=== PATIENT | male | born 1965 | race Caucasian/White ===

== ENCOUNTER 2022-12-16 09:25 | Emergency (ER) | payer OTHER ==
--- OUTSIDE RECORDS SUMMARY | 2022-12-16 09:43 | XMS REPORT | Continuity of Care Document ---
:1965 Author Organization [facility] t Address [address] [place] [address] Care Team Providers Name Role Phone Leonid Pineda Primary Care Physician KANG MCGILL Attending Clinician Unavailable GELACIO MAYERS Attending Clinician Unavailable DARRION SHEEHAN Attending Clinician Unavailable DARRION SHEEHAN Attending Clinician Unavailable Jose Medeiros Attending Clinician Unavailable Gelacio Mayers MD Attending Clinician Kang Mcgill MD Attending Clinician Miguel Dill Attending Clinician Doctor Unassigned, [place] Attending Clinician Unavailable Renae Villarreal DO Attending Clinician RENAE VILLARREAL Attending Clinician Unavailable RENAE VILLARREAL Attending Clinician Unavailable Vtc-Lab Attending Clinician Unavailable Dex Merino [facility] Attending Clinician Unavailable JACQUES SOSA Attending Clinician Unavailable Pob, Adc Lab Main Attending Clinician Unavailable Claudy Jung MD Attending Clinician 2, [facility] Lab Attending Clinician Unavailable Therapist, Adc Respiratory Attending Clinician Unavailable Only, Adc Test Attending Clinician Unavailable Frank Chaney Attending Clinician Jose Medeiros Admitting Clinician Unavailable [facility] Admitting Clinician Unavailable Frank Chaney Admitting Clinician Payers Payer Name Policy Type Policy Number Effective Date Expiration Date S rocio [facility] [id number] 2020 PPO 00:00:00 Problems Condition Condition Condition Status Onset Resolution Last Treating Co mments Source Name Details Category Date Date Treatment Clinician Date Closed Closed Disease Active Univers fracture fracture -26 [place]y of of [place] 00 Medical left left Branch radius and radius and ulna with ulna with routine routine healing healing ISCHEMIC ISCHEMIC Diagnosis Active 2016-07-06 Memoria STROKE STROKE 1-12 16:59:00 l Active 00:00: [place] 07/05/2016 00 [facility] [place] Right Right Disease Active 2014-06 Univers wrist wrist 2-15 ity of injury injury 00:00: [address] Allergies, Adverse Reactions, Alerts Allergy Allergy Status Severity Reaction(s) Onset Inactive Treating Comm ents Source Name Type Date Date Clinician No Known DA Active [facility] Allergie 2-10 [place] 00:[place]: [address] NO KNOWN Drug Active Univers ALLERGIE Class ity of S [facility] Social History Social Habit Start Date Stop Date Quantity Comments Source Cigarettes smoked 2022-11-14 2022-11-14 Univers ity of current (pack per 00:00:00 00:00:00 ) - Reported Branch Tobacco use and 2022-11-14 2022-11-14 Smokeless Universit y of exposure 00:00:00 00:00:00 tobacco non-user [facility] intake 2022-11-14 2022-11-14 4 /d University of 00:00:00 00:00:00 [facility] Exposure to 2022-10-29 2022-11-08 Not sure University of SARS-CoV-2 (event) 00:00:00 08:07:00 [facility] History of tobacco 2021-07-21 Cigarette Smoker University of use 00:00:00 [facility] Social History 2016-07-05 2016-07-05 [facility] Aysha sanchez 19:41:19 19:41:19 Sex [birth year] Universit y of 00:00:00 00:00:00 [facility] Smoking Status Start Date Stop Date Source Ex-smoker 2022-11-14 00:00:00 2022-11-14 00:00:00 [facility] Smokes tobacco daily 2015-06-07 00:00:00 [facility] Medications Ordered Filled Start Stop Current Ordering Indication Dosage Frequency Signature Comments Components Source Medication Medication Date Date Medication? Clinician (SIG) Name Name losartan 50 2022-0 Yes 50mg Take 1 Univ ers mg tablet 5-18 tablet by ity o f 08:33: mouth in [place] [address] the Medical morning. Branch losartan 50 3-0 Yes 50mg Take 1 Univ ers mg tablet 5-18 tablet by ity o f 08:33: mouth in [place] [address] the Medical morning. Branch losartan 50 3-0 Yes 50mg Take 1 Univ ers mg tablet 5-18 tablet by ity o f 08:33: mouth in [place] [address] the Medical morning. Branch losartan 50 3-0 Yes 50mg Take 1 Univ ers mg tablet 5-18 tablet by ity o f 08:33: mouth in [place] [address] the Medical morning. Branch losartan 50 3-0 Yes 50mg Take 1 Univ ers mg tablet 5-18 tablet by ity o f 08:33: mouth in [place] [address] the Medical morning. Branch losartan 50 2023-0 Yes 50mg Take 1 Univ ers mg tablet 5-18 tablet by ity o f 08:33: mouth in [place] [address] the Medical morning. Branch losartan 50 2023-0 Yes 50mg Take 1 Univ ers mg tablet 5-18 tablet by ity o f 08:33: mouth in [place] [address] the Medical morning. Branch losartan 50 2023-0 Yes 50mg Take 1 Univ ers mg tablet 5-18 tablet by ity o f 08:33: mouth in [place] [address] the Medical morning. Branch losartan 50 2023-0 Yes 50mg Take 1 Univ ers mg tablet 5-18 tablet by ity o f 08:33: mouth in [place] [address] the Medical morning. Branch losartan 50 2023-0 Yes 50mg Take 1 Univ ers mg tablet 5-18 tablet by ity o f 08:33: mouth in [place] 55 the Medical morning. Branch losartan 50 3-0 Yes 50mg Take 1 Univ ers mg tablet 5-18 tablet by ity o f 08:33: mouth in [place] 55 the Medical morning. Branch pantoprazol 3-0 Yes [id number] 40mg Take 1 Univers e 5-18 tablet by ity of (PROTONIX) 00:00: mouth in [place] as 40 mg EC 00 the Medical tablet morning. Branch pantoprazol 2023-0 Yes [id number] 40mg Take 1 Univers e 5-18 tablet by ity of (PROTONIX) 00:00: mouth in [place] as 40 mg EC 00 the Medical tablet morning. Branch pantoprazol 2023-0 Yes [id number] 40mg Take 1 Univers e 5-18 tablet by ity of (PROTONIX) 00:00: mouth in [place] 40 mg EC 00 the Medical tablet morning. Branch pantoprazol 3-0 Yes [id number] 40mg Take 1 Univers e 5-18 tablet by ity of (PROTONIX) 00:00: mouth in [place] 40 mg EC 00 the Medical tablet morning. Branch pantoprazol 3-0 Yes [id number] 40mg Take 1 Univers e 5-18 tablet by ity of (PROTONIX) 00:00: mouth in [place] 40 mg [place] 00 the Medical tablet morning. Branch pantoprazol 3-0 Yes [id number] 40mg Take 1 Univers e 5-18 tablet by ity of (PROTONIX) 00:00: mouth in [place] as 40 mg EC 00 the Medical tablet morning. Branch pantoprazol 2023-0 Yes [id number] 40mg Take 1 Univers e 5-18 tablet by ity of (PROTONIX) 00:00: mouth in [place] 40 mg EC 00 the Medical tablet morning. Branch pantoprazol 3-0 Yes [id number] 40mg Take 1 Univers e 5-18 tablet by ity of (PROTONIX) 00:00: mouth in [place] 40 mg EC 00 the Medical tablet morning. Branch pantoprazol 2023-0 Yes [id number] 40mg Take 1 Univers e 5-18 tablet by ity of (PROTONIX) 00:00: mouth in [place] as 40 mg EC 00 the Medical tablet morning. Branch pantoprazol 2023-0 Yes [id number] 40mg Take 1 Univers e 5-18 tablet by ity of (PROTONIX) 00:00: mouth in [facility] as 40 mg EC 00 the Medical tablet morning. Branch pantoprazol 2022-0 Yes [id number] 40mg Take 1 Univers e 5-18 tablet by ity of (PROTONIX) 00:00: mouth in [facility] as 40 mg EC 00 the Medical tablet morning. Branch ambrisentan 2022-0 Yes [id number] 10mg Take 1 Univers 10 mg 4-17 tablet by ity of tablet 00:00: mouth in [place] the Medical morning. Branch ambrisentan 2022-0 Yes [id number] 10mg Take 1 Univers 10 mg 4-17 tablet by ity of tablet 00:00: mouth in [place] the Medical morning. Branch ambrisentan 2022-0 Yes [id number] 10mg Take 1 Univers 10 mg 4-17 tablet by ity of tablet 00:00: mouth in [place] the Medical morning. Branch ambrisentan 2022-0 Yes [id number] 10mg Take 1 Univers 10 mg 4-17 tablet by ity of tablet 00:00: mouth in [place] the Medical morning. Branch ambrisentan 2022-0 Yes [id number] 10mg Take 1 Univers 10 mg 4-17 tablet by ity of tablet 00:00: mouth in [place] the Medical morning. Branch ambrisentan 2022-0 Yes [id number] 10mg Take 1 Univers 10 mg 4-17 tablet by ity of tablet 00:00: mouth in [place] the Medical morning. Branch ambrisentan 2022-0 Yes [id number] 10mg Take 1 Univers 10 mg 4-17 tablet by ity of tablet 00:00: mouth in [place] the Medical morning. Branch ambrisentan 2022-0 Yes [id number] 10mg Take 1 Univers 10 mg 4-17 tablet by ity of tablet 00:00: mouth in [place] the Medical morning. Branch ambrisentan 2022-0 Yes [id number] 10mg Take 1 Univers 10 mg 4-17 tablet by ity of tablet 00:00: mouth in [place] the Medical morning. Branch ambrisentan 2022-0 Yes [id number] 10mg Take 1 Univers 10 mg 4-17 tablet by ity of tablet 00:00: mouth in [place] the Medical morning. Branch ambrisentan 2022-0 Yes [id number] 10mg Take 1 Univers 10 mg 4-17 tablet by ity of tablet 00:00: mouth in [place] the Medical morning. Branch ambrisentan 3-0 Yes [id number] 10mg Take 1 Univers 10 mg 4-17 tablet by ity of tablet 00:00: mouth in [place] the Medical morning. Branch ambrisentan 3-0 Yes [id number] 10mg Take 1 Univers 10 mg 4-17 tablet by ity of tablet 00:00: mouth in [place] the Medical morning. Branch ambrisentan 3-0 Yes [id number] 10mg Take 1 Univers 10 mg 4-17 tablet by ity of tablet 00:00: mouth in [place] the Medical morning. Branch ambrisentan 3-0 Yes [id number] 10mg Take 1 Univers 10 mg 4-17 tablet by ity of tablet 00:00: mouth in [place] the Medical morning. Branch ambrisentan 2022-0 Yes [id number] 10mg Take 1 Univers 10 mg 4-17 tablet by ity of tablet 00:00: mouth in [place] the Medical morning. Branch ambrisentan 2022-0 Yes [id number] 10mg Take 1 Univers 10 mg 4-17 tablet by ity of tablet 00:00: mouth in [place] the Medical morning. Branch ambrisentan 2022-0 Yes [id number] 10mg Take 1 Univers 10 mg 4-17 tablet by ity of tablet 00:00: mouth in [place] the Medical morning. Branch ambrisentan 3-0 Yes [id number] 10mg Take 1 Univers 10 mg 4-17 tablet by ity of tablet 00:00: mouth in [place] the Medical morning. Branch ambrisentan 3-0 Yes [id number] 10mg Take 1 Univers 10 mg 4-17 tablet by ity of tablet 00:00: mouth in [place] the Medical morning. Branch ambrisentan 3-0 Yes [id number] 10mg Take 1 Univers 10 mg 4-17 tablet by ity of tablet 00:00: mouth in [place] the Medical morning. Branch ambrisentan 3-0 Yes [id number] 10mg Take 1 Univers 10 mg 4-17 tablet by ity of tablet 00:00: mouth in [place] the Medical morning. Branch ambrisentan 3-0 Yes [id number] 10mg Take 1 Univers 10 mg 4-17 tablet by ity of tablet 00:00: mouth in [place] the Medical morning. Branch ambrisentan 3-0 Yes [id number] 10mg Take 1 Univers 10 mg 4-17 tablet by ity of tablet 00:00: mouth in [place] the Medical morning. Branch ambrisentan 3-0 Yes [id number] 10mg Take 1 Univers 10 mg 4-17 tablet by ity of tablet 00:00: mouth in [place] the Medical morning. Branch ambrisentan 3-0 Yes [id number] 10mg Take 1 Univers 10 mg 4-17 tablet by ity of tablet 00:00: mouth in [place] the Medical morning. Branch ambrisentan 3-0 Yes [id number] 10mg Take 1 Univers 10 mg 4-17 tablet by ity of tablet 00:00: mouth in [place] the Medical morning. Branch ambrisentan 3-0 Yes [id number] 10mg Take 1 Univers 10 mg 4-17 tablet by ity of tablet 00:00: mouth in [place] the Medical morning. Branch ambrisentan 3-0 Yes [id number] 10mg Take 1 Univers 10 mg 4-17 tablet by ity of tablet 00:00: mouth in [place] the Medical morning. Branch ambrisentan 3-0 Yes [id number] 10mg Take 1 Univers 10 mg 4-17 tablet by ity of tablet 00:00: mouth in [place] the Medical morning. Branch ambrisentan 3-0 Yes [id number] 10mg Take 1 Univers 10 mg 4-17 tablet by ity of tablet 00:00: mouth in [place] the Medical morning. Branch ambrisentan 3-0 Yes [id number] 5mg Take 1 Univers 5 mg tablet 3-13 tablet by ity of 00:00: mouth in [place] the Medical morning. Branch ambrisentan 2023-0 Yes [id number] 5mg Take 1 Univers 5 mg tablet 3-13 tablet by ity of 00:00: mouth in [place] 00 the Medical morning. Branch ambrisentan 2023-0 Yes [id number] 5mg Take 1 Univers 5 mg tablet 3-13 tablet by ity of 00:00: mouth in [place] 00 the Medical morning. Branch ambrisentan 2023-0 Yes [id number] 5mg Take 1 Univers 5 mg tablet 3-13 tablet by ity of 00:00: mouth in [place] the Medical morning. Branch ambrisentan 2023-0 Yes [id number] 5mg Take 1 Univers 5 mg tablet 3-13 tablet by ity of 00:00: mouth in [place] the Medical morning. Branch ambrisentan 2023-0 Yes [id number] 5mg Take 1 Univers 5 mg tablet 3-13 tablet by ity of 00:00: mouth in [place] the Medical morning. Branch ambrisentan 2023-0 Yes [id number] 5mg Take 1 Univers 5 mg tablet 3-13 tablet by ity of 00:00: mouth in [place] the Medical morning. Branch ambrisentan 2023-0 Yes [id number] 5mg Take 1 Univers 5 mg tablet 3-13 tablet by ity of 00:00: mouth in [place] the Medical morning. Branch ambrisentan 2023-0 Yes [id number] 5mg Take 1 Univers 5 mg tablet 3-13 tablet by ity of 00:00: mouth in [place] the Medical morning. Branch ambrisentan 2023-0 Yes [id number] 5mg Take 1 Univers 5 mg tablet 3-13 tablet by ity of 00:00: mouth in [place] the Medical morning. Branch ambrisentan 2023-0 Yes [id number] 5mg Take 1 Univers 5 mg tablet 3-13 tablet by ity of 00:00: mouth in [place] the Medical morning. Branch ambrisentan 2023-0 Yes [id number] 5mg Take 1 Univers 5 mg tablet 3-13 tablet by ity of 00:00: mouth in [place] the Medical morning. Branch ambrisentan 2023-0 Yes [id number] 5mg Take 1 Univers 5 mg tablet 3-13 tablet by ity of 00:00: mouth in [place] the Medical morning. Branch ambrisentan 2023-0 Yes [id number] 5mg Take 1 Univers 5 mg tablet 3-13 tablet by ity of 00:00: mouth in [place] the Medical morning. Branch ambrisentan 2023-0 Yes [id number] 5mg Take 1 Univers 5 mg tablet 3-13 tablet by ity of 00:00: mouth in [place] the Medical morning. Branch ambrisentan 2023-0 Yes [id number] 5mg Take 1 Univers 5 mg tablet 3-13 tablet by ity of 00:00: mouth in [place] the Medical morning. Branch ambrisentan 2023-0 Yes [id number] 5mg Take 1 Univers 5 mg tablet 3-13 tablet by ity of 00:00: mouth in [place] the Medical morning. Branch ambrisentan 2023-0 Yes [id number] 5mg Take 1 Univers 5 mg tablet 3-13 tablet by ity of 00:00: mouth in [place] the Medical morning. Branch ambrisentan 2023-0 Yes [id number] 5mg Take 1 Univers 5 mg tablet 3-13 tablet by ity of 00:00: mouth in [place] the Medical morning. Branch ambrisentan 2023-0 Yes [id number] 5mg Take 1 Univers 5 mg tablet 3-13 tablet by ity of 00:00: mouth in [place] the Medical morning. Branch ambrisentan 2023-0 Yes [id number] 5mg Take 1 Univers 5 mg tablet 3-13 tablet by ity of 00:00: mouth in [place] the Medical morning. Branch ambrisentan 2023-0 Yes [id number] 5mg Take 1 Univers 5 mg tablet 3-13 tablet by ity of 00:00: mouth in [place] the Medical morning. Branch ambrisentan 2023-0 Yes [id number] 5mg Take 1 Univers 5 mg tablet 3-13 tablet by ity of 00:00: mouth in [place] the Medical morning. Branch ambrisentan 2023-0 Yes [id number] 5mg Take 1 Univers 5 mg tablet 3-13 tablet by ity of 00:00: mouth in [place] the Medical morning. Branch ambrisentan 2023-0 Yes [id number] 5mg Take 1 Univers 5 mg tablet 3-13 tablet by ity of 00:00: mouth in [place] the Medical morning. Branch ambrisentan 2023-0 Yes [id number] 5mg Take 1 Univers 5 mg tablet 3-13 tablet by ity of 00:00: mouth in [place] the Medical morning. Branch ambrisentan 2023-0 Yes [id number] 5mg Take 1 Univers 5 mg tablet 3-13 tablet by ity of 00:00: mouth in [place] the Medical morning. Branch ambrisentan 2023-0 Yes [id number] 5mg Take 1 Univers 5 mg tablet 3-13 tablet by ity of 00:00: mouth in [place] 00 the Medical morning. Branch ambrisentan 2023-0 Yes [id number] 5mg Take 1 Univers 5 mg tablet 3-13 tablet by ity of 00:00: mouth in [place] the Medical morning. Branch ambrisentan 2023-0 Yes [id number] 5mg Take 1 Univers 5 mg tablet 3-13 tablet by ity of 00:00: mouth in [place] the Medical morning. Branch ambrisentan 2023-0 Yes [id number] 5mg Take 1 Univers 5 mg tablet 3-13 tablet by ity of 00:00: mouth in [place] the Medical morning. Branch ambrisentan 2023-0 Yes [id number] 5mg Take 1 Univers 5 mg tablet 3-13 tablet by ity of 00:00: mouth in [place] the Medical morning. Branch ambrisentan 2023-0 Yes [id number] 5mg Take 1 Univers 5 mg tablet 3-13 tablet by ity of 00:00: mouth in [place] the Medical morning. Branch ambrisentan 2023-0 Yes [id number] 5mg Take 1 Univers 5 mg tablet 3-13 tablet by ity of 00:00: mouth in [place] the Medical morning. Branch ambrisentan 2023-0 Yes [id number] 5mg Take 1 Univers 5 mg tablet 3-13 tablet by ity of 00:00: mouth in [place] the Medical morning. Branch ambrisentan 2023-0 Yes [id number] 5mg Take 1 Univers 5 mg tablet 3-13 tablet by ity of 00:00: mouth in [place] the Medical morning. Branch ambrisentan 2023-0 Yes [id number] 5mg Take 1 Univers 5 mg tablet 3-13 tablet by ity of 00:00: mouth in [place] the Medical morning. Branch ambrisentan 2023-0 Yes [id number] 5mg Take 1 Univers 5 mg tablet 3-13 tablet by ity of 00:00: mouth in [place] the Medical morning. Branch ambrisentan 2023-0 Yes [id number] 5mg Take 1 Univers 5 mg tablet 3-13 tablet by ity of 00:00: mouth in [place] the Medical morning. Branch ambrisentan 2023-0 Yes [id number] 5mg Take 1 Univers 5 mg tablet 3-13 tablet by ity of 00:00: mouth in [place] 00 the Medical morning. Branch ambrisentan 3-0 Yes [id number] 5mg Take 1 Univers 5 mg tablet 3-13 tablet by ity of 00:00: mouth in [place] 00 the Medical morning. Branch ambrisentan 3-0 Yes [id number] 5mg Take 1 Univers 5 mg tablet 3-13 tablet by ity of 00:00: mouth in [place] 00 the Medical morning. Branch ambrisentan 3-0 Yes [id number] 5mg Take 1 Univers 5 mg tablet 3-13 tablet by ity of 00:00: mouth in [place] 00 the Medical morning. Branch aspirin 325 2022-0 Yes 325mg Take 325 U nivers mg tablet 3-02 mg by ity of 09:45: mouth [place] 57 daily. Medical Branch aspirin 325 2022-0 Yes 325mg Take 325 U nivers mg tablet 3-02 mg by ity of 09:45: mouth [place] 57 daily. Medical Branch aspirin 325 2022-0 Yes 325mg Take 325 U nivers mg tablet 3-02 mg by ity of 09:45: mouth [place] 57 daily. Medical Branch aspirin 325 2022-0 Yes 325mg Take 325 U nivers mg tablet 3-02 mg by ity of 09:45: mouth [place] 57 daily. Medical Branch aspirin 325 2022-0 Yes 325mg Take 325 U nivers mg tablet 3-02 mg by ity of 09:45: mouth [place] 57 daily. Medical Branch aspirin 325 2022-0 Yes 325mg Take 325 U nivers mg tablet 3-02 mg by ity of 09:45: mouth [place] 57 daily. Medical Branch aspirin 325 3-0 Yes 325mg Take 325 U nivers mg tablet 3-02 mg by ity of 09:45: mouth [place] 57 daily. Medical Branch aspirin 325 2022-0 Yes 325mg Take 325 U nivers mg tablet 3-02 mg by ity of 09:45: mouth [place] 57 daily. Medical Branch aspirin 325 3-0 Yes 325mg Take 325 U nivers mg tablet 3-02 mg by ity of 09:45: mouth [place] 57 daily. Medical Branch aspirin 325 3-0 Yes 325mg Take 325 U nivers mg tablet 3-02 mg by ity of 09:45: mouth [place] 57 daily. Medical Branch aspirin 325 3-0 Yes 325mg Take 325 U nivers mg tablet 3-02 mg by ity of 09:45: mouth [place] 57 daily. Medical Branch aspirin 325 2022-0 Yes 325mg Take 325 U nivers mg tablet 3-02 mg by ity of 09:45: mouth [place] 57 daily. Medical Branch aspirin 325 2022-0 Yes 325mg Take 325 U nivers mg tablet 3-02 mg by ity of 09:45: mouth [place] 57 daily. Medical Branch aspirin 325 2022-0 Yes 325mg Take 325 U nivers mg tablet 3-02 mg by ity of 09:45: mouth [place] 57 daily. Medical Branch aspirin 325 2022-0 Yes 325mg Take 325 U nivers mg tablet 3-02 mg by ity of 09:45: mouth [place] 57 daily. Medical Branch aspirin 325 2022-0 Yes 325mg Take 325 U nivers mg tablet 3-02 mg by ity of 09:45: mouth [place] 57 daily. Medical Branch aspirin 325 2022-0 Yes 325mg Take 325 U nivers mg tablet 3-02 mg by ity of 09:45: mouth [place] 57 daily. Medical Branch aspirin 325 2022-0 Yes 325mg Take 325 U nivers mg tablet 3-02 mg by ity of 09:45: mouth [place] 57 daily. Medical Branch aspirin 325 2022-0 Yes 325mg Take 325 U nivers mg tablet 3-02 mg by ity of 09:45: mouth [place] 57 daily. Medical Branch aspirin 325 2022-0 Yes 325mg Take 325 U nivers mg tablet 3-02 mg by ity of 09:45: mouth [place] 57 daily. Medical Branch aspirin 325 2022-0 Yes 325mg Take 325 U nivers mg tablet 3-02 mg by ity of 09:45: mouth [place] 57 daily. Medical Branch aspirin 325 2022-0 Yes 325mg Take 325 U nivers mg tablet 3-02 mg by ity of 09:45: mouth [place] 57 daily. Medical Branch aspirin 325 2022-0 Yes 325mg Take 325 U nivers mg tablet 3-02 mg by ity of 09:45: mouth [place] 57 daily. Medical Branch aspirin 325 3-0 Yes 325mg Take 325 U nivers mg tablet 3-02 mg by ity of 09:45: mouth [place] 57 daily. Medical Branch aspirin 325 3-0 Yes 325mg Take 325 U nivers mg tablet 3-02 mg by ity of 09:45: mouth [place] 57 daily. Medical Branch aspirin 325 2022-0 Yes 325mg Take 325 U nivers mg tablet 3-02 mg by ity of 09:45: mouth [place] 57 daily. Medical Branch aspirin 325 2022-0 Yes 325mg Take 325 U nivers mg tablet 3-02 mg by ity of 09:45: mouth [place] 57 daily. Medical Branch aspirin 325 2022-0 Yes 325mg Take 325 U nivers mg tablet 3-02 mg by ity of 09:45: mouth [place] 57 daily. Medical Branch aspirin 325 2022-0 Yes 325mg Take 325 U nivers mg tablet 3-02 mg by ity of 09:45: mouth [place] 57 daily. Medical Branch aspirin 325 2022-0 Yes 325mg Take 325 U nivers mg tablet 3-02 mg by ity of 09:45: mouth [place] 57 daily. Medical Branch aspirin 325 2022-0 Yes 325mg Take 325 U nivers mg tablet 3-02 mg by ity of 09:45: mouth [place] 57 daily. Medical Branch aspirin 325 2022-0 Yes 325mg Take 325 U nivers mg tablet 3-02 mg by ity of 09:45: mouth [place] 57 daily. Medical Branch aspirin 325 2022-0 Yes 325mg Take 325 U nivers mg tablet 3-02 mg by ity of 09:45: mouth [place] 57 daily. Medical Branch aspirin 325 2022-0 Yes 325mg Take 325 U nivers mg tablet 3-02 mg by ity of 09:45: mouth [place] 57 daily. Medical Branch aspirin 325 2022-0 Yes 325mg Take 325 U nivers mg tablet 3-02 mg by ity of 09:45: mouth [place] 57 daily. Medical Branch aspirin 325 2022-0 Yes 325mg Take 325 U nivers mg tablet 3-02 mg by ity of 09:45: mouth [place] 57 daily. Medical Branch aspirin 325 2022-0 Yes 325mg Take 325 U nivers mg tablet 3-02 mg by ity of 09:45: mouth [place] 57 daily. Medical Branch aspirin 325 2022-0 Yes 325mg Take 325 U nivers mg tablet 3-02 mg by ity of 09:45: mouth [place] 57 daily. Medical Branch aspirin 325 2022-0 Yes 325mg Take 325 U nivers mg tablet 3-02 mg by ity of 09:45: mouth [place] 57 daily. Medical Branch aspirin 325 2022-0 Yes 325mg Take 325 U nivers mg tablet 3-02 mg by ity of 09:45: mouth [place] 57 daily. Medical Branch aspirin 325 2022-0 Yes 325mg Take 325 U nivers mg tablet 3-02 mg by ity of 09:45: mouth [place] 57 daily. Medical Branch aspirin 325 2022-0 Yes 325mg Take 325 U nivers mg tablet 3-02 mg by ity of 09:45: mouth [place] 57 daily. Medical Branch aspirin 325 2022-0 Yes 325mg Take 325 U nivers mg tablet 3-02 mg by ity of 09:45: mouth [place] 57 daily. Medical Branch aspirin 325 2022-0 Yes 325mg Take 325 U nivers mg tablet 3-02 mg by ity of 09:45: mouth [place] 57 daily. Medical Branch aspirin 325 2022-0 Yes 325mg Take 325 U nivers mg tablet 3-02 mg by ity of 09:45: mouth [place] 57 daily. Medical Branch aspirin 325 2022-0 Yes 325mg Take 325 U nivers mg tablet 3-02 mg by ity of 09:45: mouth [place] 57 daily. Medical Branch aspirin 325 2022-0 Yes 325mg Take 325 U nivers mg tablet 3-02 mg by ity of 09:45: mouth [place] 57 daily. Medical Branch aspirin 325 2022-0 Yes 325mg Take 325 U nivers mg tablet 3-02 mg by ity of 09:45: mouth [place] 57 daily. Medical Branch aspirin 325 2022-0 Yes 325mg Take 325 U nivers mg tablet 3-02 mg by ity of 09:45: mouth [place] 57 daily. Medical Branch aspirin 325 2022-0 Yes 325mg Take 325 U nivers mg tablet 3-02 mg by ity of 09:45: mouth [place] 57 daily. Medical Branch aspirin 325 2022-0 Yes 325mg Take 325 U nivers mg tablet 3-02 mg by ity of 09:45: mouth [place] 57 daily. Medical Branch aspirin 325 2022-0 Yes 325mg Take 325 U nivers mg tablet 3-02 mg by ity of 09:45: mouth [place] 57 daily. Medical Branch aspirin 325 2022-0 Yes 325mg Take 325 U nivers mg tablet 3-02 mg by ity of 09:45: mouth [place] 57 daily. Medical Branch aspirin 325 2022-0 Yes 325mg Take 325 U nivers mg tablet 3-02 mg by ity of 09:45: mouth [place] 57 daily. Medical Branch aspirin 325 2022-0 Yes 325mg Take 325 U nivers mg tablet 3-02 mg by ity of 09:45: mouth [place] 57 daily. [facility] aspirin 325 2022-0 Yes 325mg Take 325 [facility] mg tablet 3-02 mg by it[facility] of 09:45: mouth [place] 57 daily. [facility] clopidogreL 3-0 Yes 75mg Take 1 [facility] 75 mg 3-02 tablet by [facility] of tablet 09:45: mouth in [place] 46 the Medical morning. Branch atorvastati 2022-0 Yes Take by [facility] vers n calcium 3-02 mouth at [facility] of (ATORVASTAT 09:45: bedtime. [place] IN ORAL) 46 [facility] clopidogreL 3-0 Yes 75mg Take 1 [facility] 75 mg 3-02 tablet by it[facility] of tablet 09:45: mouth in [place] 46 the Medical morning. Branch atorvastati 2022-0 Yes Take by [facility] vers [facility] calcium 3-02 mouth at [facility] of (ATORVASTAT 09:45: bedtime. [place] IN [place]AL[place] 46 [facility] clopidogreL 3-0 Yes 75mg Take 1 [facility] 75 mg 3-02 tablet by [facility] of tablet 09:45: mouth in [place] 46 the Medical morning. Branch atorvastati 2022-0 Yes Take by [facility] vers [facility] calcium 3-02 mouth at [facility] of (ATORVASTAT 09:45: bedtime. [place] IN [place]AL[place] 46 [facility] clopidogreL 3-0 Yes 75mg Take 1 [facility] 75 mg 3-02 tablet by [facility] of tablet 09:45: mouth in [place] 46 the Medical morning. Branch atorvastati 2022-0 Yes Take by [facility] vers [facility] calcium 3-02 mouth at [facility] of (ATORVASTAT 09:45: bedtime. [place] IN [place]AL) 46 [facility] clopidogreL 3-0 Yes 75mg Take 1 [facility] 75 mg 3-02 tablet by [facility] of tablet 09:45: mouth in [place] 46 the Medical morning. Branch atorvastati 3-0 Yes Take by [facility] vers [facility] calcium 3-02 mouth at [facility] of (ATORVASTAT 09:45: bedtime. [place] IN [place]AL) 46 [facility] clopidogreL 2023-0 Yes 75mg Take 1 [facility] 75 mg 3-02 tablet by it[facility] of tablet 09:45: mouth in [place] [address] the Medical morning. Branch atorvastati 3-0 Yes Take by [facility] vers [facility] calcium 3-02 mouth at [facility] of (ATORVASTAT 09:45: bedtime. [place] IN ORAL) 46 [facility] clopidogreL 3-0 Yes 75mg Take 1 [facility] 75 mg 3-02 tablet by it[facility] of tablet 09:45: mouth in [place] 46 the Medical morning. Branch atorvastati 2022-0 Yes Take by [facility] tal[facility] n calcium 3-02 mouth at [facility] of (ATORVASTAT 09:45: bedtime. [place] IN ORAL) 46 [facility] clopidogreL 3-0 Yes 75mg Take 1 [facility] 75 mg 3-02 tablet by it[facility] of tablet 09:45: mouth in [place] [address] the Medical morning. Branch atorvastati 3-0 Yes Take by [facility] vers [facility] calcium 3-02 mouth at [facility] of (ATORVASTAT 09:45: bedtime. [place] IN [place]AL) 46 [facility] clopidogreL 3-0 Yes 75mg Take 1 [facility] 75 mg 3-02 tablet by [facility] of tablet 09:45: mouth in [place] [address] the Medical morning. Branch atorvastati 3-0 Yes Take by [facility] vers [facility] calcium 3-02 mouth at [facility] of (ATORVASTAT 09:45: bedtime. [place] IN [place]AL) 46 [facility] clopidogreL 3-0 Yes 75mg Take 1 [facility] 75 mg 3-02 tablet by [facility] of tablet 09:45: mouth in [place] [address] the Medical morning. Branch atorvastati 3-0 Yes Take by [facility] vers [facility] calcium 3-02 mouth at [facility] of (ATORVASTAT 09:45: bedtime. [place] IN [place]AL) 46 [facility] clopidogreL 2023-0 Yes 75mg Take 1 [facility] 75 mg 3-02 tablet by [facility] of tablet 09:45: mouth in [place] [address] the Medical morning. Branch atorvastati 3-0 Yes Take by [facility] vers [facility] calcium 3-02 mouth at [facility] of (ATORVASTAT 09:45: bedtime. [place] IN [place]AL) 46 [facility] atorvastati 3-0 Yes Take by [facility] calcium 3-02 mouth at [facility] of (ATORVASTAT 09:45: bedtime. [place] IN [place]AL) 46 [facility] clopidogreL 2022-0 Yes 75mg Take 1 [facility] 75 mg 3-02 tablet by it[facility] of tablet 09:45: mouth in [place] 46 the Medical morning. Branch atorvastati 2022-0 Yes Take by [facility] vers [facility] calcium 3-02 mouth at [facility] of (ATORVASTAT 09:45: bedtime. [place] IN [place]AL) 46 [facility] clopidogreL 2022-0 Yes 75mg Take 1 [facility] 75 mg 3-02 tablet by [facility] of tablet 09:45: mouth in [place] 46 the Medical morning. Branch atorvastati 0 Yes Take by [facility] calcium 3-02 mouth at [facility] of (ATORVASTAT 09:45: bedtime. [place] IN [place]AL) 46 [facility] clopidogreL 2022-0 Yes 75mg Take 1 [facility] 75 mg 3-02 tablet by it[facility] of tablet 09:45: mouth in [place] 46 the Medical morning. Branch atorvastati 0 Yes Take by [facility] vers [facility] calcium 3-02 mouth at [facility] of (ATORVASTAT 09:45: bedtime. [place] IN [place]AL) 46 [facility] clopidogreL 2022-0 Yes 75mg Take 1 [facility] 75 mg 3-02 tablet by it[facility] of tablet 09:45: mouth in [place] 46 the Medical morning. Branch atorvastati 2022-0 Yes Take by [facility] vers [facility] calcium 3-02 mouth at [facility] of (ATORVASTAT 09:45: bedtime. [place] IN [place]AL) 46 [facility] atorvastati 2022-0 Yes Take by [facility] vers [facility] calcium 3-02 mouth at [facility] of (ATORVASTAT 09:45: bedtime. [place]) 46 [facility] atorvastati 0 Yes Take by [facility] vers [facility] calcium 3-02 mouth at [facility] of (ATORVASTAT 09:45: bedtime. [place] IN [place]AL) 46 [facility] clopidogreL 2022-0 Yes 75mg Take 1 [facility] 75 mg 3-02 tablet by it[facility] of tablet 09:45: mouth in [place] 46 the Medical morning. Branch atorvastati 2022-0 Yes Take by [facility] vers [facility] calcium 3-02 mouth at [facility] of (ATORVASTAT 09:45: bedtime. [place] IN [place]AL) 46 [facility] clopidogreL 2022-0 Yes 75mg Take 1 [facility] 75 mg 3-02 tablet by [facility] of tablet 09:45: mouth in [place] [address] the Medical morning. Branch atorvastati 2023-0 Yes Take by [facility] vers [facility] calcium 3-02 mouth at [facility] of (ATORVASTAT 09:45: bedtime. [place] IN [place]AL) 46 [facility] clopidogreL 2023-0 Yes 75mg Take 1 [facility] 75 mg 3-02 tablet by it[facility] of tablet 09:45: mouth in [place] 46 the Medical morning. Branch atorvastati 2023-0 Yes Take by [facility] vers [facility] calcium 3-02 mouth at [facility] of (ATORVASTAT 09:45: bedtime. [place] IN [place]AL) 46 [facility] clopidogreL 2023-0 Yes 75mg Take 1 [facility] 75 mg 3-02 tablet by ity of tablet 09:45: mouth in [place] [address] the Medical morning. Branch atorvastati 2023-0 Yes Take by [facility] vers [facility] calcium 3-02 mouth at [facility] of (ATORVASTAT 09:45: bedtime. [place] IN [place]AL) 46 [facility] clopidogreL 2023-0 Yes 75mg Take 1 [facility] 75 mg 3-02 tablet by it[facility] of tablet 09:45: mouth in [place] [address] the Medical morning. Branch atorvastati 3-0 Yes Take by [facility] vers [facility] calcium 3-02 mouth at [facility] of (ATORVASTAT 09:45: bedtime. [place] IN [place]AL) 46 [facility] clopidogreL 2023-0 Yes 75mg Take 1 [facility] 75 mg 3-02 tablet by it[facility] of tablet 09:45: mouth in [place] 46 the Medical morning. Branch atorvastati 2023-0 Yes Take by [facility] vers [facility] calcium 3-02 mouth at [facility] of (ATORVASTAT 09:45: bedtime. [place] IN [place]AL) 46 [facility] clopidogreL 2023-0 Yes 75mg Take 1 [facility] 75 mg 3-02 tablet by it[facility] of tablet 09:45: mouth in [place] 46 the Medical morning. Branch atorvastati 2023-0 Yes Take by [facility] vers [facility] calcium 3-02 mouth at [facility] of (ATORVASTAT 09:45: bedtime. [place] IN [place]AL) 46 [facility] clopidogreL 2023-0 Yes 75mg Take 1 [facility] 75 mg 3-02 tablet by it[facility] of tablet 09:45: mouth in [place] [address] the Medical morning. Branch atorvastati 2023-0 Yes Take by [facility] vers [facility] calcium 3-02 mouth at [facility] of (ATORVASTAT 09:45: bedtime. [place] IN [place]AL) 46 [facility] clopidogreL 2023-0 Yes 75mg Take 1 [facility] 75 mg 3-02 tablet by it[facility] of tablet 09:45: mouth in [place] 46 the Medical morning. Branch atorvastati 2023-0 Yes Take by [facility] vers [facility] calcium 3-02 mouth at [facility] of (ATORVASTAT 09:45: bedtime. [place] IN [place]AL) 46 [facility] clopidogreL 2023-0 Yes 75mg Take 1 [facility] 75 mg 3-02 tablet by [facility] of tablet 09:45: mouth in [place] [address] the Medical morning. Branch atorvastati 3-0 Yes Take by [facility] vers [facility] calcium 3-02 mouth at [facility] of (ATORVASTAT 09:45: bedtime. [place] IN [place]AL) 46 [facility] clopidogreL 2023-0 Yes 75mg Take 1 [facility] 75 mg 3-02 tablet by it[facility] of tablet 09:45: mouth in [place] [address] the Medical morning. Branch atorvastati 3-0 Yes Take by [facility] vers [facility] calcium 3-02 mouth at [facility] of (ATORVASTAT 09:45: bedtime. [place] IN [place]AL) 46 [facility] clopidogreL 2023-0 Yes 75mg Take 1 [facility] 75 mg 3-02 tablet by [facility] of tablet 09:45: mouth in [place] 46 the Medical morning. Branch atorvastati 3-0 Yes Take by [facility] vers [facility] calcium 3-02 mouth at [facility] of (ATORVASTAT 09:45: bedtime. [place] IN [place]AL) 46 [facility] clopidogreL 2023-0 Yes 75mg Take 1 [facility] 75 mg 3-02 tablet by it[facility] of tablet 09:45: mouth in [place] 46 the Medical morning. Branch atorvastati 2023-0 Yes Take by [facility] vers [facility] calcium 3-02 mouth at [facility] of (ATORVASTAT 09:45: bedtime. [place] IN [place]AL) 46 [facility] clopidogreL 2023-0 Yes 75mg Take 1 [facility] 75 mg 3-02 tablet by it[facility] of tablet 09:45: mouth in [place] 46 the Medical morning. Branch atorvastati 2023-0 Yes Take by [facility] vers [facility] calcium 3-02 mouth at [facility] of (ATORVASTAT 09:45: bedtime. [place] IN ORAL) 46 [facility] clopidogreL 2023-0 Yes 75mg Take 1 [facility] 75 mg 3-02 tablet by it[facility] of tablet 09:45: mouth in [place] 46 the Medical morning. Branch atorvastati 3-0 Yes Take by [facility] vers [facility] calcium 3-02 mouth at [facility] of (ATORVASTAT 09:45: bedtime. [place] IN [place]AL) 46 [facility] clopidogreL 2023-0 Yes 75mg Take 1 [facility] 75 mg 3-02 tablet by [facility] of tablet 09:45: mouth in [place] 46 the Medical morning. Branch atorvastati 3-0 Yes Take by [facility] vers [facility] calcium 3-02 mouth at [facility] of (ATORVASTAT 09:45: bedtime. [place] IN [place]AL) 46 [facility] clopidogreL 2023-0 Yes 75mg Take 1 [facility] 75 mg 3-02 tablet by it[facility] of tablet 09:45: mouth in [place] 46 the Medical morning. Branch atorvastati 3-0 Yes Take by [facility] vers n calcium 3-02 mouth at [facility] of (ATORVASTAT 09:45: bedtime. [place] IN [place]AL) 46 [facility] clopidogreL 2023-0 Yes 75mg Take 1 [facility] 75 mg 3-02 tablet by it[facility] of tablet 09:45: mouth in [place] 46 the Medical morning. Branch atorvastati 2023-0 Yes Take by [facility] vers [facility] calcium 3-02 mouth at [facility] of (ATORVASTAT 09:45: bedtime. [place] IN [place]AL) 46 [facility] clopidogreL 2023-0 Yes 75mg Take 1 [facility] 75 mg 3-02 tablet by it[facility] of tablet 09:45: mouth in [place] 46 the Medical morning. Branch atorvastati 2023-0 Yes Take by [facility] vers [facility] calcium 3-02 mouth at [facility] of (ATORVASTAT 09:45: bedtime. [place] IN [place]AL) 46 [facility] clopidogreL 2023-0 Yes 75mg Take 1 [facility] 75 mg 3-02 tablet by ity of tablet 09:45: mouth in [place] 46 the Medical morning. Branch atorvastati 2023-0 Yes Take by [facility] vers [facility] calcium 3-02 mouth at [facility] of (ATORVASTAT 09:45: bedtime. [place] IN [place]AL) 46 [facility] clopidogreL 2023-0 Yes 75mg Take 1 [facility] 75 mg 3-02 tablet by ity of tablet 09:45: mouth in [place] 46 the Medical morning. Branch atorvastati 3-0 Yes Take by [facility] vers n calcium 3-02 mouth at [facility] of (ATORVASTAT 09:45: bedtime. [place] IN [place]AL) 46 [facility] clopidogreL 3-0 Yes 75mg Take 1 [facility] 75 mg 3-02 tablet by it[facility] of tablet 09:45: mouth in [place] 46 the Medical morning. Branch atorvastati 3-0 Yes Take by [facility] vers n calcium 3-02 mouth at [facility] of (ATORVASTAT 09:45: bedtime. [place] IN [place]AL) 46 [facility] clopidogreL 3-0 Yes 75mg Take 1 [facility] 75 mg 3-02 tablet by it[facility] of tablet 09:45: mouth in [place] [address] the Medical morning. Branch atorvastati 3-0 Yes Take by [facility] vers n calcium 3-02 mouth at [facility] of (ATORVASTAT 09:45: bedtime. [place] IN ORAL) 46 [facility] clopidogreL 3-0 Yes 75mg Take 1 [facility] 75 mg 3-02 tablet by ity of tablet 09:45: mouth in [place] 46 the Medical morning. Branch atorvastati 3-0 Yes Take by [facility] vers [facility] calcium 3-02 mouth at [facility] of (ATORVASTAT 09:45: bedtime. [place] IN [place]AL) 46 [facility] clopidogreL 3-0 Yes 75mg Take 1 [facility] 75 mg 3-02 tablet by it[facility] of tablet 09:45: mouth in [place] 46 the Medical morning. Branch atorvastati 3-0 Yes Take by [facility] vers [facility] calcium 3-02 mouth at [facility] of (ATORVASTAT 09:45: bedtime. [place] IN [place]AL) 46 [facility] clopidogreL 2023-0 Yes 75mg Take 1 [facility] 75 mg 3-02 tablet by ity of tablet 09:45: mouth in [place] [address] the Medical morning. Branch atorvastati 2023-0 Yes Take by [facility] vers n calcium 3-02 mouth at [facility] of (ATORVASTAT 09:45: bedtime. [place] IN [place]AL) 46 [facility] clopidogreL 2023-0 Yes 75mg Take 1 [facility] 75 mg 3-02 tablet by ity of tablet 09:45: mouth in [place] [address] the Medical morning. Branch atorvastati 2023-0 Yes Take by [facility] vers [facility] calcium 3-02 mouth at [facility] of (ATORVASTAT 09:45: bedtime. [place] IN [place]AL) 46 [facility] clopidogreL 2023-0 Yes 75mg Take 1 [facility] 75 mg 3-02 tablet by ity of tablet 09:45: mouth in [place] 46 the Medical morning. Branch atorvastati 2023-0 Yes Take by [facility] vers [facility] calcium 3-02 mouth at [facility] of (ATORVASTAT 09:45: bedtime. [place] IN [place]AL) 46 [facility] clopidogreL 2023-0 Yes 75mg Take 1 [facility] 75 mg 3-02 tablet by ity of tablet 09:45: mouth in [place] [address] the Medical morning. Branch atorvastati 2023-0 Yes Take by [facility] calcium 3-02 mouth at [facility] of (ATORVASTAT 09:45: bedtime. [place] IN [place]AL) 46 [facility] clopidogreL 2023-0 Yes 75mg Take 1 [facility] 75 mg 3-02 tablet by ity of tablet 09:45: mouth in [place] [address] the Medical morning. Branch atorvastati 3-0 Yes Take by [facility] calcium 3-02 mouth at [facility] of (ATORVASTAT 09:45: bedtime. [place] IN ORAL) 46 [facility] clopidogreL 2023-0 Yes 75mg Take 1 [facility] 75 mg 3-02 tablet by ity of tablet 09:45: mouth in [place] 46 the Medical morning. Branch atorvastati 2023-0 Yes Take by [facility] calcium 3-02 mouth at [facility] of (ATORVASTAT 09:45: bedtime. [place] IN ORAL) 46 [facility] clopidogreL 2023-0 Yes 75mg Take 1 [facility] 75 mg 3-02 tablet by ity of tablet 09:45: mouth in [place] 46 the Medical morning. Branch atorvastati 2023-0 Yes Take by [facility] calcium 3-02 mouth at [facility] of (ATORVASTAT 09:45: bedtime. [place] IN ORAL) 46 [facility] clopidogreL 2023-0 Yes 75mg Take 1 [facility] 75 mg 3-02 tablet by ity of tablet 09:45: mouth in [place] 46 the Medical morning. Branch atorvastati 2022-0 Yes Take by [facility] calcium 3-02 mouth at [facility] of (ATORVASTAT 09:45: bedtime. [place] IN [place]AL) 46 [facility] clopidogreL 2022-0 Yes 75mg Take 1 [facility] 75 mg 3-02 tablet by ity of tablet 09:45: mouth in [place] 46 the Medical morning. Branch atorvastati 2022-0 Yes Take by [facility] vers [facility] calcium 3-02 mouth at [facility] of (ATORVASTAT 09:45: bedtime. [place] IN [place]AL) 46 [facility] clopidogreL 2022-0 Yes 75mg Take 1 [facility] 75 mg 3-02 tablet by ity of tablet 09:45: mouth in [place] 46 the Medical morning. Branch atorvastati 2022-0 Yes Take by [facility] calcium 3-02 mouth at [facility] of (ATORVASTAT 09:45: bedtime. [place] IN [place]AL) 46 [facility] clopidogreL 3-0 Yes 75mg Take 1 [facility] 75 mg 3-02 tablet by ity of tablet 09:45: mouth in [place] 46 the Medical morning. Branch atorvastati 2022-0 Yes Take by [facility] calcium 3-02 mouth at [facility] of (ATORVASTAT 09:45: bedtime. [place] IN [place]AL) 46 [facility] clopidogreL 3-0 Yes 75mg Take 1 [facility] 75 mg 3-02 tablet by it[facility] of tablet 09:45: mouth in [place] 46 the Medical morning. Branch atorvastati 2022-0 Yes Take by [facility] calcium 3-02 mouth at [facility] of (ATORVASTAT 09:45: bedtime. [place] IN [place]AL) 46 [facility] clopidogreL 3-0 Yes 75mg Take 1 [facility] 75 mg 3-02 tablet by it[facility] of tablet 09:45: mouth in [place] 46 the Medical morning. Branch atorvastati 2022-0 Yes Take by [facility] calcium 3-02 mouth at ity of (ATORVASTAT 09:45: bedtime. [place] IN [place]AL) 46 [facility] mycophenola 2022-0 Yes Un[facility] s te mofetil 3-01 ity of 500 mg 00:00: [place] tablet 00 [facility] mycophenola 2022-0 Yes Un[facility] s te mofetil 3-01 ity of 500 mg 00:00: [place] tablet 00 [facility] mycophenola 2022-0 Yes Un[facility] s te mofetil 3-01 ity of 500 mg 00:00: [place] tablet 00 [facility] mycophenola 2022-0 Yes Un[facility] s te mofetil 3-01 ity of 500 mg 00:00: [place] tablet 00 [facility] mycophenola 2022-0 Yes Un[facility] s te mofetil 3-01 ity of 500 mg 00:00: [place] tablet 00 [facility] mycophenola 2022-0 Yes Un[facility] s te mofetil 3-01 ity of 500 mg 00:00: [place] tablet 00 [facility] mycophenola 2022-0 Yes Univer s te mofetil 3-01 ity of 500 mg 00:00: [place] tablet 00 [facility] mycophenola 2022-0 Yes Univer s te mofetil 3-01 ity of 500 mg 00:00: [place] tablet 00 [facility] mycophenola 2022-0 Yes Univer s te mofetil 3-01 ity of 500 mg 00:00: [place] tablet 00 [facility] mycophenola 2022-0 Yes Univer s te mofetil 3-01 ity of 500 mg 00:00: [place] tablet 00 [facility] mycophenola 2022-0 Yes Univer s te mofetil 3-01 ity of 500 mg 00:00: [place] tablet 00 [facility] mycophenola 2022-0 Yes Univer s te mofetil 3-01 ity of 500 mg 00:00: [place] tablet 00 [facility] mycophenola 3-0 Yes Univer s te mofetil 3-01 ity of 500 mg 00:00: [place] tablet 00 [facility] mycophenola 2022-0 Yes Univer s te mofetil 3-01 ity of 500 mg 00:00: [place] tablet 00 [facility] mycophenola 3-0 Yes Univer s te mofetil 3-01 ity of 500 mg 00:00: [place] tablet 00 [facility] mycophenola 2022-0 Yes Univer s te mofetil 3-01 ity of 500 mg 00:00: [place] tablet 00 [facility] mycophenola 2022-0 Yes Univer s te mofetil 3-01 ity of 500 mg 00:00: [place] tablet 00 [facility] mycophenola 3-0 Yes Univer s te mofetil 3-01 ity of 500 mg 00:00: [place] tablet 00 [facility] mycophenola 2022-0 Yes Univer s te mofetil 3-01 ity of 500 mg 00:00: [place] tablet 00 [facility] mycophenola 2022-0 Yes Univer s te mofetil 3-01 ity of 500 mg 00:00: [place] tablet 00 [facility] mycophenola 2022-0 Yes Univer s te mofetil 3-01 ity of 500 mg 00:00: [place] tablet 00 [facility] mycophenola 2022-0 Yes Univer s te mofetil 3-01 ity of 500 mg 00:00: [place] tablet 00 [facility] mycophenola 2022-0 Yes Univer s te mofetil 3-01 ity of 500 mg 00:00: [place] tablet 00 [facility] mycophenola 2022-0 Yes Un[facility] s te mofetil 3-01 ity of 500 mg 00:00: [place] tablet 00 [facility] mycophenola 2022-0 Yes Un[facility] s te mofetil 3-01 ity of 500 mg 00:00: [place] tablet 00 [facility] mycophenola 2022-0 Yes Un[facility] s te mofetil 3-01 ity of 500 mg 00:00: [place] tablet 00 [facility] mycophenola 2022-0 Yes Un[facility] s te mofetil 3-01 ity of 500 mg 00:00: [place] tablet 00 [facility] mycophenola 3-0 Yes Un[facility] s te mofetil 3-01 ity of 500 mg 00:00: [place] tablet 00 [facility] mycophenola 3-0 Yes Un[facility] s te mofetil 3-01 ity of 500 mg 00:00: [place] tablet 00 [facility] mycophenola 3-0 Yes Un[facility] s te mofetil 3-01 ity of 500 mg 00:00: [place] tablet 00 [facility] mycophenola 3-0 Yes Un[facility] s te mofetil 3-01 ity of 500 mg 00:00: [place] tablet 00 [facility] mycophenola 3-0 Yes Univer s te mofetil 3-01 ity of 500 mg 00:00: [place] tablet 00 [facility] mycophenola 2022-0 Yes Un[facility] s te mofetil 3-01 ity of 500 mg 00:00: [place] tablet 00 [facility] mycophenola 2022-0 Yes Univer s te mofetil 3-01 ity of 500 mg 00:00: [place] tablet 00 [facility] mycophenola 2022-0 Yes Univer s te mofetil 3-01 ity of 500 mg 00:00: [place] tablet 00 [facility] mycophenola 2022-0 Yes Univer s te mofetil 3-01 ity of 500 mg 00:00: [place] tablet 00 [facility] mycophenola 2022-0 Yes Un[facility] s te mofetil 3-01 ity of 500 mg 00:00: [place] tablet 00 [facility] mycophenola 2022-0 Yes Un[facility] s te mofetil 3-01 ity of 500 mg 00:00: [place] tablet 00 [facility] mycophenola 2022-0 Yes Univer s te mofetil 3-01 ity of 500 mg 00:00: [place] tablet 00 [facility] mycophenola 2022-0 Yes Univer s te mofetil 3-01 ity of 500 mg 00:00: [place] tablet 00 [facility] mycophenola 2022-0 Yes Univer s te mofetil 3-01 ity of 500 mg 00:00: [place] tablet 00 [facility] mycophenola 2022-0 Yes Un[facility] s te mofetil 3-01 ity of 500 mg 00:00: [place] tablet 00 [facility] mycophenola 2022-0 Yes Un[facility] s te mofetil 3-01 ity of 500 mg 00:00: [place] tablet 00 [facility] mycophenola 2022-0 Yes Un[facility] s te mofetil 3-01 ity of 500 mg 00:00: [place] tablet 00 [facility] mycophenola 3-0 Yes Un[facility] s te mofetil 3-01 ity of 500 mg 00:00: [place] tablet 00 [facility] mycophenola 3-0 Yes Univer s te mofetil 3-01 ity of 500 mg 00:00: [place] tablet 00 [facility] mycophenola 3-0 Yes Un[facility] s te mofetil 3-01 ity of 500 mg 00:00: [place] tablet 00 [facility] mycophenola 3-0 Yes Un[facility] s te mofetil 3-01 ity of 500 mg 00:00: [place] tablet 00 [facility] mycophenola 2023-0 Yes Un[facility] s te mofetil 3-01 ity of 500 mg 00:00: [place] tablet 00 [facility] mycophenola 2023-0 Yes Un[facility] s te mofetil 3-01 ity of 500 mg 00:00: [place] tablet 00 [facility] mycophenola 2023-0 Yes Univer s te mofetil 3-01 ity of 500 mg 00:00: [place] tablet 00 [facility] mycophenola 2023-0 Yes Un[facility] s te mofetil 3-01 ity of 500 mg 00:00: [place] tablet 00 [facility] mycophenola 2023-0 Yes Un[facility] s te mofetil 3-01 ity of 500 mg 00:00: [place] tablet 00 [facility] ambrisentan 2023-0 Yes 5mg Take 1 [facility] 5 mg tablet 2-13 tablet by ity of 00:00: mouth in [place] the Medical morning. Branch ambrisentan 2023-0 Yes 5mg Take 1 [facility] 5 mg tablet 2-13 tablet by ity of 00:00: mouth in [place] the Medical morning. Branch ambrisentan 2023-0 Yes 5mg Take 1 [facility] 5 mg tablet 2-13 tablet by ity of 00:00: mouth in [place] the Medical morning. Branch ambrisentan 2023-0 Yes 5mg Take 1 [facility] 5 mg tablet 2-13 tablet by ity of 00:00: mouth in [place] the Medical morning. Branch ambrisentan 2023-0 Yes 5mg Take 1 [facility] 5 mg tablet 2-13 tablet by ity of 00:00: mouth in [place] the Medical morning. Branch ambrisentan 2023-0 Yes 5mg Take 1 [facility] 5 mg tablet 2-13 tablet by ity of 00:00: mouth in [place] the Medical morning. Branch ambrisentan 2023-0 Yes 5mg Take 1 [facility] 5 mg tablet 2-13 tablet by ity of 00:00: mouth in [place] the Medical morning. Branch ambrisentan 2023-0 Yes 5mg Take 1 [facility] 5 mg tablet 2-13 tablet by ity of 00:00: mouth in [place] the Medical morning. Branch ambrisentan 2023-0 Yes 5mg Take 1 [facility] 5 mg tablet 2-13 tablet by ity of 00:00: mouth in [place] 00 the Medical morning. Branch ambrisentan 2023-0 Yes 5mg Take 1 [facility] 5 mg tablet 2-13 tablet by ity of 00:00: mouth in [place] the Medical morning. Branch ambrisentan 2023-0 Yes 5mg Take 1 [facility] 5 mg tablet 2-13 tablet by ity of 00:00: mouth in [place] the Medical morning. Branch ambrisentan 2023-0 Yes 5mg Take 1 [facility] 5 mg tablet 2-13 tablet by ity of 00:00: mouth in [place] the Medical morning. Branch ambrisentan 2023-0 Yes 5mg Take 1 [facility] 5 mg tablet 2-13 tablet by ity of 00:00: mouth in [place] the Medical morning. Branch ambrisentan 2023-0 Yes 5mg Take 1 [facility] 5 mg tablet 2-13 tablet by ity of 00:00: mouth in [place] the Medical morning. Branch ambrisentan 2023-0 Yes 5mg Take 1 [facility] 5 mg tablet 2-13 tablet by ity of 00:00: mouth in [place] the Medical morning. Branch ambrisentan 2023-0 Yes 5mg Take 1 [facility] 5 mg tablet 2-13 tablet by ity of 00:00: mouth in [place] the Medical morning. Branch ambrisentan 2023-0 Yes 5mg Take 1 [facility] 5 mg tablet 2-13 tablet by ity of 00:00: mouth in [place] the Medical morning. Branch ambrisentan 2023-0 Yes 5mg Take 1 [facility] 5 mg tablet 2-13 tablet by ity of 00:00: mouth in [place] the Medical morning. Branch ambrisentan 2023-0 Yes 5mg Take 1 [facility] 5 mg tablet 2-13 tablet by ity of 00:00: mouth in [place] the Medical morning. Branch ambrisentan 2023-0 Yes 5mg Take 1 [facility] 5 mg tablet 2-13 tablet by ity of 00:00: mouth in [place] 00 the Medical morning. Branch ambrisentan 2023-0 Yes 5mg Take 1 [facility] 5 mg tablet 2-13 tablet by ity of 00:00: mouth in [place] 00 the Medical morning. Branch ambrisentan 2023-0 Yes 5mg Take 1 [facility] 5 mg tablet 2-13 tablet by ity of 00:00: mouth in [place] 00 the Medical morning. Branch ambrisentan 2023-0 Yes 5mg Take 1 [facility] 5 mg tablet 2-13 tablet by ity of 00:00: mouth in [place] the Medical morning. Branch ambrisentan 2023-0 Yes 5mg Take 1 [facility] 5 mg tablet 2-13 tablet by ity of 00:00: mouth in [place] the Medical morning. Branch ambrisentan 2023-0 Yes 5mg Take 1 [facility] 5 mg tablet 2-13 tablet by ity of 00:00: mouth in [place] the Medical morning. Branch ambrisentan 2023-0 Yes 5mg Take 1 [facility] 5 mg tablet 2-13 tablet by ity of 00:00: mouth in [place] the Medical morning. Branch ambrisentan 2023-0 Yes 5mg Take 1 [facility] 5 mg tablet 2-13 tablet by ity of 00:00: mouth in [place] the Medical morning. Branch ambrisentan 2023-0 Yes 5mg Take 1 [facility] 5 mg tablet 2-13 tablet by ity of 00:00: mouth in [place] the Medical morning. Branch ambrisentan 2023-0 Yes 5mg Take 1 [facility] 5 mg tablet 2-13 tablet by ity of 00:00: mouth in [place] the Medical morning. Branch ambrisentan 2023-0 Yes 5mg Take 1 [facility] 5 mg tablet 2-13 tablet by ity of 00:00: mouth in [place] the Medical morning. Branch ambrisentan 2023-0 Yes 5mg Take 1 [facility] 5 mg tablet 2-13 tablet by [facility] of 00:00: mouth in [place] the Medical morning. Branch ambrisentan 2023-0 Yes 5mg Take 1 [facility] 5 mg tablet 2-13 tablet by [facility] of 00:00: mouth in [place] the Medical morning. Branch ambrisentan 2023-0 Yes 5mg Take 1 [facility] 5 mg tablet 2-13 tablet by [facility] of 00:00: mouth in [place] the Medical morning. Branch ambrisentan 2023-0 Yes 5mg Take 1 [facility] 5 mg tablet 2-13 tablet by [facility] of 00:00: mouth in [place] 00 the Medical morning. Branch ambrisentan 2023-0 Yes 5mg Take 1 [facility] 5 mg tablet 2-13 tablet by [facility] of 00:00: mouth in [place] 00 the Medical morning. Branch ambrisentan 2023-0 Yes 5mg Take 1 [facility] 5 mg tablet 2-13 tablet by [facility] of 00:00: mouth in [place] 00 the Medical morning. Branch ambrisentan 2023-0 Yes 5mg Take 1 [facility] 5 mg tablet 2-13 tablet by [facility] of 00:00: mouth in [place] the Medical morning. Branch ambrisentan 2023-0 Yes 5mg Take 1 [facility] 5 mg tablet 2-13 tablet by [facility] of 00:00: mouth in [place] the Medical morning. Branch ambrisentan 2023-0 Yes 5mg Take 1 [facility] 5 mg tablet 2-13 tablet by [facility] of 00:00: mouth in [place] the Medical morning. Branch ambrisentan 2023-0 Yes 5mg Take 1 [facility] 5 mg tablet 2-13 tablet by [facility] of 00:00: mouth in [place] the Medical morning. Branch ambrisentan 2023-0 Yes 5mg Take 1 [facility] 5 mg tablet 2-13 tablet by [facility] of 00:00: mouth in [place] the Medical morning. Branch ambrisentan 2023-0 Yes 5mg Take 1 [facility] 5 mg tablet 2-13 tablet by [facility] of 00:00: mouth in [place] the Medical morning. Branch ambrisentan 2023-0 Yes 5mg Take 1 [facility] 5 mg tablet 2-13 tablet by [facility] of 00:00: mouth in [place] the Medical morning. Branch ambrisentan 2023-0 Yes 5mg Take 1 [facility] 5 mg tablet 2-13 tablet by [facility] of 00:00: mouth in [place] the Medical morning. Branch ambrisentan 2023-0 Yes 5mg Take 1 [facility] 5 mg tablet 2-13 tablet by [facility] of 00:00: mouth in [place] 00 the Medical morning. Branch ambrisentan 2023-0 Yes 5mg Take 1 [facility] 5 mg tablet 2-13 tablet by [facility] of 00:00: mouth in [place] 00 the Medical morning. Branch ambrisentan 2023-0 Yes 5mg Take 1 [facility] 5 mg tablet 2-13 tablet by [facility] of 00:00: mouth in [place] 00 the Medical morning. Branch ambrisentan 2023-0 Yes 5mg Take 1 [facility] 5 mg tablet 2-13 tablet by [facility] of 00:00: mouth in [place] 00 the Medical morning. Branch ambrisentan 2023-0 Yes 5mg Take 1 [facility] 5 mg tablet 2-13 tablet by [facility] of 00:00: mouth in [place] the Medical morning. Branch ambrisentan 2023-0 Yes 5mg Take 1 [facility] 5 mg tablet 2-13 tablet by [facility] of 00:00: mouth in [place] the Medical morning. Branch ambrisentan 2023-0 Yes 5mg Take 1 [facility] 5 mg tablet 2-13 tablet by [facility] of 00:00: mouth in [place] the Medical morning. Branch ambrisentan 2023-0 Yes 5mg Take 1 [facility] 5 mg tablet 2-13 tablet by [facility] of 00:00: mouth in [place] the Medical morning. Branch ambrisentan 2023-0 Yes 5mg Take 1 [facility] 5 mg tablet 2-13 tablet by [facility] of 00:00: mouth in [place] the Medical morning. Branch ambrisentan 2023-0 Yes 5mg Take 1 [facility] 5 mg tablet 2-13 tablet by [facility] of 00:00: mouth in [place] the Medical morning. Branch ambrisentan 2023-0 Yes 5mg Take 1 [facility] 5 mg tablet 2-13 tablet by [facility] of 00:00: mouth in [place] the Medical morning. Branch ambrisentan 2023-0 Yes 5mg Take 1 [facility] 5 mg tablet 2-13 tablet by [facility] of 00:00: mouth in [place] the Medical morning. Branch ambrisentan 2023-0 Yes 5mg Take 1 [facility] 5 mg tablet 2-13 tablet by [facility] of 00:00: mouth in [place] the Medical morning. Branch ambrisentan 2023-0 Yes 5mg Take 1 [facility] 5 mg tablet 2-13 tablet by [facility] of 00:00: mouth in [place] the Medical morning. Branch ambrisentan 2023-0 Yes 5mg Take 1 [facility] 5 mg tablet 2-13 tablet by [facility] of 00:00: mouth in [place] 00 the Medical morning. Branch ambrisentan 2023-0 Yes 5mg Take 1 [facility] 5 mg tablet 2-13 tablet by [facility] of 00:00: mouth in [place] the Medical morning. Branch ambrisentan 2023-0 Yes 5mg Take 1 [facility] 5 mg tablet 2-13 tablet by [facility] of 00:00: mouth in [place] 00 the Medical morning. Branch ambrisentan 2023-0 Yes 5mg Take 1 [facility] 5 mg tablet 2-13 tablet by [facility] of 00:00: mouth in [place] 00 the Medical morning. Branch hydroCHLORO 2023-0 Yes TAKE ONE [facility] thiazide 2-07 (1) ity of 12.5 mg 00:00: TABLET(S) [place] tablet 00 BY MOUTH Medical ONCE A DAY Branch IN THE MORNING. hydroCHLORO 2023-0 Yes TAKE ONE [facility] thiazide 2-07 (1) ity of 12.5 mg 00:00: TABLET(S) [place] tablet 00 BY MOUTH Medical ONCE A DAY Branch IN THE MORNING. hydroCHLORO 2023-0 Yes TAKE ONE [facility] thiazide 2-07 (1) ity of 12.5 mg 00:00: TABLET(S) [place] tablet 00 BY MOUTH Medical ONCE A DAY Branch IN THE MORNING. hydroCHLORO 2023-0 Yes TAKE ONE [facility] thiazide 2-07 (1) ity of 12.5 mg 00:00: TABLET(S) [place] tablet 00 BY MOUTH Medical ONCE A DAY Branch IN THE MORNING. hydroCHLORO 2023-0 Yes TAKE ONE [facility] thiazide 2-07 (1) ity of 12.5 mg 00:00: TABLET(S) [place] tablet 00 BY MOUTH Medical ONCE A DAY Branch IN THE MORNING. hydroCHLORO 2023-0 Yes TAKE ONE [facility] thiazide 2-07 (1) ity of 12.5 mg 00:00: TABLET(S) [place] tablet 00 BY MOUTH Medical ONCE A DAY Branch IN THE MORNING. hydroCHLORO 2023-0 Yes TAKE ONE [facility] thiazide 2-07 (1) ity of 12.5 mg 00:00: TABLET(S) [place] tablet 00 BY MOUTH Medical ONCE A DAY Branch IN THE MORNING. hydroCHLORO 2023-0 Yes TAKE ONE [facility] thiazide 2-07 (1) ity of 12.5 mg 00:00: TABLET(S) [place] tablet 00 BY MOUTH Medical ONCE A DAY Branch IN THE MORNING. hydroCHLORO 2023-0 Yes TAKE ONE [facility] thiazide 2-07 (1) ity of 12.5 mg 00:00: TABLET(S) [place] tablet 00 BY MOUTH Medical ONCE A DAY Branch IN THE MORNING. hydroCHLORO 2023-0 Yes TAKE ONE [facility] thiazide 2-07 (1) ity of 12.5 mg 00:00: TABLET(S) [place] tablet 00 BY MOUTH Medical ONCE A DAY Branch IN THE MORNING. hydroCHLORO 2023-0 Yes TAKE ONE [facility] thiazide 2-07 (1) ity of 12.5 mg 00:00: TABLET(S) [place] tablet 00 BY MOUTH Medical ONCE A DAY Branch IN THE MORNING. hydroCHLORO 2023-0 Yes TAKE ONE [facility] thiazide 2-07 (1) ity of 12.5 mg 00:00: TABLET(S) [place] tablet 00 BY MOUTH Medical ONCE A DAY Branch IN THE MORNING. hydroCHLORO 2023-0 Yes TAKE ONE [facility] [place] thiazide 2-07 (1) [facility] of 12.5 mg 00:00: TABLET(S) [place] tablet 00 BY MOUTH Medical ONCE A DAY Branch IN THE MORNING. hydroCHLORO 2023-0 Yes TAKE ONE [facility] thiazide 2-07 (1) ity of 12.5 mg 00:00: TABLET(S) [place] tablet 00 BY MOUTH Medical ONCE A DAY Branch IN THE MORNING. hydroCHLORO 2023-0 Yes TAKE ONE [facility] thiazide 2-07 (1) ity of 12.5 mg 00:00: TABLET(S) [place] tablet 00 BY MOUTH Medical ONCE A DAY Branch IN THE MORNING. hydroCHLORO 2023-0 Yes TAKE ONE [facility] thiazide 2-07 (1) ity of 12.5 mg 00:00: TABLET(S) [place] tablet 00 BY MOUTH Medical ONCE A DAY Branch IN THE MORNING. hydroCHLORO 2023-0 Yes TAKE ONE [facility] thiazide 2-07 (1) ity of 12.5 mg 00:00: TABLET(S) [place] tablet 00 BY MOUTH Medical ONCE A DAY Branch IN THE MORNING. hydroCHLORO 2023-0 Yes TAKE ONE [facility] thiazide 2-07 (1) ity of 12.5 mg 00:00: TABLET(S) [place] tablet 00 BY MOUTH Medical ONCE A DAY Branch IN THE MORNING. hydroCHLORO 2023-0 Yes TAKE ONE [facility] thiazide 2-07 (1) ity of 12.5 mg 00:00: TABLET(S) [place] tablet 00 BY MOUTH Medical ONCE A DAY Branch IN THE MORNING. hydroCHLORO 2023-0 Yes TAKE ONE [facility] thiazide 2-07 (1) ity of 12.5 mg 00:00: TABLET(S) [place] tablet 00 BY MOUTH Medical ONCE A DAY Branch IN THE MORNING. hydroCHLORO 2023-0 Yes TAKE ONE [facility] thiazide 2-07 (1) ity of 12.5 mg 00:00: TABLET(S) [place] tablet 00 BY MOUTH Medical ONCE A DAY Branch IN THE MORNING. hydroCHLORO 2023-0 Yes TAKE ONE [facility] thiazide 2-07 (1) ity of 12.5 mg 00:00: TABLET(S) [place] tablet 00 BY MOUTH Medical ONCE A DAY Branch IN THE MORNING. hydroCHLORO 2023-0 Yes TAKE ONE [facility] thiazide 2-07 (1) ity of 12.5 mg 00:00: TABLET(S) [place] tablet 00 BY MOUTH Medical ONCE A DAY Branch IN THE MORNING. hydroCHLORO 2023-0 Yes TAKE ONE [facility] thiazide 2-07 (1) ity of 12.5 mg 00:00: TABLET(S) [place] tablet 00 BY MOUTH Medical ONCE A DAY Branch IN THE MORNING. hydroCHLORO 2023-0 Yes TAKE ONE [facility] thiazide 2-07 (1) ity of 12.5 mg 00:00: TABLET(S) [place] tablet 00 BY MOUTH Medical ONCE A DAY Branch IN THE MORNING. hydroCHLORO 2023-0 Yes TAKE ONE [facility] thiazide 2-07 (1) ity of 12.5 mg 00:00: TABLET(S) [place] tablet 00 BY MOUTH Medical ONCE A DAY Branch IN THE MORNING. hydroCHLORO 2023-0 Yes TAKE ONE [facility] thiazide 2-07 (1) ity of 12.5 mg 00:00: TABLET(S) [place] tablet 00 BY MOUTH Medical ONCE A DAY Branch IN THE MORNING. hydroCHLORO 2023-0 Yes TAKE ONE [facility] thiazide 2-07 (1) ity of 12.5 mg 00:00: TABLET(S) [place] tablet 00 BY MOUTH Medical ONCE A DAY Branch IN THE MORNING. hydroCHLORO 2023-0 Yes TAKE ONE [facility] thiazide 2-07 (1) ity of 12.5 mg 00:00: TABLET(S) [place] tablet 00 BY MOUTH Medical ONCE A DAY Branch IN THE MORNING. hydroCHLORO 2023-0 Yes TAKE ONE [facility] thiazide 2-07 (1) ity of 12.5 mg 00:00: TABLET(S) [place] tablet 00 BY MOUTH Medical ONCE A DAY Branch IN THE MORNING. hydroCHLORO 2023-0 Yes TAKE ONE [facility] thiazide 2-07 (1) ity of 12.5 mg 00:00: TABLET(S) [place] tablet 00 BY MOUTH Medical ONCE A DAY Branch IN THE MORNING. hydroCHLORO 2023-0 Yes TAKE ONE [facility] thiazide 2-07 (1) ity of 12.5 mg 00:00: TABLET(S) [place] tablet 00 BY MOUTH Medical ONCE A DAY Branch IN THE MORNING. hydroCHLORO 2023-0 Yes TAKE ONE [facility] thiazide 2-07 (1) ity of 12.5 mg 00:00: TABLET(S) [place] tablet 00 BY MOUTH Medical ONCE A DAY Branch IN THE MORNING. hydroCHLORO 2023-0 Yes TAKE ONE [facility] thiazide 2-07 (1) ity of 12.5 mg 00:00: TABLET(S) [place] tablet 00 BY MOUTH Medical ONCE A DAY Branch IN THE MORNING. hydroCHLORO 2023-0 Yes TAKE ONE [facility] thiazide 2-07 (1) ity of 12.5 mg 00:00: TABLET(S) [place] tablet 00 BY MOUTH Medical ONCE A DAY Branch IN THE MORNING. hydroCHLORO 2023-0 Yes TAKE ONE [facility] thiazide 2-07 (1) ity of 12.5 mg 00:00: TABLET(S) [place] tablet 00 BY MOUTH Medical ONCE A DAY Branch IN THE MORNING. hydroCHLORO 2023-0 Yes TAKE ONE [facility] thiazide 2-07 (1) ity of 12.5 mg 00:00: TABLET(S) [place] tablet 00 BY MOUTH Medical ONCE A DAY Branch IN THE MORNING. hydroCHLORO 2023-0 Yes TAKE ONE [facility] thiazide 2-07 (1) ity of 12.5 mg 00:00: TABLET(S) [place] tablet 00 BY MOUTH Medical ONCE A DAY Branch IN THE MORNING. hydroCHLORO 2023-0 Yes TAKE ONE [facility] thiazide 2-07 (1) ity of 12.5 mg 00:00: TABLET(S) [place] tablet 00 BY MOUTH Medical ONCE A DAY Branch IN THE MORNING. hydroCHLORO 2023-0 Yes TAKE ONE [facility] thiazide 2-07 (1) ity of 12.5 mg 00:00: TABLET(S) [place] tablet 00 BY MOUTH Medical ONCE A DAY Branch IN THE MORNING. hydroCHLORO 2023-0 Yes TAKE ONE Un [facility] thiazide 2-07 (1) ity of 12.5 mg 00:00: TABLET(S) [place] tablet 00 BY MOUTH Medical ONCE A DAY Branch IN THE MORNING. hydroCHLORO 2023-0 Yes TAKE ONE [facility] thiazide 2-07 (1) ity of 12.5 mg 00:00: TABLET(S) [place] tablet 00 BY MOUTH Medical ONCE A DAY Branch IN THE MORNING. hydroCHLORO 2023-0 Yes TAKE ONE [facility] thiazide 2-07 (1) ity of 12.5 mg 00:00: TABLET(S) [place] tablet 00 BY MOUTH Medical ONCE A DAY Branch IN THE MORNING. hydroCHLORO 2023-0 Yes TAKE ONE [facility] thiazide 2-07 (1) ity of 12.5 mg 00:00: TABLET(S) [place] tablet 00 BY MOUTH Medical ONCE A DAY Branch IN THE MORNING. hydroCHLORO 2023-0 Yes TAKE ONE [facility] thiazide 2-07 (1) ity of 12.5 mg 00:00: TABLET(S) [place] tablet 00 BY MOUTH Medical ONCE A DAY Branch IN THE MORNING. hydroCHLORO 2023-0 Yes TAKE ONE [facility] thiazide 2-07 (1) ity of 12.5 mg 00:00: TABLET(S) [place] tablet 00 BY MOUTH Medical ONCE A DAY Branch IN THE MORNING. hydroCHLORO 2023-0 Yes TAKE ONE [facility] thiazide 2-07 (1) ity of 12.5 mg 00:00: TABLET(S) [place] tablet 00 BY MOUTH Medical ONCE A DAY Branch IN THE MORNING. hydroCHLORO 2023-0 Yes TAKE ONE [facility] thiazide 2-07 (1) ity of 12.5 mg 00:00: TABLET(S) [place] tablet 00 BY MOUTH Medical ONCE A DAY Branch IN THE MORNING. hydroCHLORO 2023-0 Yes TAKE ONE [facility] thiazide 2-07 (1) ity of 12.5 mg 00:00: TABLET(S) [place] tablet 00 BY MOUTH Medical ONCE A DAY Branch IN THE MORNING. hydroCHLORO 2023-0 Yes TAKE ONE [facility] thiazide 2-07 (1) ity of 12.5 mg 00:00: TABLET(S) [place] tablet 00 BY MOUTH Medical ONCE A DAY Branch IN THE MORNING. hydroCHLORO 2023-0 Yes TAKE ONE [facility] thiazide 2-07 (1) ity of 12.5 mg 00:00: TABLET(S) [place] tablet 00 BY MOUTH Medical ONCE A DAY Branch IN THE MORNING. hydroCHLORO 2023-0 Yes TAKE ONE [facility] thiazide 2-07 (1) ity of 12.5 mg 00:00: TABLET(S) [place] tablet 00 BY MOUTH Medical ONCE A DAY Branch IN THE MORNING. hydroCHLORO 2023-0 Yes TAKE ONE [facility] thiazide 2-07 (1) ity of 12.5 mg 00:00: TABLET(S) [place] tablet 00 BY MOUTH Medical ONCE A DAY Branch IN THE MORNING. tadalafiL 2023-0 Yes [id number] 40mg Take 2 [facility] 20 mg 2-03 tablets by ity of tablet 00:00: mouth in [place] the Medical morning. Branch tadalafiL 2023-0 Yes [id number] 40mg Take 2 [facility] 20 mg 2-03 tablets by ity of tablet 00:00: mouth in [place] the Medical morning. Branch tadalafiL 2023-0 Yes [id number] 40mg Take 2 [facility] 20 mg 2-03 tablets by ity of tablet 00:00: mouth in [place] the Medical morning. Branch tadalafiL 2023-0 Yes [id number] 40mg Take 2 [facility] 20 mg 2-03 tablets by ity of tablet 00:00: mouth in [place] the Medical morning. Branch tadalafiL 2023-0 Yes [id number] 40mg Take 2 [facility] 20 mg 2-03 tablets by ity of tablet 00:00: mouth in [place] the Medical morning. Branch tadalafiL 2023-0 Yes [id number] 40mg Take 2 [facility] 20 mg 2-03 tablets by ity of tablet 00:00: mouth in [place] the Medical morning. Branch tadalafiL 2023-0 Yes [id number] 40mg Take 2 [facility] 20 mg 2-03 tablets by ity of tablet 00:00: mouth in [place] the Medical morning. Branch tadalafiL 2023-0 Yes [id number] 40mg Take 2 [facility] 20 mg 2-03 tablets by ity of tablet 00:00: mouth in [place] the Medical morning. Branch ambrisentan 2023-0 Yes 5mg Take 1 [facility] 5 mg tablet 2-03 tablet by ity of 00:00: mouth in [place] the Medical morning. Branch tadalafiL 2023-0 Yes [id number] 40mg Take 2 [facility] 20 mg 2-03 tablets by ity of tablet 00:00: mouth in [place] the Medical morning. Branch ambrisentan 2023-0 Yes 5mg Take 1 [facility] 5 mg tablet 2-03 tablet by ity of 00:00: mouth in [place] the Medical morning. Branch tadalafiL 2023-0 Yes [id number] 40mg Take 2 [facility] 20 mg 2-03 tablets by ity of tablet 00:00: mouth in [place] the Medical morning. Branch ambrisentan 2023-0 Yes 5mg Take 1 [facility] 5 mg tablet 2-03 tablet by ity of 00:00: mouth in [place] the Medical morning. Branch tadalafiL 2023-0 Yes [id number] 40mg Take 2 [facility] 20 mg 2-03 tablets by ity of tablet 00:00: mouth in [place] the Medical morning. Branch ambrisentan 2023-0 Yes 5mg Take 1 [facility] 5 mg tablet 2-03 tablet by ity of 00:00: mouth in [place] the Medical morning. Branch tadalafiL 2023-0 Yes [id number] 40mg Take 2 [facility] 20 mg 2-03 tablets by ity of tablet 00:00: mouth in [place] the Medical morning. Branch ambrisentan 2023-0 Yes 5mg Take 1 [facility] 5 mg tablet 2-03 tablet by ity of 00:00: mouth in [place] the Medical morning. Branch tadalafiL 2023-0 Yes [id number] 40mg Take 2 [facility] 20 mg 2-03 tablets by ity of tablet 00:00: mouth in [place] the Medical morning. Branch tadalafiL 2023-0 Yes [id number] 40mg Take 2 [facility] 20 mg 2-03 tablets by [facility]y of tablet 00:00: mouth in [place] the Medical morning. Branch tadalafiL 2023-0 Yes [id number] 40mg Take 2 [facility] 20 mg 2-03 tablets by [facility]y of tablet 00:00: mouth in [place] the Medical morning. Branch tadalafiL 2023-0 Yes [id number] 40mg Take 2 [facility] 20 mg 2-03 tablets by [facility]y of tablet 00:00: mouth in [place] the Medical morning. Branch tadalafiL 2023-0 Yes [id number] 40mg Take 2 [facility] 20 mg 2-03 tablets by ity of tablet 00:00: mouth in [place] the Medical morning. Branch tadalafiL 2023-0 Yes [id number] 40mg Take 2 [facility] 20 mg 2-03 tablets by [facility] of tablet 00:00: mouth in [place] the Medical morning. Branch tadalafiL 2023-0 Yes [id number] 40mg Take 2 [facility] 20 mg 2-03 tablets by it[facility] of tablet 00:00: mouth in [place] the Medical morning. Branch tadalafiL 2023-0 Yes [id number] 40mg Take 2 [facility] 20 mg 2-03 tablets by ity of tablet 00:00: mouth in [place] the Medical morning. Branch tadalafiL 2023-0 Yes [id number] 40mg Take 2 [facility] 20 mg 2-03 tablets by [facility]y of tablet 00:00: mouth in [place] the Medical morning. Branch tadalafiL 2023-0 Yes [id number] 40mg Take 2 [facility] 20 mg 2-03 tablets by [facility] of tablet 00:00: mouth in [place] the Medical morning. Branch tadalafiL 2023-0 Yes [id number] 40mg Take 2 [facility] 20 mg 2-03 tablets by [facility] of tablet 00:00: mouth in [place] the Medical morning. Branch tadalafiL 2023-0 Yes [id number] 40mg Take 2 [facility] 20 mg 2-03 tablets by [facility] of tablet 00:00: mouth in [place] the Medical morning. Branch tadalafiL 2023-0 Yes [id number] 40mg Take 2 [facility] 20 mg 2-03 tablets by [facility] of tablet 00:00: mouth in [place] the Medical morning. Branch tadalafiL 2023-0 Yes [id number] 40mg Take 2 [facility] 20 mg 2-03 tablets by [facility] of tablet 00:00: mouth in [place] the Medical morning. Branch tadalafiL 2023-0 Yes [id number] 40mg Take 2 [facility] 20 mg 2-03 tablets by [facility] of tablet 00:00: mouth in [place] 00 the Medical morning. Branch tadalafiL 2023-0 Yes [id number] 40mg Take 2 [facility] 20 mg 2-03 tablets by [facility]y of tablet 00:00: mouth in [place] the Medical morning. Branch tadalafiL 2023-0 Yes [id number] 40mg Take 2 [facility] 20 mg 2-03 tablets by [facility] of tablet 00:00: mouth in [place] the Medical morning. Branch tadalafiL 2023-0 Yes [id number] 40mg Take 2 [facility] 20 mg 2-03 tablets by [facility] of tablet 00:00: mouth in [place] the Medical morning. Branch tadalafiL 2023-0 Yes [id number] 40mg Take 2 [facility] 20 mg 2-03 tablets by [facility] of tablet 00:00: mouth in [place] the Medical morning. Branch tadalafiL 2023-0 Yes [id number] 40mg Take 2 [facility] 20 mg 2-03 tablets by [facility] of tablet 00:00: mouth in [place] the Medical morning. Branch tadalafiL 2023-0 Yes [id number] 40mg Take 2 [facility] 20 mg 2-03 tablets by [facility] of tablet 00:00: mouth in [place] the Medical morning. Branch tadalafiL 2023-0 Yes [id number] 40mg Take 2 [facility] 20 mg 2-03 tablets by [facility] of tablet 00:00: mouth in [place] the Medical morning. Branch tadalafiL 2023-0 Yes [id number] 40mg Take 2 [facility] 20 mg 2-03 tablets by [facility] of tablet 00:00: mouth in [place] the Medical morning. Branch tadalafiL 2023-0 Yes [id number] 40mg Take 2 [facility] 20 mg 2-03 tablets by ity of tablet 00:00: mouth in [place] the Medical morning. Branch tadalafiL 2023-0 Yes [id number] 40mg Take 2 [facility] 20 mg 2-03 tablets by ity of tablet 00:00: mouth in [place] the Medical morning. Branch tadalafiL 2023-0 Yes [id number] 40mg Take 2 [facility] 20 mg 2-03 tablets by [facility]y of tablet 00:00: mouth in [place] the Medical morning. Branch tadalafiL 2023-0 Yes [id number] 40mg Take 2 [facility] 20 mg 2-03 tablets by ity of tablet 00:00: mouth in [place] the Medical morning. Branch tadalafiL 2023-0 Yes [id number] 40mg Take 2 [facility] 20 mg 2-03 tablets by ity of tablet 00:00: mouth in [place] the Medical morning. Branch tadalafiL 2023-0 Yes [id number] 40mg Take 2 [facility] 20 mg 2-03 tablets by ity of tablet 00:00: mouth in [place] the Medical morning. Branch tadalafiL 2023-0 Yes [id number] 40mg Take 2 [facility] 20 mg 2-03 tablets by ity of tablet 00:00: mouth in [place] the Medical morning. Branch tadalafiL 2023-0 Yes [id number] 40mg Take 2 [facility] 20 mg 2-03 tablets by [facility] of tablet 00:00: mouth in [place] the Medical morning. Branch tadalafiL 2023-0 Yes [id number] 40mg Take 2 [facility] 20 mg 2-03 tablets by ity of tablet 00:00: mouth in [place] the Medical morning. Branch tadalafiL 2023-0 Yes [id number] 40mg Take 2 [facility] 20 mg 2-03 tablets by ity of tablet 00:00: mouth in [place] the Medical morning. Branch tadalafiL 2023-0 Yes [id number] 40mg Take 2 [facility] 20 mg 2-03 tablets by it[facility] of tablet 00:00: mouth in [place] the Medical morning. Branch tadalafiL 2023-0 Yes [id number] 40mg Take 2 [facility] 20 mg 2-03 tablets by ity of tablet 00:00: mouth in [place] the Medical morning. Branch tadalafiL 2023-0 Yes [id number] 40mg Take 2 [facility] 20 mg 2-03 tablets by ity of tablet 00:00: mouth in [place] the Medical morning. Branch tadalafiL 2023-0 Yes [id number] 40mg Take 2 [facility] 20 mg 2-03 tablets by ity of tablet 00:00: mouth in [place] the Medical morning. Branch tadalafiL 2023-0 Yes [id number] 40mg Take 2 [facility] 20 mg 2-03 tablets by ity of tablet 00:00: mouth in [place] the Medical morning. Branch tadalafiL 2023-0 Yes [id number] 40mg Take 2 [facility] 20 mg 2-03 tablets by ity of tablet 00:00: mouth in [place] 00 the Medical morning. Branch tadalafiL 2023-0 Yes [id number] 40mg Take 2 [facility] 20 mg 2-03 tablets by ity of tablet 00:00: mouth in [place] the Medical morning. Branch tadalafiL 2023-0 Yes [id number] 40mg Take 2 [facility] 20 mg 2-03 tablets by ity of tablet 00:00: mouth in [place] the Medical morning. Branch tadalafiL 2023-0 Yes [id number] 40mg Take 2 [facility] 20 mg 2-03 tablets by ity of tablet 00:00: mouth in [place] the Medical morning. Branch tadalafiL 2023-0 Yes [id number] 40mg Take 2 [facility] 20 mg 2-03 tablets by ity of tablet 00:00: mouth in [place] the Medical morning. Branch tadalafiL 2023-0 Yes [id number] 40mg Take 2 [facility] 20 mg 2-03 tablets by ity of tablet 00:00: mouth in [place] the Medical morning. Branch tadalafiL 2023-0 Yes [id number] 40mg Take 2 [facility] 20 mg 2-03 tablets by ity of tablet 00:00: mouth in [place] the Medical morning. Branch tadalafiL 2023-0 Yes [id number] 40mg Take 2 [facility] 20 mg 2-03 tablets by ity of tablet 00:00: mouth in [place] the Medical morning. Branch tadalafiL 2023-0 Yes [id number] 40mg Take 2 [facility] 20 mg 2-03 tablets by ity of tablet 00:00: mouth in [place] the Medical morning. Branch tadalafiL 2023-0 Yes [id number] 40mg Take 2 [facility] 20 mg 2-03 tablets by [facility]y of tablet 00:00: mouth in [place] the Medical morning. Branch tadalafiL 2023-0 Yes [id number] 40mg Take 2 [facility] 20 mg 2-03 tablets by ity of tablet 00:00: mouth in [place] the Medical morning. Branch tadalafiL 2023-0 Yes [id number] 40mg Take 2 [facility] 20 mg 2-03 tablets by [facility] of tablet 00:00: mouth in [place] the Medical morning. Branch tadalafiL 2023-0 Yes [id number] 40mg Take 2 [facility] 20 mg 2-03 tablets by ity of tablet 00:00: mouth in [place] 00 the Medical morning. Branch tadalafiL 2022-0 Yes [id number] 40mg Take 2 [facility] 20 mg 2-03 tablets by ity of tablet 00:00: mouth in [place] 00 the Medical morning. Branch tadalafiL 2022-0 Yes [id number] 40mg Take 2 [facility] 20 mg 2-03 tablets by ity of tablet 00:00: mouth in [place] 00 the Medical morning. Branch tadalafiL 2022-0 Yes [id number] 40mg Take 2 [facility] 20 mg 2-03 tablets by ity of tablet 00:00: mouth in [place] 00 the Medical morning. Branch tadalafiL 2022-0 Yes [id number] 40mg Take 2 [facility] 20 mg 2-03 tablets by ity of tablet 00:00: mouth in [place] 00 the Medical morning. Branch ambrisentan 0 3- No 5mg Take 1 [facility] 5 mg tablet 2-03 -13 tablet by it y of 00:00: 00:00 mouth in [place] 00 :00 the Medical morning. Branch losartan 50 0 Yes 50mg Take 50 mg [facility] mg tablet 5-12 by mouth ity of 14:46: daily. [place] [address] Medical Branch atorvastati Yes Take by [facility] vers n calcium 5-12 mouth at ity of (ATORVASTAT 14:46: bedtime. [place] IN ORAL) Medical Branch aspirin 325 Yes 325mg Take 325 [facility] mg tablet 5-12 mg by ity of 14:46: mouth [place] [address] daily. Medical Branch losartan 50 0 Yes 50mg Take 50 mg [facility] mg tablet 5-12 by mouth ity of 14:46: daily. [address] Branch atorvastati Yes Take by [facility] vers n calcium 5-12 mouth at ity of (ATORVASTAT 14:46: bedtime. [place] IN ORAL) Medical Branch aspirin 325 0 Yes 325mg Take 325 [facility] mg tablet 5-12 mg by ity of 14:46: mouth [place] [address] daily. Medical Branch losartan 50 0 Yes 50mg Take 50 mg [facility] mg tablet 5-12 by mouth ity of 14:46: daily. [address] Branch atorvastati 2022-0 Yes Take by [facility] vers n calcium 5-12 mouth at ity of (ATORVASTAT 14:46: bedtime. [place] IN ORAL) 26 Medical Branch aspirin 325 0 Yes 325mg Take 325 U n[facility] mg tablet 5-12 mg by ity of 14:46: mouth [place] 26 daily. [facility] losartan 50 0 Yes 50mg Take 50 mg [facility] mg tablet 5-12 by mouth ity of 14:46: daily. [place] [address] [facility] atorvastati Yes Take by [facility] vers n calcium 5-12 mouth at ity of (ATORVASTAT 14:46: bedtime. [place] IN ORAL) [facility] aspirin 325 0 Yes 325mg Take 325 U nivers mg tablet 5-12 mg by ity of 14:46: mouth [place] 26 daily. [facility] losartan 50 Yes 50mg Take 50 mg [facility] mg tablet 5-12 by mouth ity of 14:46: daily. [place] [address] [facility] atorvastati Yes Take by [facility] vers n calcium 5-12 mouth at ity of (ATORVASTAT 14:46: bedtime. [place] IN ORAL) [facility] aspirin 325 0 Yes 325mg Take 325 U nivers mg tablet 5-12 mg by ity of 14:46: mouth [place] 26 daily. [facility] losartan 50 Yes 50mg Take 50 mg [facility] mg tablet 5-12 by mouth ity of 14:46: daily. [place] [address] [facility] atorvastati Yes Take by [facility] vers n calcium 5-12 mouth at ity of (ATORVASTAT 14:46: bedtime. [place] IN ORAL) [facility] aspirin 325 0 Yes 325mg Take 325 U nivers mg tablet 5-12 mg by ity of 14:46: mouth [place] 26 daily. [facility] losartan 50 0 Yes 50mg Take 50 mg [facility] mg tablet 5-12 by mouth ity of 14:46: daily. [place] [address] [facility] atorvastati Yes Take by [facility] vers n calcium 5-12 mouth at ity of (ATORVASTAT 14:46: bedtime. [place] IN ORAL) [facility] aspirin 325 0 Yes 325mg Take 325 U nivers mg tablet 5-12 mg by ity of 14:46: mouth [place] 26 daily. [facility] losartan 50 0 Yes 50mg Take 50 mg [facility] mg tablet 5-12 by mouth ity of 14:46: daily. [place] [address] [facility] atorvastati Yes Take by [facility] vers n calcium 5-12 mouth at ity of (ATORVASTAT 14:46: bedtime. [place] IN ORAL) [facility] aspirin 325 0 Yes 325mg Take 325 U nivers mg tablet 5-12 mg by ity of 14:46: mouth [place] 26 daily. [facility] losartan 50 Yes 50mg Take 50 mg [facility] mg tablet 5-12 by mouth ity of 14:46: daily. [place] [address] [facility] atorvastati Yes Take by [facility] vers n calcium 5-12 mouth at ity of (ATORVASTAT 14:46: bedtime. [place] IN ORAL) [facility] aspirin 325 Yes 325mg Take 325 U nivers mg tablet 5-12 mg by ity of 14:46: mouth [place] 26 daily. [facility] losartan 50 Yes 50mg Take 50 mg [facility] mg tablet 5-12 by mouth ity of 14:46: daily. [place] [address] [facility] atorvastati Yes Take by [facility] vers n calcium 5-12 mouth at ity of (ATORVASTAT 14:46: bedtime. [place] IN ORAL) [facility] aspirin 325 0 Yes 325mg Take 325 U nivers mg tablet 5-12 mg by ity of 14:46: mouth [place] 26 daily. [facility] losartan 50 0 Yes 50mg Take 50 mg [facility] mg tablet 5-12 by mouth ity of 14:46: daily. [place] [address] [facility] atorvastati Yes Take by [facility] vers n calcium 5-12 mouth at ity of (ATORVASTAT 14:46: bedtime. [place] IN ORAL) [facility] aspirin 325 0 Yes 325mg Take 325 U nivers mg tablet 5-12 mg by ity of 14:46: mouth [place] 26 daily. [facility] losartan 50 0 Yes 50mg Take 50 mg [facility] mg tablet 5-12 by mouth ity of 14:46: daily. [place] [address] [facility] atorvastati Yes Take by [facility] vers n calcium 5-12 mouth at ity of (ATORVASTAT 14:46: bedtime. [place] IN ORAL) [facility] aspirin 325 0 Yes 325mg Take 325 U nivers mg tablet 5-12 mg by ity of 14:46: mouth [place] 26 daily. [facility] losartan 50 0 Yes 50mg Take 50 mg [facility] mg tablet 5-12 by mouth ity of 14:46: daily. [place] [address] [facility] atorvastati Yes Take by [facility] vers n calcium 5-12 mouth at ity of (ATORVASTAT 14:46: bedtime. [place] IN ORAL) [facility] aspirin 325 Yes 325mg Take 325 [facility] nivers mg tablet 5-12 mg by ity of 14:46: mouth [place] 26 daily. [facility] losartan 50 Yes 50mg Take 50 mg [facility] mg tablet 5-12 by mouth ity of 14:46: daily. [place] [address] [facility] atorvastati Yes Take by [facility] vers n calcium 5-12 mouth at ity of (ATORVASTAT 14:46: bedtime. [place] IN ORAL) [facility] aspirin 325 Yes 325mg Take 325 [facility] n[facility] mg tablet 5-12 mg by ity of 14:46: mouth [place] 26 daily. [facility] losartan 50 0 Yes 50mg Take 50 mg [facility] mg tablet 5-12 by mouth ity of 14:46: daily. [place] [address] [facility] atorvastati Yes Take by [facility] vers n calcium 5-12 mouth at ity of (ATORVASTAT 14:46: bedtime. [place] IN ORAL) [facility] aspirin 325 0 Yes 325mg Take 325 U nivers mg tablet 5-12 mg by ity of 14:46: mouth [place] 26 daily. [facility] losartan 50 0 Yes 50mg Take 50 mg [facility] mg tablet 5-12 by mouth ity of 14:46: daily. [place] [address] [facility] atorvastati Yes Take by [facility] vers n calcium 5-12 mouth at ity of (ATORVASTAT 14:46: bedtime. [place] IN ORAL) [facility] aspirin 325 0 Yes 325mg Take 325 [facility] nivers mg tablet 5-12 mg by ity of 14:46: mouth [place] 26 daily. [facility] losartan 50 0 Yes 50mg Take 50 mg [facility] mg tablet 5-12 by mouth ity of 14:46: daily. [place] [address] [facility] atorvastati Yes Take by [facility] vers n calcium 5-12 mouth at ity of (ATORVASTAT 14:46: bedtime. [place] IN ORAL) [facility] aspirin 325 0 Yes 325mg Take 325 U nivers mg tablet 5-12 mg by ity of 14:46: mouth [place] 26 daily. [facility] losartan 50 0 Yes 50mg Take 50 mg [facility] mg tablet 5-12 by mouth ity of 14:46: daily. [place] [address] [facility] atorvastati Yes Take by [facility] vers n calcium 5-12 mouth at ity of (ATORVASTAT 14:46: bedtime. [place] IN ORAL) [facility] aspirin 325 Yes 325mg Take 325 [facility] nivers mg tablet 5-12 mg by ity of 14:46: mouth [place] 26 daily. [facility] losartan 50 0 Yes 50mg Take 50 mg [facility] mg tablet 5-12 by mouth ity of 14:46: daily. [address] Branch atorvastati Yes Take by [facility] vers n calcium 5-12 mouth at ity of (ATORVASTAT 14:46: bedtime. [place] IN ORAL) [facility] aspirin 325 0 Yes 325mg Take 325 [facility] nivers mg tablet 5-12 mg by ity of 14:46: mouth [place] 26 daily. [facility] losartan 50 0 Yes 50mg Take 50 mg [facility] mg tablet 5-12 by mouth ity of 14:46: daily. [place] [address] [facility] atorvastati Yes Take by [facility] vers n calcium 5-12 mouth at ity of (ATORVASTAT 14:46: bedtime. [place] IN ORAL) [facility] aspirin 325 0 Yes 325mg Take 325 [facility] nivers mg tablet 5-12 mg by ity of 14:46: mouth [place] 26 daily. [facility] losartan 50 0 Yes 50mg Take 50 mg [facility] mg tablet 5-12 by mouth ity of 14:46: daily. [place] [address] [facility] atorvastati Yes Take by [facility] vers n calcium 5-12 mouth at ity of (ATORVASTAT 14:46: bedtime. [place] IN ORAL) [facility] aspirin 325 0 Yes 325mg Take 325 [facility] nivers mg tablet 5-12 mg by ity of 14:46: mouth [place] 26 daily. [facility] losartan 50 Yes 50mg Take 50 mg [facility] mg tablet 5-12 by mouth ity of 14:46: daily. [place] [address] [facility] atorvastati Yes Take by [facility] vers n calcium 5-12 mouth at ity of (ATORVASTAT 14:46: bedtime. [place] IN ORAL) [facility] aspirin 325 Yes 325mg Take 325 U nivers mg tablet 5-12 mg by ity of 14:46: mouth [place] 26 daily. [facility] losartan 50 Yes 50mg Take 50 mg [facility] mg tablet 5-12 by mouth ity of 14:46: daily. [place] [address] [facility] atorvastati Yes Take by [facility] vers n calcium 5-12 mouth at ity of (ATORVASTAT 14:46: bedtime. [place] IN ORAL) [facility] aspirin 325 Yes 325mg Take 325 U nivers mg tablet 5-12 mg by ity of 14:46: mouth [place] 26 daily. [facility] losartan 50 Yes 50mg Take 50 mg [facility] mg tablet 5-12 by mouth ity of 14:46: daily. [place] [address] [facility] atorvastati Yes Take by [facility] vers n calcium 5-12 mouth at ity of (ATORVASTAT 14:46: bedtime. [place] IN ORAL) [facility] aspirin 325 Yes 325mg Take 325 [facility] nivers mg tablet 5-12 mg by ity of 14:46: mouth [place] 26 daily. [facility] losartan 50 0 Yes 50mg Take 50 mg [facility] mg tablet 5-12 by mouth ity of 14:46: daily. [place] [address] [facility] losartan 50 Yes 50mg Take 50 mg [facility] mg tablet 5-12 by mouth ity of 14:46: daily. [place] [address] [facility] losartan 50 0 Yes 50mg Take 50 mg [facility] mg tablet 5-12 by mouth ity of 14:46: daily. [address] losartan 50 Yes 50mg Take 50 mg [facility] mg tablet 5-12 by mouth ity of 14:46: daily. [address] losartan 50 0 Yes 50mg Take 50 mg [facility] mg tablet 5-12 by mouth ity of 14:46: daily. [address] losartan 50 0 Yes 50mg Take 50 mg [facility] mg tablet 5-12 by mouth ity of 14:46: daily. [address] losartan 50 0 Yes 50mg Take 50 mg [facility] mg tablet 5-12 by mouth ity of 14:46: daily. [address] losartan 50 0 Yes 50mg Take 50 mg [facility] mg tablet 5-12 by mouth ity of 14:46: daily. [address] losartan 50 Yes 50mg Take 50 mg [facility] mg tablet 5-12 by mouth ity of 14:46: daily. [address] losartan 50 Yes 50mg Take 50 mg [facility] mg tablet 5-12 by mouth ity of 14:46: daily. [address] losartan 50 0 Yes 50mg Take 50 mg [facility] mg tablet 5-12 by mouth ity of 14:46: daily. [address] losartan 50 0 Yes 50mg Take 50 mg [facility] mg tablet 5-12 by mouth ity of 14:46: daily. [address] losartan 50 0 Yes 50mg Take 50 mg [facility] mg tablet 5-12 by mouth ity of 14:46: daily. [address] losartan 50 0 Yes 50mg Take 50 mg [facility] mg tablet 5-12 by mouth ity of 14:46: daily. [address] losartan 50 0 Yes 50mg Take 50 mg [facility] mg tablet 5-12 by mouth ity of 14:46: daily. [address] losartan 50 0 Yes 50mg Take 50 mg [facility] mg tablet 5-12 by mouth ity of 14:46: daily. [address] losartan 50 0 Yes 50mg Take 50 mg [facility] mg tablet 5-12 by mouth ity of 14:46: daily. [address] losartan 50 0 Yes 50mg Take 50 mg [facility] mg tablet 5-12 by mouth ity of 14:46: daily. [address] losartan 50 0 Yes 50mg Take 50 mg [facility] mg tablet 5-12 by mouth ity of 14:46: daily. [address] losartan 50 0 Yes 50mg Take 50 mg [facility] mg tablet 5-12 by mouth ity of 14:46: daily. [address] losartan 50 0 Yes 50mg Take 50 mg [facility] mg tablet 5-12 by mouth ity of 14:46: daily. [address] losartan 50 0 Yes 50mg Take 50 mg [facility] mg tablet 5-12 by mouth ity of 14:46: daily. [address] losartan 50 0 Yes 50mg Take 50 mg [facility] mg tablet 5-12 by mouth ity of 14:46: daily. [address] losartan 50 0 Yes 50mg Take 50 mg [facility] mg tablet 5-12 by mouth ity of 14:46: daily. [address] losartan 50 0 Yes 50mg Take 50 mg [facility] mg tablet 5-12 by mouth ity of 14:46: daily. [address] losartan 50 0 Yes 50mg Take 50 mg [facility] mg tablet 5-12 by mouth ity of 14:46: daily. [address] losartan 50 0 Yes 50mg Take 50 mg [facility] mg tablet 5-12 by mouth ity of 14:46: daily. [address] losartan 50 0 Yes 50mg Take 50 mg [facility] mg tablet 5-12 by mouth ity of 14:46: daily. [address] losartan 50 0 Yes 50mg Take 50 mg [facility] mg tablet 5-12 by mouth ity of 14:46: daily. [address] losartan 50 0 Yes 50mg Take 50 mg [facility] mg tablet 5-12 by mouth ity of 14:46: daily. [address] losartan 50 0 Yes 50mg Take 50 mg [facility] mg tablet 5-12 by mouth ity of 14:46: daily. [address] losartan 50 0 Yes 50mg Take 50 mg [facility] mg tablet 5-12 by mouth ity of 14:46: daily. [address] losartan 50 0 Yes 50mg Take 50 mg [facility] mg tablet 5-12 by mouth ity of 14:46: daily. [address] losartan 50 Yes 50mg Take 50 mg [facility] mg tablet 5-12 by mouth ity of 14:46: daily. [address] losartan 50 Yes 50mg Take 50 mg [facility] mg tablet 5-12 by mouth ity of 14:46: daily. [address] losartan 50 Yes 50mg Take 50 mg [facility] mg tablet 5-12 by mouth ity of 14:46: daily. [address] losartan 50 Yes 50mg Take 50 mg [facility] mg tablet 5-12 by mouth ity of 14:46: daily. [address] losartan 50 Yes 50mg Take 50 mg [facility] mg tablet 5-12 by mouth ity of 14:46: daily. [address] losartan 50 Yes 50mg Take 50 mg [facility] mg tablet 5-12 by mouth ity of 14:46: daily. [address] losartan 50 Yes 50mg Take 50 mg [facility] mg tablet 5-12 by mouth ity of 14:46: daily. [address] losartan 50 Yes 50mg Take 50 mg [facility] mg tablet 5-12 by mouth ity of 14:46: daily. [address] losartan 50 Yes 50mg Take 50 mg [facility] mg tablet 5-12 by mouth ity of 14:46: daily. [address] losartan 50 Yes 50mg Take 50 mg [facility] mg tablet 5-12 by mouth ity of 14:46: daily. [address] losartan 50 Yes 50mg Take 50 mg [facility] mg tablet 5-12 by mouth ity of 14:46: daily. [address] losartan 50 Yes 50mg Take 50 mg [facility] mg tablet 5-12 by mouth ity of 14:46: daily. [address] tiotropium Yes [id number] 18ug Inhale 1 [facility] 18 mcg 2-23 capsule ity of inhalation 00:00: daily. [address] tiotropium Yes [id number] 18ug Inhale 1 [facility] 18 mcg 2-23 capsule ity of inhalation 00:00: daily. [address] tiotropium Yes [id number] 18ug Inhale 1 [facility] 18 mcg 2-23 capsule ity of inhalation 00:00: daily. [facility] tiotropium 0 Yes [id number] 18ug Inhale 1 [facility] 18 mcg 2-23 capsule ity of inhalation 00:00: daily. [facility] tiotropium 2021-0 Yes [id number] 18ug Inhale 1 [facility] 18 mcg 2-23 capsule ity of inhalation 00:00: daily. [facility] tiotropium 2021-0 Yes [id number] 18ug Inhale 1 [facility] 18 mcg 2-23 capsule ity of inhalation 00:00: daily. [facility] tiotropium 2021-0 Yes [id number] 18ug Inhale 1 [facility] 18 mcg 2-23 capsule ity of inhalation 00:00: daily. [facility] tiotropium 0 Yes [id number] 18ug Inhale 1 [facility] 18 mcg 2-23 capsule ity of inhalation 00:00: daily. [facility] tiotropium 0 Yes [id number] 18ug Inhale 1 [facility] 18 mcg 2-23 capsule ity of inhalation 00:00: daily. [facility] tiotropium 0 Yes [id number] 18ug Inhale 1 [facility] 18 mcg 2-23 capsule ity of inhalation 00:00: daily. [facility] tiotropium 2021-0 Yes [id number] 18ug Inhale 1 [facility] 18 mcg 2-23 capsule ity of inhalation 00:00: daily. [facility] tiotropium 2021-0 Yes [id number] 18ug Inhale 1 [facility] 18 mcg 2-23 capsule ity of inhalation 00:00: daily. [facility] tiotropium 2021-0 Yes [id number] 18ug Inhale 1 [facility] 18 mcg 2-23 capsule ity of inhalation 00:00: daily. [facility] tiotropium 2021-0 Yes [id number] 18ug Inhale 1 [facility] 18 mcg 2-23 capsule ity of inhalation 00:00: daily. [facility] tiotropium 2021-0 Yes [id number] 18ug Inhale 1 [facility] 18 mcg 2-23 capsule ity of inhalation 00:00: daily. [facility] tiotropium 2021-0 Yes [id number] 18ug Inhale 1 [facility] 18 mcg 2-23 capsule ity of inhalation 00:00: daily. [facility] tiotropium 2022-0 Yes [id number] 18ug Inhale 1 [facility] 18 mcg 2-23 capsule ity of inhalation 00:00: daily. [facility] tiotropium 0 Yes [id number] 18ug Inhale 1 [facility] 18 mcg 2-23 capsule ity of inhalation 00:00: daily. [facility] tiotropium 0 Yes [id number] 18ug Inhale 1 [facility] 18 mcg 2-23 capsule ity of inhalation 00:00: daily. [facility] tiotropium 0 Yes [id number] 18ug Inhale 1 [facility] 18 mcg 2-23 capsule ity of inhalation 00:00: daily. [facility] tiotropium 0 Yes [id number] 18ug Inhale 1 [facility] 18 mcg 2-23 capsule ity of inhalation 00:00: daily. [facility] tiotropium 0 Yes [id number] 18ug Inhale 1 [facility] 18 mcg 2-23 capsule ity of inhalation 00:00: daily. [facility] tiotropium 0 Yes [id number] 18ug Inhale 1 [facility] 18 mcg 2-23 capsule ity of inhalation 00:00: daily. [facility] tiotropium 0 Yes [id number] 18ug Inhale 1 [facility] 18 mcg 2-23 capsule ity of inhalation 00:00: daily. [facility] tiotropium 0 Yes [id number] 18ug Inhale 1 [facility] 18 mcg 2-23 capsule ity of inhalation 00:00: daily. [facility] tiotropium 0 Yes [id number] 18ug Inhale 1 [facility] 18 mcg 2-23 capsule ity of inhalation 00:00: daily. [facility] tiotropium 0 Yes [id number] 18ug Inhale 1 [facility] 18 mcg 2-23 capsule ity of inhalation 00:00: daily. [facility] tiotropium 0 Yes [id number] 18ug Inhale 1 [facility] 18 mcg 2-23 capsule ity of inhalation 00:00: daily. [facility] tiotropium 0 Yes [id number] 18ug Inhale 1 [facility] 18 mcg 2-23 capsule ity of inhalation 00:00: daily. [facility] tiotropium 2021-0 Yes [id number] 18ug Inhale 1 [facility] 18 mcg 2-23 capsule ity of inhalation 00:00: daily. [facility] tiotropium 2021-0 Yes [id number] 18ug Inhale 1 [facility] 18 mcg 2-23 capsule ity of inhalation 00:00: daily. [facility] tiotropium 2021-0 Yes [id number] 18ug Inhale 1 [facility] 18 mcg 2-23 capsule ity of inhalation 00:00: daily. [facility] tiotropium 2021-0 Yes [id number] 18ug Inhale 1 [facility] 18 mcg 2-23 capsule ity of inhalation 00:00: daily. [facility] tiotropium 2021-0 Yes [id number] 18ug Inhale 1 [facility] 18 mcg 2-23 capsule ity of inhalation 00:00: daily. [facility] tiotropium 0 Yes [id number] 18ug Inhale 1 [facility] 18 mcg 2-23 capsule ity of inhalation 00:00: daily. [facility] tiotropium 0 Yes [id number] 18ug Inhale 1 [facility] 18 mcg 2-23 capsule ity of inhalation 00:00: daily. [facility] tiotropium 0 Yes [id number] 18ug Inhale 1 [facility] 18 mcg 2-23 capsule ity of inhalation 00:00: daily. [facility] tiotropium 0 Yes [id number] 18ug Inhale 1 [facility] 18 mcg 2-23 capsule ity of inhalation 00:00: daily. [facility] tiotropium 0 Yes [id number] 18ug Inhale 1 [facility] 18 mcg 2-23 capsule ity of inhalation 00:00: daily. [facility] tiotropium 2021-0 Yes [id number] 18ug Inhale 1 [facility] 18 mcg 2-23 capsule ity of inhalation 00:00: daily. [facility] tiotropium 2021-0 Yes [id number] 18ug Inhale 1 [facility] 18 mcg 2-23 capsule ity of inhalation 00:00: daily. [facility] tiotropium 2021-0 Yes [id number] 18ug Inhale 1 [facility] 18 mcg 2-23 capsule ity of inhalation 00:00: daily. [facility] tiotropium 2021-0 Yes [id number] 18ug Inhale 1 [facility] 18 mcg 2-23 capsule ity of inhalation 00:00: daily. [place] [facility] tiotropium 2022-0 Yes [id number] 18ug Inhale 1 [facility] 18 mcg 2-23 capsule ity of inhalation 00:00: daily. [facility] tiotropium 2021-0 Yes [id number] 18ug Inhale 1 [facility] 18 mcg 2-23 capsule ity of inhalation 00:00: daily. [facility] tiotropium 0 Yes [id number] 18ug Inhale 1 [facility] 18 mcg 2-23 capsule ity of inhalation 00:00: daily. [facility] tiotropium 0 Yes [id number] 18ug Inhale 1 [facility] 18 mcg 2-23 capsule ity of inhalation 00:00: daily. [facility] tiotropium 0 Yes [id number] 18ug Inhale 1 [facility] 18 mcg 2-23 capsule ity of inhalation 00:00: daily. [facility] tiotropium 0 Yes [id number] 18ug Inhale 1 [facility] 18 mcg 2-23 capsule ity of inhalation 00:00: daily. [facility] tiotropium 0 Yes [id number] 18ug Inhale 1 [facility] 18 mcg 2-23 capsule ity of inhalation 00:00: daily. [facility] tiotropium 0 Yes [id number] 18ug Inhale 1 [facility] 18 mcg 2-23 capsule ity of inhalation 00:00: daily. [facility] tiotropium 0 Yes [id number] 18ug Inhale 1 [facility] 18 mcg 2-23 capsule ity of inhalation 00:00: daily. [facility] tiotropium 0 Yes [id number] 18ug Inhale 1 [facility] 18 mcg 2-23 capsule ity of inhalation 00:00: daily. [facility] tiotropium 0 Yes [id number] 18ug Inhale 1 [facility] 18 mcg 2-23 capsule ity of inhalation 00:00: daily. [facility] tiotropium 2021-0 Yes [id number] 18ug Inhale 1 [facility] 18 mcg 2-23 capsule ity of inhalation 00:00: daily. [facility] tiotropium 0 Yes [id number] 18ug Inhale 1 [facility] 18 mcg 2-23 capsule ity of inhalation 00:00: daily. [facility] tiotropium 2021-0 Yes [id number] 18ug Inhale 1 [facility] 18 mcg 2-23 capsule ity of inhalation 00:00: daily. [facility] tiotropium 0 Yes [id number] 18ug Inhale 1 [facility] 18 mcg 2-23 capsule ity of inhalation 00:00: daily. [facility] tiotropium 2021-0 Yes [id number] 18ug Inhale 1 [facility] 18 mcg 2-23 capsule ity of inhalation 00:00: daily. [facility] tiotropium 2021-0 Yes [id number] 18ug Inhale 1 [facility] 18 mcg 2-23 capsule ity of inhalation 00:00: daily. [facility] tiotropium 0 Yes [id number] 18ug Inhale 1 [facility] 18 mcg 2-23 capsule ity of inhalation 00:00: daily. [facility] tiotropium 0 Yes [id number] 18ug Inhale 1 [facility] 18 mcg 2-23 capsule ity of inhalation 00:00: daily. [facility] tiotropium 0 Yes [id number] 18ug Inhale 1 [facility] 18 mcg 2-23 capsule ity of inhalation 00:00: daily. [facility] tiotropium 0 Yes [id number] 18ug Inhale 1 [facility] 18 mcg 2-23 capsule ity of inhalation 00:00: daily. [facility] tiotropium 0 Yes [id number] 18ug Inhale 1 [facility] 18 mcg 2-23 capsule ity of inhalation 00:00: daily. [facility] tiotropium 0 Yes [id number] 18ug Inhale 1 [facility] 18 mcg 2-23 capsule ity of inhalation 00:00: daily. [facility] tiotropium 0 Yes [id number] 18ug Inhale 1 [facility] 18 mcg 2-23 capsule ity of inhalation 00:00: daily. [facility] tiotropium 2021-0 Yes [id number] 18ug Inhale 1 [facility] 18 mcg 2-23 capsule ity of inhalation 00:00: daily. [facility] tiotropium 2021-0 Yes [id number] 18ug Inhale 1 [facility] 18 mcg 2-23 capsule ity of inhalation 00:00: daily. [facility] tiotropium 2021-0 Yes [id number] 18ug Inhale 1 [facility] 18 mcg 2-23 capsule ity of inhalation 00:00: daily. [facility] tiotropium Yes [id number] 18ug Inhale 1 [facility] 18 mcg 2-23 capsule ity of inhalation 00:00: daily. [facility] tiotropium 0 Yes [id number] 18ug Inhale 1 [facility] 18 mcg 2-23 capsule ity of inhalation 00:00: daily. [facility] tiotropium 0 Yes [id number] 18ug Inhale 1 [facility] 18 mcg 2-23 capsule ity of inhalation 00:00: daily. [facility] tiotropium 0 Yes [id number] 18ug Inhale 1 [facility] 18 mcg 2-23 capsule ity of inhalation 00:00: daily. [facility] tiotropium Yes [id number] 18ug Inhale 1 [facility] 18 mcg 2-23 capsule ity of inhalation 00:00: daily. [address] tiotropium Yes [id number] 18ug Inhale 1 [facility] 18 mcg 2-23 capsule ity of inhalation 00:00: daily. [address] tiotropium Yes [id number] 18ug Inhale 1 [facility] 18 mcg 2-23 capsule ity of inhalation 00:00: daily. [facility] tiotropium Yes [id number] 18ug Inhale 1 [facility] 18 mcg 2-23 capsule ity of inhalation 00:00: daily. [address] tiotropium Yes [id number] 18ug Inhale 1 [facility] 18 mcg 2-23 capsule ity of inhalation 00:00: daily. [address] tiotropium Yes [id number] 18ug Inhale 1 [facility] 18 mcg 2-23 capsule ity of inhalation 00:00: daily. [address] 24 HR Yes = 1 patch, Memori a Nicotine 1-13 TOP, l 0.583 MG/HR 18:09: Daily, X 7 [place] Transdermal 00 day, # 7 Patch patch, 0 Refill(s) Aspirin 325 Yes 325 mg = 1 Memoria MG Oral 1-13 tab, PO, l Tablet 18:09: Daily, X [place] 00 30 day, # 30 tab, 0 Refill(s) atorvastati Yes 10 mg = 1 M emoria n 10 mg 1-13 tab, PO, l oral tablet 18:09: Bedtime, # [place] 00 30 tab, 0 Refill(s) 24 HR Yes = 1 patch, Memori a Nicotine 1-13 TOP, l 0.583 MG/HR 18:09: Daily, X 7 [place] Transdermal day, # 7 Patch patch, 0 Refill(s) Aspirin 325 Yes 325 mg = 1 [facility] MG Oral 1-13 tab, PO, l Tablet 18:09: Daily, X [place] day, # 30 tab, 0 Refill(s) atorvastati Yes 10 mg = 1 M emoria n 10 mg 1-13 tab, PO, l oral tablet 18:09: Bedtime, # Adiel 00 30 tab, 0 Refill(s) 24 HR Yes = 1 patch, Memori a Nicotine 1-13 TOP, l 0.583 MG/HR 18:09: Daily, X 7 [place] Transdermal day, # 7 Patch patch, 0 Refill(s) 24 HR Yes = 1 patch, Memori a Nicotine 1-13 TOP, l 0.583 MG/HR 18:09: Daily, X 7 [place] Transdermal day, # 7 Patch patch, 0 Refill(s) Aspirin 325 Yes 325 mg = 1 Memoria MG Oral 1-13 tab, PO, l Tablet 18:09: Daily, X [place] day, # 30 tab, 0 Refill(s) atorvastati Yes 10 mg = 1 M emoria n 10 mg 1-13 tab, PO, l oral tablet 18:09: Bedtime, # Adiel 00 30 tab, 0 Refill(s) Aspirin 325 Yes 325 mg = 1 Memoria MG Oral 1-13 tab, PO, l Tablet 18:09: Daily, X [place] day, # 30 tab, 0 Refill(s) 24 HR Yes = 1 patch, Memori a Nicotine 1-13 TOP, l 0.583 MG/HR 18:09: Daily, X 7 [place] Transdermal day, # 7 Patch patch, 0 Refill(s) Aspirin 325 Yes 325 mg = 1 Memoria MG Oral 1-13 tab, PO, l Tablet 18:09: Daily, X [place] day, # 30 tab, 0 Refill(s) atorvastati Yes 10 mg = 1 M emoria n 10 mg 1-13 tab, PO, l oral tablet 18:09: Bedtime, # [place] 00 30 tab, 0 Refill(s) atorvastati Yes 10 mg = 1 M emoria n 10 mg 1-13 tab, PO, l oral tablet 18:09: Bedtime, # Adiel 00 30 tab, 0 Refill(s) 24 HR Yes = 1 patch, Memori a Nicotine 1-13 TOP, l 0.583 MG/HR 18:09: Daily, X 7 [place] Transdermal 00 day, # 7 Patch patch, 0 Refill(s) Aspirin 325 Yes 325 mg = 1 Memoria MG Oral 1-13 tab, PO, l Tablet 18:09: Daily, X [place] 00 30 day, # 30 tab, 0 Refill(s) atorvastati Yes 10 mg = 1 M emoria n 10 mg 1-13 tab, PO, l oral tablet 18:09: Bedtime, # [place] 00 30 tab, 0 Refill(s) 24 HR Yes = 1 patch, Memori a Nicotine 1-13 TOP, l 0.583 MG/HR 18:09: Daily, X 7 [place] Transdermal day, # 7 Patch patch, 0 Refill(s) Aspirin 325 Yes 325 mg = 1 Memoria MG Oral 1-13 tab, PO, l Tablet 18:09: Daily, X [place] 30 day, # 30 tab, 0 Refill(s) atorvastati Yes 10 mg = 1 M emoria n 10 mg 1-13 tab, PO, l oral tablet 18:09: Bedtime, # [place] 00 30 tab, 0 Refill(s) 24 HR Yes = 1 patch, Memori a Nicotine 1-13 TOP, l 0.583 MG/HR 18:09: Daily, X 7 [place] Transdermal day, # 7 Patch patch, 0 Refill(s) Aspirin 325 Yes 325 mg = 1 Memoria MG Oral 1-13 tab, PO, l Tablet 18:09: Daily, X Ad[place] 30 day, # 30 tab, 0 Refill(s) atorvastati Yes 10 mg = 1 M emoria n 10 mg 1-13 tab, PO, l oral tablet 18:09: Bedtime, # Adiel 00 30 tab, 0 Refill(s) 24 HR Yes = 1 patch, Memori a Nicotine 1-13 TOP, l 0.583 MG/HR 18:09: Daily, X 7 [place] Transdermal 00 day, # 7 Patch patch, 0 Refill(s) Aspirin 325 Yes 325 mg = 1 Memoria MG Oral 1-13 tab, PO, l Tablet 18:09: Daily, X [place] 00 30 day, # 30 tab, 0 Refill(s) atorvastati Yes 10 mg = 1 M emoria n 10 mg 1-13 tab, PO, l oral tablet 18:09: Bedtime, # [place] 00 30 tab, 0 Refill(s) remove No 1 patch, Memoria patch -13 Route: l 15:00: TOP, Drug form: ERFILM, Daily, Start date: 07/06/16 9:00:00 BRIM POUNCER, Duration: 30 day, Stop date: 08/04/16 9:00:00 BRIM POUNCER Nicotine No Notes: Memoria 1-13 (Same as: l 15:00: Habitrol) " aspirin 81 No Notes: Memor ia mg tablet, 1-13 (Same As: l enteric 15:00: Ecotrin) Fady n coated Aspirin 325 No Notes: Joss marvin MG Oral 1-13 Take with l Tablet 15:00: food. [place] 00 remove No 1 patch, Memoria patch -13 Route: l 15:00: TOP, Drug form: ERFILM, Daily, Start date: 07/06/16 9:00:00 BRIM POUNCER, Duration: 30 day, Stop date: 08/04/16 9:00:00 BRIM POUNCER Nicotine 2017 No Notes: Memoria 1-13 (Same as: l 15:00: Habitrol) Adiel " aspirin 81 No Notes: Memor ia mg tablet, 1-13 (Same As: l enteric 15:00: Ecotrin) Fady n coated Aspirin 325 No Notes: Joss marvin MG Oral 1-13 Take with l Tablet 15:00: food. No 1 patch, Memoria patch 1-13 Route: l 15:00: TOP, Drug [place] 00 form: ERFILM, Daily, Start date: 07/06/16 9:00:00 BRIM POUNCER, Duration: 30 day, Stop date: 08/04/16 9:00:00 BRIM POUNCER Nicotine 2017 No Notes: Memoria 1-13 (Same as: l 15:00: Habitrol) " aspirin 81 No Notes: Memor ia mg tablet, 1-13 (Same As: l enteric 15:00: Ecotrin) Fady n coated Aspirin 325 No Notes: Joss marvin MG Oral 1-13 Take with l Tablet 15:00: food. No 1 patch, Memoria patch 1-13 Route: l 15:00: TOP, Drug form: ERFILM, Daily, Start date: 07/06/16 9:00:00 BRIM POUNCER, Duration: 30 day, Stop date: 08/04/16 9:00:00 BRIM POUNCER Nicotine No Notes: Memoria 1-13 (Same as: l 15:00: Habitrol) " aspirin 81 No Notes: Memor ia mg tablet, 1-13 (Same As: l enteric 15:00: Ecotrin) Fady n coated Aspirin 325 No Notes: Joss marvin MG Oral 1-13 Take with l Tablet 15:00: food. No 1 patch, Memoria patch 1-13 Route: l 15:00: TOP, Drug form: ERFILM, Daily, Start date: 07/06/16 9:00:00 BRIM POUNCER, Duration: 30 day, Stop date: 08/04/16 9:00:00 BRIM POUNCER Nicotine 2017 No Notes: Memoria 1-13 (Same as: l 15:00: Habitrol) " aspirin 81 No Notes: Memor ia mg tablet, 1-13 (Same As: l enteric 15:00: Ecotrin) Fady n coated Aspirin 325 No Notes: Joss marvin MG Oral 1-13 Take with l Tablet 15:00: food. [place] 00 remove 2017-0 No 1 patch, Memoria patch 1-13 Route: l 15:00: TOP, Drug form: ERFILM, Daily, Start date: 07/06/16 9:00:00 BRIM POUNCER, Duration: 30 day, Stop date: 08/04/16 9:00:00 BRIM POUNCER Nicotine 20170 No Notes: Memoria 1-13 (Same as: l 15:00: Habitrol) " aspirin 81 No Notes: Memor ia mg tablet, 1-13 (Same As: l enteric 15:00: Ecotrin) Fady n coated Nicotine No Notes: Memoria 1-13 (Same as: l 15:00: Habitrol) " aspirin 81 No Notes: Memor ia mg tablet, 1-13 (Same As: l enteric 15:00: Ecotrin) Fady n coated Aspirin 325 No Notes: Joss marvin MG Oral 1-13 Take with l Tablet 15:00: food. remove No 1 patch, Memoria patch 1-13 Route: l 15:00: TOP, Drug form: ERFILM, Daily, Start date: 07/06/16 9:00:00 BRIM POUNCER, Duration: 30 day, Stop date: 08/04/16 9:00:00 BRIM POUNCER Aspirin 325 2017-0 No Notes: Joss marvin MG Oral 1-13 Take with l Tablet 15:00: food. Nicotine No Notes: Memoria 1-13 (Same as: l 15:00: Habitrol) " aspirin 81 No Notes: Memor ia mg tablet, 1-13 (Same As: l enteric 15:00: Ecotrin) Fady n coated Aspirin 325 0 No Notes: Joss marvin MG Oral 1-13 Take with l Tablet 15:00: food. remove No 1 patch, Memoria patch 1-13 Route: l 15:00: TOP, Drug form: ERFILM, Daily, Start date: 07/06/16 9:00:00 BRIM POUNCER, Duration: 30 day, Stop date: 08/04/16 9:00:00 BRIM POUNCER Aspirin 325 2017-0 No Notes: Joss marvin MG Oral 1-13 Take with l Tablet 15:00: food. remove No 1 patch, Memoria patch 1-13 Route: l 15:00: TOP, Drug form: ERFILM, Daily, Start date: 07/06/16 9:00:00 BRIM POUNCER, Duration: 30 day, Stop date: 08/04/16 9:00:00 BRIM POUNCER Nicotine No Notes: Memoria 1-13 (Same as: l 15:00: Habitrol) Adiel 00 " aspirin 81 No Notes: Memor ia mg tablet, 1-13 (Same As: l enteric 15:00: Ecotrin) Fady n coated 00 Sodium 2016-0 No 1,000 mL, Memori a Chloride 1-13 Rate: 75 l 0.154 00:00: ml/hr, Adiel MEQ/ML 00 Infuse Injectable over: 13.3 Solution hr, Route: IV, Dosing Weight 65.909 kg, Total Volume: 1,000, do for 1 liter only, Start date: 07/05/16 18:00:00 BRIM POUNCER, Duration: 30 day, Stop date: 08/04/16 17:59:00 BRIM POUNCER Sodium 2016-0 No 1,000 mL, Memori a Chloride 1-13 Rate: 75 l 0.154 00:00: ml/hr, Adiel MEQ/ML 00 Infuse Injectable over: 13.3 Solution hr, Route: IV, Dosing Weight 65.909 kg, Total Volume: 1,000, do for 1 liter only, Start date: 07/05/16 18:00:00 BRIM POUNCER, Duration: 30 day, Stop date: 08/04/16 17:59:00 BRIM POUNCER Sodium 2016-0 No 1,000 mL, Memori a Chloride 1-13 Rate: 75 l 0.154 00:00: ml/hr, [place] MEQ/ML 00 Infuse Injectable over: 13.3 Solution hr, Route: IV, Dosing Weight 65.909 kg, Total Volume: 1,000, do for 1 liter only, Start date: 07/05/16 18:00:00 BRIM POUNCER, Duration: 30 day, Stop date: 08/04/16 17:59:00 BRIM POUNCER Sodium 2016-0 No 1,000 mL, Memori a Chloride 1-13 Rate: 75 l 0.154 00:00: ml/hr, Adiel MEQ/ML 00 Infuse Injectable over: 13.3 Solution hr, Route: IV, Dosing Weight 65.909 kg, Total Volume: 1,000, do for 1 liter only, Start date: 07/05/16 18:00:00 BRIM POUNCER, Duration: 30 day, Stop date: 08/04/16 17:59:00 BRIM POUNCER Sodium 2017-0 No 1,000 mL, Memori a Chloride 1-13 Rate: 75 l 0.154 00:00: ml/hr, Adiel MEQ/ML 00 Infuse Injectable over: 13.3 Solution hr, Route: IV, Dosing Weight 65.909 kg, Total Volume: 1,000, do for 1 liter only, Start date: 07/05/16 18:00:00 BRIM POUNCER, Duration: 30 day, Stop date: 08/04/16 17:59:00 BRIM POUNCER Sodium 2017-0 No 1,000 mL, Memori a Chloride 1-13 Rate: 75 l 0.154 00:00: ml/hr, Adiel MEQ/ML 00 Infuse Injectable over: 13.3 Solution hr, Route: IV, Dosing Weight 65.909 kg, Total Volume: 1,000, do for 1 liter only, Start date: 07/05/16 18:00:00 BRIM POUNCER, Duration: 30 day, Stop date: 08/04/16 17:59:00 BRIM POUNCER Sodium 2017-0 No 1,000 mL, Memori a Chloride 1-13 Rate: 75 l 0.154 00:00: ml/hr, Adiel MEQ/ML 00 Infuse Injectable over: 13.3 Solution hr, Route: IV, Dosing Weight 65.909 kg, Total Volume: 1,000, do for 1 liter only, Start date: 07/05/16 18:00:00 BRIM POUNCER, Duration: 30 day, Stop date: 08/04/16 17:59:00 BRIM POUNCER Sodium 2017-0 No 1,000 mL, Memori a Chloride 1-13 Rate: 75 l 0.154 00:00: ml/hr, Adiel MEQ/ML 00 Infuse Injectable over: 13.3 Solution hr, Route: IV, Dosing Weight 65.909 kg, Total Volume: 1,000, do for 1 liter only, Start date: 07/05/16 18:00:00 BRIM POUNCER, Duration: 30 day, Stop date: 08/04/16 17:59:00 BRIM POUNCER Sodium 2017-0 No 1,000 mL, Memori a Chloride 1-13 Rate: 75 l 0.154 00:00: ml/hr, [place] MEQ/ML 00 Infuse Injectable over: 13.3 Solution hr, Route: IV, Dosing Weight 65.909 kg, Total Volume: 1,000, do for 1 liter only, Start date: 07/05/16 18:00:00 BRIM POUNCER, Duration: 30 day, Stop date: 08/04/16 17:59:00 BRIM POUNCER Labetalol No 100 Memoria 1-12 l 23:53: Adiel Labetalol No 100 Memoria 1-12 l 23:53: [place] Labetalol No 100 Memoria 1-12 l 23:53: [place] Labetalol No 100 Memoria 1-12 l 23:53: [place] Labetalol No 100 Memoria 1-12 l 23:53: Adiel Labetalol No 100 Memoria 1-12 l 23:53: [place] Labetalol No 100 Memoria 1-12 l 23:53: Adiel 00 Labetalol No 100 Memoria 1-12 l 23:53: [place] 00 Labetalol No 100 Memoria 1-12 l 23:53: Adiel Acetaminoph No Notes: Do M emoria en 12 not exceed l 22:17: 4 gm/day. [place] 00 (Same as: Tylenol) Ondansetron No Notes: Joss marvin -12 (Same as: l 22:17: Zofran) Adiel 00 MEDICATION WASTE Product Size: 4 mg Product Wasted: ___ mg Docusate No Notes: Memoria 1-12 (Same as: l 22:17: Colace [place] Acetaminoph No Notes: Do M emoria en 12 not exceed l 22:17: 4 gm/day. [place] 00 (Same as: Tylenol) Ondansetron No Notes: Joss marvin -12 (Same as: l 22:17: Zofran) [place] 00 MEDICATION WASTE Product Size: 4 mg Product Wasted: ___ mg Docusate No Notes: Memoria - (Same as: l 22:17: Colace Adiel Acetaminoph No Notes: Do M emoria en 07-05 not exceed l 22:17: 4 gm/day. Adiel 00 (Same as: Tylenol) Ondansetron No Notes: Joss marvin 07-05 (Same as: l 22:17: Zofran) Adiel 00 MEDICATION WASTE Product Size: 4 mg Product Wasted: ___ mg Docusate No Notes: Memoria 07-05 (Same as: l 22:17: Colace Adiel Acetaminoph No Notes: Do M emoria en 07-05 not exceed l 22:17: 4 gm/day. [place] 00 (Same as: Tylenol) Ondansetron No Notes: Joss marvin 07-05 (Same as: l 22:17: Zofran) Adiel 00 MEDICATION WASTE Product Size: 4 mg Product Wasted: ___ mg Docusate No Notes: Memoria 07-05 (Same as: l 22:17: Colace [place] Acetaminoph No Notes: Do M emoria en 07-05 not exceed l 22:17: 4 gm/day. Adiel 00 (Same as: Tylenol) Ondansetron No Notes: Joss marvin 07-05 (Same as: l 22:17: Zofran) Adiel 00 MEDICATION WASTE Product Size: 4 mg Product Wasted: ___ mg Docusate No Notes: Memoria 07-05 (Same as: l 22:17: Colace Adiel Acetaminoph No Notes: Do M emoria en - not exceed l 22:17: 4 gm/day. [place] 00 (Same as: Tylenol) Ondansetron 0 No Notes: Joss marvin -12 (Same as: l 22:17: Zofran) Adiel 00 MEDICATION WASTE Product Size: 4 mg Product Wasted: ___ mg Docusate No Notes: Memoria 07-05 (Same as: l 22:17: Colace Adiel 00 Acetaminoph No Notes: Do M emoria en 07-05 not exceed l 22:17: 4 gm/day. [place] 00 (Same as: Tylenol) Ondansetron No Notes: Joss marvin 07-05 (Same as: l 22:17: Zofran) Adiel 00 MEDICATION WASTE Product Size: 4 mg Product Wasted: ___ mg Docusate No Notes: Memoria 07-05 (Same as: l 22:17: Colace [place] 00 Acetaminoph No Notes: Do M emoria en 07-05 not exceed l 22:17: 4 gm/day. Adiel 00 (Same as: Tylenol) Ondansetron No Notes: Joss marvin 07-05 (Same as: l 22:17: Zofran) [place] 00 MEDICATION WASTE Product Size: 4 mg Product Wasted: ___ mg Docusate No Notes: Memoria 07-05 (Same as: l 22:17: Colace Adiel 00 Acetaminoph No Notes: Do M emoria en 07-05 not exceed l 22:17: 4 gm/day. Adiel 00 (Same as: Tylenol) Ondansetron No Notes: Joss marvin 07-05 (Same as: l 22:17: Zofran) [place] 00 MEDICATION WASTE Product Size: 4 mg Product Wasted: ___ mg Docusate No Notes: Memoria 07-05 (Same as: l 22:17: Colace Iohexol 0 No 100 mL, Memoria 07-05 Route: l 20:19: IVP, Drug Form: SOLN, Dosing Weight 65.909, kg, ONCALL, STAT, Start date: 07/05/16 14:19:00 BRIM POUNCER, Duration: 1 doses or times, Dose = 2.2ml/kg, Max dose = 100ml -- "To be infused by Radiology Staff ONLY" Iohexol 0 No 100 mL, Memoria 07-05 Route: l 20:19: IVP, Drug Adiel 00 Form: SOLN, Dosing Weight 65.909, kg, ONCALL, STAT, Start date: 07/05/16 14:19:00 BRIM POUNCER, Duration: 1 doses or times, Dose = 2.2ml/kg, Max dose = 100ml -- "To be infused by Radiology Staff ONLY" Iohexol 2017-0 No 100 mL, Memoria 07-05 Route: l 20:19: IVP, Drug [place] 00 Form: SOLN, Dosing Weight 65.909, kg, ONCALL, STAT, Start date: 07/05/16 14:19:00 BRIM POUNCER, Duration: 1 doses or times, Dose = 2.2ml/kg, Max dose = 100ml -- "To be infused by Radiology Staff ONLY" Iohexol 2017-0 No 100 mL, Memoria 07-05 Route: l 20:19: IVP, Drug [place] 00 Form: SOLN, Dosing Weight 65.909, kg, ONCALL, STAT, Start date: 07/05/16 14:19:00 BRIM POUNCER, Duration: 1 doses or times, Dose = 2.2ml/kg, Max dose = 100ml -- "To be infused by Radiology Staff ONLY" Iohexol 2017-0 No 100 mL, Memoria 07-05 Route: l 20:19: IVP, Drug [place] 00 Form: SOLN, Dosing Weight 65.909, kg, ONCALL, STAT, Start date: 07/05/16 14:19:00 BRIM POUNCER, Duration: 1 doses or times, Dose = 2.2ml/kg, Max dose = 100ml -- "To be infused by Radiology Staff ONLY" Iohexol 2017-0 No 100 mL, Memoria 07-05 Route: l 20:19: IVP, Drug Ad[place] 00 Form: SOLN, Dosing Weight 65.909, kg, ONCALL, STAT, Start date: 07/05/16 14:19:00 BRIM POUNCER, Duration: 1 doses or times, Dose = 2.2ml/kg, Max dose = 100ml -- "To be infused by Radiology Staff ONLY" Iohexol 2017-0 No 100 mL, Memoria 07-05 Route: l 20:19: IVP, Drug [place] 00 Form: SOLN, Dosing Weight 65.909, kg, ONCALL, STAT, Start date: 07/05/16 14:19:00 BRIM POUNCER, Duration: 1 doses or times, Dose = 2.2ml/kg, Max dose = 100ml -- "To be infused by Radiology Staff ONLY" Iohexol No 100 mL, Memoria 1-12 Route: l 20:19: IVP, Drug [place] 00 Form: SOLN, Dosing Weight 65.909, kg, ONCALL, STAT, Start date: 07/05/16 14:19:00 BRIM POUNCER, Duration: 1 doses or times, Dose = 2.2ml/kg, Max dose = 100ml -- "To be infused by Radiology Staff ONLY" Iohexol No 100 mL, Memoria 112 Route: l 20:19: IVP, Drug [place] 00 Form: SOLN, Dosing Weight 65.909, kg, ONCALL, STAT, Start date: 07/05/16 14:19:00 BRIM POUNCER, Duration: 1 doses or times, Dose = 2.2ml/kg, Max dose = 100ml -- "To be infused by Radiology Staff ONLY" Saline No Notes: Memoria Flush 0.9% 1-12 (Same as: l 18:45: BD [place] 00 Posiflush) Saline No Notes: Memoria Flush 0.9% 1-12 (Same as: l 18:45: BD [place] 00 Posiflush) Saline No Notes: Memoria Flush 0.9% 1-12 (Same as: l 18:45: BD [place] 00 Posiflush) Saline No Notes: Memoria Flush 0.9% 1-12 (Same as: l 18:45: BD [place] 00 Posiflush) Saline No Notes: Memoria Flush 0.9% 1-12 (Same as: l 18:45: BD Adiel 00 Posiflush) Saline No Notes: Memoria Flush 0.9% 1-12 (Same as: l 18:45: BD [place] 00 Posiflush) Saline No Notes: Memoria Flush 0.9% 1-12 (Same as: l 18:45: BD [place] 00 Posiflush) Saline No Notes: Memoria Flush 0.9% 1-12 (Same as: l 18:45: BD [place] 00 Posiflush) Saline 2017-0 No Notes: Memoria Flush 0.9% 1-12 (Same as: l 18:45: BD [place] 00 Posiflush) Vital Signs Vital Name Observation Time Observation Value Comments Source Systolic blood 2022-11-14 20:18:00 105 mm[Hg] [facility] Diastolic blood 2022-11-14 20:18:00 61 mm[Hg] [facility] Heart rate 2022-11-14 20:18:00 83 /min [facility] Respiratory rate 2022-11-14 20:18:00 18 /min [facility] Body height 2022-11-14 20:18:00 182.9 cm [facility] Body weight 2022-11-14 20:18:00 77.792 kg [facility] BMI 2022-11-14 20:18:00 23.26 kg/m2 [facility] Oxygen saturation in 2022-11-14 20:18:00 98 /min [facility] Arterial blood by [employer] [facility] Systolic blood 2022-11-08 13:35:00 112 mm[Hg] [facility] Diastolic blood 2022-11-08 13:35:00 65 mm[Hg] [facility] Heart rate 2022-11-08 13:35:00 68 /min [facility] Body temperature 2022-11-08 13:29:00 36.89 Sandie [facility] Respiratory rate 2022-11-08 13:29:00 17 /min [facility] Body height 2022-11-08 13:29:00 182.9 cm [facility] Body weight 2022-11-08 13:29:00 75.252 kg [facility] BMI 2022-11-08 13:29:00 22.50 kg/m2 [facility] Oxygen saturation in 2022-11-08 13:29:00 98 /min [facility] Arterial blood by [employer] Body height 2022-09-17 20:06:00 182.9 cm [facility] [place] Body weight 2022-09-17 20:06:00 77.565 kg [facility] BMI 2022-09-17 20:06:00 23.19 kg/m2 [facility] Systolic blood 2022-08-23 15:47:00 119 mm[Hg] [facility] Diastolic blood 2022-08-23 15:47:00 75 mm[Hg] [facility] Heart rate 2022-08-23 15:47:00 79 /min [facility] Body temperature 2022-08-23 15:42:00 36.83 Sandie [facility] Respiratory rate 2022-08-23 15:42:00 16 /min [facility] Body height 2022-08-23 15:42:00 182.9 cm [facility] Body weight 2022-08-23 15:42:00 73.301 kg [facility] BMI 2022-08-23 15:42:00 21.92 kg/m2 [facility] Oxygen saturation in 2022-08-23 15:42:00 99 /min [facility] Arterial blood by [facility] Pulse [facility] Branch Body weight 2022-08-22 19:09:00 79.833 kg [facility] BMI 2022-08-22 19:09:00 23.87 kg/m2 [facility] Systolic blood 2022-07-27 16:00:00 172 mm[Hg] [facility] Diastolic blood 2022-07-27 16:00:00 104 mm[Hg] [facility] Heart rate 2022-07-27 16:00:00 82 /min [facility] Respiratory rate 2022-07-27 15:57:00 19 /min [facility] Body height 2022-07-27 15:57:00 182.9 cm [facility] Body weight 2022-07-27 15:57:00 79.833 kg [facility] BMI 2022-07-27 15:57:00 23.87 kg/m2 [facility] Body height 2022-07-25 20:38:00 182.9 cm [facility] Body weight 2022-07-25 20:38:00 79.379 kg [facility] BMI 2022-07-25 20:38:00 23.73 kg/m2 [facility] Body height 2022-07-19 15:56:00 182.9 cm [facility] Body weight 2022-07-19 15:56:00 79.516 kg [facility] BMI 2022-07-19 15:56:00 23.77 kg/m2 [facility] Systolic blood 2021-11-02 19:49:00 144 mm[Hg] [facility] Diastolic blood 2021-11-02 19:49:00 88 mm[Hg] [facility] Heart rate 2021-11-02 19:45:00 76 /min [facility] Respiratory rate 2021-11-02 19:45:00 16 /min [facility] Body height 2021-11-02 19:45:00 182.9 cm [facility] Body weight 2021-11-02 19:45:00 73.568 kg [facility] BMI 2021-11-02 19:45:00 22.00 kg/m2 [facility] Oxygen saturation in 2021-11-02 19:45:00 99 /min [facility] Arterial blood by [facility] Pulse oximetry Branch Heart Rate 2016-07-06 17:43:00 Constantin Chun Systolic (mm Hg) 2016-07-06 17:43:00 Joss Chun Diastolic (mm Hg) 2016-07-06 17:43:00 Mem orial [place] Temperature Oral (F) 2016-07-06 17:43:00 97.6 F [facility] Respitory Rate 2016-07-06 17:43:00 Suni gilliland Adiel Height 2016-07-06 14:23:00 182.88 cm [facility] BMI Calculated 2016-07-06 14:23:00 Memori al [place] Weight 2016-07-06 14:23:00 [facility] [place] Systolic (mm Hg) 2016-07-06 13:53:00 Joss rial Adiel Diastolic (mm Hg) 2016-07-06 13:53:00 Mem orial [place] Respitory Rate 2016-07-06 13:53:00 Memori al Adiel Heart Rate 2016-07-06 13:53:00 [facility] Temperature Oral (F) 2016-07-06 13:53:00 96.5 F [facility] [place] Systolic (mm Hg) 2016-07-06 10:00:00 Joss rial [place] Diastolic (mm Hg) 2016-07-06 10:00:00 Mem orial [place] Respitory Rate 2016-07-06 10:00:00 Sheritor al [place] Temperature Oral (F) 2016-07-06 10:00:00 98.1 F [facility] Heart Rate 2016-07-06 10:00:00 [facility] [place] Height 2016-07-06 01:49:00 182.88 cm [facility] BMI Calculated 2016-07-06 01:49:00 Suni al Ad[place] Weight 2016-07-06 01:49:00 [facility] [place] Weight 2016-07-05 19:08:00 [facility] Adiel Procedures Procedure Date / Time Performing Clinician Source Performed EXTERNAL PROVIDER RECORDS 2022-10-18 05:01:00 Doctor Thorpe [facility] PATIENT FINANCIAL 2022-09-17 19:51:55 Doctor Thorpe [facility] POLICY [facility] MEDICATION CORRESPONDENCE 2022-09-11 05:01:00 Doctor Thorpe [facility] MEDICATION CORRESPONDENCE 2022-09-03 05:01:00 Doctor Thorpe [facility] EXTERNAL PROVIDER RECORDS 2022-08-09 06:01:00 Doctor Thorpe [facility] AUTHORIZATION FOR RELEASE 2022-08-06 06:01:00 Doctor Thorpe [facility] CONSENT/REFUSAL FOR 2022-07-31 15:34:40 Doctor Thorpe [facility] DIAGNOSIS AND TREATMENT [facility] AUTHORIZATION FOR RELEASE 2022-07-03 06:01:00 Doctor Thorpe [facility] Encounters Start End Encounter Admission Attending Care Care Encounter Source Date/Time Date/Time Type Type Clinicians Facility Department ID 2023-01-17 2023-01-17 Outpatient R DARRIUSJORGE DARR[facility] [id number] Univers 20:00:00 20:00:[address] [facility] 2023-01-10 2023-01-[address] [facility] [id number] [facility] 09:30:00 09:30:[address] [facility] 2022-12-13 2022-12-15 Inpatient MARIPOSA Medeiros, KARLOWU DAYS [id number] [facility] 15:32:00 11:30:[address] 2022-12-03 2022-12-03 [facility]phone [facility] [id number] [facility] 00:00:00 00:00:00 [facility] [id number] it y [facility] [id number] Anuel as TRISTON?BLEA [id number] [address] MEDICAL OFFICE BUILDING 2022-11-14 2022-11-14 Office [facility] [place] 1.2.337.473 [id number] Univers 15:15:00 15:46:43 Visit Gelacio [facility] 350.1.13.10 it y of [place] 4.2.7.2.686 Anuel as TRISTON?BLEA [phone] [address] MEDICAL OFFICE BUILDING 2022-11-14 2022-11-14 [facility] [id number] Univers 15:15:00 15:46:[address] [facility] 2022-11-12 2022-11-12 Telephone [facility] 1.2.034.373 [id number] Univers 00:00:00 00:00:00 Kang Han MULTISPEC 350.1.13.10 [place] [id number] Reyes desai AND RISHI [address] [place] [facility] 2022-11-08 2022-11-[address] [facility] [id number] Univers 08:30:00 09:46:44 KANG ity of [facility] 2022-11-08 2022-11-08 Office [facility] 1.2.840.114 [id number] Univers 08:30:00 09:46:44 Visit Kang Han MULTISPEC 350.1.13.10 [place] [id number] [address] [facility] 2022-11-08 2022-11-08 Telephone [facility] 1.2.624.722 [id number] Univers 00:00:00 00:00:00 Kang Han MULTISPEC 350.1.13.10 [place] [id number] [address] [facility] 2022-11-05 2022-11-05 Telephone [facility] 1.2.100.295 [id number] Univers 00:00:00 00:00:00 Kang Han MULTISPEC 350.1.13.10 [place] [id number] [address] [facility] 2022-11-01 2022-11-01 Telephone [facility] 1.2.247.682 [id number] [id number] Univers 00:00:00 00:00:00 Miguel S HEALTH 350.1.13.10 it y of [place] 4.2.7.2.686 Anuel as TRISTON?BLEA [phone] Nc haridarshana AMANDA[address] OFFICE [facility] 2022-10-30 2022-10-30 Letter [facility] [place] 1.2.840.114 [id number] Univers 00:00:00 00:00:00 (Out) Miguel S HEALTH 350.1.13.10 it y of [place] 4.2.7.2.686 Anuel as TRISTON?BLEA [phone] Nc haridarshana [address] OFFICE [facility] 2022-10-30 2022-10-30 Telephone [facility] 1.2.944.709 [id number] Univers 00:00:00 00:00:00 Kang Han MULTISPEC 350.1.13.10 [place] [id number] [address] DIABETES [facility] 2022-10-29 2022-10-29 Telephone [facility] 1.2.630.716 [id number] Univers 00:00:00 00:00:00 Kang Han MULTISPEC 350.1.13.10 [place] [id number] [address] [facility] 2022-10-29 2022-10-29 Telephone [facility] 1.2.840.114 [id number] Univers 00:00:00 00:00:00 Gelacio [facility] 350.1.13.10 it y of [place] 4.2.7.2.686 Anuel as TRISTON?BLEA [phone] [address] MEDICAL OFFICE BUILDING 2022-10-26 2022-10-26 Telephone [facility] 1.2.122.510 [id number] Univers 00:00:00 00:00:00 Kang Han MULTISPEC 350.1.13.10 [place] [id number] [address] DIABETES [facility] 2022-10-23 2022-10-23 Telephone [facility] 1.2.736.739 [id number] Univers 00:00:00 00:00:00 Kang Han MULTISPEC 350.1.13.10 [place] [id number] [address] [facility] 2022-10-19 2022-10-19 [facility]patient [facility] [id number] Univers 09:45:00 09:45:00 GELACIO ity of [facility] 2022-10-18 2022-10-18 Orders Doctor [place] 1.2.840.114 [id number] Univers 00:00:00 00:00:00 Only Unassigned, DONNY 350.1.13.10 ity of [place] [facility] 4.2.7.2.686 Anuel as [phone] [address] 2022-10-18 2022-10-18 Telephone [facility] 1.2.394.744 [id number] Univers 00:00:00 00:00:00 Kang Han MULTISPEC 350.1.13.10 [place] [id number] [address] [facility] 2022-10-16 2022-10-16 Telephone [facility] 1.2.693.872 [id number] [id number] Univers 00:00:00 00:00:00 Kang Han MULTISPEC 350.1.13.10 [place] [id number] [address] [facility] 2022-09-27 2022-09-27 Telephone [facility] 1.2.840.114 10 [id number] Univers 00:00:00 00:00:00 Gelacio Loved.la 350.1.13.10 it [facility] 4.2.7.2.686 Anuel as TRISTON?BLEA [phone] Nc haridarshana MITESH [address] [place] [address] MEDICAL OFFICE BUILDING 2022-09-20 2022-09-20 Telephone [facility] 1.2.840.114 10 [id number] Univers 00:00:00 00:00:00 Gelacio Porter HEALTH 350.1.13.10 it y of [place] 4.2.7.2.686 Anuel as TRISTON?BLEA [phone] Nc steve PATEL[address] MEDICAL OFFICE [facility] 2022-09-17 2022-09-17 Outpatient [facility] [id number] Univers 15:00:00 15:32:51 GELACIO itlizzie of [facility] 2022-09-17 2022-09-17 Office [facility] [place] [facility] 1.2.468.292 [id number] Univers 15:00:00 15:32:51 Visit Gelacio Loved.la 350.1.13.10 it y of [place] 4.2.7.2.686 Anuel as TRISTON?BLEA [phone] Nc steve SAGASTUME [address] [place] [address] MEDICAL OFFICE BUILDING 2022-09-17 2022-09-17 Orders Doctor SHA 1.2.840.114 [id number] Univers 00:00:00 00:00:00 Only Unassigned, DONNY 350.1.13.10 ity of [place] [facility] 4.2.7.2.686 Anuel as [id number] [address] 2022-09-14 2022-09-14 Telephone Jl WYLSOAN 1.2.061.528 [id number] Univers 00:00:00 00:00:00 Kang Han MULTISPEC 350.1.13.10 [place] [id number] [facility] [place] [address] [place] [address] DIABETES CLINIC 2022-09-11 2022-09-11 Orders Doctor SHA 1.2.840.114 [id number] Univers 00:00:00 00:00:00 Only Unassigned, DONNY 350.1.13.10 ity of [place] [facility] 4.2.7.2.686 Anuel as [phone] [address] 2022-09-03 2022-09-03 Telephone Akbar [facility] 1.2.083.296 [id number] Univers 00:00:00 00:00:00 Shiwan [place] 350.1.13.10 i ty of [facility] 4.2.7.2.[place] [id number] [facility] ELODIA [address] [place] [address] 2022-09-03 2022-09-03 Orders Doctor SHA 1.2.840.114 [id number] Univers 00:00:00 00:00:00 Only Unassigned, DONNY 350.1.13.10 ity of [place] [facility] 4.2.7.2.686 Anuel as [phone] [address] 2022-08-28 2022-08-28 Telephone Akbar [facility] 1.2.475.745 [id number] Univers 00:00:00 00:00:00 Shiwan [place] 350.1.13.10 i ty of [facility] [place] 4.2.7.2.[place] [id number] [address] 2022-08-23 2022-08-23 Exhibits Curator Vtc-Lab [facility] 1.2.840.114 [id number] Univers 11:30:00 11:45:00 Visit Kang Mcgill MULTISPEC 350.1.13 .10 ity of [place]2.[place].2.686 [place] [id number] [facility] AND [place] [address] [place] [facility] 2022-08-23 2022-08-[address] [facility] [id number] Univers 10:00:00 11:08:06 KANG hilliardlizzie [facility] 2022-08-23 2022-08-23 Office [facility] 1.2.840.114 [id number] Univers 10:00:00 11:08:06 Visit Kang Emely MULTISPEC 350.1.13.10 ity [place] 4[place].2.686 [place] [id number] [address] DIABETES [facility] 2022-08-22 2022-08-[address] [facility] [id number] Univers 13:00:00 14:19:43 GELACIO arminday [facility] 2022-08-22 2022-08-22 Office [facility] 1.2.720.666 [id number] [id number] Univers 13:00:00 14:19:43 Visit [facility] 350.1.13.10 it y of [place] 4.2.7.2.686 Anuel as TRISTON?BLEA [phone] Nc dical AMANDAEY 198 [facility] OFFICE [facility] 2022-08-14 2022-08-14 Telephone [facility] 1.2.154.651 [id number] [id number] Univers 00:00:00 00:00:00 Shiwan [place] 350.1.13.10 i ty of [facility] 4.2.7.2.686 [place] [phone] Nc dical NAL [address] [place] [address] 2022-08-09 2022-08-09 Telephone [facility] 1.2.387.374 [id number] Univers 00:00:00 00:00:00 Shiwan [place] 350.1.13.10 i ty of [place] 4.2.7.2.686 [place] [phone] Nc dicmn NAL [address] [place] [address] 2022-08-09 2022-08-09 Orders Doctor SHA 1.2.840.114 [id number] Univers 00:00:00 00:00:00 Only Unassigned, DONNY 350.1.13.10 ity of [place] [facility] 4.2.7.2.686 Anuel as [phone] [address] 2022-08-08 2022-08-[address] [facility] [id number] Univers 13:30:00 13:30:00 GELACIO ity of [facility] 2022-08-07 2022-08-07 Telephone [facility] [place] 1.2.601.614 [id number] Univers 00:00:00 00:00:00 Shiwan [place] 350.1.13.10 i ty of [place] 4.2.7.2.[place] [id number] [address] 2022-08-06 2022-08-06 Telephone [facility] 1.2.710.277 [id number] Univers 00:00:00 00:00:00 Shiwan [place] 350.1.13.10 i ty of [place] 4.2.7.2.[place] [id number] [address] 2022-08-06 2022-08-06 Orders Doctor SHA 1.2.840.114 [id number] Univers 00:00:00 00:00:00 Only Unassigned, DONNY 350.1.13.10 ity of [place] [facility] 4.2.7.2.686 Anuel as [id number] [address] 2022-08-02 2022-08-02 Telephone [facility] 1.2.087.809 [id number] Univers 00:00:00 00:00:00 Shiwan [place] 350.1.13.10 i ty of [place] 4.2.7.2.[place] [id number] [address] 2022-07-31 2022-07-[address] [facility] [id number] Univers 09:54:35 23:59:00 SENDIL ity of [facility] 2022-07-31 2022-07-31 Exhibits Curator Jaswinder, Adc Lab Main [facility] 1.2.8 40.114 [id number] Univers 10:00:00 10:15:00 Visit Claudy Jung 350.1.13.10 ity of [place] 4.2.7.2.[place] [id number] Nc dical NAL 353 [facility] 2022-07-31 2022-07-31 Orders Doctor SHA 1.2.840.114 [id number] Univers 00:00:00 00:00:00 Only Unassigned, DONNY 350.1.13.10 ity of [place] [facility] 4.2.7.2.686 Anuel as [id number] [address] 2022-07-27 2022-07-27 Exhibits Curator 2, Adc Lab [facility] 1.2.840.114 [id number] Univers 10:30:00 10:40:40 Visit Renae Villarreal 350.1.13.10 ity of [facility] [place] 4.2.7.2.[place] [phone] Nc dical NAL 353 [facility] 2022-07-27 2022-07-27 Outpatient R RENAE [facility]RE[facility] 10 [id number] Univers 09:00:00 10:32:07 RENAE VILLARREAL i ty of [facility] 2022-07-27 2022-07-27 Office Akbar [facility] 1.2.840.114 [id number] Univers 09:00:00 10:32:07 Visit Renae MEDINA 350.1.13.10 i ty of [place]2.7.2.[place] [phone] Nc dical NAL 085 [facility] 2022-07-25 2022-07-[address] [facility] [id number] Univers 13:15:00 15:22:[address] [facility] 2022-07-25 2022-07-25 Office Talib [facility] 1.2.580.310 [id number] Univers 13:15:00 15:22:14 Visit Gelacio TERRELL 350.1.13.10 it y of [place] 4.2.7.2.686 Anuel as TRISTON?BLEA [phone] Nc steve SAGASTUME 198 [facility] OFFICE [facility] 2022-07-25 2022-07-25 Telephone [facility] 1.2.840.114 10 [id number] Univers 00:00:00 00:00:00 Gelacio TERRELL 350.1.13.10 it y of [place] 4.2.7.2.686 Anuel as TRISTON?BLEA [phone] Nc steve SAGASTUME 198 [facility] OFFICE [facility] 2022-07-23 2022-07-23 Telephone Vill[facility] [place] 1.2.049.707 [id number] Univers 00:00:00 00:00:00 Shiwan MICHAELATON 350.1.13.10 i ty of [facility] [place] 4.2.7.2.[place] [id number] Me dical NAL 059 [facility] 2022-07-23 2022-07-23 Telephone [facility] 1.2.840.114 10 [id number] Univers 00:00:00 00:00:00 Gelacio TERRELL 350.1.13.10 it y of [place] 4.2.7.2.686 Anuel as TRISTON?BLEA [phone] Nc steve SAGASTUME 198 [facility] 2022-07-19 2022-07-19 Outpatient [facility] [id number] Univers 10:05:00 23:59:00 GELACIO ity of [facility] 2022-07-19 2022-07-19 Office [facility] 1.2.561.446 [id number] Univers 10:00:00 10:34:44 Visit Gelacio TERRELL 350.1.13.10 it y of [place] 4.2.7.2.686 Anuel as TRISTON?BLEA [phone] Nc steve SAGASTUME 198 [facility] OFFICE [facility] 2022-07-19 2022-07-19 Telephone [facility]AD[facility] [place] 1.2.840.114 10 [id number] Univers 00:00:00 00:00:00 [facility] 350.1.13.10 it y of [place] 4.2.7.2.686 Anuel as TRISTON?BLEA [phone] [facility] 198 [facility] OFFICE [facility] 2022-07-03 2022-07-03 Telephone VISH Villarreal 1.2.465.110 [id number] Univers 00:00:00 00:00:00 Renae MEDINA 350.1.13.10 i ty [place] 4[place]2.7.2.[place] [id number] Nc dicdarshana NAL 085 [facility] 2022-07-03 2022-07-03 Orders Doctor SHA 1.2.840.114 [id number] Univers 00:00:00 00:00:00 Only Unassigned, DONNY 350.1.13.10 ity of [place] [facility] 4.2.7.2.686 Anuel as [id number] [address] 2021-11-02 2021-11-02 Office Akbar [facility] 1.2.840.114 [id number] Univers 14:30:00 15:14:26 [facility] 350.1.13.10 i ty [place] 4.2.7.2.[place] [phone] Nc dicmn NAL [address] [place] [address] 2021-11-02 2021-11-02 Outpatient R RENAE [facility] [facility] 10 [id number] Univers 14:30:00 15:14:26 RENAE VILLARREAL i ty of [facility] 2021-11-02 2021-11-02 Outpatient R RENAE [facility] 10 [id number] Univers 14:30:00 14:30:00 RENAE VILLARREAL i ty of [facility] 2021-09-08 2021-09-08 Outpatient R RENAE [facility] 10 [id number] Univers 10:30:00 10:30:00 RENAE VILLARREAL i ty of [facility] 2021-09-08 2021-09-08 Outpatient R RENAE [facility] 10 [id number] Univers 10:30:00 10:30:00 RENAE VILLARREAL i ty of [facility] 2021-08-15 2021-08-15 Telephone [facility] [place] 1.2.618.883 [id number] Univers 00:00:00 00:00:00 Renae MEDINA 350.1.13.10 i ty of [place] 4.2.7.2.[place] [id number] [facility] 085 [facility] 2021-08-03 2021-08-03 Exhibits Curator Therapist, Liliya Respiratory [facility] 1.2.840.114 [id number] Univers 15:30:00 17:00:00 Visit McgillKang ramos ADAM 350.1.13. 10 ity of [place] 4.2.7.2.686 [place] [id number] [facility] [address] [place] 2021-08-03 2021-08-[address] [facility] [id number] Univers 15:30:00 15:30:00 KANG ity of [facility] 2021-07-31 2021-07-31 Laboratory Only, Adc Test [facility] 1.2.840. 114 [id number] Univers 16:00:00 16:15:00 Only Renae Villarreal 350.1.13.10 ity of [place] 4.2.7.2.686 [facility] [id number] [facility] [address] 2021-07-31 2021-07-31 Outpatient R RENAE VILL[facility] 10 [id number] Univers 16:00:00 16:00:00 RENAE VILLARREAL i ty of [facility] 2021-07-31 2021-07-31 Orders Doctor [place] 1..840.114 [id number] Univers 00:00:00 00:00:00 Only Unassigned, DONNY 350.1.13.10 ity of [place] [facility] 4.2.7.2.686 Anuel as [phone] [facility] [address] 2021-07-20 2021-07-20 Outpatient R RENAE VILLARRE[address] [facility] 10 [id number] Univers 15:30:00 16:11:37 RENAE VILLARREAL i ty of [facility] 2021-07-20 2021-07-20 Office Akbar [facility] 1.2.840.114 [id number] Univers 15:30:00 16:11:37 Visit Renae ADAM 350.1.13.10 i ty of [place] 4.2.7.2.686 [place] [facility] [phone] [place] 947605 [facility] 2021-07-20 2021-07-20 Orders Doctor SHA 1.2.840.114 [id number] Univers 00:00:00 00:00:00 Only Unassigned, DONNY 350.1.13.10 ity of [place] [facility] 4.2.7.2.686 Anuel as [phone] [address] 2021-03-10 2021-03-10 Orders Doctor SHA 1.2.840.114 [id number] Univers 00:00:00 00:00:00 Only Unassigned, DONNY 350.1.13.10 ity of [place] [facility] 4.2.7.2.686 Anuel as [phone] [address] 2020-12-07 2020-12-07 Emergency [facility] 1.2.025.742 [id number] Univers 14:56:00 15:34:00 [place] 350.1.13.10 i ty of [place] 4.2.7.2.686 [place] [phone] [facility] [address] [place] 2020-12-07 2020-12-07 Emergency X [facility] ERT [id number] Univers 14:12:00 14:12:00 ity of [facility] 2016-07-05 2016-07-06 [facility] 4061 [id number] Memoria 19:08:00 19:03:00 shira Chun [address] [place] [address] 2016-07-05 2016-07-06 Observatio [facility] 4061 [id number] Memoria 19:08:00 19:03:00 shira Chun [address] [place] [address] 2016-07-05 2016-07-06 Outpatient Ritu [facility] [id number] 13:08:00 13:03:00 Frank Mayorga 12 Results Test Description Test Time Test Comments Results Result Comments Source BASIC METABOLIC PANEL 2022-12-15 04:49:00 Test Item Value Reference Range Interpretation Comme nts SODIUM (test code = NA) 133 MMOL/L 137-145 L POTASSIUM (test code = K) 4.2 MMOL/L 3.5-5.1 N CHLORIDE (test code = CL) 103 MMOL/L 98-107 N CARBON DIOXIDE (test code = 22 MMOL/L 22-30 N CO2) ANION GAP (test code = GAP) 12 MMOL/L 14-24 L GLUCOSE (test code = GLU) 102 MG/DL 74-106 BLOOD UREA NITROGEN (test 21 MG/DL 9-20 H code = BUN) GLOMERULAR FILTRATION RATE > 60 T he Glomerular Filtration Rate is (test code = GFR) a calculat ed parameterbased on serum Creatinin e, patient age and sex. GFR values less than 60 mL/min/1.73 squ are meters are indicative ofCh ronic Kidney Disease. Values less than 15 mL/min/1.73squa re meters indicate Kidney failure. The calculation forGFR is based on the CKD-EPI (2020) calculat ion. This formulais race indifferent and is the recommended formula for GFRby the National [facility] Foundation for Adults.The GFR will not calculate if th e sex is unknown or if thepatien t's age is <18 years. CREATININE (test code = 1.00 MG/DL 0.66-1.25 N CREAT) CALCIUM (test code = CA) 8.8 MG/DL 8.4-10.2 N [id number] 04:49:00 Test Item Value Reference Range Interpretation Comments MAGNESIUM (test code = MAG) 2.3 MG/DL 1.6-2.3 N CBC W/AUTO [id number] 04:35:00 Test Item Value Reference Range Interpretation Comments WHITE BLOOD CELL (test code = 8.0 K/MM3 3.8-9.8 N WBC) RED BLOOD CELL (test code = 3.04 M/MM3 3.95-5.67 L RBC) HEMOGLOBIN (test code = HGB) 9.6 G/DL 12.4-16.7 L HEMATOCRIT (test code = HCT) 29.3 % 35.9-49.5 L MEAN CELL VOLUME (test code = 96 fL 81.7-96.1 N MCV) MEAN CELL HGB (test code = MCH) 31.6 pg 27.6-33.2 N MEAN CELL HGB CONCETRATION 32.8 % 32.9-35.5 L (test code = MCHC) RED CELL DISTRIBUTION WIDTH 14.6 % 12.1-15.2 N (test code = RDW) PLATELET COUNT (test code = 132 K/MM3 129-368 N PLT) MEAN PLATELET VOLUME (test code 10.6 fl 7.4-10.4 H = MPV) NEUTROPHIL % (test code = NT%) 77.9 % 43-75 H IMMATURE GRANULOCYTE % (test 0.3 % 0.0-2.0 N code = IG%) LYMPHOCYTE % (test code = LY%) 10.1 % 14-44 L MONOCYTE % (test code = MO%) 9.6 % 4-13 N EOSINOPHIL % (test code = EO%) 1.8 % 0-6 N BASOPHIL % (test code = BA%) 0.3 % 0-2 N NUCLEATED RBC % (test code = 0.0 % 0-1.0 N NRBC%) NEUTROPHIL # (test code = NT#) 6.24 K/mm3 2.0-7.6 N IMMATURE GRANULOCYTE # (test 0.02 x10 3/uL 0-0.03 N code = IG#) LYMPHOCYTE # (test code = LY#) 0.81 K/mm3 1.0-3.8 L MONOCYTE # (test code = MO#) 0.77 K/mm3 0.1-0.8 N EOSINOPHIL # (test code = EO#) 0.14 K/mm3 0.0-0.2 N BASOPHIL # (test code = BA#) 0.02 K/mm3 0.0-0.2 N NUCLEATED RBC # (test code = 0.00 K/mm3 0.0-0.1 N NRBC#) BASIC METABOLIC [id number] 06:50:00 Test Item Value Reference Range Interpretation Comments SODIUM (test code = 130 MMOL/L 137-145 L NA) POTASSIUM (test code 4.7 MMOL/L 3.5-5.1 N = K) CHLORIDE (test code 102 MMOL/L 98-107 N = CL) CARBON DIOXIDE (test 22 MMOL/L 22-30 code = CO2) ANION GAP (test code 11 MMOL/L 14-24 L = GAP) GLUCOSE (test code = 131 MG/DL 74-106 H GLU) BLOOD UREA NITROGEN 14 MG/DL 9-20 N (test code = BUN) GLOMERULAR > 60 The Glomerular FILTRATION RATE Filtration R ate is a (test code = GFR) calculated parameterbased on serum Creatinine, pat ient age and sex. GFR va luesless than 60 mL/min/ 1.73 square meters a re indicative ofCh ronic Kidney Disease. Values less than 15 mL/min/1.73squa re meters indicate Kidney failure. The calculation for GFR is based on the CK D-EPI (2020) calculat ion. This formulais race indifferent and is the recommended for radha for GFRby the Natio n[facility] Kidney Foundati on for Adults.The GFR will not calculate if th e sex is unknown or if thepatient's ag e is <18 years. CREATININE (test 0.90 MG/DL 0.66-1.25 N code = CREAT) CALCIUM (test code = 8.2 MG/DL 8.4-10.2 L CA) [id number] 06:50:00 Test Item Value Reference Range Interpretation Comments MAGNESIUM (test code = MAG) 2.1 MG/DL 1.6-2.3 N - XR CHEST [id number] 06:44:00 [facility] 1965 Sex: M Patient Name: ISAURA YOUNGER Unit No: [id number] EXAMS: CPT CODE: [id number] XR CHEST 1V [id number] EXAM: - XRCHEST 1V Location code:C3 HISTORY: post op surgery COMPARISON: 12/13/2022 IMPRESSION: Single AP viewof the chest is provided. Support lines and tubes and surgical drain about the left neck are unchanged. Interstitial opacities favoring edema have slightly diminished. Trace left effusion has developed. There is no pneumothorax. No additional interval change. at 0644 Reported and signed by: Adrien Ulloa MD CC: Dex CAZARESardiology Angelique MIRANDA Technologist: Sonia Workman RT(R) Transcrpt Date/Tm/Trnsp: 12/14/2022 (0644) [id number] Orig Print D/T: S: 12/14/2022 (0672) [facility] NAME: ISAURA YOUNGER [address] PHYS: [place] [address] : 1965 AGE: 57 SEX: M : [id number] PHONE #: [phone] EXAM DATE: 12/14/2022 STATUS: ADM IN FAX #: [phone] RADIOLOGY NO: PAGE 1 Signed ReportCBC W/AUTO [id number] 06:36:00 Test Item Value Reference Range Interpretation Comments WHITE BLOOD CELL (test code = 10.0 K/MM3 3.8-9.8 H WBC) RED BLOOD CELL (test code = 3.30 M/MM3 3.95-5.67 L RBC) HEMOGLOBIN (test code = HGB) 10.4 G/DL 12.4-16.7 L HEMATOCRIT (test code = HCT) 31.5 % 35.9-49.5 L MEAN CELL VOLUME (test code = 96 fL 81.7-96.1 N MCV) MEAN CELL HGB (test code = MCH) 31.5 pg 27.6-33.2 N MEAN CELL HGB CONCETRATION 33.0 % 32.9-35.5 N (test code = MCHC) RED CELL DISTRIBUTION WIDTH 14.5 % 12.1-15.2 N (test code = RDW) PLATELET COUNT (test code = 152 K/MM3 129-368 N PLT) MEAN PLATELET VOLUME (test code 10.7 fl 7.4-10.4 H = MPV) NEUTROPHIL % (test code = NT%) 88.4 % 43-75 H IMMATURE GRANULOCYTE % (test 0.4 % 0.0-2.0 N code = IG%) LYMPHOCYTE % (test code = LY%) 5.1 % 14-44 L MONOCYTE % (test code = MO%) 5.9 % 4-13 N EOSINOPHIL % (test code = EO%) 0.1 % 0-6 N BASOPHIL % (test code = BA%) 0.1 % 0-2 N NUCLEATED RBC % (test code = 0.0 % 0-1.0 N NRBC%) NEUTROPHIL # (test code = NT#) 8.81 K/mm3 2.0-7.6 H IMMATURE GRANULOCYTE # (test 0.04 x10 3/uL 0-0.03 H code = IG#) LYMPHOCYTE # (test code = LY#) 0.51 K/mm3 1.0-3.8 L MONOCYTE # (test code = MO#) 0.59 K/mm3 0.1-0.8 N EOSINOPHIL # (test code = EO#) 0.01 K/mm3 0.0-0.2 N BASOPHIL # (test code = BA#) 0.01 K/mm3 0.0-0.2 N NUCLEATED RBC # (test code = 0.00 K/mm3 0.0-0.1 N NRBC#) ARTERIAL BLOOD [id number] 18:05:00 Test Item Value Reference Range Interpretation Comments ARTERIAL BLOOD GAS PH 7.36 mmHg 7.35-7.45 N (test code = PHA) ARTERIAL BLOOD GAS 35.8 mmHg 35.0-45.0 N PCO2 (test code = PCO2A) ARTERIAL BLOOD GAS 119.5 mmol/L 80.0-100.0 H PO2 (test code = PO2A) BICARBONATE TOTAL 20.0 mmol/L 20.0-26.0 N HCO3 (test code = HCO3) BASE EXCESS (test -4.7 mmol/L -3.0-3.0 L code = DALLIN) ABG O2 SATURATION 98.2 % 95.0-100.0 N (test code = SATA) ABG DELIVERY (test FACETENT code = PILAR) ABG TEMPERATURE (test 37.0 C See_Comment [Auto mated message] code = TEMPA) The system Sagoon generated this result transmit joseline reference range : 37. The reference r ana luisa was not used to interpret this result as normal/abnormal . ABG SITE (test code = AL SITEA) ALLENS TEST (test NA CHECK code = ALLENS) FIO2 (test code = 60 % [id number]) BASIC METABOLIC [id number] 16:10:00 Test Item Value Reference Range Interpretation Comments SODIUM (test code = 132 MMOL/L 137-145 L NA) POTASSIUM (test code 4.2 MMOL/L 3.5-5.1 N = K) CHLORIDE (test code 102 MMOL/L 98-107 N = CL) CARBON DIOXIDE (test 25 MMOL/L 22-30 N code = CO2) ANION GAP (test code 9 MMOL/L 14-24 L = GAP) GLUCOSE (test code = 110 MG/DL 74-106 H GLU) BLOOD UREA NITROGEN 14 MG/DL 9-20 N (test code = BUN) GLOMERULAR > 60 The Glomerular FILTRATION RATE Filtration R ate is a (test code = GFR) calculated parameterbased on serum Creatinine, pat ient age and sex. GFR va luesless than 60 mL/min/ 1.73 square meters a re indicative ofCh ronic Kidney Disease. Values less than 15 mL/min/1.73squa re meters indicate Kidney failure. The calculation for GFR is based on the CK D-EPI (2020) calculat ion. This formulais race indifferent and is the recommended for radha for GFRby the Natio nal Kidney Foundati on for Adults.The GFR will not calculate if th e sex is unknown or if thepatient's ag e is <18 years. CREATININE (test 1.00 MG/DL 0.66-1.25 N code = CREAT) CALCIUM (test code = 9.6 MG/DL 8.4-10.2 N CA) [id number] 16:10:00 Test Item Value Reference Range Interpretation Comments MAGNESIUM (test code = MAG) 2.4 MG/DL 1.6-2.3 H CBC W/AUTO [id number] 15:51:00 Test Item Value Reference Range Interpretation Comments WHITE BLOOD CELL (test code = 8.0 K/MM3 3.8-9.8 N WBC) RED BLOOD CELL (test code = 3.40 M/MM3 3.95-5.67 L RBC) HEMOGLOBIN (test code = HGB) 10.7 G/DL 12.4-16.7 L HEMATOCRIT (test code = HCT) 32.8 % 35.9-49.5 L MEAN CELL VOLUME (test code = 97 fL 81.7-96.1 H MCV) MEAN CELL HGB (test code = MCH) 31.5 pg 27.6-33.2 N MEAN CELL HGB CONCETRATION 32.6 % 32.9-35.5 L (test code = MCHC) RED CELL DISTRIBUTION WIDTH 14.9 % 12.1-15.2 N (test code = RDW) PLATELET COUNT (test code = 162 K/MM3 129-368 N PLT) MEAN PLATELET VOLUME (test code 10.4 fl 7.4-10.4 N = MPV) NEUTROPHIL % (test code = NT%) 66.5 % 43-75 N IMMATURE GRANULOCYTE % (test 0.6 % 0.0-2.0 N code = IG%) LYMPHOCYTE % (test code = LY%) 17.1 % 14-44 N MONOCYTE % (test code = MO%) 8.4 % 4-13 N EOSINOPHIL % (test code = EO%) 7.0 % 0-6 H BASOPHIL % (test code = BA%) 0.4 % 0-2 N NUCLEATED RBC % (test code = 0.0 % 0-1.0 N NRBC%) NEUTROPHIL # (test code = NT#) 5.28 K/mm3 2.0-7.6 N IMMATURE GRANULOCYTE # (test 0.05 x10 3/uL 0-0.03 H code = IG#) LYMPHOCYTE # (test code = LY#) 1.36 K/mm3 1.0-3.8 N MONOCYTE # (test code = MO#) 0.67 K/mm3 0.1-0.8 N EOSINOPHIL # (test code = EO#) 0.56 K/mm3 0.0-0.2 H BASOPHIL # (test code = BA#) 0.03 K/mm3 0.0-0.2 N NUCLEATED RBC # (test code = 0.00 K/mm3 0.0-0.1 N NRBC#) - XR CHEST [id number] 15:40:00 [facility] 1965 Sex: M Patient Name: ISAURA YOUNGER Unit No: [id number] EXAMS: CPT CODE: [id number] XR CHEST 1V [id number] EXAMINATION: - XR CHEST 1V. LOCATION: B2. HISTORY: post op surgery. COMPARISON: Radiograph of same day at 0833 hours. TECHNIQUE: Single AP view of the chest was obtained. FINDINGS: Right PICC line tip overlies the distal SVC. Right IJ Ackworth-Christine catheter tip overlies the right pulmonary artery. Surgical drain overlies the left neck. The heart is mildly enlarged in size. Mild coarsening of bilateral interstitial markings. No acute osseous abnormality is identified. IMPRESSION: Mild cardiomegaly with mild coarsening of interstitial markings, similar to prior exam. at 1540 Reported and signed by: Amita Alvarenga MD CC: Dex Merino MD Technologist: Natalie Mahmood RT ARRT Transcrpt Date/Tm/Trnsp: 12/13/2022 (1540) t.[id number].PR7 Orig Print D/T: S:12/13/2022 (2953) [facility] NAME: ISAURA YOUNGER [address] [address] PHYS: [place] [address] : 1965 AGE: 57 SEX: M LOC: [id number].SI07 A PHONE #: [phone] EXAM DATE: 12/13/2022 STATUS: ADM IN FAX #: [phone] RADIOLOGY NO: PAGE 1 Signed ReportPROTHROMBIN [id number] 09:36:00 Test Item Value Reference Range Interpretation Comments PROTHROMBIN TIME 12.2 SECONDS 10.1-12.6 N PATIENT (test code = PTP) INTERNATIONAL NORMAL 1.1 0.86-1.14 N The INR is to be RATIO (test code = used only for INR) monitoring oral anticoagulantth erap y. INDICATION I NR VALUE ---- ---- ---- -------1. Prophylaxis, de ep venous thrombos is, including high risk surgery. 2.0 - 3.0 2. Prophylaxis, deep venous thrombosis, hip surgery, treatm ent for deep venous thrombosis or pulmonary prevention of systemic emboli sm in patients wit h valvular heart disease, atrial fibrillation, tissue heart va lve, or acute myocar dial infarction. 2.0 - 3.0 3. Pulp Beater al prosthesis hear t valves, recurre nt systemic emboli sm. 3.0 - 4.5 Comments to Property Officer: PREOPPTT [id number] 09:36:00 Test Item Value Reference Range Interpretation Comments PTT ACTIVATED (test code = APTT) 30.9 SECONDS 27.2-37.9 N Comments to Property Officer: PREOPBASIC METABOLIC [id number] 09:28:00 Test Item Value Reference Range Interpretation Comments SODIUM (test code = 133 MMOL/L 137-145 L NA) POTASSIUM (test code 4.6 MMOL/L 3.5-5.1 N = K) CHLORIDE (test code 102 MMOL/L 98-107 N = CL) CARBON DIOXIDE (test 24 MMOL/L 22-30 N code = CO2) GLUCOSE (test code = 83 MG/DL 74-106 N GLU) BLOOD UREA NITROGEN 16 MG/DL 9-20 N (test code = BUN) GLOMERULAR > 60 The Glomerular FILTRATION RATE Filtration R ate is a (test code = GFR) calculated parameterbased on serum Creatinine, pat ient age and sex. GFR va luesless than 60 mL/min/ 1.73 square meters a re indicative ofCh ronic Kidney Disease. Values less than 15 mL/min/1.73squa re meters indicate Kidney failure. The calculation for GFR is based on the CK D-EPI (2020) calculat ion. This formulais race indifferent and is the recommended for radha for GFRby the Natio nal Kidney Foundati on for Adults.The GFR will not calculate if th e sex is unknown or if thepatient's ag e is <18 years. CREATININE (test 1.00 MG/DL 0.66-1.25 N code = CREAT) CALCIUM (test code = 8.7 MG/DL 8.4-10.2 N CA) CBC W/AUTO [id number] 09:25:00 Test Item Value Reference Range Interpretation Comments WHITE BLOOD CELL (test code = 5.1 K/MM3 3.8-9.8 N WBC) RED BLOOD CELL (test code = 3.77 M/MM3 3.95-5.67 L RBC) HEMOGLOBIN (test code = HGB) 11.8 G/DL 12.4-16.7 L HEMATOCRIT (test code = HCT) 36.4 % 35.9-49.5 N MEAN CELL VOLUME (test code = 97 fL 81.7-96.1 H MCV) MEAN CELL HGB (test code = MCH) 31.3 pg 27.6-33.2 N MEAN CELL HGB CONCETRATION 32.4 % 32.9-35.5 L (test code = MCHC) RED CELL DISTRIBUTION WIDTH 14.8 % 12.1-15.2 N (test code = RDW) PLATELET COUNT (test code = 156 K/MM3 129-368 N PLT) MEAN PLATELET VOLUME (test code 10.9 fl 7.4-10.4 H = MPV) NEUTROPHIL % (test code = NT%) 68.5 % 43-75 N IMMATURE GRANULOCYTE % (test 0.4 % 0.0-2.0 N code = IG%) LYMPHOCYTE % (test code = LY%) 14.9 % 14-44 N MONOCYTE % (test code = MO%) 8.7 % 4-13 N EOSINOPHIL % (test code = EO%) 6.9 % 0-6 H BASOPHIL % (test code = BA%) 0.6 % 0-2 N NUCLEATED RBC % (test code = 0.0 % 0-1.0 N NRBC%) NEUTROPHIL # (test code = NT#) 3.46 K/mm3 2.0-7.6 N IMMATURE GRANULOCYTE # (test 0.02 x10 3/uL 0-0.03 N code = IG#) LYMPHOCYTE # (test code = LY#) 0.75 K/mm3 1.0-3.8 L MONOCYTE # (test code = MO#) 0.44 K/mm3 0.1-0.8 N EOSINOPHIL # (test code = EO#) 0.35 K/mm3 0.0-0.2 H BASOPHIL # (test code = BA#) 0.03 K/mm3 0.0-0.2 N NUCLEATED RBC # (test code = 0.00 K/mm3 0.0-0.1 N NRBC#) - XR CHEST [id number] 08:47:00 [facility] 1965 Sex: M Patient Name: ISAURA YOUNGER Unit No: [id number] EXAMS: CPT CODE: [id number] XR CHEST 1V [id number] Dictation location: U19. CHEST, FRONTAL VIEW HISTORY: PREOP COMPARISON: None FINDINGS: Cardiomegaly with mild interstitial prominence in Bony B line suggestive of pulmonary edema. Aorta is partially calcified.Bones are unremarkable. IMPRESSION: Cardiomegaly with mild pulmonary edema. Electronically Signedby Cole Reeves MD on 12/13/2022 at 0847 Reported and signed by: Cole Reeves MD CC: Dex [facility] Angelique MIRANDA Technologist: Mary Jones, RT (R) Transcrpt Date/Tm/Trnsp: 12/13/2022 (0847) Bird.SP17 Orig Print D/T: S: 12/13/2022 (0851) [facility] NAME: ISAURA YOUNGER [address] [address] PHYS: [place] [address] : 1965 AGE: 57 SEX: M LOC: VICKI PHONE #: [phone] EXAM DATE: 12/13/2022 STATUS: PRE IN FAX #: [phone] RADIOLOGY NO: PAGE 1 Signed ReportPOC VENOUS BLOOD [id number] 14:24:00 Test Item Value Reference Range Interpretation Comments POC VENOUS BLOOD 7.369 pH units 7.26-7.43 N GAS PH (test code = POCPHV) POC VENOUS BLOOD 42.7 mmHg e 35.0-45.0 N GAS PCO2 (test code = DHRBRR4S) POC VENOUS BLOOD 34.0 mmHg e 80.0-100.0 LL GAS PO2 (test code = [id number]) POC TCO2 VENOUS 26.0 MMOL/L e 24.0-30.0 N (test code = IUYHDC3C) POC HCO3 VENOUS 24.7 MMOL/L e 22.0-26.0 N (test code = CWQBXY6R) POC BASE EXCESS -0.7 MMOL/L e See_Comment N [Automated VENOUS (test code = message] The system POCBEV) which generated this result transmitted reference range : -3.0 to 3.0. Th e reference range was not used to interpret this result as normal/abnormal . POC O2 SATURATION 63 % e 95-100 L VENOUS (test code = WFNF9SD) POC SAMPLE SOURCE Venous Descript Specimen (test code = POCSAMPLE) POC ARTERIAL BLOOD [id number] 14:24:00 Test Item Value Reference Range Interpretation Comments POC ARTERIAL BLOOD GAS PH 7.406 pH units 7.35-7.45 N (test code = POCPHA) POC ARTERIAL BLOOD GAS PCO2 41.5 mmHg e 35.0-45.0 N (test code = SSVTYS4Z) POC TCO2 ARTERIAL (test 27.4 MMOL/L e 24.0-30.0 N code = POCTCO2) ARTERIAL BLOOD GAS PO2 62.6 mmHg e 80.0-105.0 L (test code = PSZMG0J) POC HCO3 ARTERIAL (test 26.1 MMOL/L e 22.0-26.0 H code = MDSCAK1J) POC BASE EXCESS (test code 1.2 MMOL/L e = POCBEA) POC O2 SATURATION (test 92 % e 95-100 L code = POCO2S) POC SAMPLE SOURCE (test Arterial Descript Specimen code = POCSAMPLE) COAGULATION TIME [id number] 10:53:00 Test Item Value Reference Range Interpretation Comments COAGULATION TIME ACTIVATED (test 164 SECistat 74-125 H code = ACT) COAGULATION TIME [id number] 10:19:00 Test Item Value Reference Range Interpretation Comments COAGULATION TIME ACTIVATED (test 177 SECistat 74-125 H code = ACT) COAGULATION TIME [id number] 07:23:00 Test Item Value Reference Range Interpretation Comments COAGULATION TIME ACTIVATED (test 335 SECistat 74-125 H code = ACT) COVID 19 INHOUSE [id number] 07:14:00 Test Item Value Reference Range Interpretation Comments COVID 19 INHOUSE AG NEGATIVE Negative Per manu facturer, (test code = negative result s should [id number]) be treated aspr esumptive and, if inconsi stent with clinical signs andsymptoms or necessary for patient man agement, should betested with an alternative mol ecular assay. Negative resultsdo not preclude SA RS-CoV-2 infection and s hould not be usedas the s ole basis for patient man agement decisions. Nega tive results should be considered in t he context of apatient's r ecent exposures, hist ory, presence of cli nicalsigns and symptoms co nsistent with COVID-19. THROMBOPLASTIN TIME [id number] 06:28:00 Test Item Value Reference Range Interpretation Comments THROMBOPLASTIN TIME PARTIAL 35.0 SECONDS 26-35 N (test code = PTT) PROTHROMBIN [id number] 06:28:00 Test Item Value Reference Range Interpretation Comments PT PATIENT (test 15.7 SECONDS 9.3-12.9 H code = PTP) INTERNATIONAL NORMAL 1.40 INR Unit 0.8-1.2 H TARGE T INR BY RATIO (test code = INDICATIO N Indication INR) INR1. Prophylax is of venous thrombos is 2.0 - 3.0 (orthoped ic surgery), Proph ylaxis of venous throm bosis (other than hig h-risk surgery), Treat ment of Deep Vein Thrombosis/Pulm onary Embolism, Preve ntion of systemic emb olism - Tissue heart va lves, Acute Myocardia l Infarction (to prevent systemic emboli sm), Valvular heart disease, Acute Myocardial Infa rction (to prevent sys temic embolism), Valv ular heart disease, Atrial Fibrillation, Bileaflet mecha nical valve in aortic position.2. Mec hanical prosthetic valv es (high risk), 2. 5 - 3.5 Presence of Lup us Anticoagulant o r Antiphospholipi d Antibodies, Pre vention of systemic emb olism - Acute Myocardia l Infarction (to prevent recurrent infar ct). COMPREHENSIVE METABOLIC [id number] 06:16:00 Test Item Value Reference Range Interpretation Comments SODIUM (test code 136 mmol/L 134-147 N = NA) POTASSIUM (test 3.6 mmol/L 3.4-5.0 N code = K) CHLORIDE (test 101 mmol/L 100-108 N code = CL) CARBON DIOXIDE 29 mmol/L 21-32 N (test code = CO2) ANION GAP (test 6.0 GAP calc 4.0-15.0 N code = GAP) GLUCOSE (test code 86 MG/DL 70-110 N = GLU) BLOOD UREA 12 MG/DL 7-18 N NITROGEN (test code = BUN) GLOMERULAR >=60 max >60 The Glomerular FILTRATION RATE estimate estGFR Filtratio n Rate is a (test code = GFR) calculated parameterbased on serum Creatinin e, patient age and sex. GFR valuesless than 60 mL/min/1.73 square meters are servando cative ofChronic Kidne y Disease. Values less than 15 mL/min/1.73squa re meters indicate Kidney failure. The calculation for GFR is based on the CK D-EPI (2020) calculat ion. This formulais race indifferent and is the recommended formula for GFR by the National Kidney Foundation for Adults.The GFR will not calculate i f the sex is unknown or if thepatient's ag e is <18 years. CREATININE (test 1.2 MG/DL 0.8-1.3 N code = CREAT) TOTAL PROTEIN 7.0 G/DL 6.4-8.2 N (test code = PROT) ALBUMIN (test code 3.0 G/DL 3.4-5.0 L = ALB) GLOBULIN (test 4.0 GM/dL code = GLOB) ALBUMIN/GLOBULIN 0.8 RATIO 1.2-2.2 L RATIO (test code = A/G) CALCIUM (test code 9.2 MG/DL 8.5-10.1 N = CA) BILIRUBIN TOTAL 1.60 MG/DL 0.2-1.2 H (test code = BILT) SGOT/AST (test 27 Unit/L 15-37 N code = AST) SGPT/ALT (test 33 Unit/L 12-78 N code = ALT) ALKALINE 95 Unit/L 50-136 N PHOSPHATASE TOTAL (test code = ALKP) LIPID PROFILE (CORONARY RISK)[id number] 06:16:00 Test Item Value Reference Range Interpretation Comments TRIGLYCERIDES (test 38 MG/DL 0-150 N code = TRIG) CHOLESTEROL (test 81 MG/DL 133-200 L code = CHOL) CHOLESTEROL/HDL 2.45 RATIO See_Comment RISK ASSOCIA JOSELINE WITH RATIO (test code = CHOL/HDL RATIOS: RISK CHOLHDL) MALE FEMALE1/2 AVERAGE 3.43 3.27AVERAG E 4.97 4.442X AVERAGE 9.55 7.053X AVERAGE 23.39 11.04 NOTE THAT THE REFERENCE VALUE IS RELATED TO RISK LEVELS ASRECOMMENDED B Y THE [facility] . [Automated mess age] The system which Kodkod nerated this result tra nsmitted reference range : 0-. The reference range was not used to interpr et this result as normal/abnormal . HDL CHOLESTEROL 33 MG/DL 40-59 L (test code = HDL) NON-HDL CHOLESTEROL 48 mg/dL <130 (test code = NHDL) LIPOPROTEIN LDL 45 MG/DL 0-129 N <100 OPTIMAL 100 - 129 (test code = LDL) NEAR OPTIM AL/ABOVE [id number] - 15 9 [id number] - 189 HIGH>OR= 190 VE RY HIGHNOTE THAT G UIDELINES ARE PROVIDED BY NATIONAL CHOLESTEROLEDUC ATION PROGRAM ADULT T REATMENT PANEL III LDL/HDL (test code 1.36 Ratio See_Comment L [Automat ed message] The = LDL/HDL) system which Kodkod nerated this result tra nsmitted reference range : 1.48-3.22 Avg. The reference range was not used to interpr et this result as normal/abnormal . [id number] 06:16:00 Test Item Value Reference Range Interpretation Comments MAGNESIUM (test code = MAG) 1.9 MG/DL 1.8-2.4 N CBC W/AUTO [id number] 05:50:00 Test Item Value Reference Range Interpretation Comments WHITE BLOOD CELL (test code = 7.4 K/mm3 3.5-11.0 N WBC) RED BLOOD CELL (test code = 4.30 M/mm3 4.70-6.10 L RBC) HEMOGLOBIN (test code = HGB) 13.3 G/DL 12.3-15.9 N HEMATOCRIT (test code = HCT) 41.2 % 35.8-46.7 N MEAN CELL VOLUME (test code = 95.8 Fl 86.3-98.9 N MCV) MEAN CELL HGB (test code = MCH) 30.9 pg 28.9-34.4 N MEAN CELL HGB CONCETRATION 32.3 G/DL 32.1-34.5 N (test code = MCHC) RED CELL DISTRIBUTION WIDTH 13.8 SD 11.5-14.5 N (test code = RDW) PLATELET COUNT (test code = 266 K/mm3 150-450 N PLT) MEAN PLATELET VOLUME (test code 12.90 fL 7.0-9.6 H = MPV) NEUTROPHIL % (test code = NT%) 60.6 % 40-76 N IMMATURE GRANULOCYTE % (test 0.3 % 0.0-5.0 N code = IG%) LYMPHOCYTE % (test code = LY%) 22.8 % 20.5-51.1 N MONOCYTE % (test code = MO%) 11.3 % 1.7-9.3 H EOSINOPHIL % (test code = EO%) 3.8 % 0.0-6.0 N BASOPHIL % (test code = BA%) 1.2 % 0.0-2.0 N NUCLEATED RBC % (test code = 0.0 /100WBC% 0.0-1.0 N NRBC%) NEUTROPHIL # (test code = NT#) 4.5 K/mm3 1.8-7.6 N IMMATURE GRANULOCYTE # (test 0.02 x10 3/uL 0.00-0.03 N code = IG#) LYMPHOCYTE # (test code = LY#) 1.7 K/mm3 0.6-3.0 N MONOCYTE # (test code = MO#) 0.8 K/mm3 0.2-1.5 N EOSINOPHIL # (test code = EO#) 0.3 K/mm3 0.0-0.4 N BASOPHIL # (test code = BA#) 0.1 K/mm3 0.0-0.2 N NUCLEATED RBC # (test code = 0.0 K/mm3 0.00-0.01 N NRBC#) MANUAL DIFF REQUIRED (test code NO DIFF/SCN CRITERIA = MDIFF) DRUG [id number] 13:05:00 Test Item Value Reference Range Interpretation Comments UDS Note (test code = See Note *NA*(07/06/16 UDS Note) 7:05 AM) [facility] [id number] 13:05:00 Test Item Value Reference Range Interpretation Comments U Phencyc Scr (test Negative *NA*(07/06/16 code = U Phencyc Scr) 7:05 AM) [facility] [id number] 13:05:00 Test Item Value Reference Range Interpretation Comments U Roxi Scr (test code Negative *NA*(07/06/16 = U Roxi Scr) 7:05 AM) [facility] [id number] 13:05:00 Test Item Value Reference Range Interpretation Comments U Benzodia Scr (test Negative *NA*(07/06/16 code = U Benzodia Scr) 7:05 AM) [facility] [id number] 13:05:00 Test Item Value Reference Range Interpretation Comments U Amph Scr (test code Negative *NA*(07/06/16 = U Amph Scr) 7:05 AM) [facility] [id number] 13:05:00 Test Item Value Reference Range Interpretation Comments U Opiate Scr (test Negative *NA*(07/06/16 code = U Opiate Scr) 7:05 AM) [facility] [id number] 13:05:00 Test Item Value Reference Range Interpretation Comments U Cannab Scr (test Negative *NA*(07/06/16 code = U Cannab Scr) 7:05 AM) [facility] [id number] 13:05:00 Test Item Value Reference Range Interpretation Comments UDS Note (test code = See Note *NA*(07/06/16 UDS Note) 7:05 AM) [facility] [id number] 13:05:00 Test Item Value Reference Range Interpretation Comments U Cocaine Scr (test Negative *NA*(07/06/16 code = U Cocaine Scr) 7:05 AM) [facility] [id number] 13:05:00 Test Item Value Reference Range Interpretation Comments UA Sq Epi (test code = UA Sq Epi) None Seen [facility] [id number] 13:05:00 Test Item Value Reference Range Interpretation Comments UA RBC (test code = 1 See_Comment [Automa joseline message] The UA RBC) system which ge nerated this result transmit joseline reference range : <=2. The reference range was not used to interpr et this result as tamera l/abnormal. [facility] [id number] 13:05:00 Test Item Value Reference Range Interpretation Comments UA Bacteria (test code = UA Occasional /HPF Bacteria) [facility] [id number] 13:05:00 Test Item Value Reference Range Interpretation Comments UA Mucus (test code = UA Mucus) Few /LPF [facility] [id number] 13:05:00 Test Item Value Reference Range Interpretation Comments UA Amorph Josefa (test code = Occasional /HPF UA Amorph Josefa) [facility] [id number] 13:05:00 Test Item Value Reference Range Interpretation Comments UA Nitrite (test code Negative (07/06/16 7:05 = UA Nitrite) AM) [facility] [id number] 13:05:00 Test Item Value Reference Range Interpretation Comments UA Urobilinogen (test code = UA 2.0 0.1-1.0 Urobilinogen) [facility] [id number] 13:05:00 Test Item Value Reference Range Interpretation Comments UA WBC (test code = 1 See_Comment [Automa joseline message] The UA WBC) system which ge nerated this result transmit joseline reference range : <=5. The reference range was not used to interpr et this result as tamera l/abnormal. [facility] [id number] 13:05:00 Test Item Value Reference Range Interpretation Comments UA Leuk Est (test Negative (07/06/16 7:05 code = UA Leuk Est) AM) [facility] [id number] 13:05:00 Test Item Value Reference Range Interpretation Comments U Phencyc Scr (test Negative *NA*(07/06/16 code = U Phencyc Scr) 7:05 AM) [facility] [id number] 13:05:00 Test Item Value Reference Range Interpretation Comments UA Turbidity (test code = Clear (07/06/16 7:05 UA Turbidity) AM) [facility] [id number] 13:05:00 Test Item Value Reference Range Interpretation Comments UA pH (test code = UA pH) 6.5 5.0-8.0 [facility] [id number] 13:05:00 Test Item Value Reference Range Interpretation Comments UA Spec Grav (test code = UA Spec Grav) 1.032 [facility] [id number] 13:05:00 Test Item Value Reference Range Interpretation Comments UA Protein (test code = UA Protein) 50 mg/dL [facility] [id number] 13:05:00 Test Item Value Reference Range Interpretation Comments UA Glucose (test code = UA Negative mg/dL Glucose) [facility] [id number] 13:05:00 Test Item Value Reference Range Interpretation Comments UA Ketones (test code = UA Negative mg/dL Ketones) [facility] [id number] 13:05:00 Test Item Value Reference Range Interpretation Comments UA Bili (test code = Negative *NA*(07/06/16 UA Bili) 7:05 AM) [facility] [id number] 13:05:00 Test Item Value Reference Range Interpretation Comments UA Blood (test code = Negative (07/06/16 7:05 UA Blood) AM) [facility] [id number] 13:05:00 Test Item Value Reference Range Interpretation Comments UA Color (test code = Yellow *NA*(07/06/16 UA Color) 7:05 AM) [facility] [id number] 13:05:00 Test Item Value Reference Range Interpretation Comments U Roxi Scr (test code Negative *NA*(07/06/16 = U Roxi Scr) 7:05 AM) [facility] [id number] 13:05:00 Test Item Value Reference Range Interpretation Comments U Benzodia Scr (test Negative *NA*(07/06/16 code = U Benzodia Scr) 7:05 AM) [facility] [id number] 13:05:00 Test Item Value Reference Range Interpretation Comments U Amph Scr (test code Negative *NA*(07/06/16 = U Amph Scr) 7:05 AM) [facility] [id number] 13:05:00 Test Item Value Reference Range Interpretation Comments U Opiate Scr (test Negative *NA*(07/06/16 code = U Opiate Scr) 7:05 AM) [facility] [id number] 13:05:00 Test Item Value Reference Range Interpretation Comments U Cannab Scr (test Negative *NA*(07/06/16 code = U Cannab Scr) 7:05 AM) [facility] [id number] 13:05:00 Test Item Value Reference Range Interpretation Comments U Cocaine Scr (test Negative *NA*(07/06/16 code = U Cocaine Scr) 7:05 AM) [facility] [id number] 13:05:00 Test Item Value Reference Range Interpretation Comments UA Sq Epi (test code = UA Sq Epi) None Seen [facility] [id number] 13:05:00 Test Item Value Reference Range Interpretation Comments UA RBC (test code = 1 See_Comment [Automa joseline message] The UA RBC) system which ge nerated this result transmit joseline reference range : <=2. The reference range was not used to interpr et this result as tamera l/abnormal. [facility] [id number] 13:05:00 Test Item Value Reference Range Interpretation Comments UA Bacteria (test code = UA Occasional /HPF Bacteria) [facility] [id number] 13:05:00 Test Item Value Reference Range Interpretation Comments UA Mucus (test code = UA Mucus) Few /LPF [facility] [id number] 13:05:00 Test Item Value Reference Range Interpretation Comments UA Amorph Josefa (test code = Occasional /HPF UA Amorph Josefa) [facility] [id number] 13:05:00 Test Item Value Reference Range Interpretation Comments UDS Note (test code = See Note *NA*(07/06/16 UDS Note) 7:05 AM) [facility] [id number] 13:05:00 Test Item Value Reference Range Interpretation Comments U Phencyc Scr (test Negative *NA*(07/06/16 code = U Phencyc Scr) 7:05 AM) [facility] [id number] 13:05:00 Test Item Value Reference Range Interpretation Comments U Roxi Scr (test code Negative *NA*(07/06/16 = U Roxi Scr) 7:05 AM) [facility] [id number] 13:05:00 Test Item Value Reference Range Interpretation Comments U Benzodia Scr (test Negative *NA*(07/06/16 code = U Benzodia Scr) 7:05 AM) [facility] [id number] 13:05:00 Test Item Value Reference Range Interpretation Comments UA Nitrite (test code Negative (07/06/16 7:05 = UA Nitrite) AM) [facility] [id number] 13:05:00 Test Item Value Reference Range Interpretation Comments U Amph Scr (test code Negative *NA*(07/06/16 = U Amph Scr) 7:05 AM) [facility] [id number] 13:05:00 Test Item Value Reference Range Interpretation Comments U Opiate Scr (test Negative *NA*(07/06/16 code = U Opiate Scr) 7:05 AM) [facility] [id number] 13:05:00 Test Item Value Reference Range Interpretation Comments U Cannab Scr (test Negative *NA*(07/06/16 code = U Cannab Scr) 7:05 AM) [facility] [id number] 13:05:00 Test Item Value Reference Range Interpretation Comments U Cocaine Scr (test Negative *NA*(07/06/16 code = U Cocaine Scr) 7:05 AM) [facility] [id number] 13:05:00 Test Item Value Reference Range Interpretation Comments UA Sq Epi (test code = UA Sq Epi) None Seen [facility] [id number] 13:05:00 Test Item Value Reference Range Interpretation Comments UDS Note (test code = See Note *NA*(07/06/16 UDS Note) 7:05 AM) [facility] [id number] 13:05:00 Test Item Value Reference Range Interpretation Comments U Phencyc Scr (test Negative *NA*(07/06/16 code = U Phencyc Scr) 7:05 AM) [facility] [id number] 13:05:00 Test Item Value Reference Range Interpretation Comments U Roix Scr (test code Negative *NA*(07/06/16 = U Roxi Scr) 7:05 AM) [facility] [id number] 13:05:00 Test Item Value Reference Range Interpretation Comments U Benzodia Scr (test Negative *NA*(07/06/16 code = U Benzodia Scr) 7:05 AM) [facility] [id number] 13:05:00 Test Item Value Reference Range Interpretation Comments U Amph Scr (test code Negative *NA*(07/06/16 = U Amph Scr) 7:05 AM) [facility] [id number] 13:05:00 Test Item Value Reference Range Interpretation Comments U Opiate Scr (test Negative *NA*(07/06/16 code = U Opiate Scr) 7:05 AM) [facility] [id number] 13:05:00 Test Item Value Reference Range Interpretation Comments U Cannab Scr (test Negative *NA*(07/06/16 code = U Cannab Scr) 7:05 AM) [facility] [id number] 13:05:00 Test Item Value Reference Range Interpretation Comments U Cocaine Scr (test Negative *NA*(07/06/16 code = U Cocaine Scr) 7:05 AM) [facility] [id number] 13:05:00 Test Item Value Reference Range Interpretation Comments UA Sq Epi (test code = UA Sq Epi) None [facility]en [facility] [id number] 13:05:00 Test Item Value Reference Range Interpretation Comments UA RBC (test code = 1 See_Comment [Automa joseline message] The UA RBC) system which ge nerated this result transmit joseline reference range : <=2. The reference range was not used to interpr et this result as tamera l/abnormal. [facility] [id number] 13:05:00 Test Item Value Reference Range Interpretation Comments UA RBC (test code = 1 See_Comment [Automa joseline message] The UA RBC) system which ge nerated this result transmit joseline reference range : <=2. The reference range was not used to interpr et this result as tamera l/abnormal. [facility] AND [id number] 13:05:00 Test Item Value Reference Range Interpretation Comments UA Bacteria (test code = UA Occasional /HPF Bacteria) [facility] AND [id number] 13:05:00 Test Item Value Reference Range Interpretation Comments UA Mucus (test code = UA Mucus) Few /LPF [facility] AND [id number] 13:05:00 Test Item Value Reference Range Interpretation Comments UA Amorph Josefa (test code = Occasional /HPF UA Amorph Josefa) [facility] AND [id number] 13:05:00 Test Item Value Reference Range Interpretation Comments UA Nitrite (test code Negative (07/06/16 7:05 = UA Nitrite) AM) [facility] AND [id number] 13:05:00 Test Item Value Reference Range Interpretation Comments UA Urobilinogen (test code = UA 2.0 0.1-1.0 Urobilinogen) [facility] AND [id number] 13:05:00 Test Item Value Reference Range Interpretation Comments UA WBC (test code = 1 See_Comment [Automa joseline message] The UA WBC) system which ge nerated this result transmit joseline reference range : <=5. The reference range was not used to interpr et this result as tamera l/abnormal. [facility] AND [id number] 13:05:00 Test Item Value Reference Range Interpretation Comments UA Leuk Est (test Negative (07/06/16 7:05 code = UA Leuk Est) AM) [facility] AND [id number] 13:05:00 Test Item Value Reference Range Interpretation Comments UA Turbidity (test code = Clear (07/06/16 7:05 UA Turbidity) AM) [facility] AND [id number] 13:05:00 Test Item Value Reference Range Interpretation Comments UA pH (test code = UA pH) 6.5 5.0-8.0 [facility] AND [id number] 13:05:00 Test Item Value Reference Range Interpretation Comments UA Bacteria (test code = UA Occasional /HPF Bacteria) [facility] AND [id number] 13:05:00 Test Item Value Reference Range Interpretation Comments UA Spec Grav (test code = UA Spec Grav) 1.032 [facility] AND [id number] 13:05:00 Test Item Value Reference Range Interpretation Comments UA Protein (test code = UA Protein) 50 mg/dL [facility] AND [id number] 13:05:00 Test Item Value Reference Range Interpretation Comments UA Glucose (test code = UA Negative mg/dL Glucose) [facility] AND [id number] 13:05:00 Test Item Value Reference Range Interpretation Comments UA Ketones (test code = UA Negative mg/dL Ketones) [facility] AND [id number] 13:05:00 Test Item Value Reference Range Interpretation Comments UA Bili (test code = Negative *NA*(07/06/16 UA Bili) 7:05 AM) [facility] AND [id number] 13:05:00 Test Item Value Reference Range Interpretation Comments UA Blood (test code = Negative (07/06/16 7:05 UA Blood) AM) [facility] AND [id number] 13:05:00 Test Item Value Reference Range Interpretation Comments UA Color (test code = Yellow *NA*(07/06/16 UA Color) 7:05 AM) [facility] AND [id number] 13:05:00 Test Item Value Reference Range Interpretation Comments UA Mucus (test code = UA Mucus) Few /LPF [facility] AND [id number] 13:05:00 Test Item Value Reference Range Interpretation Comments UA Amorph Josefa (test code = Occasional /HPF UA Amorph Josefa) [facility] AND [id number] 13:05:00 Test Item Value Reference Range Interpretation Comments UA Nitrite (test code Negative (07/06/16 7:05 = UA Nitrite) AM) [facility] AND [id number] 13:05:00 Test Item Value Reference Range Interpretation Comments UA Urobilinogen (test code = UA 2.0 0.1-1.0 Urobilinogen) [facility] AND [id number] 13:05:00 Test Item Value Reference Range Interpretation Comments UA Urobilinogen (test code = UA 2.0 0.1-1.0 Urobilinogen) [facility] AND [id number] 13:05:00 Test Item Value Reference Range Interpretation Comments UA WBC (test code = 1 See_Comment [Automa joseline message] The UA WBC) system which ge nerated this result transmit joseline reference range : <=5. The reference range was not used to interpr et this result as tamera l/abnormal. [facility] AND [id number] 13:05:00 Test Item Value Reference Range Interpretation Comments UA Leuk Est (test Negative (07/06/16 7:05 code = UA Leuk Est) AM) [facility] AND [id number] 13:05:00 Test Item Value Reference Range Interpretation Comments UA Turbidity (test code = Clear (07/06/16 7:05 UA Turbidity) AM) [facility] AND [id number] 13:05:00 Test Item Value Reference Range Interpretation Comments UA pH (test code = UA pH) 6.5 5.0-8.0 [facility] AND [id number] 13:05:00 Test Item Value Reference Range Interpretation Comments UA Spec Grav (test code = UA Spec Grav) 1.032 [facility] AND [id number] 13:05:00 Test Item Value Reference Range Interpretation Comments UA Protein (test code = UA Protein) 50 mg/dL [facility] AND [id number] 13:05:00 Test Item Value Reference Range Interpretation Comments UA Glucose (test code = UA Negative mg/dL Glucose) [facility] AND [id number] 13:05:00 Test Item Value Reference Range Interpretation Comments UA Ketones (test code = UA Negative mg/dL Ketones) [facility] AND [id number] 13:05:00 Test Item Value Reference Range Interpretation Comments UA Bili (test code = Negative *NA*(07/06/16 UA Bili) 7:05 AM) [facility] AND [id number] 13:05:00 Test Item Value Reference Range Interpretation Comments UA WBC (test code = 1 See_Comment [Automa joseline message] The UA WBC) system which ge nerated this result transmit joseline reference range : <=5. The reference range was not used to interpr et this result as tamera l/abnormal. [facility] AND [id number] 13:05:00 Test Item Value Reference Range Interpretation Comments UA Blood (test code = Negative (07/06/16 7:05 UA Blood) AM) [facility] [id number] 13:05:00 Test Item Value Reference Range Interpretation Comments UA Color (test code = Yellow *NA*(07/06/16 UA Color) 7:05 AM) [facility] [id number] 13:05:00 Test Item Value Reference Range Interpretation Comments UA Leuk Est (test Negative (07/06/16 7:05 code = UA Leuk Est) AM) [facility] [id number] 13:05:00 Test Item Value Reference Range Interpretation Comments UA Turbidity (test code = Clear (07/06/16 7:05 UA Turbidity) AM) [facility] [id number] 13:05:00 Test Item Value Reference Range Interpretation Comments UA pH (test code = UA pH) 6.5 5.0-8.0 [facility] [id number] 13:05:00 Test Item Value Reference Range Interpretation Comments UA Spec Grav (test code = UA Spec Grav) 1.032 [facility] [id number] 13:05:00 Test Item Value Reference Range Interpretation Comments UA Protein (test code = UA Protein) 50 mg/dL [facility] [id number] 13:05:00 Test Item Value Reference Range Interpretation Comments UA Glucose (test code = UA Negative mg/dL Glucose) [facility] [id number] 13:05:00 Test Item Value Reference Range Interpretation Comments UA Ketones (test code = UA Negative mg/dL Ketones) [facility] [id number] 13:05:00 Test Item Value Reference Range Interpretation Comments UA Bili (test code = Negative *NA*(07/06/16 UA Bili) 7:05 AM) [facility] [id number] 13:05:00 Test Item Value Reference Range Interpretation Comments UA Blood (test code = Negative (07/06/16 7:05 UA Blood) AM) [facility] [id number] 13:05:00 Test Item Value Reference Range Interpretation Comments UA Color (test code = Yellow *NA*(07/06/16 UA Color) 7:05 AM) [facility] [id number] 13:05:00 Test Item Value Reference Range Interpretation Comments UDS Note (test code = See Note *NA*(07/06/16 UDS Note) 7:05 AM) [facility] [id number] 13:05:00 Test Item Value Reference Range Interpretation Comments U Phencyc Scr (test Negative *NA*(07/06/16 code = U Phencyc Scr) 7:05 AM) [facility] [id number] 13:05:00 Test Item Value Reference Range Interpretation Comments U Roxi Scr (test code Negative *NA*(07/06/16 = U Roxi Scr) 7:05 AM) [facility] [id number] 13:05:00 Test Item Value Reference Range Interpretation Comments U Benzodia Scr (test Negative *NA*(07/06/16 code = U Benzodia Scr) 7:05 AM) [facility] [id number] 13:05:00 Test Item Value Reference Range Interpretation Comments U Amph Scr (test code Negative *NA*(07/06/16 = U Amph Scr) 7:05 AM) [facility] [id number] 13:05:00 Test Item Value Reference Range Interpretation Comments U Opiate Scr (test Negative *NA*(07/06/16 code = U Opiate Scr) 7:05 AM) [facility] [id number] 13:05:00 Test Item Value Reference Range Interpretation Comments U Cannab Scr (test Negative *NA*(07/06/16 code = U Cannab Scr) 7:05 AM) [facility] [id number] 13:05:00 Test Item Value Reference Range Interpretation Comments U Cocaine Scr (test Negative *NA*(07/06/16 code = U Cocaine Scr) 7:05 AM) [facility] [id number] 13:05:00 Test Item Value Reference Range Interpretation Comments UA Sq Epi (test code = UA Sq Epi) None [facility]en [facility] [id number] 13:05:00 Test Item Value Reference Range Interpretation Comments UA RBC (test code = 1 See_Comment [Automa joseline message] The UA RBC) system which ge nerated this result transmit joseline reference range : <=2. The reference range was not used to interpr et this result as tamera l/abnormal. [facility] AND [id number] 13:05:00 Test Item Value Reference Range Interpretation Comments UA Bacteria (test code = UA Occasional /HPF Bacteria) [facility] AND [id number] 13:05:00 Test Item Value Reference Range Interpretation Comments UA Mucus (test code = UA Mucus) Few /LPF [facility] AND [id number] 13:05:00 Test Item Value Reference Range Interpretation Comments UA Amorph Josefa (test code = Occasional /HPF UA Amorph Josefa) [facility] AND [id number] 13:05:00 Test Item Value Reference Range Interpretation Comments UA Nitrite (test code Negative (07/06/16 7:05 = UA Nitrite) AM) [facility] AND [id number] 13:05:00 Test Item Value Reference Range Interpretation Comments UA Urobilinogen (test code = UA 2.0 0.1-1.0 Urobilinogen) [facility] AND [id number] 13:05:00 Test Item Value Reference Range Interpretation Comments UA WBC (test code = 1 See_Comment [Automa joseline message] The UA WBC) system which ge nerated this result transmit joseline reference range : <=5. The reference range was not used to interpr et this result as tamera l/abnormal. [facility] AND [id number] 13:05:00 Test Item Value Reference Range Interpretation Comments UA Leuk Est (test Negative (07/06/16 7:05 code = UA Leuk Est) AM) [facility] AND [id number] 13:05:00 Test Item Value Reference Range Interpretation Comments UA Turbidity (test code = Clear (07/06/16 7:05 UA Turbidity) AM) [facility] AND [id number] 13:05:00 Test Item Value Reference Range Interpretation Comments UA pH (test code = UA pH) 6.5 5.0-8.0 [facility] AND [id number] 13:05:00 Test Item Value Reference Range Interpretation Comments UA Spec Grav (test code = UA Spec Grav) 1.032 [facility] AND [id number] 13:05:00 Test Item Value Reference Range Interpretation Comments UA Protein (test code = UA Protein) 50 mg/dL [facility] [id number] 13:05:00 Test Item Value Reference Range Interpretation Comments UA Glucose (test code = UA Negative mg/dL Glucose) [facility] [id number] 13:05:00 Test Item Value Reference Range Interpretation Comments UA Ketones (test code = UA Negative mg/dL Ketones) [facility] [id number] 13:05:00 Test Item Value Reference Range Interpretation Comments UA Bili (test code = Negative *NA*(07/06/16 UA Bili) 7:05 AM) [facility] [id number] 13:05:00 Test Item Value Reference Range Interpretation Comments UA Blood (test code = Negative (07/06/16 7:05 UA Blood) AM) [facility] AND [id number] 13:05:00 Test Item Value Reference Range Interpretation Comments UA Color (test code = Yellow *NA*(07/06/16 UA Color) 7:05 AM) [facility] [id number] 13:05:00 Test Item Value Reference Range Interpretation Comments UDS Note (test code = See Note *NA*(07/06/16 UDS Note) 7:05 AM) [facility] [id number] 13:05:00 Test Item Value Reference Range Interpretation Comments U Phencyc Scr (test Negative *NA*(07/06/16 code = U Phencyc Scr) 7:05 AM) [facility] [id number] 13:05:00 Test Item Value Reference Range Interpretation Comments U Roxi Scr (test code Negative *NA*(07/06/16 = U Roxi Scr) 7:05 AM) [facility] [id number] 13:05:00 Test Item Value Reference Range Interpretation Comments U Benzodia Scr (test Negative *NA*(07/06/16 code = U Benzodia Scr) 7:05 AM) [facility] [id number] 13:05:00 Test Item Value Reference Range Interpretation Comments U Amph Scr (test code Negative *NA*(07/06/16 = U Amph Scr) 7:05 AM) [facility] [id number] 13:05:00 Test Item Value Reference Range Interpretation Comments U Opiate Scr (test Negative *NA*(07/06/16 code = U Opiate Scr) 7:05 AM) [facility] [id number] 13:05:00 Test Item Value Reference Range Interpretation Comments U Cannab Scr (test Negative *NA*(07/06/16 code = U Cannab Scr) 7:05 AM) [facility] [id number] 13:05:00 Test Item Value Reference Range Interpretation Comments U Cocaine Scr (test Negative *NA*(07/06/16 code = U Cocaine Scr) 7:05 AM) [facility] [id number] 13:05:00 Test Item Value Reference Range Interpretation Comments UA Sq Epi (test code = UA Sq Epi) None [facility]en [facility] [id number] 13:05:00 Test Item Value Reference Range Interpretation Comments UA RBC (test code = 1 See_Comment [Automa joseline message] The UA RBC) system which ge nerated this result transmit joseline reference range : <=2. The reference range was not used to interpr et this result as tamera l/abnormal. [facility] [id number] 13:05:00 Test Item Value Reference Range Interpretation Comments UA Bacteria (test code = UA Occasional /HPF Bacteria) [facility] [id number] 13:05:00 Test Item Value Reference Range Interpretation Comments UA Mucus (test code = UA Mucus) Few /LPF [facility] [id number] 13:05:00 Test Item Value Reference Range Interpretation Comments UA Amorph Josefa (test code = Occasional /HPF UA Amorph Josefa) [facility] [id number] 13:05:00 Test Item Value Reference Range Interpretation Comments UA Nitrite (test code Negative (07/06/16 7:05 = UA Nitrite) AM) [facility] [id number] 13:05:00 Test Item Value Reference Range Interpretation Comments UA Urobilinogen (test code = UA 2.0 0.1-1.0 Urobilinogen) [facility] [id number] 13:05:00 Test Item Value Reference Range Interpretation Comments UA WBC (test code = 1 See_Comment [Automa joseline message] The UA WBC) system which ge nerated this result transmit joseline reference range : <=5. The reference range was not used to interpr et this result as tamera l/abnormal. [facility] AND [id number] 13:05:00 Test Item Value Reference Range Interpretation Comments UA Leuk Est (test Negative (07/06/16 7:05 code = UA Leuk Est) AM) [facility] AND [id number] 13:05:00 Test Item Value Reference Range Interpretation Comments UA Turbidity (test code = Clear (07/06/16 7:05 UA Turbidity) AM) [facility] AND [id number] 13:05:00 Test Item Value Reference Range Interpretation Comments UA pH (test code = UA pH) 6.5 5.0-8.0 [facility] AND [id number] 13:05:00 Test Item Value Reference Range Interpretation Comments UA Spec Grav (test code = UA Spec Grav) 1.032 [facility] AND [id number] 13:05:00 Test Item Value Reference Range Interpretation Comments UA Protein (test code = UA Protein) 50 mg/dL [facility] AND [id number] 13:05:00 Test Item Value Reference Range Interpretation Comments UA Glucose (test code = UA Negative mg/dL Glucose) [facility] AND [id number] 13:05:00 Test Item Value Reference Range Interpretation Comments UA Ketones (test code = UA Negative mg/dL Ketones) [facility] AND [id number] 13:05:00 Test Item Value Reference Range Interpretation Comments UA Bili (test code = Negative *NA*(07/06/16 UA Bili) 7:05 AM) [facility] AND [id number] 13:05:00 Test Item Value Reference Range Interpretation Comments UA Blood (test code = Negative (07/06/16 7:05 UA Blood) AM) [facility] AND [id number] 13:05:00 Test Item Value Reference Range Interpretation Comments UA Color (test code = Yellow *NA*(07/06/16 UA Color) 7:05 AM) [facility] [id number] 13:05:00 Test Item Value Reference Range Interpretation Comments UDS Note (test code = See Note *NA*(07/06/16 UDS Note) 7:05 AM) [facility] [id number] 13:05:00 Test Item Value Reference Range Interpretation Comments U Phencyc Scr (test Negative *NA*(07/06/16 code = U Phencyc Scr) 7:05 AM) [facility] [id number] 13:05:00 Test Item Value Reference Range Interpretation Comments U Roxi Scr (test code Negative *NA*(07/06/16 = U Roxi Scr) 7:05 AM) [facility] [id number] 13:05:00 Test Item Value Reference Range Interpretation Comments U Benzodia Scr (test Negative *NA*(07/06/16 code = U Benzodia Scr) 7:05 AM) [facility] [id number] 13:05:00 Test Item Value Reference Range Interpretation Comments U Amph Scr (test code Negative *NA*(07/06/16 = U Amph Scr) 7:05 AM) [facility] [id number] 13:05:00 Test Item Value Reference Range Interpretation Comments U Opiate Scr (test Negative *NA*(07/06/16 code = U Opiate Scr) 7:05 AM) [facility] [id number] 13:05:00 Test Item Value Reference Range Interpretation Comments U Cannab Scr (test Negative *NA*(07/06/16 code = U Cannab Scr) 7:05 AM) [facility] [id number] 13:05:00 Test Item Value Reference Range Interpretation Comments U Cocaine Scr (test Negative *NA*(07/06/16 code = U Cocaine Scr) 7:05 AM) [facility] [id number] 13:05:00 Test Item Value Reference Range Interpretation Comments UA Sq Epi (test code = UA Sq Epi) None [facility]en [facility] [id number] 13:05:00 Test Item Value Reference Range Interpretation Comments UA RBC (test code = 1 See_Comment [Automa joseline message] The UA RBC) system which ge nerated this result transmit joseline reference range : <=2. The reference range was not used to interpr et this result as tamera l/abnormal. [facility] [id number] 13:05:00 Test Item Value Reference Range Interpretation Comments UA Bacteria (test code = UA Occasional /HPF Bacteria) [facility] AND [id number] 13:05:00 Test Item Value Reference Range Interpretation Comments UA Mucus (test code = UA Mucus) Few /LPF [facility] AND [id number] 13:05:00 Test Item Value Reference Range Interpretation Comments UA Amorph Josefa (test code = Occasional /HPF UA Amorph Josefa) [facility] AND [id number] 13:05:00 Test Item Value Reference Range Interpretation Comments UA Nitrite (test code Negative (07/06/16 7:05 = UA Nitrite) AM) [facility] AND [id number] 13:05:00 Test Item Value Reference Range Interpretation Comments UA Urobilinogen (test code = UA 2.0 0.1-1.0 Urobilinogen) [facility] AND [id number] 13:05:00 Test Item Value Reference Range Interpretation Comments UA WBC (test code = 1 See_Comment [Automa joseline message] The UA WBC) system which ge nerated this result transmit joseline reference range : <=5. The reference range was not used to interpr et this result as tamera l/abnormal. [facility] AND [id number] 13:05:00 Test Item Value Reference Range Interpretation Comments UA Leuk Est (test Negative (07/06/16 7:05 code = UA Leuk Est) AM) [facility] AND [id number] 13:05:00 Test Item Value Reference Range Interpretation Comments UA Turbidity (test code = Clear (07/06/16 7:05 UA Turbidity) AM) [facility] AND [id number] 13:05:00 Test Item Value Reference Range Interpretation Comments UA pH (test code = UA pH) 6.5 5.0-8.0 [facility] AND [id number] 13:05:00 Test Item Value Reference Range Interpretation Comments UA Spec Grav (test code = UA Spec Grav) 1.032 [facility] AND [id number] 13:05:00 Test Item Value Reference Range Interpretation Comments UA Protein (test code = UA Protein) 50 mg/dL [facility] AND [id number] 13:05:00 Test Item Value Reference Range Interpretation Comments UA Glucose (test code = UA Negative mg/dL Glucose) [facility] [id number] 13:05:00 Test Item Value Reference Range Interpretation Comments UA Ketones (test code = UA Negative mg/dL Ketones) [facility] [id number] 13:05:00 Test Item Value Reference Range Interpretation Comments UA Bili (test code = Negative *NA*(07/06/16 UA Bili) 7:05 AM) [facility] [id number] 13:05:00 Test Item Value Reference Range Interpretation Comments UA Blood (test code = Negative (07/06/16 7:05 UA Blood) AM) [facility] [id number] 13:05:00 Test Item Value Reference Range Interpretation Comments UA Color (test code = Yellow *NA*(07/06/16 UA Color) 7:05 AM) [facility] [id number] 13:05:00 Test Item Value Reference Range Interpretation Comments UDS Note (test code = See Note *NA*(07/06/16 UDS Note) 7:05 AM) [facility] [id number] 13:05:00 Test Item Value Reference Range Interpretation Comments U Phencyc Scr (test Negative *NA*(07/06/16 code = U Phencyc Scr) 7:05 AM) [facility] [id number] 13:05:00 Test Item Value Reference Range Interpretation Comments U Roxi Scr (test code Negative *NA*(07/06/16 = U Roxi Scr) 7:05 AM) [facility] [id number] 13:05:00 Test Item Value Reference Range Interpretation Comments U Benzodia Scr (test Negative *NA*(07/06/16 code = U Benzodia Scr) 7:05 AM) [facility] [id number] 13:05:00 Test Item Value Reference Range Interpretation Comments U Amph Scr (test code Negative *NA*(07/06/16 = U Amph Scr) 7:05 AM) [facility] [id number] 13:05:00 Test Item Value Reference Range Interpretation Comments U Opiate Scr (test Negative *NA*(07/06/16 code = U Opiate Scr) 7:05 AM) [facility] [id number] 13:05:00 Test Item Value Reference Range Interpretation Comments U Cannab Scr (test Negative *NA*(07/06/16 code = U Cannab Scr) 7:05 AM) [facility] [id number] 13:05:00 Test Item Value Reference Range Interpretation Comments U Cocaine Scr (test Negative *NA*(07/06/16 code = U Cocaine Scr) 7:05 AM) [facility] [id number] 13:05:00 Test Item Value Reference Range Interpretation Comments UA Sq Epi (test code = UA Sq Epi) None [facility]en [facility] [id number] 13:05:00 Test Item Value Reference Range Interpretation Comments UA RBC (test code = 1 See_Comment [Automa joseline message] The UA RBC) system which ge nerated this result transmit joseline reference range : <=2. The reference range was not used to interpr et this result as tamera l/abnormal. [facility] [id number] 13:05:00 Test Item Value Reference Range Interpretation Comments UA Bacteria (test code = UA Occasional /HPF Bacteria) [facility] [id number] 13:05:00 Test Item Value Reference Range Interpretation Comments UA Mucus (test code = UA Mucus) Few /LPF [facility] [id number] 13:05:00 Test Item Value Reference Range Interpretation Comments UA Amorph Josefa (test code = Occasional /HPF UA Amorph Josefa) [facility] [id number] 13:05:00 Test Item Value Reference Range Interpretation Comments UA Nitrite (test code Negative (07/06/16 7:05 = UA Nitrite) AM) [facility] [id number] 13:05:00 Test Item Value Reference Range Interpretation Comments UA Urobilinogen (test code = UA 2.0 0.1-1.0 Urobilinogen) [facility] [id number] 13:05:00 Test Item Value Reference Range Interpretation Comments UA WBC (test code = 1 See_Comment [Automa joseline message] The UA WBC) system which ge nerated this result transmit joseline reference range : <=5. The reference range was not used to interpr et this result as tamera l/abnormal. [facility] [id number] 13:05:00 Test Item Value Reference Range Interpretation Comments UA Leuk Est (test Negative (07/06/16 7:05 code = UA Leuk Est) AM) [facility] [id number] 13:05:00 Test Item Value Reference Range Interpretation Comments UA Turbidity (test code = Clear (07/06/16 7:05 UA Turbidity) AM) [facility] [id number] 13:05:00 Test Item Value Reference Range Interpretation Comments UA pH (test code = UA pH) 6.5 5.0-8.0 [facility] [id number] 13:05:00 Test Item Value Reference Range Interpretation Comments UA Spec Grav (test code = UA Spec Grav) 1.032 [facility] [id number] 13:05:00 Test Item Value Reference Range Interpretation Comments UA Protein (test code = UA Protein) 50 mg/dL [facility] [id number] 13:05:00 Test Item Value Reference Range Interpretation Comments UA Glucose (test code = UA Negative mg/dL Glucose) [facility] [id number] 13:05:00 Test Item Value Reference Range Interpretation Comments UA Ketones (test code = UA Negative mg/dL Ketones) [facility] [id number] 13:05:00 Test Item Value Reference Range Interpretation Comments UA Bili (test code = Negative *NA*(07/06/16 UA Bili) 7:05 AM) [facility] [id number] 13:05:00 Test Item Value Reference Range Interpretation Comments UA Blood (test code = Negative (07/06/16 7:05 UA Blood) AM) [facility] [id number] 13:05:00 Test Item Value Reference Range Interpretation Comments UA Color (test code = Yellow *NA*(07/06/16 UA Color) 7:05 AM) [facility] [id number] 13:05:00 Test Item Value Reference Range Interpretation Comments UDS Note (test code = See Note *NA*(07/06/16 UDS Note) 7:05 AM) [facility] [id number] 13:05:00 Test Item Value Reference Range Interpretation Comments U Phencyc Scr (test Negative *NA*(07/06/16 code = U Phencyc Scr) 7:05 AM) [facility] [id number] 13:05:00 Test Item Value Reference Range Interpretation Comments U Roxi Scr (test code Negative *NA*(07/06/16 = U Roxi Scr) 7:05 AM) [facility] [id number] 13:05:00 Test Item Value Reference Range Interpretation Comments U Benzodia Scr (test Negative *NA*(07/06/16 code = U Benzodia Scr) 7:05 AM) [facility] [id number] 13:05:00 Test Item Value Reference Range Interpretation Comments U Amph Scr (test code Negative *NA*(07/06/16 = U Amph Scr) 7:05 AM) [facility] [id number] 13:05:00 Test Item Value Reference Range Interpretation Comments U Opiate Scr (test Negative *NA*(07/06/16 code = U Opiate Scr) 7:05 AM) [facility] [id number] 13:05:00 Test Item Value Reference Range Interpretation Comments U Cannab Scr (test Negative *NA*(07/06/16 code = U Cannab Scr) 7:05 AM) [facility] [id number] 13:05:00 Test Item Value Reference Range Interpretation Comments U Cocaine Scr (test Negative *NA*(07/06/16 code = U Cocaine Scr) 7:05 AM) [facility] [id number] 13:05:00 Test Item Value Reference Range Interpretation Comments UA Sq Epi (test code = UA Sq Epi) None [facility]en [facility] [id number] 13:05:00 Test Item Value Reference Range Interpretation Comments UA RBC (test code = 1 See_Comment [Automa joseline message] The UA RBC) system which ge nerated this result transmit joseline reference range : <=2. The reference range was not used to interpr et this result as tamera l/abnormal. [facility] [id number] 13:05:00 Test Item Value Reference Range Interpretation Comments UA Bacteria (test code = UA Occasional /HPF Bacteria) [facility] [id number] 13:05:00 Test Item Value Reference Range Interpretation Comments UA Mucus (test code = UA Mucus) Few /LPF [facility] AND [id number] 13:05:00 Test Item Value Reference Range Interpretation Comments UA Amorph Josefa (test code = Occasional /HPF UA Amorph Josefa) [facility] AND [id number] 13:05:00 Test Item Value Reference Range Interpretation Comments UA Nitrite (test code Negative (07/06/16 7:05 = UA Nitrite) AM) [facility] AND [id number] 13:05:00 Test Item Value Reference Range Interpretation Comments UA Urobilinogen (test code = UA 2.0 0.1-1.0 Urobilinogen) [facility] AND [id number] 13:05:00 Test Item Value Reference Range Interpretation Comments UA WBC (test code = 1 See_Comment [Automa joseline message] The UA WBC) system which ge nerated this result transmit joseline reference range : <=5. The reference range was not used to interpr et this result as tamera l/abnormal. [facility] AND [id number] 13:05:00 Test Item Value Reference Range Interpretation Comments UA Leuk Est (test Negative (07/06/16 7:05 code = UA Leuk Est) AM) [facility] AND [id number] 13:05:00 Test Item Value Reference Range Interpretation Comments UA Turbidity (test code = Clear (07/06/16 7:05 UA Turbidity) AM) [facility] AND [id number] 13:05:00 Test Item Value Reference Range Interpretation Comments UA pH (test code = UA pH) 6.5 5.0-8.0 [facility] AND [id number] 13:05:00 Test Item Value Reference Range Interpretation Comments UA Spec Grav (test code = UA Spec Grav) 1.032 [facility] AND [id number] 13:05:00 Test Item Value Reference Range Interpretation Comments UA Protein (test code = UA Protein) 50 mg/dL [facility] AND [id number] 13:05:00 Test Item Value Reference Range Interpretation Comments UA Glucose (test code = UA Negative mg/dL Glucose) [facility] AND [id number] 13:05:00 Test Item Value Reference Range Interpretation Comments UA Ketones (test code = UA Negative mg/dL Ketones) [facility] AND [id number] 13:05:00 Test Item Value Reference Range Interpretation Comments UA Bili (test code = Negative *NA*(07/06/16 UA Bili) 7:05 AM) [facility] AND [id number] 13:05:00 Test Item Value Reference Range Interpretation Comments UA Blood (test code = Negative (07/06/16 7:05 UA Blood) AM) [facility] AND [id number] 13:05:00 Test Item Value Reference Range Interpretation Comments UA Color (test code = Yellow *NA*(07/06/16 UA Color) 7:05 AM) [facility]2017-01-13 12:57:00 Test Item Value Reference Range Interpretation Comments Vitamin B12 Lvl (test code = Vitamin 688 956-9185 B12 Lvl) [facility]2017-01-13 12:57:00 Test Item Value Reference Range Interpretation Comments Folate Lvl (test code = Folate Lvl) 8.4 [facility] [id number] 12:57:00 Test Item Value Reference Range Interpretation Comments Vitamin B12 Lvl (test code = Vitamin 228 566-9036 B12 Lvl) [facility] [id number] 12:57:00 Test Item Value Reference Range Interpretation Comments Folate Lvl (test code = Folate Lvl) 8.4 [facility]2017-01-13 12:57:00 Test Item Value Reference Range Interpretation Comments Vitamin B12 Lvl (test code = Vitamin 928 956-5783 B12 Lvl) [facility] [id number] 12:57:00 Test Item Value Reference Range Interpretation Comments Folate Lvl (test code = Folate Lvl) 8.4 [facility] [id number] 12:57:00 Test Item Value Reference Range Interpretation Comments Vitamin B12 Lvl (test code = Vitamin 915 141-2752 B12 Lvl) [facility] [id number] 12:57:00 Test Item Value Reference Range Interpretation Comments Folate Lvl (test code = Folate Lvl) 8.4 [facility] [id number] 12:57:00 Test Item Value Reference Range Interpretation Comments Vitamin B12 Lvl (test code = Vitamin 169 222-8563 B12 Lvl) [facility]2017-01-13 12:57:00 Test Item Value Reference Range Interpretation Comments Folate Lvl (test code = Folate Lvl) 8.4 [facility]2017-01-13 12:57:00 Test Item Value Reference Range Interpretation Comments Vitamin B12 Lvl (test code = Vitamin [phone] B12 Lvl) [facility]2017-01-13 12:57:00 Test Item Value Reference Range Interpretation Comments Folate Lvl (test code = Folate Lvl) 8.4 [facility]2017-01-13 12:57:00 Test Item Value Reference Range Interpretation Comments Vitamin B12 Lvl (test code = Vitamin 673 109-9836 B12 Lvl) [facility]2017-01-13 12:57:00 Test Item Value Reference Range Interpretation Comments Folate Lvl (test code = Folate Lvl) 8.4 [facility]2017-01-13 12:57:00 Test Item Value Reference Range Interpretation Comments Vitamin B12 Lvl (test code = Vitamin 055 294-6296 B12 Lvl) [facility]2017-01-13 12:57:00 Test Item Value Reference Range Interpretation Comments Folate Lvl (test code = Folate Lvl) 8.4 [facility]2017-01-13 12:57:00 Test Item Value Reference Range Interpretation Comments Vitamin B12 Lvl (test code = Vitamin [phone] B12 Lvl) [facility]2017-01-13 12:57:00 Test Item Value Reference Range Interpretation Comments Folate Lvl (test code = Folate Lvl) 8.4 [id number] 07:58:00 Test Item Value Reference Range Interpretation Comments Eosinophils # (test code 0.2 See_Comment [A utomated message] The = Eosinophils #) system ic h generated this result tra nsmitted reference range : <=0.5. The reference r ana luisa was not used to int erpret this result as normal/abnormal . [facility] [id number] 07:58:00 Test Item Value Reference Range Interpretation Comments Monocytes (test code = Monocytes) 9.2 2.0-12.0 [facility] [id number] 07:58:00 Test Item Value Reference Range Interpretation Comments Eosinophils (test code = 3.5 See_Comment [A utomated message] The Eosinophils) system which ge nerated this result tra nsmitted reference range : <=4.0. The reference r ana luisa was not used to int erpret this result as normal/abnormal . [facility] [id number] 07:58:00 Test Item Value Reference Range Interpretation Comments Lymphocytes # (test code = Lymphocytes 1.2 1.0-5.5 #) [facility] [id number] 07:58:00 Test Item Value Reference Range Interpretation Comments Platelet (test code = Platelet) 134 133-450 [facility] CypressIvmavasBVCJFVKYBC5717-30-12 07:58:00 Test Item Value Reference Range Interpretation Comments MCV (test code = MCV) 93.1 80.0-94.0 [facility] CypressVdngtcmUFHZSJYJAR4872-74-66 07:58:00 Test Item Value Reference Range Interpretation Comments Hct (test code = Hct) 45.9 42.0-54.0 [facility] CypressAzwfhmvKQWQEQGRAT0603-76-22 07:58:00 Test Item Value Reference Range Interpretation Comments MCH (test code = MCH) 32.8 pg 27.0-31.0 [facility] CypressDywpdabUFEWHNPIKM9050-16-96 07:58:00 Test Item Value Reference Range Interpretation Comments Hgb (test code = Hgb) 16.2 14.0-18.0 [facility] [id number] 07:58:00 Test Item Value Reference Range Interpretation Comments MCHC (test code = MCHC) 35.2 32.0-36.0 [facility] CypressRabqojrHXZXCJFDDI0673-72-49 07:58:00 Test Item Value Reference Range Interpretation Comments MPV (test code = MPV) 10.3 7.4-10.4 [facility] [id number] 07:58:00 Test Item Value Reference Range Interpretation Comments RDW (test code = RDW) 12.4 11.5-14.5 [facility] CypressOpcboatVLAJIXQIXK3476-15-63 07:58:00 Test Item Value Reference Range Interpretation Comments RBC (test code = RBC) 4.93 4.70-6.10 [facility] CypressSjkzfnkSJXQOPLKIA0429-11-25 07:58:00 Test Item Value Reference Range Interpretation Comments WBC (test code = WBC) 7.0 3.7-10.4 [id number] 07:58:00 Test Item Value Reference Range Interpretation Comments VLDL (test code = VLDL) 20 [facility] DallasJsookuvDHJMGF5747-11-66 07:58:00 Test Item Value Reference Range Interpretation Comments HDL (test code = HDL) 33 [facility] DallasUupytvbBARMTC8807-78-80 07:58:00 Test Item Value Reference Range Interpretation Comments Trig (test code = Trig) 101 [facility] DallasKwnabxgGTMWBT2694-89-42 07:58:00 Test Item Value Reference Range Interpretation Comments Chol (test code = Chol) 84 [facility] DallasObozpmpJBHJEZ5140-89-39 07:58:00 Test Item Value Reference Range Interpretation Comments CHD Risk (test code = CHD Risk) 2.55 4.00-7.30 [facility] 07:58:00 Test Item Value Reference Range Interpretation Comments LDL (Calculated) (test code = LDL 31 (Calculated)) [facility] [id number] 07:58:00 Test Item Value Reference Range Interpretation Comments Hgb A1C (test code = Hgb A1C) 5.1 [facility] DallasSpecifiedBy [id number] 07:58:00 Test Item Value Reference Range Interpretation Comments eGFR (test code = eGFR) 102 [facility]2017-01-13 07:58:00 Test Item Value Reference Range Interpretation Comments Glucose Lvl (test code = Glucose Lvl) 92 70-99 [facility] [id number] 07:58:00 Test Item Value Reference Range Interpretation Comments Creatinine Lvl (test code = Creatinine 0.86 0.50-1.40 Lvl) [facility] [id number] 07:58:00 Test Item Value Reference Range Interpretation Comments Potassium Lvl (test code = Potassium 4.0 3.5-5.1 Lvl) [facility]2017-01-13 07:58:00 Test Item Value Reference Range Interpretation Comments Chloride Lvl (test code = Chloride Lvl) 104 95-109 [facility] [id number] 07:58:00 Test Item Value Reference Range Interpretation Comments Sodium Lvl (test code = Sodium Lvl) 137 135-145 [facility]2017-01-13 07:58:00 Test Item Value Reference Range Interpretation Comments CO2 (test code = CO2) 21 24-32 [facility]2017-01-13 07:58:00 Test Item Value Reference Range Interpretation Comments Calcium Lvl (test code = Calcium Lvl) 8.3 8.5-10.5 [facility]2017-01-13 07:58:00 Test Item Value Reference Range Interpretation Comments BUN (test code = BUN) 16 7-22 [facility]2017-01-13 07:58:00 Test Item Value Reference Range Interpretation Comments AGAP (test code = AGAP) 16.0 10.0-20.0 [facility]2017-01-13 07:58:00 Test Item Value Reference Range Interpretation Comments Magnesium Lvl (test code = Magnesium 2.4 1.8-2.4 Lvl) [facility]2017-01-13 07:58:00 Test Item Value Reference Range Interpretation Comments AST (test code = AST) 14 See_Comment [Auto mated message] The system which ge nerated this result transmit joseline reference range : <=37. The reference range was not used to interpr et this result as tamera l/abnormal. [facility]2017-01-13 07:58:00 Test Item Value Reference Range Interpretation Comments Alk Phos (test code = Alk Phos) 60 39-136 [facility]2017-01-13 07:58:00 Test Item Value Reference Range Interpretation Comments Total Protein (test code = Total 6.5 6.4-8.4 Protein) [facility]2017-01-13 07:58:00 Test Item Value Reference Range Interpretation Comments Albumin Lvl (test code = Albumin Lvl) 3.2 3.5-5.0 [facility]2017-01-13 07:58:00 Test Item Value Reference Range Interpretation Comments ALT (test code = ALT) 16 See_Comment [Auto mated message] The system which ge nerated this result transmit joseline reference range : <=65. The reference range was not used to interpr et this result as tamera l/abnormal. [facility]2017-01-13 07:58:00 Test Item Value Reference Range Interpretation Comments Bili Total (test code = Bili Total) 1.0 0.2-1.3 [facility]2017-01-13 07:58:00 Test Item Value Reference Range Interpretation Comments Bili Direct (test code 0.2 See_Comment [Aut omated message] The = Bili Direct) system which generated this result tra nsmitted reference range : <=0.3. The reference r ana luisa was not used to int erpret this result as tamera l/abnormal. [facility]2017-01-13 07:58:00 Test Item Value Reference Range Interpretation Comments Bili Indirect (test 0.8 See_Comment [Automa joseline message] The code = Bili Indirect) system which generated this result tra nsmitted reference range : <=1.0. The reference r ana luisa was not used to int erpret this result as normal/abnormal . [place] [id number] 07:58:00 Test Item Value Reference Range Interpretation Comments Globulin (test code = Globulin) 3.3 2.7-4.2 [facility]2017-01-13 07:58:00 Test Item Value Reference Range Interpretation Comments A/G Ratio (test code = A/G Ratio) 1.0 0.7-1.6 [facility] CypressKasevhyGSJTNFHPPL1605-73-41 07:58:00 Test Item Value Reference Range Interpretation Comments PT (test code = PT) 14.5 s 12.0-14.7 [place] [id number] 07:58:00 Test Item Value Reference Range Interpretation Comments INR (test code = INR) 1.11 0.85-1.17 [facility] CypressGvmxqzmJALXFUAXDP0266-84-92 07:58:00 Test Item Value Reference Range Interpretation Comments PTT (test code = PTT) 33.6 s 22.9-35.8 [place] [id number] 07:58:00 Test Item Value Reference Range Interpretation Comments Segs-Bands # (test code = Segs-Bands #) 4.9 1.5-8.1 [place] [id number] 07:58:00 Test Item Value Reference Range Interpretation Comments Monocytes # (test code 0.6 See_Comment [Aut omated message] The = Monocytes #) system which generated this result tra nsmitted reference range : <=0.8. The reference r ana luisa was not used to int erpret this result as normal/abnormal . [facility] CypressWbamirvPRWCNXHUSX0852-03-31 07:58:00 Test Item Value Reference Range Interpretation Comments Basophils (test code = 0.2 See_Comment [Aut omated message] The Basophils) system which ge nerated this result tra nsmitted reference range : <=1.0. The reference r ana luisa was not used to int erpret this result as normal/abnormal . [facility]ressRhihpjpMXGSXKBAPH3223-62-51 07:58:00 Test Item Value Reference Range Interpretation Comments Segs (test code = Segs) 69.8 45.0-75.0 [facility] CypressHsjkxkjKBWSIZALUK7171-18-23 07:58:00 Test Item Value Reference Range Interpretation Comments Lymphocytes (test code = Lymphocytes) 17.3 20.0-40.0 [facility] CypressPgswkbaPKGZCQGHVN4786-02-32 07:58:00 Test Item Value Reference Range Interpretation Comments Eosinophils # (test code 0.2 See_Comment [A utomated message] The = Eosinophils #) system whic h generated this result tra nsmitted reference range : <=0.5. The reference r ana luisa was not used to int erpret this result as normal/abnormal . [facility] CypressEsnqblwAXTGYZHFXK2425-09-69 07:58:00 Test Item Value Reference Range Interpretation Comments Monocytes (test code = Monocytes) 9.2 2.0-12.0 [facility] CypressJkjumhrERVKWENDBG3560-31-40 07:58:00 Test Item Value Reference Range Interpretation Comments Eosinophils (test code = 3.5 See_Comment [A utomated message] The Eosinophils) system which ge nerated this result tra nsmitted reference range : <=4.0. The reference r ana luisa was not used to int erpret this result as normal/abnormal . [facility] CypressTmviycjOJDHAXEHOF0807-24-56 07:58:00 Test Item Value Reference Range Interpretation Comments Lymphocytes # (test code = Lymphocytes 1.2 1.0-5.5 #) [facility] CypressIdfdkioXUMDEMBPAS2421-97-68 07:58:00 Test Item Value Reference Range Interpretation Comments Platelet (test code = Platelet) 134 133-450 [facility] CypressCwfhhucDGXRCJDZCM2581-95-26 07:58:00 Test Item Value Reference Range Interpretation Comments MCV (test code = MCV) 93.1 80.0-94.0 [facility] CypressLymuhjhXNPOICCTPY5800-61-37 07:58:00 Test Item Value Reference Range Interpretation Comments Hct (test code = Hct) 45.9 42.0-54.0 [facility] CypressYvxhgjdEEEVAEJXTD7172-47-09 07:58:00 Test Item Value Reference Range Interpretation Comments MCH (test code = MCH) 32.8 pg 27.0-31.0 [facility] CypressFzwhjaeQMUVAFJMOA1992-23-41 07:58:00 Test Item Value Reference Range Interpretation Comments Hgb (test code = Hgb) 16.2 14.0-18.0 [facility] CypressFrpvgelSIXXLNJYZM5815-09-81 07:58:00 Test Item Value Reference Range Interpretation Comments MCHC (test code = MCHC) 35.2 32.0-36.0 [facility] CypressVehbgddYQDXJKJNBH3249-65-28 07:58:00 Test Item Value Reference Range Interpretation Comments MPV (test code = MPV) 10.3 7.4-10.4 [facility] CypressXgmbtsmPJPYGGBNDA5294-98-02 07:58:00 Test Item Value Reference Range Interpretation Comments RDW (test code = RDW) 12.4 11.5-14.5 [facility] CypressGpmwzcaNRYLXWHFUF1085-14-09 07:58:00 Test Item Value Reference Range Interpretation Comments RBC (test code = RBC) 4.93 4.70-6.10 [facility] CypressHiiyhgpUKORURAVVL7417-90-24 07:58:00 Test Item Value Reference Range Interpretation Comments WBC (test code = WBC) 7.0 3.7-10.4 [facility]nzcztjPGNVZV8709-18-61 07:58:00 Test Item Value Reference Range Interpretation Comments VLDL (test code = VLDL) 20 [facility] HospitalCfemdmoWTWZMR9176-37-24 07:58:00 Test Item Value Reference Range Interpretation Comments HDL (test code = HDL) 33 [facility] HospitalMzdlffzVSKEKJ3783-63-06 07:58:00 Test Item Value Reference Range Interpretation Comments Trig (test code = Trig) 101 [facility] HospitalOjppxnrZHQRHP6344-09-93 07:58:00 Test Item Value Reference Range Interpretation Comments Chol (test code = Chol) 84 [facility] HospitalGcwcvtbJXOCNP7201-73-87 07:58:00 Test Item Value Reference Range Interpretation Comments CHD Risk (test code = CHD Risk) 2.55 4.00-7.30 [facility]AmwmhioDMYYJQ3209-13-95 07:58:00 Test Item Value Reference Range Interpretation Comments LDL (Calculated) (test code = LDL 31 (Calculated)) [facility] RLDASEWXT6100-97-91 07:58:00 Test Item Value Reference Range Interpretation Comments Hgb A1C (test code = Hgb A1C) 5.1 [facility]2017-01-13 07:58:00 Test Item Value Reference Range Interpretation Comments eGFR (test code = eGFR) 102 [facility]2017-01-13 07:58:00 Test Item Value Reference Range Interpretation Comments Glucose Lvl (test code = Glucose Lvl) 92 70-99 [facility]2017-01-13 07:58:00 Test Item Value Reference Range Interpretation Comments Creatinine Lvl (test code = Creatinine 0.86 0.50-1.40 Lvl) [facility]2017-01-13 07:58:00 Test Item Value Reference Range Interpretation Comments Potassium Lvl (test code = Potassium 4.0 3.5-5.1 Lvl) [facility]2017-01-13 07:58:00 Test Item Value Reference Range Interpretation Comments Chloride Lvl (test code = Chloride Lvl) 104 95-109 [facility]2017-01-13 07:58:00 Test Item Value Reference Range Interpretation Comments Sodium Lvl (test code = Sodium Lvl) 137 135-145 [facility]2017-01-13 07:58:00 Test Item Value Reference Range Interpretation Comments CO2 (test code = CO2) 21 24-32 [facility]2017-01-13 07:58:00 Test Item Value Reference Range Interpretation Comments Calcium Lvl (test code = Calcium Lvl) 8.3 8.5-10.5 [facility]2017-01-13 07:58:00 Test Item Value Reference Range Interpretation Comments BUN (test code = BUN) 16 7-22 [facility]2017-01-13 07:58:00 Test Item Value Reference Range Interpretation Comments AGAP (test code = AGAP) 16.0 10.0-20.0 [facility]2017-01-13 07:58:00 Test Item Value Reference Range Interpretation Comments Magnesium Lvl (test code = Magnesium 2.4 1.8-2.4 Lvl) [facility]2017-01-13 07:58:00 Test Item Value Reference Range Interpretation Comments AST (test code = AST) 14 See_Comment [Auto mated message] The system which ge nerated this result transmit joseline reference range : <=37. The reference range was not used to interpr et this result as tamera l/abnormal. [facility]2017-01-13 07:58:00 Test Item Value Reference Range Interpretation Comments Alk Phos (test code = Alk Phos) 60 39-136 [facility]2017-01-13 07:58:00 Test Item Value Reference Range Interpretation Comments Total Protein (test code = Total 6.5 6.4-8.4 Protein) [facility]2017-01-13 07:58:00 Test Item Value Reference Range Interpretation Comments Albumin Lvl (test code = Albumin Lvl) 3.2 3.5-5.0 [place] 051087-01-13 07:58:00 Test Item Value Reference Range Interpretation Comments ALT (test code = ALT) 16 See_Comment [Auto mated message] The system which ge nerated this result transmit joseline reference range : <=65. The reference range was not used to interpr et this result as tmaera l/abnormal. [facility]2017-01-13 07:58:00 Test Item Value Reference Range Interpretation Comments Bili Total (test code = Bili Total) 1.0 0.2-1.3 [facility]2017-01-13 07:58:00 Test Item Value Reference Range Interpretation Comments Bili Direct (test code 0.2 See_Comment [Aut omated message] The = Bili Direct) system which generated this result tra nsmitted reference range : <=0.3. The reference r ana luisa was not used to int erpret this result as tamera l/abnormal. [facility]2017-01-13 07:58:00 Test Item Value Reference Range Interpretation Comments Bili Indirect (test 0.8 See_Comment [Automa joseline message] The code = Bili Indirect) system which generated this result tra nsmitted reference range : <=1.0. The reference r ana luisa was not used to int erpret this result as normal/abnormal . [place] 051087-01-13 07:58:00 Test Item Value Reference Range Interpretation Comments Globulin (test code = Globulin) 3.3 2.7-4.2 [facility]2017-01-13 07:58:00 Test Item Value Reference Range Interpretation Comments A/G Ratio (test code = A/G Ratio) 1.0 0.7-1.6 [facility] CypressDhpxeeqDGOOJEYPNF9196-38-96 07:58:00 Test Item Value Reference Range Interpretation Comments PT (test code = PT) 14.5 s 12.0-14.7 [facility] CypressYyevctrSOXGYWXGLO3639-04-01 07:58:00 Test Item Value Reference Range Interpretation Comments INR (test code = INR) 1.11 0.85-1.17 [facility] CypressTarrrmjDCHSTDDINO9216-39-48 07:58:00 Test Item Value Reference Range Interpretation Comments PTT (test code = PTT) 33.6 s 22.9-35.8 [facility] CypressQddtdwsGFFIHEGCAV9461-00-04 07:58:00 Test Item Value Reference Range Interpretation Comments Segs-Bands # (test code = Segs-Bands #) 4.9 1.5-8.1 [facility] CypressDvgpamaYACKEJUMDH7757-39-74 07:58:00 Test Item Value Reference Range Interpretation Comments Monocytes # (test code 0.6 See_Comment [Aut omated message] The = Monocytes #) system which generated this result tra nsmitted reference range : <=0.8. The reference r ana luisa was not used to int erpret this result as normal/abnormal . [facility] CypressXltkpwhISMUNSXCOZ7610-24-20 07:58:00 Test Item Value Reference Range Interpretation Comments Basophils (test code = 0.2 See_Comment [Aut omated message] The Basophils) system which ge nerated this result tra nsmitted reference range : <=1.0. The reference r ana luisa was not used to int erpret this result as normal/abnormal . [facility] CypressLuzjlkwNTGRLXSCYA4878-51-05 07:58:00 Test Item Value Reference Range Interpretation Comments Segs (test code = Segs) 69.8 45.0-75.0 [facility] CypressTybmdirKHJCBWJYRG0985-13-45 07:58:00 Test Item Value Reference Range Interpretation Comments Lymphocytes (test code = Lymphocytes) 17.3 20.0-40.0 [place] 763717-01-13 07:58:00 Test Item Value Reference Range Interpretation Comments Eosinophils # (test code 0.2 See_Comment [A utomated message] The = Eosinophils #) system whic h generated this result tra nsmitted reference range : <=0.5. The reference r ana luisa was not used to int erpret this result as normal/abnormal . [facility] CypressOohrtdcQAKUDADCPW2553-57-14 07:58:00 Test Item Value Reference Range Interpretation Comments Monocytes (test code = Monocytes) 9.2 2.0-12.0 [facility] CypressCbjspciPEGUKMQWMR3463-77-44 07:58:00 Test Item Value Reference Range Interpretation Comments Eosinophils (test code = 3.5 See_Comment [A utomated message] The Eosinophils) system which ge nerated this result tra nsmitted reference range : <=4.0. The reference r ana luisa was not used to int erpret this result as normal/abnormal . [facility] CypressXzuzkehDRKPXNLYEV6598-58-71 07:58:00 Test Item Value Reference Range Interpretation Comments Lymphocytes # (test code = Lymphocytes 1.2 1.0-5.5 #) [facility]ressCwbtnmpYJNSCFLTAT5973-93-06 07:58:00 Test Item Value Reference Range Interpretation Comments Platelet (test code = Platelet) 134 133-450 [facility] CypressEqrkufwVCKPVEEETI5726-49-99 07:58:00 Test Item Value Reference Range Interpretation Comments MCV (test code = MCV) 93.1 80.0-94.0 [facility] CypressYdtwjlrHUFNTYVITY1002-02-57 07:58:00 Test Item Value Reference Range Interpretation Comments Hct (test code = Hct) 45.9 42.0-54.0 [facility] CypressVlqasonFORSPGELNP1605-90-75 07:58:00 Test Item Value Reference Range Interpretation Comments MCH (test code = MCH) 32.8 pg 27.0-31.0 [facility] CypressIqerstnACSNZQNKET0428-22-18 07:58:00 Test Item Value Reference Range Interpretation Comments Hgb (test code = Hgb) 16.2 14.0-18.0 [facility] CypressJixfqdcLKPANZYXCY0695-53-79 07:58:00 Test Item Value Reference Range Interpretation Comments MCHC (test code = MCHC) 35.2 32.0-36.0 [facility] CypressMrodvkbUKAKFREMDJ2033-62-07 07:58:00 Test Item Value Reference Range Interpretation Comments MPV (test code = MPV) 10.3 7.4-10.4 [facility]GzyqcfdZPLDFHFRWF3969-30-54 07:58:00 Test Item Value Reference Range Interpretation Comments RDW (test code = RDW) 12.4 11.5-14.5 [facility] HospitalZfqdhhvQYJWIOMAIM8109-71-23 07:58:00 Test Item Value Reference Range Interpretation Comments RBC (test code = RBC) 4.93 4.70-6.10 [facility] HospitalUrahjpmANQKMCRYGY6164-07-12 07:58:00 Test Item Value Reference Range Interpretation Comments WBC (test code = WBC) 7.0 3.7-10.4 [facility] DallasDyspbdwUFNXGQ4085-48-89 07:58:00 Test Item Value Reference Range Interpretation Comments VLDL (test code = VLDL) 20 [facility] DallasPmoowesUFWWAH2537-01-17 07:58:00 Test Item Value Reference Range Interpretation Comments HDL (test code = HDL) 33 [facility] DallasYwfufllGPLAWZ4701-81-61 07:58:00 Test Item Value Reference Range Interpretation Comments Trig (test code = Trig) 101 [facility] DallasSzdpfktKSCURK7774-73-96 07:58:00 Test Item Value Reference Range Interpretation Comments Chol (test code = Chol) 84 [facility] DallasXxzhdatENAQNH0242-11-77 07:58:00 Test Item Value Reference Range Interpretation Comments CHD Risk (test code = CHD Risk) 2.55 4.00-7.30 [facility] DallasSejgmsvKAPYTT0530-50-87 07:58:00 Test Item Value Reference Range Interpretation Comments LDL (Calculated) (test code = LDL 31 (Calculated)) [facility] OSXGULSBP4933-00-79 07:58:00 Test Item Value Reference Range Interpretation Comments Hgb A1C (test code = Hgb A1C) 5.1 [facility] DallasSpecifiedBy YXAYJ2297-37-38 07:58:00 Test Item Value Reference Range Interpretation Comments eGFR (test code = eGFR) 102 [facility] DANUZ2669-81-05 07:58:00 Test Item Value Reference Range Interpretation Comments Glucose Lvl (test code = Glucose Lvl) 92 70-99 [facility] AMVHA7311-74-89 07:58:00 Test Item Value Reference Range Interpretation Comments Creatinine Lvl (test code = Creatinine 0.86 0.50-1.40 Lvl) [facility]2017-01-13 07:58:00 Test Item Value Reference Range Interpretation Comments Potassium Lvl (test code = Potassium 4.0 3.5-5.1 Lvl) [facility]2017-01-13 07:58:00 Test Item Value Reference Range Interpretation Comments Chloride Lvl (test code = Chloride Lvl) 104 95-109 [facility]2017-01-13 07:58:00 Test Item Value Reference Range Interpretation Comments Sodium Lvl (test code = Sodium Lvl) 137 135-145 [facility]2017-01-13 07:58:00 Test Item Value Reference Range Interpretation Comments CO2 (test code = CO2) 21 24-32 [facility]2017-01-13 07:58:00 Test Item Value Reference Range Interpretation Comments Calcium Lvl (test code = Calcium Lvl) 8.3 8.5-10.5 [facility]2017-01-13 07:58:00 Test Item Value Reference Range Interpretation Comments BUN (test code = BUN) 16 7-22 [facility]2017-01-13 07:58:00 Test Item Value Reference Range Interpretation Comments AGAP (test code = AGAP) 16.0 10.0-20.0 [facility]2017-01-13 07:58:00 Test Item Value Reference Range Interpretation Comments Magnesium Lvl (test code = Magnesium 2.4 1.8-2.4 Lvl) [facility]2017-01-13 07:58:00 Test Item Value Reference Range Interpretation Comments AST (test code = AST) 14 See_Comment [Auto mated message] The system which ge nerated this result transmit joseline reference range : <=37. The reference range was not used to interpr et this result as tamera l/abnormal. [facility]2017-01-13 07:58:00 Test Item Value Reference Range Interpretation Comments Alk Phos (test code = Alk Phos) 60 39-136 [facility]2017-01-13 07:58:00 Test Item Value Reference Range Interpretation Comments Total Protein (test code = Total 6.5 6.4-8.4 Protein) [facility]2017-01-13 07:58:00 Test Item Value Reference Range Interpretation Comments Albumin Lvl (test code = Albumin Lvl) 3.2 3.5-5.0 [facility]2017-01-13 07:58:00 Test Item Value Reference Range Interpretation Comments ALT (test code = ALT) 16 See_Comment [Auto mated message] The system which ge nerated this result transmit joseline reference range : <=65. The reference range was not used to interpr et this result as tamera l/abnormal. [facility]2017-01-13 07:58:00 Test Item Value Reference Range Interpretation Comments Bili Total (test code = Bili Total) 1.0 0.2-1.3 [facility]2017-01-13 07:58:00 Test Item Value Reference Range Interpretation Comments Bili Direct (test code 0.2 See_Comment [Aut omated message] The = Bili Direct) system which generated this result tra nsmitted reference range : <=0.3. The reference r ana luisa was not used to int erpret this result as tamera l/abnormal. [facility]2017-01-13 07:58:00 Test Item Value Reference Range Interpretation Comments Bili Indirect (test 0.8 See_Comment [Automa joseline message] The code = Bili Indirect) system which generated this result tra nsmitted reference range : <=1.0. The reference r ana luisa was not used to int erpret this result as normal/abnormal . [facility]2017-01-13 07:58:00 Test Item Value Reference Range Interpretation Comments Globulin (test code = Globulin) 3.3 2.7-4.2 [facility]2017-01-13 07:58:00 Test Item Value Reference Range Interpretation Comments A/G Ratio (test code = A/G Ratio) 1.0 0.7-1.6 [facility] CypressMwnnrsfCYPGTBPFLC8537-06-95 07:58:00 Test Item Value Reference Range Interpretation Comments PT (test code = PT) 14.5 s 12.0-14.7 [facility] CypressKeoqcpkIUNYVRHLUK4886-76-50 07:58:00 Test Item Value Reference Range Interpretation Comments INR (test code = INR) 1.11 0.85-1.17 [place] 763717-01-13 07:58:00 Test Item Value Reference Range Interpretation Comments PTT (test code = PTT) 33.6 s 22.9-35.8 [facility] CypressLzrgwsoOLFVLMCDFB5147-22-72 07:58:00 Test Item Value Reference Range Interpretation Comments Segs-Bands # (test code = Segs-Bands #) 4.9 1.5-8.1 [facility] CypressRcuixauYHLHNZGNBO6431-37-02 07:58:00 Test Item Value Reference Range Interpretation Comments Monocytes # (test code 0.6 See_Comment [Aut omated message] The = Monocytes #) system which generated this result tra nsmitted reference range : <=0.8. The reference r ana luisa was not used to int erpret this result as normal/abnormal . [facility] CypressGhemfgiFQZUFFKCEI3214-28-14 07:58:00 Test Item Value Reference Range Interpretation Comments Basophils (test code = 0.2 See_Comment [Aut omated message] The Basophils) system which ge nerated this result tra nsmitted reference range : <=1.0. The reference r ana luisa was not used to int erpret this result as normal/abnormal . [facility] CypressAsagwbtVEQSQHKJQD6115-87-21 07:58:00 Test Item Value Reference Range Interpretation Comments Segs (test code = Segs) 69.8 45.0-75.0 [facility] CypressLbvsrmiSZIIIWYFXB1935-41-89 07:58:00 Test Item Value Reference Range Interpretation Comments Lymphocytes (test code = Lymphocytes) 17.3 20.0-40.0 [facility] CypressBdzahoeXIIBCZOOFJ4502-76-76 07:58:00 Test Item Value Reference Range Interpretation Comments Eosinophils # (test code 0.2 See_Comment [A utomated message] The = Eosinophils #) system ic h generated this result tra nsmitted reference range : <=0.5. The reference r ana luisa was not used to int erpret this result as normal/abnormal . [facility] CypressJmrwasaIMFAUPGIZP2206-35-62 07:58:00 Test Item Value Reference Range Interpretation Comments Monocytes (test code = Monocytes) 9.2 2.0-12.0 [facility] CypressTgxdjqzRVXAUDZCIF3492-38-49 07:58:00 Test Item Value Reference Range Interpretation Comments Eosinophils (test code = 3.5 See_Comment [A utomated message] The Eosinophils) system which ge nerated this result tra nsmitted reference range : <=4.0. The reference r ana luisa was not used to int erpret this result as normal/abnormal . [facility] CypressQzxnpdgGUUBUGJTQE1040-03-82 07:58:00 Test Item Value Reference Range Interpretation Comments Lymphocytes # (test code = Lymphocytes 1.2 1.0-5.5 #) [facility] CypressTnoiekrCJLWWKSSZI1580-38-80 07:58:00 Test Item Value Reference Range Interpretation Comments Platelet (test code = Platelet) 134 133-450 [facility] CypressNjdbnchYQLZMVBTFO9432-72-21 07:58:00 Test Item Value Reference Range Interpretation Comments MCV (test code = MCV) 93.1 80.0-94.0 [facility] CypressZjqnzueMMFINGUVJE1537-19-18 07:58:00 Test Item Value Reference Range Interpretation Comments Hct (test code = Hct) 45.9 42.0-54.0 [facility] CypressZwwjejvAFHXUOGDUB6829-99-16 07:58:00 Test Item Value Reference Range Interpretation Comments MCH (test code = MCH) 32.8 pg 27.0-31.0 [facility] CypressXdlqfztMRWYNWAQBK1702-32-20 07:58:00 Test Item Value Reference Range Interpretation Comments Hgb (test code = Hgb) 16.2 14.0-18.0 [facility] CypressLevfbqxECOLKIZAWR5462-99-94 07:58:00 Test Item Value Reference Range Interpretation Comments MCHC (test code = MCHC) 35.2 32.0-36.0 [facility] CypressZscyothKCOGFMZDUB6866-80-72 07:58:00 Test Item Value Reference Range Interpretation Comments MPV (test code = MPV) 10.3 7.4-10.4 [facility] CypressJngvhlcSKLHBJBLBF1661-77-71 07:58:00 Test Item Value Reference Range Interpretation Comments RDW (test code = RDW) 12.4 11.5-14.5 [facility] CypressBcpyyapYHFMAPXFOY2450-88-38 07:58:00 Test Item Value Reference Range Interpretation Comments RBC (test code = RBC) 4.93 4.70-6.10 [facility] CypressDwkcyhqUUUTVCFBOG9619-59-59 07:58:00 Test Item Value Reference Range Interpretation Comments WBC (test code = WBC) 7.0 3.7-10.4 [facility]RsfnnfpFTCAER8054-21-64 07:58:00 Test Item Value Reference Range Interpretation Comments VLDL (test code = VLDL) 20 [facility] HospitalOinlapgYIYRLM5235-22-92 07:58:00 Test Item Value Reference Range Interpretation Comments HDL (test code = HDL) 33 [facility] DallasUjngedmSIUXKR9203-68-94 07:58:00 Test Item Value Reference Range Interpretation Comments Trig (test code = Trig) 101 [facility] DallasHxzjhphPNAMRL2467-35-27 07:58:00 Test Item Value Reference Range Interpretation Comments Chol (test code = Chol) 84 [facility] DallasIljuylgRQAWRS3083-08-68 07:58:00 Test Item Value Reference Range Interpretation Comments CHD Risk (test code = CHD Risk) 2.55 4.00-7.30 [facility] DallasQpmwmkcSFYATO7048-33-50 07:58:00 Test Item Value Reference Range Interpretation Comments LDL (Calculated) (test code = LDL 31 (Calculated)) [facility] QCHPNHHGI6464-76-51 07:58:00 Test Item Value Reference Range Interpretation Comments Hgb A1C (test code = Hgb A1C) 5.1 [facility] DallasSpecifiedBy RAUTC8653-11-75 07:58:00 Test Item Value Reference Range Interpretation Comments eGFR (test code = eGFR) 102 [facility]2017-01-13 07:58:00 Test Item Value Reference Range Interpretation Comments eGFR (test code = eGFR) 102 [facility]2017-01-13 07:58:00 Test Item Value Reference Range Interpretation Comments Glucose Lvl (test code = Glucose Lvl) 92 70-99 [facility]2017-01-13 07:58:00 Test Item Value Reference Range Interpretation Comments Creatinine Lvl (test code = Creatinine 0.86 0.50-1.40 Lvl) [facility]2017-01-13 07:58:00 Test Item Value Reference Range Interpretation Comments Glucose Lvl (test code = Glucose Lvl) 92 70-99 [facility] [id number] 07:58:00 Test Item Value Reference Range Interpretation Comments Potassium Lvl (test code = Potassium 4.0 3.5-5.1 Lvl) [facility]2017-01-13 07:58:00 Test Item Value Reference Range Interpretation Comments Chloride Lvl (test code = Chloride Lvl) 104 95-109 [facility]2017-01-13 07:58:00 Test Item Value Reference Range Interpretation Comments Sodium Lvl (test code = Sodium Lvl) 137 135-145 [place] [id number] 07:58:00 Test Item Value Reference Range Interpretation Comments CO2 (test code = CO2) 21 24-32 [facility]2017-01-13 07:58:00 Test Item Value Reference Range Interpretation Comments Calcium Lvl (test code = Calcium Lvl) 8.3 8.5-10.5 [facility]2017-01-13 07:58:00 Test Item Value Reference Range Interpretation Comments BUN (test code = BUN) 16 7-22 [facility]2017-01-13 07:58:00 Test Item Value Reference Range Interpretation Comments AGAP (test code = AGAP) 16.0 10.0-20.0 [facility]2017-01-13 07:58:00 Test Item Value Reference Range Interpretation Comments Magnesium Lvl (test code = Magnesium 2.4 1.8-2.4 Lvl) [facility]2017-01-13 07:58:00 Test Item Value Reference Range Interpretation Comments AST (test code = AST) 14 See_Comment [Auto mated message] The system which ge nerated this result transmit joseline reference range : <=37. The reference range was not used to interpr et this result as tamera l/abnormal. [facility]2017-01-13 07:58:00 Test Item Value Reference Range Interpretation Comments Alk Phos (test code = Alk Phos) 60 39-136 [place] 051087-01-13 07:58:00 Test Item Value Reference Range Interpretation Comments Creatinine Lvl (test code = Creatinine 0.86 0.50-1.40 Lvl) [facility]2017-01-13 07:58:00 Test Item Value Reference Range Interpretation Comments Total Protein (test code = Total 6.5 6.4-8.4 Protein) [facility]2017-01-13 07:58:00 Test Item Value Reference Range Interpretation Comments Albumin Lvl (test code = Albumin Lvl) 3.2 3.5-5.0 [facility]2017-01-13 07:58:00 Test Item Value Reference Range Interpretation Comments ALT (test code = ALT) 16 See_Comment [Auto mated message] The system which ge nerated this result transmit joseline reference range : <=65. The reference range was not used to interpr et this result as tamera l/abnormal. [place] 051087-01-13 07:58:00 Test Item Value Reference Range Interpretation Comments Bili Total (test code = Bili Total) 1.0 0.2-1.3 [place] 051087-01-13 07:58:00 Test Item Value Reference Range Interpretation Comments Bili Direct (test code 0.2 See_Comment [Aut omated message] The = Bili Direct) system which generated this result tra nsmitted reference range : <=0.3. The reference r ana luisa was not used to int erpret this result as tamera l/abnormal. [facility]2017-01-13 07:58:00 Test Item Value Reference Range Interpretation Comments Bili Indirect (test 0.8 See_Comment [Automa joseline message] The code = Bili Indirect) system which generated this result tra nsmitted reference range : <=1.0. The reference r ana luisa was not used to int erpret this result as normal/abnormal . [facility]2017-01-13 07:58:00 Test Item Value Reference Range Interpretation Comments Globulin (test code = Globulin) 3.3 2.7-4.2 [place] 051087-01-13 07:58:00 Test Item Value Reference Range Interpretation Comments A/G Ratio (test code = A/G Ratio) 1.0 0.7-1.6 [place] 763717-01-13 07:58:00 Test Item Value Reference Range Interpretation Comments PT (test code = PT) 14.5 s 12.0-14.7 [facility]ressKvgijkpNZYPADQEON1724-64-64 07:58:00 Test Item Value Reference Range Interpretation Comments INR (test code = INR) 1.11 0.85-1.17 [place] 051087-01-13 07:58:00 Test Item Value Reference Range Interpretation Comments Potassium Lvl (test code = Potassium 4.0 3.5-5.1 Lvl) [facility] CypressDdttoryATQPGMVRRS9700-80-87 07:58:00 Test Item Value Reference Range Interpretation Comments PTT (test code = PTT) 33.6 s 22.9-35.8 [place] 763717-01-13 07:58:00 Test Item Value Reference Range Interpretation Comments Segs-Bands # (test code = Segs-Bands #) 4.9 1.5-8.1 [facility] CypressQjnhxgpJMSQPZIISL3633-89-65 07:58:00 Test Item Value Reference Range Interpretation Comments Monocytes # (test code 0.6 See_Comment [Aut omated message] The = Monocytes #) system which generated this result tra nsmitted reference range : <=0.8. The reference r ana luisa was not used to int erpret this result as normal/abnormal . [facility] CypressKepulojFXBTLDXIHD3602-51-20 07:58:00 Test Item Value Reference Range Interpretation Comments Basophils (test code = 0.2 See_Comment [Aut omated message] The Basophils) system which ge nerated this result tra nsmitted reference range : <=1.0. The reference r ana luisa was not used to int erpret this result as normal/abnormal . [facility] CypressCurblrsGVCWNOUGSX7029-50-87 07:58:00 Test Item Value Reference Range Interpretation Comments Segs (test code = Segs) 69.8 45.0-75.0 [facility] CypressAlpdlbnZWKGIITTUY0855-09-82 07:58:00 Test Item Value Reference Range Interpretation Comments Lymphocytes (test code = Lymphocytes) 17.3 20.0-40.0 [facility] CypressHuvponmAFBBUKHRTD5886-11-31 07:58:00 Test Item Value Reference Range Interpretation Comments Eosinophils # (test code 0.2 See_Comment [A utomated message] The = Eosinophils #) system [facility] h generated this result tra nsmitted reference range : <=0.5. The reference r ana luisa was not used to int erpret this result as normal/abnormal . [facility] CypressIvkpdzaGUJTNKPKUE4396-25-36 07:58:00 Test Item Value Reference Range Interpretation Comments Monocytes (test code = Monocytes) 9.2 2.0-12.0 [facility] CypressGoallwfPEXBAPINJB4581-61-71 07:58:00 Test Item Value Reference Range Interpretation Comments Eosinophils (test code = 3.5 See_Comment [A utomated message] The Eosinophils) system which ge nerated this result tra nsmitted reference range : <=4.0. The reference r ana luisa was not used to int erpret this result as normal/abnormal . [facility] CypressWwtnsskOSILCIYIGQ5691-09-88 07:58:00 Test Item Value Reference Range Interpretation Comments Lymphocytes # (test code = Lymphocytes 1.2 1.0-5.5 #) [facility]2017-01-13 07:58:00 Test Item Value Reference Range Interpretation Comments Chloride Lvl (test code = Chloride Lvl) 104 95-109 [facility] CypressLdmzgzeMCOYVVQLST8609-31-04 07:58:00 Test Item Value Reference Range Interpretation Comments Platelet (test code = Platelet) 134 133-450 [facility] CypressVxgfmefLDBLZJKHFG9461-38-26 07:58:00 Test Item Value Reference Range Interpretation Comments MCV (test code = MCV) 93.1 80.0-94.0 [facility] CypressRsvxjndBYFVARVIMN1493-64-37 07:58:00 Test Item Value Reference Range Interpretation Comments Hct (test code = Hct) 45.9 42.0-54.0 [facility] CypressKprnmubOJUZEWWTZG1262-18-26 07:58:00 Test Item Value Reference Range Interpretation Comments MCH (test code = MCH) 32.8 pg 27.0-31.0 [facility] CypressQlziiejYPPJPLQSAD1343-67-35 07:58:00 Test Item Value Reference Range Interpretation Comments Hgb (test code = Hgb) 16.2 14.0-18.0 [facility] CypressYtwuyefAHHDZXMDGQ6563-74-84 07:58:00 Test Item Value Reference Range Interpretation Comments MCHC (test code = MCHC) 35.2 32.0-36.0 [facility] CypressGmrvuxjKVWPCFDYFC0726-84-23 07:58:00 Test Item Value Reference Range Interpretation Comments MPV (test code = MPV) 10.3 7.4-10.4 [facility] CypressAiluijxMCBEMKMTLF0474-12-59 07:58:00 Test Item Value Reference Range Interpretation Comments RDW (test code = RDW) 12.4 11.5-14.5 [facility] CypressYfkvhitNKEBLOYJGP9236-95-85 07:58:00 Test Item Value Reference Range Interpretation Comments RBC (test code = RBC) 4.93 4.70-6.10 [facility] CypressQgmifhfUFFEJYNYGO2829-45-79 07:58:00 Test Item Value Reference Range Interpretation Comments WBC (test code = WBC) 7.0 3.7-10.4 [facility]2017-01-13 07:58:00 Test Item Value Reference Range Interpretation Comments Sodium Lvl (test code = Sodium Lvl) 137 135-145 [facility]QQFBYZ4221-[facility]-28 07:58:00 Test Item Value Reference Range Interpretation Comments VLDL (test code = VLDL) 20 [facility] DallasJqaiwzmMFKSGJ2335-75-38 07:58:00 Test Item Value Reference Range Interpretation Comments HDL (test code = HDL) 33 [facility] DallasSyveumxPYYTWT3536-61-07 07:58:00 Test Item Value Reference Range Interpretation Comments Trig (test code = Trig) 101 [facility] DallasGhccdhdRQQFNW2766-65-31 07:58:00 Test Item Value Reference Range Interpretation Comments Chol (test code = Chol) 84 [facility] DallasTrbjeauMEJZZN2152-32-41 07:58:00 Test Item Value Reference Range Interpretation Comments CHD Risk (test code = CHD Risk) 2.55 4.00-7.30 [facility] DallasCihsughJWASYT1248-48-37 07:58:00 Test Item Value Reference Range Interpretation Comments LDL (Calculated) (test code = LDL 31 (Calculated)) [facility] JTUVUNGGL7322-23-08 07:58:00 Test Item Value Reference Range Interpretation Comments Hgb A1C (test code = Hgb A1C) 5.1 [facility] [id number] 07:58:00 Test Item Value Reference Range Interpretation Comments CO2 (test code = CO2) 21 24-32 [facility] [id number] 07:58:00 Test Item Value Reference Range Interpretation Comments Calcium Lvl (test code = Calcium Lvl) 8.3 8.5-10.5 [facility] [id number] 07:58:00 Test Item Value Reference Range Interpretation Comments BUN (test code = BUN) 16 7-22 [facility]Spec[facility] [id number] 07:58:00 Test Item Value Reference Range Interpretation Comments AGAP (test code = AGAP) 16.0 10.0-20.0 [facility]Inn[facility] [id number] 07:58:00 Test Item Value Reference Range Interpretation Comments Magnesium Lvl (test code = Magnesium 2.4 1.8-2.4 Lvl) [facility] [id number] 07:58:00 Test Item Value Reference Range Interpretation Comments AST (test code = AST) 14 See_Comment [Auto mated message] The system which ge nerated this result transmit joseline reference range : <=37. The reference range was not used to interpr et this result as tamera l/abnormal. [facility]2017-01-13 07:58:00 Test Item Value Reference Range Interpretation Comments Alk Phos (test code = Alk Phos) 60 39-136 [facility]2017-01-13 07:58:00 Test Item Value Reference Range Interpretation Comments Total Protein (test code = Total 6.5 6.4-8.4 Protein) [facility]2017-01-13 07:58:00 Test Item Value Reference Range Interpretation Comments Albumin Lvl (test code = Albumin Lvl) 3.2 3.5-5.0 [facility]2017-01-13 07:58:00 Test Item Value Reference Range Interpretation Comments eGFR (test code = eGFR) 102 [facility]2017-01-13 07:58:00 Test Item Value Reference Range Interpretation Comments Glucose Lvl (test code = Glucose Lvl) 92 70-99 [facility]2017-01-13 07:58:00 Test Item Value Reference Range Interpretation Comments Creatinine Lvl (test code = Creatinine 0.86 0.50-1.40 Lvl) [facility]2017-01-13 07:58:00 Test Item Value Reference Range Interpretation Comments Potassium Lvl (test code = Potassium 4.0 3.5-5.1 Lvl) [facility]2017-01-13 07:58:00 Test Item Value Reference Range Interpretation Comments Chloride Lvl (test code = Chloride Lvl) 104 95-109 [facility]2017-01-13 07:58:00 Test Item Value Reference Range Interpretation Comments Sodium Lvl (test code = Sodium Lvl) 137 135-145 [facility]2017-01-13 07:58:00 Test Item Value Reference Range Interpretation Comments CO2 (test code = CO2) 21 24-32 [facility]2017-01-13 07:58:00 Test Item Value Reference Range Interpretation Comments Calcium Lvl (test code = Calcium Lvl) 8.3 8.5-10.5 [facility]2017-01-13 07:58:00 Test Item Value Reference Range Interpretation Comments BUN (test code = BUN) 16 7-22 [facility]2017-01-13 07:58:00 Test Item Value Reference Range Interpretation Comments AGAP (test code = AGAP) 16.0 10.0-20.0 [place] 051087-01-13 07:58:00 Test Item Value Reference Range Interpretation Comments ALT (test code = ALT) 16 See_Comment [Auto mated message] The system which ge nerated this result transmit joseline reference range : <=65. The reference range was not used to interpr et this result as tamera l/abnormal. [facility]2017-01-13 07:58:00 Test Item Value Reference Range Interpretation Comments Magnesium Lvl (test code = Magnesium 2.4 1.8-2.4 Lvl) [facility]2017-01-13 07:58:00 Test Item Value Reference Range Interpretation Comments AST (test code = AST) 14 See_Comment [Auto mated message] The system which ge nerated this result transmit joseline reference range : <=37. The reference range was not used to interpr et this result as tamera l/abnormal. [facility]2017-01-13 07:58:00 Test Item Value Reference Range Interpretation Comments Alk Phos (test code = Alk Phos) 60 39-136 [facility]2017-01-13 07:58:00 Test Item Value Reference Range Interpretation Comments Total Protein (test code = Total 6.5 6.4-8.4 Protein) [facility]2017-01-13 07:58:00 Test Item Value Reference Range Interpretation Comments Albumin Lvl (test code = Albumin Lvl) 3.2 3.5-5.0 [place] 051087-01-13 07:58:00 Test Item Value Reference Range Interpretation Comments ALT (test code = ALT) 16 See_Comment [Auto mated message] The system which ge nerated this result transmit joseline reference range : <=65. The reference range was not used to interpr et this result as tamera l/abnormal. [facility]2017-01-13 07:58:00 Test Item Value Reference Range Interpretation Comments Bili Total (test code = Bili Total) 1.0 0.2-1.3 [place] 051087-01-13 07:58:00 Test Item Value Reference Range Interpretation Comments Bili Direct (test code 0.2 See_Comment [Aut omated message] The = Bili Direct) system which generated this result tra nsmitted reference range : <=0.3. The reference r ana luisa was not used to int erpret this result as tamera l/abnormal. [facility]2017-01-13 07:58:00 Test Item Value Reference Range Interpretation Comments Bili Indirect (test 0.8 See_Comment [Automa joseline message] The code = Bili Indirect) system which generated this result tra nsmitted reference range : <=1.0. The reference r ana luisa was not used to int erpret this result as normal/abnormal . [facility]2017-01-13 07:58:00 Test Item Value Reference Range Interpretation Comments Globulin (test code = Globulin) 3.3 2.7-4.2 [facility]2017-01-13 07:58:00 Test Item Value Reference Range Interpretation Comments Bili Total (test code = Bili Total) 1.0 0.2-1.3 [facility]2017-01-13 07:58:00 Test Item Value Reference Range Interpretation Comments A/G Ratio (test code = A/G Ratio) 1.0 0.7-1.6 [facility] CypressXjxygojWKYXWAKPMI4502-24-64 07:58:00 Test Item Value Reference Range Interpretation Comments PT (test code = PT) 14.5 s 12.0-14.7 [facility] CypressVnqdadnUYNUXICUWO5825-59-41 07:58:00 Test Item Value Reference Range Interpretation Comments INR (test code = INR) 1.11 0.85-1.17 [facility] CypressPsowgskKMPSUZZUDY6324-75-49 07:58:00 Test Item Value Reference Range Interpretation Comments PTT (test code = PTT) 33.6 s 22.9-35.8 [facility] CypressQsexjpdIMLVEWBYCC6508-20-56 07:58:00 Test Item Value Reference Range Interpretation Comments Segs-Bands # (test code = Segs-Bands #) 4.9 1.5-8.1 [facility] CypressSjtpkqfSJONUOTDTC4433-16-48 07:58:00 Test Item Value Reference Range Interpretation Comments Monocytes # (test code 0.6 See_Comment [Aut omated message] The = Monocytes #) system which generated this result tra nsmitted reference range : <=0.8. The reference r ana luisa was not used to int erpret this result as normal/abnormal . [facility] CypressEtmscwyMPVRTYFHJB5735-39-78 07:58:00 Test Item Value Reference Range Interpretation Comments Basophils (test code = 0.2 See_Comment [Aut omated message] The Basophils) system which ge nerated this result tra nsmitted reference range : <=1.0. The reference r ana luisa was not used to int erpret this result as normal/abnormal . [facility] CypressCsvlpukWWWPXDOFDW6526-78-34 07:58:00 Test Item Value Reference Range Interpretation Comments Segs (test code = Segs) 69.8 45.0-75.0 [facility] CypressSdmmnyjYAMRTIVKZC1096-71-06 07:58:00 Test Item Value Reference Range Interpretation Comments Lymphocytes (test code = Lymphocytes) 17.3 20.0-40.0 [facility] CypressSkdpjptYFFGWZDSPV0496-84-44 07:58:00 Test Item Value Reference Range Interpretation Comments Eosinophils # (test code 0.2 See_Comment [A utomated message] The = Eosinophils #) system wh h generated this result tra nsmitted reference range : <=0.5. The reference r ana luisa was not used to int erpret this result as normal/abnormal . [facility]2017-01-13 07:58:00 Test Item Value Reference Range Interpretation Comments Bili Direct (test code 0.2 See_Comment [Aut omated message] The = Bili Direct) system which generated this result tra nsmitted reference range : <=0.3. The reference r ana luisa was not used to int erpret this result as tamera l/abnormal. [facility] CypressKjtgcyqCQZTQHAKBE2098-12-70 07:58:00 Test Item Value Reference Range Interpretation Comments Monocytes (test code = Monocytes) 9.2 2.0-12.0 [facility] CypressKbxzogiMMWBVNHBYS4470-42-35 07:58:00 Test Item Value Reference Range Interpretation Comments Eosinophils (test code = 3.5 See_Comment [A utomated message] The Eosinophils) system which ge nerated this result tra nsmitted reference range : <=4.0. The reference r ana luisa was not used to int erpret this result as normal/abnormal . [facility] CypressVfilvdjYLLTZIUMHE0043-65-33 07:58:00 Test Item Value Reference Range Interpretation Comments Lymphocytes # (test code = Lymphocytes 1.2 1.0-5.5 #) [facility] CypressNjukxtbSURHXCLYLP5308-84-86 07:58:00 Test Item Value Reference Range Interpretation Comments Platelet (test code = Platelet) 134 133-450 [facility] CypressQrporbvYWPPCRXJFB1620-46-99 07:58:00 Test Item Value Reference Range Interpretation Comments MCV (test code = MCV) 93.1 80.0-94.0 [facility] CypressDibzvtjITLEJAHRFD2259-25-58 07:58:00 Test Item Value Reference Range Interpretation Comments Hct (test code = Hct) 45.9 42.0-54.0 [facility] CypressKjefuckKYEZRFUMOR9522-94-51 07:58:00 Test Item Value Reference Range Interpretation Comments MCH (test code = MCH) 32.8 pg 27.0-31.0 [facility] CypressHqncawaVZKICUAHAO4660-41-54 07:58:00 Test Item Value Reference Range Interpretation Comments Hgb (test code = Hgb) 16.2 14.0-18.0 [facility] CypressNfhputaODBJFFCTHT6687-30-87 07:58:00 Test Item Value Reference Range Interpretation Comments MCHC (test code = MCHC) 35.2 32.0-36.0 [facility] CypressChaplioDPFSGEZWKB7765-19-12 07:58:00 Test Item Value Reference Range Interpretation Comments MPV (test code = MPV) 10.3 7.4-10.4 [facility]2017-01-13 07:58:00 Test Item Value Reference Range Interpretation Comments Bili Indirect (test 0.8 See_Comment [Automa joseline message] The code = Bili Indirect) system which generated this result tra nsmitted reference range : <=1.0. The reference r ana luisa was not used to int erpret this result as normal/abnormal . [facility] CypressUoqtrbvEEYVWKLWLX8276-87-02 07:58:00 Test Item Value Reference Range Interpretation Comments RDW (test code = RDW) 12.4 11.5-14.5 [facility] CypressMyxmperOCJNKVMAES4987-31-59 07:58:00 Test Item Value Reference Range Interpretation Comments RBC (test code = RBC) 4.93 4.70-6.10 [facility] CypressOyelshlXOWDPJIGYD1931-99-95 07:58:00 Test Item Value Reference Range Interpretation Comments WBC (test code = WBC) 7.0 3.7-10.4 [facility]ScageqkRQCHQL4953-83-95 07:58:00 Test Item Value Reference Range Interpretation Comments VLDL (test code = VLDL) 20 [facility] DallasMteghdtPTOUZE7358-35-17 07:58:00 Test Item Value Reference Range Interpretation Comments HDL (test code = HDL) 33 [facility] DallasAfibbldGFPIEZ2522-38-35 07:58:00 Test Item Value Reference Range Interpretation Comments Trig (test code = Trig) 101 [facility] DallasOvqwslnADSYPE0651-97-44 07:58:00 Test Item Value Reference Range Interpretation Comments Chol (test code = Chol) 84 [facility] DallasVkuxcfbARSYJN8062-58-63 07:58:00 Test Item Value Reference Range Interpretation Comments CHD Risk (test code = CHD Risk) 2.55 4.00-7.30 [facility] DallasUiyjwceTVISSU4875-81-95 07:58:00 Test Item Value Reference Range Interpretation Comments LDL (Calculated) (test code = LDL 31 (Calculated)) [facility] VXZLKJSMU6107-25-88 07:58:00 Test Item Value Reference Range Interpretation Comments Hgb A1C (test code = Hgb A1C) 5.1 [facility] DallasCHEM UYXSD3438-73-20 07:58:00 Test Item Value Reference Range Interpretation Comments Globulin (test code = Globulin) 3.3 2.7-4.2 [facility] DallasCHEM NMNOL7767-16-56 07:58:00 Test Item Value Reference Range Interpretation Comments A/G Ratio (test code = A/G Ratio) 1.0 0.7-1.6 [facility]ZvwrxdkFKCKUOKVUP0861-25-16 07:58:00 Test Item Value Reference Range Interpretation Comments PT (test code = PT) 14.5 s 12.0-14.7 [facility] DallasVeharsuMNFHPIYPZK3993-83-37 07:58:00 Test Item Value Reference Range Interpretation Comments INR (test code = INR) 1.11 0.85-1.17 [facility] HospitalGvnnuvvMFHRIVKDGU2637-66-32 07:58:00 Test Item Value Reference Range Interpretation Comments PTT (test code = PTT) 33.6 s 22.9-35.8 [facility] HospitalAbyszfiEMWBDMMEDZ4685-66-96 07:58:00 Test Item Value Reference Range Interpretation Comments Segs-Bands # (test code = Segs-Bands #) 4.9 1.5-8.1 [facility] HospitalVonpaqsCDBEMMFUDC6524-43-30 07:58:00 Test Item Value Reference Range Interpretation Comments Monocytes # (test code 0.6 See_Comment [Aut omated message] The = Monocytes #) system which generated this result tra nsmitted reference range : <=0.8. The reference r ana luisa was not used to int erpret this result as normal/abnormal . [facility] CypressKjtyzqkBCLOODZCKV6913-22-83 07:58:00 Test Item Value Reference Range Interpretation Comments Basophils (test code = 0.2 See_Comment [Aut omated message] The Basophils) system which ge nerated this result tra nsmitted reference range : <=1.0. The reference r ana luisa was not used to int erpret this result as normal/abnormal . [facility] CypressKfhwozvWIYVCXZWHS9217-39-86 07:58:00 Test Item Value Reference Range Interpretation Comments Segs (test code = Segs) 69.8 45.0-75.0 [facility]2017-01-13 07:58:00 Test Item Value Reference Range Interpretation Comments eGFR (test code = eGFR) 102 [facility]2017-01-13 07:58:00 Test Item Value Reference Range Interpretation Comments Glucose Lvl (test code = Glucose Lvl) 92 70-99 [facility]2017-01-13 07:58:00 Test Item Value Reference Range Interpretation Comments Creatinine Lvl (test code = Creatinine 0.86 0.50-1.40 Lvl) [facility]2017-01-13 07:58:00 Test Item Value Reference Range Interpretation Comments Potassium Lvl (test code = Potassium 4.0 3.5-5.1 Lvl) [facility]2017-01-13 07:58:00 Test Item Value Reference Range Interpretation Comments Chloride Lvl (test code = Chloride Lvl) 104 95-109 [facility]2017-01-13 07:58:00 Test Item Value Reference Range Interpretation Comments Sodium Lvl (test code = Sodium Lvl) 137 135-145 [facility]2017-01-13 07:58:00 Test Item Value Reference Range Interpretation Comments CO2 (test code = CO2) 21 24-32 [facility] CypressLrvtnemFUWVRGCYSZ2139-43-41 07:58:00 Test Item Value Reference Range Interpretation Comments Lymphocytes (test code = Lymphocytes) 17.3 20.0-40.0 [place] 051087-01-13 07:58:00 Test Item Value Reference Range Interpretation Comments Calcium Lvl (test code = Calcium Lvl) 8.3 8.5-10.5 [facility]2017-01-13 07:58:00 Test Item Value Reference Range Interpretation Comments BUN (test code = BUN) 16 7-22 [facility]2017-01-13 07:58:00 Test Item Value Reference Range Interpretation Comments AGAP (test code = AGAP) 16.0 10.0-20.0 [facility]2017-01-13 07:58:00 Test Item Value Reference Range Interpretation Comments Magnesium Lvl (test code = Magnesium 2.4 1.8-2.4 Lvl) [facility]2017-01-13 07:58:00 Test Item Value Reference Range Interpretation Comments AST (test code = AST) 14 See_Comment [Auto mated message] The system which ge nerated this result transmit joseline reference range : <=37. The reference range was not used to interpr et this result as tamera l/abnormal. [facility]2017-01-13 07:58:00 Test Item Value Reference Range Interpretation Comments Alk Phos (test code = Alk Phos) 60 39-136 [facility]2017-01-13 07:58:00 Test Item Value Reference Range Interpretation Comments Total Protein (test code = Total 6.5 6.4-8.4 Protein) [facility]2017-01-13 07:58:00 Test Item Value Reference Range Interpretation Comments Albumin Lvl (test code = Albumin Lvl) 3.2 3.5-5.0 [facility]2017-01-13 07:58:00 Test Item Value Reference Range Interpretation Comments ALT (test code = ALT) 16 See_Comment [Auto mated message] The system which ge nerated this result transmit joseline reference range : <=65. The reference range was not used to interpr et this result as tamera l/abnormal. [facility]2017-01-13 07:58:00 Test Item Value Reference Range Interpretation Comments Bili Total (test code = Bili Total) 1.0 0.2-1.3 [facility] CypressSihqucxQAMFBDCQVY9947-94-71 07:58:00 Test Item Value Reference Range Interpretation Comments Eosinophils # (test code 0.2 See_Comment [A utomated message] The = Eosinophils #) system whic h generated this result tra nsmitted reference range : <=0.5. The reference r ana luisa was not used to int erpret this result as normal/abnormal . [facility]2017-01-13 07:58:00 Test Item Value Reference Range Interpretation Comments Bili Direct (test code 0.2 See_Comment [Aut omated message] The = Bili Direct) system which generated this result tra nsmitted reference range : <=0.3. The reference r ana luisa was not used to int erpret this result as tamera l/abnormal. [facility]2017-01-13 07:58:00 Test Item Value Reference Range Interpretation Comments Bili Indirect (test 0.8 See_Comment [Automa joseline message] The code = Bili Indirect) system which generated this result tra nsmitted reference range : <=1.0. The reference r ana luisa was not used to int erpret this result as normal/abnormal . [facility]2017-01-13 07:58:00 Test Item Value Reference Range Interpretation Comments Globulin (test code = Globulin) 3.3 2.7-4.2 [facility]2017-01-13 07:58:00 Test Item Value Reference Range Interpretation Comments A/G Ratio (test code = A/G Ratio) 1.0 0.7-1.6 [facility] CypressJrapgjoQDVDKVXLPF1313-77-90 07:58:00 Test Item Value Reference Range Interpretation Comments PT (test code = PT) 14.5 s 12.0-14.7 [place] 763717-01-13 07:58:00 Test Item Value Reference Range Interpretation Comments INR (test code = INR) 1.11 0.85-1.17 [place] [address]-01-13 07:58:00 Test Item Value Reference Range Interpretation Comments PTT (test code = PTT) 33.6 s 22.9-35.8 [place] 763717-01-13 07:58:00 Test Item Value Reference Range Interpretation Comments Segs-Bands # (test code = Segs-Bands #) 4.9 1.5-8.1 [place] 763717-01-13 07:58:00 Test Item Value Reference Range Interpretation Comments Monocytes # (test code 0.6 See_Comment [Aut omated message] The = Monocytes #) system which generated this result tra nsmitted reference range : <=0.8. The reference r ana luisa was not used to int erpret this result as normal/abnormal . [facility] CypressVytknjmZNUQEWGXRB9431-30-79 07:58:00 Test Item Value Reference Range Interpretation Comments Basophils (test code = 0.2 See_Comment [Aut omated message] The Basophils) system which ge nerated this result tra nsmitted reference range : <=1.0. The reference r ana luisa was not used to int erpret this result as normal/abnormal . [facility] CypressTbhyqifLYEWHEROGD8739-92-83 07:58:00 Test Item Value Reference Range Interpretation Comments Monocytes (test code = Monocytes) 9.2 2.0-12.0 [facility] CypressQaymtsdBRQUUONHMV9674-39-38 07:58:00 Test Item Value Reference Range Interpretation Comments Segs (test code = Segs) 69.8 45.0-75.0 [facility] CypressIhujgbcEJTMNBYOBU2059-96-52 07:58:00 Test Item Value Reference Range Interpretation Comments Lymphocytes (test code = Lymphocytes) 17.3 20.0-40.0 [facility] CypressKzovuvaLHRRJAMJIV6254-61-47 07:58:00 Test Item Value Reference Range Interpretation Comments Eosinophils # (test code 0.2 See_Comment [A utomated message] The = Eosinophils #) system whic h generated this result tra nsmitted reference range : <=0.5. The reference r ana luisa was not used to int erpret this result as normal/abnormal . [facility] CypressWfltblpAIUUZOQNHQ7597-91-19 07:58:00 Test Item Value Reference Range Interpretation Comments Monocytes (test code = Monocytes) 9.2 2.0-12.0 [facility] CypressWhpsongCWRRPCSUVN5415-36-86 07:58:00 Test Item Value Reference Range Interpretation Comments Eosinophils (test code = 3.5 See_Comment [A utomated message] The Eosinophils) system which ge nerated this result tra nsmitted reference range : <=4.0. The reference r ana luisa was not used to int erpret this result as normal/abnormal . [facility] CypressLkogwndINWSTPKYSH7370-97-37 07:58:00 Test Item Value Reference Range Interpretation Comments Lymphocytes # (test code = Lymphocytes 1.2 1.0-5.5 #) [facility] CypressSjicfaeWPKLEKNUOW5538-22-73 07:58:00 Test Item Value Reference Range Interpretation Comments Platelet (test code = Platelet) 134 133-450 [facility] CypressVuvircjVYICYOAFBB0500-52-26 07:58:00 Test Item Value Reference Range Interpretation Comments MCV (test code = MCV) 93.1 80.0-94.0 [facility] CypressCfveowiJPZKLPZBOJ6768-14-75 07:58:00 Test Item Value Reference Range Interpretation Comments Hct (test code = Hct) 45.9 42.0-54.0 [facility] CypressIehpqpxSAXPFJYLJZ4892-80-19 07:58:00 Test Item Value Reference Range Interpretation Comments MCH (test code = MCH) 32.8 pg 27.0-31.0 [facility] CypressIsosrjwMASXCXBCHN1047-58-92 07:58:00 Test Item Value Reference Range Interpretation Comments Eosinophils (test code = 3.5 See_Comment [A utomated message] The Eosinophils) system which ge nerated this result tra nsmitted reference range : <=4.0. The reference r ana luisa was not used to int erpret this result as normal/abnormal . [facility] CypressDoepwoiHTDGUYTMKD2933-74-70 07:58:00 Test Item Value Reference Range Interpretation Comments Hgb (test code = Hgb) 16.2 14.0-18.0 [facility] CypressHtxnkuxRCHYKQYFZZ5097-40-32 07:58:00 Test Item Value Reference Range Interpretation Comments MCHC (test code = MCHC) 35.2 32.0-36.0 [facility] CypressMitlmigIAKCJGQEJV8271-17-98 07:58:00 Test Item Value Reference Range Interpretation Comments MPV (test code = MPV) 10.3 7.4-10.4 [facility] CypressUsxcfaxTATCTABWDH5865-74-61 07:58:00 Test Item Value Reference Range Interpretation Comments RDW (test code = RDW) 12.4 11.5-14.5 [facility] CypressPeuyldwISTILKSVIN2401-94-72 07:58:00 Test Item Value Reference Range Interpretation Comments RBC (test code = RBC) 4.93 4.70-6.10 [facility] CypressOzmpqigVDUIFYQIEZ1168-93-41 07:58:00 Test Item Value Reference Range Interpretation Comments WBC (test code = WBC) 7.0 3.7-10.4 [facility]qqey[facility]COYRVA2590[facility]35-66 07:58:00 Test Item Value Reference Range Interpretation Comments VLDL (test code = VLDL) 20 [facility] DallasKagqzhkJCLSBG3485-80-50 07:58:00 Test Item Value Reference Range Interpretation Comments HDL (test code = HDL) 33 [facility] DallasKklpdfbSFSCWK0397-41-06 07:58:00 Test Item Value Reference Range Interpretation Comments Trig (test code = Trig) 101 [facility] DallasDqclqmpCYZUYB8486-73-53 07:58:00 Test Item Value Reference Range Interpretation Comments Chol (test code = Chol) 84 [facility]NsefuvrOPLYOFBHVQ9912-94-81 07:58:00 Test Item Value Reference Range Interpretation Comments Lymphocytes # (test code = Lymphocytes 1.2 1.0-5.5 #) [facility]lPWLSMC3549-[facility]-94 07:58:00 Test Item Value Reference Range Interpretation Comments CHD Risk (test code = CHD Risk) 2.55 4.00-7.30 [facility] HospitalKmtnzplZNOKKD1069-57-56 07:58:00 Test Item Value Reference Range Interpretation Comments LDL (Calculated) (test code = LDL 31 (Calculated)) [facility] UYQHWEROP3952-96-64 07:58:00 Test Item Value Reference Range Interpretation Comments Hgb A1C (test code = Hgb A1C) 5.1 [facility] HospitalBckojxcNXACJKDTDQ2999-60-89 07:58:00 Test Item Value Reference Range Interpretation Comments Platelet (test code = Platelet) 134 133-450 [facility] HospitalFqobcghAKBOHVPETX0463-02-01 07:58:00 Test Item Value Reference Range Interpretation Comments MCV (test code = MCV) 93.1 80.0-94.0 [facility] HospitalRsxetvnEDZGUJIGBE0724-58-24 07:58:00 Test Item Value Reference Range Interpretation Comments Hct (test code = Hct) 45.9 42.0-54.0 [facility] HospitalJkjlkpgBMYONNXJPO5255-95-13 07:58:00 Test Item Value Reference Range Interpretation Comments MCH (test code = MCH) 32.8 pg 27.0-31.0 [facility] HospitalSufvaiwSIIFAWJQBS3516-38-06 07:58:00 Test Item Value Reference Range Interpretation Comments Hgb (test code = Hgb) 16.2 14.0-18.0 [facility] HospitalAsysugpQRPNMAXYJZ1953-20-63 07:58:00 Test Item Value Reference Range Interpretation Comments MCHC (test code = MCHC) 35.2 32.0-36.0 [facility] CypressMalygdpPXUHEFPMGI9630-03-72 07:58:00 Test Item Value Reference Range Interpretation Comments MPV (test code = MPV) 10.3 7.4-10.4 [facility] CypressKwyutbvOBLLLYLSML5568-28-52 07:58:00 Test Item Value Reference Range Interpretation Comments RDW (test code = RDW) 12.4 11.5-14.5 [facility]2017-01-13 07:58:00 Test Item Value Reference Range Interpretation Comments eGFR (test code = eGFR) 102 [facility]2017-01-13 07:58:00 Test Item Value Reference Range Interpretation Comments Glucose Lvl (test code = Glucose Lvl) 92 70-99 [facility]2017-01-13 07:58:00 Test Item Value Reference Range Interpretation Comments Creatinine Lvl (test code = Creatinine 0.86 0.50-1.40 Lvl) [facility]2017-01-13 07:58:00 Test Item Value Reference Range Interpretation Comments Potassium Lvl (test code = Potassium 4.0 3.5-5.1 Lvl) [facility] CypressHtnflmdIVVFDRSROB8275-37-19 07:58:00 Test Item Value Reference Range Interpretation Comments RBC (test code = RBC) 4.93 4.70-6.10 [facility]2017-01-13 07:58:00 Test Item Value Reference Range Interpretation Comments Chloride Lvl (test code = Chloride Lvl) 104 95-109 [facility]2017-01-13 07:58:00 Test Item Value Reference Range Interpretation Comments Sodium Lvl (test code = Sodium Lvl) 137 135-145 [facility]2017-01-13 07:58:00 Test Item Value Reference Range Interpretation Comments CO2 (test code = CO2) 21 24-32 [facility]2017-01-13 07:58:00 Test Item Value Reference Range Interpretation Comments Calcium Lvl (test code = Calcium Lvl) 8.3 8.5-10.5 [facility]2017-01-13 07:58:00 Test Item Value Reference Range Interpretation Comments BUN (test code = BUN) 16 7-22 [facility]2017-01-13 07:58:00 Test Item Value Reference Range Interpretation Comments AGAP (test code = AGAP) 16.0 10.0-20.0 [facility]2017-01-13 07:58:00 Test Item Value Reference Range Interpretation Comments Magnesium Lvl (test code = Magnesium 2.4 1.8-2.4 Lvl) [facility]2017-01-13 07:58:00 Test Item Value Reference Range Interpretation Comments AST (test code = AST) 14 See_Comment [Auto mated message] The system which ge nerated this result transmit joseline reference range : <=37. The reference range was not used to interpr et this result as tamera l/abnormal. [facility]2017-01-13 07:58:00 Test Item Value Reference Range Interpretation Comments Alk Phos (test code = Alk Phos) 60 39-136 [facility]2017-01-13 07:58:00 Test Item Value Reference Range Interpretation Comments Total Protein (test code = Total 6.5 6.4-8.4 Protein) [facility] CypressRpdfgtiEGGKENSXPO4254-44-48 07:58:00 Test Item Value Reference Range Interpretation Comments WBC (test code = WBC) 7.0 3.7-10.4 [facility]2017-01-13 07:58:00 Test Item Value Reference Range Interpretation Comments Albumin Lvl (test code = Albumin Lvl) 3.2 3.5-5.0 [facility]2017-01-13 07:58:00 Test Item Value Reference Range Interpretation Comments ALT (test code = ALT) 16 See_Comment [Auto mated message] The system which ge nerated this result transmit joseline reference range : <=65. The reference range was not used to interpr et this result as tamera l/abnormal. [facility]2017-01-13 07:58:00 Test Item Value Reference Range Interpretation Comments Bili Total (test code = Bili Total) 1.0 0.2-1.3 [facility]2017-01-13 07:58:00 Test Item Value Reference Range Interpretation Comments Bili Direct (test code 0.2 See_Comment [Aut omated message] The = Bili Direct) system which generated this result tra nsmitted reference range : <=0.3. The reference r ana luisa was not used to int erpret this result as tamera l/abnormal. [facility]2017-01-13 07:58:00 Test Item Value Reference Range Interpretation Comments Bili Indirect (test 0.8 See_Comment [Automa joseline message] The code = Bili Indirect) system which generated this result tra nsmitted reference range : <=1.0. The reference r ana luisa was not used to int erpret this result as normal/abnormal . [facility]2017-01-13 07:58:00 Test Item Value Reference Range Interpretation Comments Globulin (test code = Globulin) 3.3 2.7-4.2 [facility]2017-01-13 07:58:00 Test Item Value Reference Range Interpretation Comments A/G Ratio (test code = A/G Ratio) 1.0 0.7-1.6 [facility] CypressOafqnxoOUPKWUSVRD4351-69-55 07:58:00 Test Item Value Reference Range Interpretation Comments PT (test code = PT) 14.5 s 12.0-14.7 [facility] CypressTwqvwzeBQWOPCSPEG5972-40-50 07:58:00 Test Item Value Reference Range Interpretation Comments INR (test code = INR) 1.11 0.85-1.17 [facility] CypressYnckgegJGXQSUUWJM8429-80-09 07:58:00 Test Item Value Reference Range Interpretation Comments PTT (test code = PTT) 33.6 s 22.9-35.8 [facility]KhjxcnnJUHFLH4292-82-00 07:58:00 Test Item Value Reference Range Interpretation Comments VLDL (test code = VLDL) 20 [facility] CypressUkxccxcBBDQTACLTQ2051-63-49 07:58:00 Test Item Value Reference Range Interpretation Comments Segs-Bands # (test code = Segs-Bands #) 4.9 1.5-8.1 [facility] CypressSwkiwkbDBUKLYPTAS4026-36-29 07:58:00 Test Item Value Reference Range Interpretation Comments Monocytes # (test code 0.6 See_Comment [Aut omated message] The = Monocytes #) system which generated this result tra nsmitted reference range : <=0.8. The reference r ana luisa was not used to int erpret this result as normal/abnormal . [facility] CypressPxynycgRLGSYTFHUF1332-79-88 07:58:00 Test Item Value Reference Range Interpretation Comments Basophils (test code = 0.2 See_Comment [Aut omated message] The Basophils) system which ge nerated this result tra nsmitted reference range : <=1.0. The reference r ana luisa was not used to int erpret this result as normal/abnormal . [facility] CypressTntugitOBYSABKYDF9063-32-87 07:58:00 Test Item Value Reference Range Interpretation Comments Segs (test code = Segs) 69.8 45.0-75.0 [facility] CypressOzezsstRLPKQPHQCP8821-97-26 07:58:00 Test Item Value Reference Range Interpretation Comments Lymphocytes (test code = Lymphocytes) 17.3 20.0-40.0 [facility] CypressCavnqlgUXFFYJRQUN2287-25-56 07:58:00 Test Item Value Reference Range Interpretation Comments Eosinophils # (test code 0.2 See_Comment [A utomated message] The = Eosinophils #) system whic h generated this result tra nsmitted reference range : <=0.5. The reference r ana luisa was not used to int erpret this result as normal/abnormal . [facility] CypressGlmmptqONNWHGMXXW7306-28-17 07:58:00 Test Item Value Reference Range Interpretation Comments Monocytes (test code = Monocytes) 9.2 2.0-12.0 [facility] CypressRgkjjkrPMIMGKTWPK5150-67-39 07:58:00 Test Item Value Reference Range Interpretation Comments Eosinophils (test code = 3.5 See_Comment [A utomated message] The Eosinophils) system which ge nerated this result tra nsmitted reference range : <=4.0. The reference r ana luisa was not used to int erpret this result as normal/abnormal . [facility] CypressLdsbqisFJFHQVCUKM8089-22-90 07:58:00 Test Item Value Reference Range Interpretation Comments Lymphocytes # (test code = Lymphocytes 1.2 1.0-5.5 #) [facility] CypressAftglkoKZOOSNLJUL7037-09-15 07:58:00 Test Item Value Reference Range Interpretation Comments Platelet (test code = Platelet) 134 133-450 [facility]GtmdpifGNOLRS4217-79-35 07:58:00 Test Item Value Reference Range Interpretation Comments HDL (test code = HDL) 33 [facility] CypressRcmhudmKOGSLDUQAR7491-52-49 07:58:00 Test Item Value Reference Range Interpretation Comments MCV (test code = MCV) 93.1 80.0-94.0 [facility] CypressDskkvlaZQTDEFRHUM9286-42-57 07:58:00 Test Item Value Reference Range Interpretation Comments Hct (test code = Hct) 45.9 42.0-54.0 [facility] CypressQzlnzgiMWHZRKNEKI9001-74-91 07:58:00 Test Item Value Reference Range Interpretation Comments MCH (test code = MCH) 32.8 pg 27.0-31.0 [facility] CypressGfddnrwQPMYPOSXFS4020-94-24 07:58:00 Test Item Value Reference Range Interpretation Comments Hgb (test code = Hgb) 16.2 14.0-18.0 [facility] CypressNehxvfqQCEAINDMIK1089-44-51 07:58:00 Test Item Value Reference Range Interpretation Comments MCHC (test code = MCHC) 35.2 32.0-36.0 [facility] CypressLlwqaytYRYZWFQIFH4218-99-24 07:58:00 Test Item Value Reference Range Interpretation Comments MPV (test code = MPV) 10.3 7.4-10.4 [facility] CypressZvxzvksTVHTTYOOTK2945-20-75 07:58:00 Test Item Value Reference Range Interpretation Comments RDW (test code = RDW) 12.4 11.5-14.5 [facility] CypressYhdmlgyUYVANVAIAB4572-72-01 07:58:00 Test Item Value Reference Range Interpretation Comments RBC (test code = RBC) 4.93 4.70-6.10 [facility] CypressJntugvePESGFLTRSF0199-01-20 07:58:00 Test Item Value Reference Range Interpretation Comments WBC (test code = WBC) 7.0 3.7-10.4 [facility]QrynwiwGASECT2301-58-12 07:58:00 Test Item Value Reference Range Interpretation Comments VLDL (test code = VLDL) 20 [facility] HospitalNcnqgvdNLPNOK1142-88-82 07:58:00 Test Item Value Reference Range Interpretation Comments Trig (test code = Trig) 101 [facility] HospitalXdoapweKEAUXR2931-48-83 07:58:00 Test Item Value Reference Range Interpretation Comments HDL (test code = HDL) 33 [facility] HospitalTiwisreKHDJBT1831-24-65 07:58:00 Test Item Value Reference Range Interpretation Comments Trig (test code = Trig) 101 [facility] HospitalQqamkoxSMWPBH9508-45-65 07:58:00 Test Item Value Reference Range Interpretation Comments Chol (test code = Chol) 84 [facility] HospitalEidspfbNJXQAN0631-54-31 07:58:00 Test Item Value Reference Range Interpretation Comments CHD Risk (test code = CHD Risk) 2.55 4.00-7.30 [facility] HospitalAollcxuRIDRCO8266-45-71 07:58:00 Test Item Value Reference Range Interpretation Comments LDL (Calculated) (test code = LDL 31 (Calculated)) [facility] UMQPSKCKW6477-26-04 07:58:00 Test Item Value Reference Range Interpretation Comments Hgb A1C (test code = Hgb A1C) 5.1 [facility] HospitalHrvtebvORPZHR0647-96-83 07:58:00 Test Item Value Reference Range Interpretation Comments Chol (test code = Chol) 84 [facility] HospitalUiopxzcJIDSEQ9672-44-36 07:58:00 Test Item Value Reference Range Interpretation Comments CHD Risk (test code = CHD Risk) 2.55 4.00-7.30 [facility] HospitalCcolgzsWAHVQA6117-92-70 07:58:00 Test Item Value Reference Range Interpretation Comments LDL (Calculated) (test code = LDL 31 (Calculated)) [facility]2017-01-13 07:58:00 Test Item Value Reference Range Interpretation Comments Hgb A1C (test code = Hgb A1C) 5.1 [facility]2017-01-13 07:58:00 Test Item Value Reference Range Interpretation Comments eGFR (test code = eGFR) 102 [facility]2017-01-13 07:58:00 Test Item Value Reference Range Interpretation Comments Glucose Lvl (test code = Glucose Lvl) 92 70-99 [facility]2017-01-13 07:58:00 Test Item Value Reference Range Interpretation Comments Creatinine Lvl (test code = Creatinine 0.86 0.50-1.40 Lvl) [facility]2017-01-13 07:58:00 Test Item Value Reference Range Interpretation Comments Potassium Lvl (test code = Potassium 4.0 3.5-5.1 Lvl) [facility]2017-01-13 07:58:00 Test Item Value Reference Range Interpretation Comments Chloride Lvl (test code = Chloride Lvl) 104 95-109 [facility]2017-01-13 07:58:00 Test Item Value Reference Range Interpretation Comments Sodium Lvl (test code = Sodium Lvl) 137 135-145 [facility]2017-01-13 07:58:00 Test Item Value Reference Range Interpretation Comments CO2 (test code = CO2) 21 24-32 [facility]2017-01-13 07:58:00 Test Item Value Reference Range Interpretation Comments Calcium Lvl (test code = Calcium Lvl) 8.3 8.5-10.5 [facility]2017-01-13 07:58:00 Test Item Value Reference Range Interpretation Comments BUN (test code = BUN) 16 7-22 [facility]2017-01-13 07:58:00 Test Item Value Reference Range Interpretation Comments AGAP (test code = AGAP) 16.0 10.0-20.0 [facility]2017-01-13 07:58:00 Test Item Value Reference Range Interpretation Comments Magnesium Lvl (test code = Magnesium 2.4 1.8-2.4 Lvl) [facility]2017-01-13 07:58:00 Test Item Value Reference Range Interpretation Comments AST (test code = AST) 14 See_Comment [Auto mated message] The system which ge nerated this result transmit joseline reference range : <=37. The reference range was not used to interpr et this result as tamera l/abnormal. [facility]2017-01-13 07:58:00 Test Item Value Reference Range Interpretation Comments Alk Phos (test code = Alk Phos) 60 39-136 [facility]2017-01-13 07:58:00 Test Item Value Reference Range Interpretation Comments Total Protein (test code = Total 6.5 6.4-8.4 Protein) [facility]2017-01-13 07:58:00 Test Item Value Reference Range Interpretation Comments Albumin Lvl (test code = Albumin Lvl) 3.2 3.5-5.0 [facility]2017-01-13 07:58:00 Test Item Value Reference Range Interpretation Comments ALT (test code = ALT) 16 See_Comment [Auto mated message] The system which ge nerated this result transmit joseline reference range : <=65. The reference range was not used to interpr et this result as tamera l/abnormal. [place] 051087-01-13 07:58:00 Test Item Value Reference Range Interpretation Comments Bili Total (test code = Bili Total) 1.0 0.2-1.3 [facility]2017-01-13 07:58:00 Test Item Value Reference Range Interpretation Comments Bili Direct (test code 0.2 See_Comment [Aut omated message] The = Bili Direct) system which generated this result tra nsmitted reference range : <=0.3. The reference r ana luisa was not used to int erpret this result as tamera l/abnormal. [place] 051087-01-13 07:58:00 Test Item Value Reference Range Interpretation Comments Bili Indirect (test 0.8 See_Comment [Automa joseline message] The code = Bili Indirect) system which generated this result tra nsmitted reference range : <=1.0. The reference r ana luisa was not used to int erpret this result as normal/abnormal . [place] 051087-01-13 07:58:00 Test Item Value Reference Range Interpretation Comments Globulin (test code = Globulin) 3.3 2.7-4.2 [facility]2017-01-13 07:58:00 Test Item Value Reference Range Interpretation Comments A/G Ratio (test code = A/G Ratio) 1.0 0.7-1.6 [place] 763717-01-13 07:58:00 Test Item Value Reference Range Interpretation Comments PT (test code = PT) 14.5 s 12.0-14.7 [place] 763717-01-13 07:58:00 Test Item Value Reference Range Interpretation Comments INR (test code = INR) 1.11 0.85-1.17 [place] 763717-01-13 07:58:00 Test Item Value Reference Range Interpretation Comments PTT (test code = PTT) 33.6 s 22.9-35.8 [place] 763717-01-13 07:58:00 Test Item Value Reference Range Interpretation Comments Segs-Bands # (test code = Segs-Bands #) 4.9 1.5-8.1 [place] 763717-01-13 07:58:00 Test Item Value Reference Range Interpretation Comments Monocytes # (test code 0.6 See_Comment [Aut omated message] The = Monocytes #) system which generated this result tra nsmitted reference range : <=0.8. The reference r ana luisa was not used to int erpret this result as normal/abnormal . [place] 763717-01-13 07:58:00 Test Item Value Reference Range Interpretation Comments Basophils (test code = 0.2 See_Comment [Aut omated message] The Basophils) system which ge nerated this result tra nsmitted reference range : <=1.0. The reference r ana luisa was not used to int erpret this result as normal/abnormal . [facility]avqwdtZDUWXXMTCH3032-04-[facility] 07:58:00 Test Item Value Reference Range Interpretation Comments Segs (test code = Segs) 69.8 45.0-75.0 [facility]ressDghbivqTUUUOWHIHJ0282-71-97 07:58:00 Test Item Value Reference Range Interpretation Comments Lymphocytes (test code = Lymphocytes) 17.3 20.0-40.0 [facility] CypressGwvszjzECJSMHSTRR5855-55-70 19:50:00 Test Item Value Reference Range Interpretation Comments Segs (test code = Segs) 88.7 45.0-75.0 [place] [id number] 19:50:00 Test Item Value Reference Range Interpretation Comments Etoh (%) (test code = Etoh (%)) <0.003 % [place] 37927017-01-12 19:50:00 Test Item Value Reference Range Interpretation Comments Ethanol Lvl (test code = Ethanol <3.0 mg/dL Lvl) [facility]2017-01-12 19:50:00 Test Item Value Reference Range Interpretation Comments Lactic Acid Lvl (test code = Lactic 0.7 0.5-2.2 Acid Lvl) [facility]ubabnoOOXMIJNBXHSS9031-95-45 19:50:00 Test Item Value Reference Range Interpretation Comments AGAP (test code = AGAP) 15.4 10.0-20.0 [facility] HospitalLxlzpdlYNBIIINSRBBI1993-44-38 19:50:00 Test Item Value Reference Range Interpretation Comments eGFR (test code = eGFR) 102 [facility]XwlfozdXYNYNOYWUNDE2145-07-14 19:50:00 Test Item Value Reference Range Interpretation Comments CO2 (test code = CO2) 24 24-32 [facility] HospitalXoxjcafAINIBJWNSXIY8937-59-61 19:50:00 Test Item Value Reference Range Interpretation Comments Calcium Lvl (test code = Calcium Lvl) 8.5 8.5-10.5 [facility] HospitalOediqtcAUOMTUWMNPJV4928-11-92 19:50:00 Test Item Value Reference Range Interpretation Comments Sodium Lvl (test code = Sodium Lvl) 135 135-145 [facility]XkbmatcNCUNBCQWKIIX3762-34-15 19:50:00 Test Item Value Reference Range Interpretation Comments BUN (test code = BUN) 21 7-22 [facility] HospitalFkladmyTJTASNFATNTH3685-92-13 19:50:00 Test Item Value Reference Range Interpretation Comments Potassium Lvl (test code = Potassium 4.4 3.5-5.1 Lvl) [facility] HospitalIchjuqlQZJHAKQAMMRO6078-71-86 19:50:00 Test Item Value Reference Range Interpretation Comments Chloride Lvl (test code = Chloride Lvl) 100 95-109 [facility] HospitalWfxlmdjVEXEEWXXXVFL2597-86-28 19:50:00 Test Item Value Reference Range Interpretation Comments Creatinine Lvl (test code = Creatinine 0.86 0.50-1.40 Lvl) [facility] HospitalXkvdvmaPHRXQSOLOZAL1741-97-88 19:50:00 Test Item Value Reference Range Interpretation Comments Glucose Lvl (test code = Glucose Lvl) 99 70-99 [facility]ressXpgbzwjGZQFRDCARY6201-66-71 19:50:00 Test Item Value Reference Range Interpretation Comments MCHC (test code = MCHC) 34.6 32.0-36.0 [facility] CypressZvmhclpZFBKIVMREC4431-18-14 19:50:00 Test Item Value Reference Range Interpretation Comments WBC (test code = WBC) 12.3 3.7-10.4 [facility] CypressZesyyhgJXDWEEOEHD9123-78-88 19:50:00 Test Item Value Reference Range Interpretation Comments MCH (test code = MCH) 32.3 pg 27.0-31.0 [facility] CypressIyartulNGXNPPDQXG8126-64-26 19:50:00 Test Item Value Reference Range Interpretation Comments MPV (test code = MPV) 9.8 7.4-10.4 [facility] CypressCpygudgJJPXOMAPVX8876-77-76 19:50:00 Test Item Value Reference Range Interpretation Comments Hgb (test code = Hgb) 16.8 14.0-18.0 [facility] CypressKvufkzkNKEYILNSRY1839-25-95 19:50:00 Test Item Value Reference Range Interpretation Comments RBC (test code = RBC) 5.21 4.70-6.10 [facility] CypressVudkvvsXXRBWCUEUW2298-03-14 19:50:00 Test Item Value Reference Range Interpretation Comments MCV (test code = MCV) 93.5 80.0-94.0 [facility] CypressFusquvuRMTHLHRGGT8332-50-80 19:50:00 Test Item Value Reference Range Interpretation Comments Hct (test code = Hct) 48.7 42.0-54.0 [facility] CypressAqqozvuZTYNNKXBKB5280-00-19 19:50:00 Test Item Value Reference Range Interpretation Comments Platelet (test code = Platelet) 152 133-450 [facility] CypressNewqjcmYIGSDGPOPD5699-20-63 19:50:00 Test Item Value Reference Range Interpretation Comments RDW (test code = RDW) 12.6 11.5-14.5 [facility] CypressHyjeaulXJHYMVYMWL3473-86-79 19:50:00 Test Item Value Reference Range Interpretation Comments ACT (TEG) Rapid (test code = ACT (TEG) 113 s 86-118 Rapid) [facility] CypressLmgohjgVJHEBDCARE0810-03-94 19:50:00 Test Item Value Reference Range Interpretation Comments Split Point Rapid (test code = Split 0.5 min Point Rapid) [facility] CypressLeandcsGFSQSWHSGN7019-38-47 19:50:00 Test Item Value Reference Range Interpretation Comments R-time Rapid (test code = R-time 0.7 min 0.4-0.7 Rapid) [facility] CypressPpzxqccDRZEFTCLZB1260-61-18 19:50:00 Test Item Value Reference Range Interpretation Comments Angle Rapid (test code = Angle 70 degrees 64-80 Rapid) [facility] CypressNsewpyqKZQSMVGLQT1971-45-39 19:50:00 Test Item Value Reference Range Interpretation Comments K-time Rapid (test code = K-time 1.7 min 0.6-2.3 Rapid) [facility] CypressHflhsiwXKRTIXJNPU1231-16-18 19:50:00 Test Item Value Reference Range Interpretation Comments Estimated % Lysis Rapid 0.7 See_Comment [Au tomated message] The (test code = Estimated syste m which generated % Lysis Rapid) this result t ransmitted reference range : <=7.5. The reference r ana luisa was not used to int erpret this result as normal/abnormal . [facility] CypressGfygxoiJCFDPETLIE4783-97-52 19:50:00 Test Item Value Reference Range Interpretation Comments Max Amplitude Rapid (test code = Max 60 mm 52-71 Amplitude Rapid) [facility] CypressUkbvzimHNXOZKCBMH9919-70-88 19:50:00 Test Item Value Reference Range Interpretation Comments G-value Rapid (test code = G-value 7.5 5.0-11.6 Rapid) [facility] CypressIesqpllBHDKEJSPCF6373-24-16 19:50:00 Test Item Value Reference Range Interpretation Comments Monocytes # (test code 0.6 See_Comment [Aut omated message] The = Monocytes #) system which generated this result tra nsmitted reference range : <=0.8. The reference r ana luisa was not used to int erpret this result as normal/abnormal . [facility] CypressPngylpfJZSHHFNTWZ4951-51-91 19:50:00 Test Item Value Reference Range Interpretation Comments Segs-Bands # (test code = Segs-Bands #) 10.9 1.5-8.1 [facility] CypressChbnvyrWJHZGNXLSV4318-28-73 19:50:00 Test Item Value Reference Range Interpretation Comments Lymphocytes # (test code = Lymphocytes 0.7 1.0-5.5 #) [facility] CypressQobxebwGRYKDFXOWA0632-73-83 19:50:00 Test Item Value Reference Range Interpretation Comments Basophils (test code = 0.2 See_Comment [Aut omated message] The Basophils) system which ge nerated this result tra nsmitted reference range : <=1.0. The reference r ana luisa was not used to int erpret this result as normal/abnormal . [facility] CypressPfxfmqeZIYLXCOYSZ9873-36-50 19:50:00 Test Item Value Reference Range Interpretation Comments Eosinophils (test code = 0.3 See_Comment [A utomated message] The Eosinophils) system which ge nerated this result tra nsmitted reference range : <=4.0. The reference r ana luisa was not used to int erpret this result as normal/abnormal . [facility] CypressSpxcamuTMMKGRRXPJ8743-54-62 19:50:00 Test Item Value Reference Range Interpretation Comments Lymphocytes (test code = Lymphocytes) 6.0 20.0-40.0 [facility] CypressLoutdevPKDOMNOVUL8759-68-32 19:50:00 Test Item Value Reference Range Interpretation Comments Monocytes (test code = Monocytes) 4.8 2.0-12.0 [facility] CypressHgakmxnYNVDOGGDYC0930-18-07 19:50:00 Test Item Value Reference Range Interpretation Comments Segs (test code = Segs) 88.7 45.0-75.0 [facility]IwecrblMKVHGDWVKX6387-77-20 19:50:00 Test Item Value Reference Range Interpretation Comments Etoh (%) (test code = Etoh (%)) <0.003 % [facility] DallasMoorlhpVQOWFNCIRT4711-38-54 19:50:00 Test Item Value Reference Range Interpretation Comments Ethanol Lvl (test code = Ethanol <3.0 mg/dL Lvl) [facility] DallasCHEM QMCFM6794-37-23 19:50:00 Test Item Value Reference Range Interpretation Comments Lactic Acid Lvl (test code = Lactic 0.7 0.5-2.2 Acid Lvl) [facility] HospitalBzlhavsYGLCFSUOBEVW6823-09-06 19:50:00 Test Item Value Reference Range Interpretation Comments AGAP (test code = AGAP) 15.4 10.0-20.0 [facility] HospitalPneyawtNXKMUXOQGWNG0816-00-11 19:50:00 Test Item Value Reference Range Interpretation Comments eGFR (test code = eGFR) 102 [facility] HospitalYbxvagyACBIFTOGWCVU2391-15-29 19:50:00 Test Item Value Reference Range Interpretation Comments CO2 (test code = CO2) 24 24-32 [facility] HospitalGbbqxnwZGJVJEIUWZAZ2379-79-92 19:50:00 Test Item Value Reference Range Interpretation Comments Calcium Lvl (test code = Calcium Lvl) 8.5 8.5-10.5 [facility] HospitalJeudqytCVBOTEJTOGXZ2672-16-87 19:50:00 Test Item Value Reference Range Interpretation Comments Sodium Lvl (test code = Sodium Lvl) 135 135-145 [facility] HospitalKehrvqiAQFJWHPOMWKB8207-63-98 19:50:00 Test Item Value Reference Range Interpretation Comments BUN (test code = BUN) 21 7-22 [facility] HospitalYwvtksjFIQEQIWPDODD3762-14-66 19:50:00 Test Item Value Reference Range Interpretation Comments Potassium Lvl (test code = Potassium 4.4 3.5-5.1 Lvl) [facility] HospitalGmrdbzmWZTDWUEDIALW9561-96-42 19:50:00 Test Item Value Reference Range Interpretation Comments Chloride Lvl (test code = Chloride Lvl) 100 95-109 [facility] HospitalCcuqhcvZWTFNBEDHQRX8578-54-03 19:50:00 Test Item Value Reference Range Interpretation Comments Creatinine Lvl (test code = Creatinine 0.86 0.50-1.40 Lvl) [facility] HospitalHizwbyeZLYEVXGAQTNP0557-91-50 19:50:00 Test Item Value Reference Range Interpretation Comments Glucose Lvl (test code = Glucose Lvl) 99 70-99 [facility] CypressYuuxwaeSDCTRLYULE8050-41-80 19:50:00 Test Item Value Reference Range Interpretation Comments MCHC (test code = MCHC) 34.6 32.0-36.0 [facility] CypressRsqveluOUVOBRBXYW3402-89-89 19:50:00 Test Item Value Reference Range Interpretation Comments WBC (test code = WBC) 12.3 3.7-10.4 [facility] CypressXwfjzmzKCTWXECHTE5275-01-65 19:50:00 Test Item Value Reference Range Interpretation Comments MCH (test code = MCH) 32.3 pg 27.0-31.0 [facility] CypressFdlogavQIDPJHPHGO6607-68-14 19:50:00 Test Item Value Reference Range Interpretation Comments MPV (test code = MPV) 9.8 7.4-10.4 [facility] CypressZmkzfhdMXSSTKRNGR1733-05-83 19:50:00 Test Item Value Reference Range Interpretation Comments Hgb (test code = Hgb) 16.8 14.0-18.0 [facility] CypressZqjlazfHDXLLZYWZC4046-84-79 19:50:00 Test Item Value Reference Range Interpretation Comments RBC (test code = RBC) 5.21 4.70-6.10 [facility] CypressPxeodwuVBETBTHIYF5801-01-83 19:50:00 Test Item Value Reference Range Interpretation Comments MCV (test code = MCV) 93.5 80.0-94.0 [facility] CypressJpcswxmXNBYREQXRL4815-00-37 19:50:00 Test Item Value Reference Range Interpretation Comments Hct (test code = Hct) 48.7 42.0-54.0 [facility] CypressDujcqxtCYKYBUHGYP8042-56-59 19:50:00 Test Item Value Reference Range Interpretation Comments Platelet (test code = Platelet) 152 133-450 [facility] CypressNvzroshSQBJMVGBMA5586-29-37 19:50:00 Test Item Value Reference Range Interpretation Comments RDW (test code = RDW) 12.6 11.5-14.5 [facility] CypressTqcianmIGRBSEHYZO7091-95-06 19:50:00 Test Item Value Reference Range Interpretation Comments ACT (TEG) Rapid (test code = ACT (TEG) 113 s 86-118 Rapid) [facility] CypressSdlfogrHIWNSCZGHR3758-72-14 19:50:00 Test Item Value Reference Range Interpretation Comments Split Point Rapid (test code = Split 0.5 min Point Rapid) [facility] CypressCqltmynKPQUUTQJWL7945-76-24 19:50:00 Test Item Value Reference Range Interpretation Comments R-time Rapid (test code = R-time 0.7 min 0.4-0.7 Rapid) [facility] CypressUksfhioHJIEKTPQGS0393-66-42 19:50:00 Test Item Value Reference Range Interpretation Comments Angle Rapid (test code = Angle 70 degrees 64-80 Rapid) [facility] CypressCsausdnJDOULNEROD8007-17-89 19:50:00 Test Item Value Reference Range Interpretation Comments K-time Rapid (test code = K-time 1.7 min 0.6-2.3 Rapid) [facility] CypressTcwickkBXBZKIDNPI6068-28-89 19:50:00 Test Item Value Reference Range Interpretation Comments Estimated % Lysis Rapid 0.7 See_Comment [Au tomated message] The (test code = Estimated syste m which generated % Lysis Rapid) this result t ransmitted reference range : <=7.5. The reference r ana luisa was not used to int erpret this result as normal/abnormal . [facility] CypressXdcxqnsCHFCUXTTDY4152-72-53 19:50:00 Test Item Value Reference Range Interpretation Comments Max Amplitude Rapid (test code = Max 60 mm 52-71 Amplitude Rapid) [facility] CypressPtihunrYWMIFKKRSX8716-38-66 19:50:00 Test Item Value Reference Range Interpretation Comments G-value Rapid (test code = G-value 7.5 5.0-11.6 Rapid) [facility] CypressQbdhlomQOEOPQPGSC5074-40-94 19:50:00 Test Item Value Reference Range Interpretation Comments Monocytes # (test code 0.6 See_Comment [Aut omated message] The = Monocytes #) system which generated this result tra nsmitted reference range : <=0.8. The reference r ana luisa was not used to int erpret this result as normal/abnormal . [facility] CypressRpezcjhDWTXPAUIDR8713-68-56 19:50:00 Test Item Value Reference Range Interpretation Comments Segs-Bands # (test code = Segs-Bands #) 10.9 1.5-8.1 [facility] CypressRtqorhgOLITVJQORM5350-45-88 19:50:00 Test Item Value Reference Range Interpretation Comments Lymphocytes # (test code = Lymphocytes 0.7 1.0-5.5 #) [facility] CypressMeuznwhEBPPGCWIDZ9413-88-76 19:50:00 Test Item Value Reference Range Interpretation Comments Basophils (test code = 0.2 See_Comment [Aut omated message] The Basophils) system which ge nerated this result tra nsmitted reference range : <=1.0. The reference r ana luisa was not used to int erpret this result as normal/abnormal . [facility] CypressIrellqtBUQNSWGXXR3525-92-92 19:50:00 Test Item Value Reference Range Interpretation Comments Eosinophils (test code = 0.3 See_Comment [A utomated message] The Eosinophils) system which ge nerated this result tra nsmitted reference range : <=4.0. The reference r ana luisa was not used to int erpret this result as normal/abnormal . [facility] CypressCreamntLGHIIOZPYZ0915-76-23 19:50:00 Test Item Value Reference Range Interpretation Comments Lymphocytes (test code = Lymphocytes) 6.0 20.0-40.0 [facility] CypressElupxokIRQVIZJGYW7854-63-81 19:50:00 Test Item Value Reference Range Interpretation Comments Monocytes (test code = Monocytes) 4.8 2.0-12.0 [facility] CypressIqevqzuTKVQZQFZNQ2266-58-46 19:50:00 Test Item Value Reference Range Interpretation Comments Segs (test code = Segs) 88.7 45.0-75.0 [place] 37927017-01-12 19:50:00 Test Item Value Reference Range Interpretation Comments Etoh (%) (test code = Etoh (%)) <0.003 % [place] 37927017-01-12 19:50:00 Test Item Value Reference Range Interpretation Comments Ethanol Lvl (test code = Ethanol <3.0 mg/dL Lvl) [facility]2017-01-12 19:50:00 Test Item Value Reference Range Interpretation Comments Lactic Acid Lvl (test code = Lactic 0.7 0.5-2.2 Acid Lvl) [facility] HospitalIskyedhJIJVEWZSRTFN5694-93-11 19:50:00 Test Item Value Reference Range Interpretation Comments AGAP (test code = AGAP) 15.4 10.0-20.0 [facility] HospitalUbjjfcsUYQQOIFNXAHK2874-35-32 19:50:00 Test Item Value Reference Range Interpretation Comments eGFR (test code = eGFR) 102 [facility] HospitalZgrehmcRWQSVXTDMVFG8512-95-90 19:50:00 Test Item Value Reference Range Interpretation Comments CO2 (test code = CO2) 24 24-32 [facility] HospitalCamkoriSJODQTAGCCXT4593-24-01 19:50:00 Test Item Value Reference Range Interpretation Comments CO2 (test code = CO2) 24 24-32 [facility] HospitalKeubhndXOKGQRLKHJGK2848-47-95 19:50:00 Test Item Value Reference Range Interpretation Comments Calcium Lvl (test code = Calcium Lvl) 8.5 8.5-10.5 [facility] HospitalQdxundzHZAWXZLJFBLU7648-90-81 19:50:00 Test Item Value Reference Range Interpretation Comments Sodium Lvl (test code = Sodium Lvl) 135 135-145 [facility] HospitalBuxfzdzSWDFPDPQIWWG0734-84-52 19:50:00 Test Item Value Reference Range Interpretation Comments BUN (test code = BUN) 21 7-22 [facility] HospitalDgbowppMBTBCGDCKXHX9990-69-38 19:50:00 Test Item Value Reference Range Interpretation Comments Potassium Lvl (test code = Potassium 4.4 3.5-5.1 Lvl) [facility] HospitalBxsvrdiDGBRRBDPYIQR0951-02-62 19:50:00 Test Item Value Reference Range Interpretation Comments Chloride Lvl (test code = Chloride Lvl) 100 95-109 [facility] HospitalAnnbqnhKBEGCWEZPRRV8137-78-57 19:50:00 Test Item Value Reference Range Interpretation Comments Creatinine Lvl (test code = Creatinine 0.86 0.50-1.40 Lvl) [facility] HospitalYkimrdaPJNJAGGIGLML9988-58-33 19:50:00 Test Item Value Reference Range Interpretation Comments Glucose Lvl (test code = Glucose Lvl) 99 70-99 [facility] CypressUhkjpctXEKXRPHQFI2799-31-06 19:50:00 Test Item Value Reference Range Interpretation Comments MCHC (test code = MCHC) 34.6 32.0-36.0 [facility] CypressNypxbvmVBKQCYIUYY1301-47-71 19:50:00 Test Item Value Reference Range Interpretation Comments WBC (test code = WBC) 12.3 3.7-10.4 [facility] CypressKwomfyuKPIXGEWQWM3486-67-00 19:50:00 Test Item Value Reference Range Interpretation Comments MCH (test code = MCH) 32.3 pg 27.0-31.0 [facility] CypressBfkbekxHLPAQCROGG4587-28-08 19:50:00 Test Item Value Reference Range Interpretation Comments MPV (test code = MPV) 9.8 7.4-10.4 [facility] CypressFhfryheAJQKDXKFBY8074-01-57 19:50:00 Test Item Value Reference Range Interpretation Comments Hgb (test code = Hgb) 16.8 14.0-18.0 [facility] CypressBjulcxuHZXAIYJBHW0585-02-84 19:50:00 Test Item Value Reference Range Interpretation Comments RBC (test code = RBC) 5.21 4.70-6.10 [facility] CypressSjiqcthJFRBZWJUUN2214-37-51 19:50:00 Test Item Value Reference Range Interpretation Comments MCV (test code = MCV) 93.5 80.0-94.0 [facility] CypressFwuuleeQQJFPWKEEV4700-64-66 19:50:00 Test Item Value Reference Range Interpretation Comments Hct (test code = Hct) 48.7 42.0-54.0 [facility] CypressUchfdyhSCNWHORHPF5071-36-59 19:50:00 Test Item Value Reference Range Interpretation Comments Platelet (test code = Platelet) 152 133-450 [facility] CypressAgsffpvKZAPSAEOGU2109-51-54 19:50:00 Test Item Value Reference Range Interpretation Comments RDW (test code = RDW) 12.6 11.5-14.5 [facility]ressSvysgodIBPQJVYJHS7038-35-15 19:50:00 Test Item Value Reference Range Interpretation Comments ACT (TEG) Rapid (test code = ACT (TEG) 113 s 86-118 Rapid) [facility]ressIfrcmczGEEQDXRGJL5080-10-74 19:50:00 Test Item Value Reference Range Interpretation Comments Split Point Rapid (test code = Split 0.5 min Point Rapid) [facility] CypressUurxjqlDQXTBFMTZF1319-92-65 19:50:00 Test Item Value Reference Range Interpretation Comments R-time Rapid (test code = R-time 0.7 min 0.4-0.7 Rapid) [facility] CypressUmeujeeBHUOPFNQMA8944-46-89 19:50:00 Test Item Value Reference Range Interpretation Comments Angle Rapid (test code = Angle 70 degrees 64-80 Rapid) [facility] CypressKzhcunzPFURJHRZBP0488-58-68 19:50:00 Test Item Value Reference Range Interpretation Comments K-time Rapid (test code = K-time 1.7 min 0.6-2.3 Rapid) [facility] CypressLpuhwhvGTBIQQFTCD5205-90-69 19:50:00 Test Item Value Reference Range Interpretation Comments Estimated % Lysis Rapid 0.7 See_Comment [Au tomated message] The (test code = Estimated syste m which generated % Lysis Rapid) this result t ransmitted reference range : <=7.5. The reference r ana luisa was not used to int erpret this result as normal/abnormal . [facility] CypressLjdoptoRPGGJJDDMU4776-49-24 19:50:00 Test Item Value Reference Range Interpretation Comments Max Amplitude Rapid (test code = Max 60 mm 52-71 Amplitude Rapid) [facility] CypressAbmnzygRHCKXKPQAY6988-77-89 19:50:00 Test Item Value Reference Range Interpretation Comments G-value Rapid (test code = G-value 7.5 5.0-11.6 Rapid) [facility] CypressXgchjmtRPGKFODDFJ9525-35-57 19:50:00 Test Item Value Reference Range Interpretation Comments Monocytes # (test code 0.6 See_Comment [Aut omated message] The = Monocytes #) system which generated this result tra nsmitted reference range : <=0.8. The reference r ana luisa was not used to int erpret this result as normal/abnormal . [place] [address]-01-12 19:50:00 Test Item Value Reference Range Interpretation Comments Segs-Bands # (test code = Segs-Bands #) 10.9 1.5-8.1 [facility] CypressZftouvdGMZRMSIWXR8647-16-54 19:50:00 Test Item Value Reference Range Interpretation Comments Lymphocytes # (test code = Lymphocytes 0.7 1.0-5.5 #) [facility] CypressIrrskhpPREIRCLEHI9760-70-60 19:50:00 Test Item Value Reference Range Interpretation Comments Basophils (test code = 0.2 See_Comment [Aut omated message] The Basophils) system which ge nerated this result tra nsmitted reference range : <=1.0. The reference r ana luisa was not used to int erpret this result as normal/abnormal . [place] [address]-01-12 19:50:00 Test Item Value Reference Range Interpretation Comments Eosinophils (test code = 0.3 See_Comment [A utomated message] The Eosinophils) system which ge nerated this result tra nsmitted reference range : <=4.0. The reference r ana luisa was not used to int erpret this result as normal/abnormal . [place] [address]-01-12 19:50:00 Test Item Value Reference Range Interpretation Comments Lymphocytes (test code = Lymphocytes) 6.0 20.0-40.0 [place] [address]-01-12 19:50:00 Test Item Value Reference Range Interpretation Comments Monocytes (test code = Monocytes) 4.8 2.0-12.0 [facility]BgtvgmuNKPQHMLJNZ0430-03-70 19:50:00 Test Item Value Reference Range Interpretation Comments Segs (test code = Segs) 88.7 45.0-75.0 [place] [id number] 19:50:00 Test Item Value Reference Range Interpretation Comments Etoh (%) (test code = Etoh (%)) <0.003 % [place] 37927017-01-12 19:50:00 Test Item Value Reference Range Interpretation Comments Ethanol Lvl (test code = Ethanol <3.0 mg/dL Lvl) [facility]2017-01-12 19:50:00 Test Item Value Reference Range Interpretation Comments Lactic Acid Lvl (test code = Lactic 0.7 0.5-2.2 Acid Lvl) [facility]RmpebfvLZSYANFPSZZS8984-28-59 19:50:00 Test Item Value Reference Range Interpretation Comments AGAP (test code = AGAP) 15.4 10.0-20.0 [facility] HospitalVaipqvdBMCFCHAZOABV0586-42-16 19:50:00 Test Item Value Reference Range Interpretation Comments eGFR (test code = eGFR) 102 [facility] HospitalXnsqxadHLSSKAHWXXXW3887-21-81 19:50:00 Test Item Value Reference Range Interpretation Comments Calcium Lvl (test code = Calcium Lvl) 8.5 8.5-10.5 [facility] HospitalRzlzfgbGTFAFRUUVBZK9871-27-85 19:50:00 Test Item Value Reference Range Interpretation Comments Sodium Lvl (test code = Sodium Lvl) 135 135-145 [facility] HospitalKjhmwriIXKPTKDLJSUD2319-60-32 19:50:00 Test Item Value Reference Range Interpretation Comments BUN (test code = BUN) 21 7-22 [facility] HospitalFouewpdUQRIODUYHYHU5583-46-21 19:50:00 Test Item Value Reference Range Interpretation Comments Potassium Lvl (test code = Potassium 4.4 3.5-5.1 Lvl) [facility] HospitalXqapdfeQNGVUYXRJDGO6061-80-38 19:50:00 Test Item Value Reference Range Interpretation Comments Chloride Lvl (test code = Chloride Lvl) 100 95-109 [facility]2017-01-12 19:50:00 Test Item Value Reference Range Interpretation Comments Lactic Acid Lvl (test code = Lactic 0.7 0.5-2.2 Acid Lvl) [facility] HospitalGrbhaedXVQPBXBLDYUY4471-28-83 19:50:00 Test Item Value Reference Range Interpretation Comments Creatinine Lvl (test code = Creatinine 0.86 0.50-1.40 Lvl) [facility] HospitalYrpobfnFHSRJHJDSOGN7632-64-37 19:50:00 Test Item Value Reference Range Interpretation Comments AGAP (test code = AGAP) 15.4 10.0-20.0 [facility] HospitalTkmshpxPJBMVAWIOJGI9826-32-09 19:50:00 Test Item Value Reference Range Interpretation Comments eGFR (test code = eGFR) 102 [facility] HospitalUyqplzyTCITRUIGKSUB2086-31-21 19:50:00 Test Item Value Reference Range Interpretation Comments CO2 (test code = CO2) 24 24-32 [facility] HospitalUgqyaogPZTKMCPAVVFV5810-69-43 19:50:00 Test Item Value Reference Range Interpretation Comments Calcium Lvl (test code = Calcium Lvl) 8.5 8.5-10.5 [facility] HospitalRhwttraIXQYNOMLSAXG7583-72-34 19:50:00 Test Item Value Reference Range Interpretation Comments Sodium Lvl (test code = Sodium Lvl) 135 135-145 [facility] HospitalEaakrsdMMQCGCMTDRQC7009-92-93 19:50:00 Test Item Value Reference Range Interpretation Comments BUN (test code = BUN) 21 7-22 [facility] HospitalLrilwavHAZYHPEPLOZK6916-24-84 19:50:00 Test Item Value Reference Range Interpretation Comments Potassium Lvl (test code = Potassium 4.4 3.5-5.1 Lvl) [facility] HospitalYtftjswRYMHGRKEZQVE4331-54-31 19:50:00 Test Item Value Reference Range Interpretation Comments Chloride Lvl (test code = Chloride Lvl) 100 95-109 [facility] HospitalElhryvlZXGAJMFIRZOG3894-17-52 19:50:00 Test Item Value Reference Range Interpretation Comments Creatinine Lvl (test code = Creatinine 0.86 0.50-1.40 Lvl) [facility] HospitalFoftshxRMMCYUEBXEDT2311-62-19 19:50:00 Test Item Value Reference Range Interpretation Comments Glucose Lvl (test code = Glucose Lvl) 99 70-99 [facility] HospitalPpgipwsEDLMHIWRBNXZ2216-61-58 19:50:00 Test Item Value Reference Range Interpretation Comments Glucose Lvl (test code = Glucose Lvl) 99 70-99 [facility]ressJtqaecsYUUSBIHZLM5856-01-09 19:50:00 Test Item Value Reference Range Interpretation Comments MCHC (test code = MCHC) 34.6 32.0-36.0 [facility] CypressBjcgjhlGBTIPNCXSS0734-15-91 19:50:00 Test Item Value Reference Range Interpretation Comments WBC (test code = WBC) 12.3 3.7-10.4 [facility] CypressFcaizfqSQQQQLJMFF3982-64-64 19:50:00 Test Item Value Reference Range Interpretation Comments MCH (test code = MCH) 32.3 pg 27.0-31.0 [facility] CypressLsodjxvDOYIWJJSXI3062-20-03 19:50:00 Test Item Value Reference Range Interpretation Comments MPV (test code = MPV) 9.8 7.4-10.4 [facility] CypressJtquvvbBYWYZAJERC8327-41-75 19:50:00 Test Item Value Reference Range Interpretation Comments Hgb (test code = Hgb) 16.8 14.0-18.0 [facility] CypressFwhfxtvTPFQGXFCJJ1818-20-00 19:50:00 Test Item Value Reference Range Interpretation Comments RBC (test code = RBC) 5.21 4.70-6.10 [facility] CypressIaustgnWXHBXTXEFP8406-28-13 19:50:00 Test Item Value Reference Range Interpretation Comments MCV (test code = MCV) 93.5 80.0-94.0 [facility] CypressObmoxwxPIBMSVPBQL9694-53-33 19:50:00 Test Item Value Reference Range Interpretation Comments Hct (test code = Hct) 48.7 42.0-54.0 [facility] CypressRtfcxdmTQYMCKHZFC4161-16-17 19:50:00 Test Item Value Reference Range Interpretation Comments Platelet (test code = Platelet) 152 133-450 [facility] CypressAzzyedaECJYBPUNMX1310-47-08 19:50:00 Test Item Value Reference Range Interpretation Comments RDW (test code = RDW) 12.6 11.5-14.5 [facility] CypressEscbunpFLNRXUPVZR4788-41-87 19:50:00 Test Item Value Reference Range Interpretation Comments MCHC (test code = MCHC) 34.6 32.0-36.0 [facility] CypressFkljtylIXVOODOUGB5222-20-92 19:50:00 Test Item Value Reference Range Interpretation Comments ACT (TEG) Rapid (test code = ACT (TEG) 113 s 86-118 Rapid) [facility] CypressVobefpxTHZCYWFZDY0738-66-87 19:50:00 Test Item Value Reference Range Interpretation Comments Split Point Rapid (test code = Split 0.5 min Point Rapid) [facility] CypressSlfzswyPYUIZVNLCI4985-52-57 19:50:00 Test Item Value Reference Range Interpretation Comments R-time Rapid (test code = R-time 0.7 min 0.4-0.7 Rapid) [facility] CypressAafzhfvONSTKOBOWC3498-76-44 19:50:00 Test Item Value Reference Range Interpretation Comments Angle Rapid (test code = Angle 70 degrees 64-80 Rapid) [facility] CypressMejwucmLWWSHXWCNC9313-04-34 19:50:00 Test Item Value Reference Range Interpretation Comments K-time Rapid (test code = K-time 1.7 min 0.6-2.3 Rapid) [facility] CypressTpuktrzTDEKWODYXP0386-55-50 19:50:00 Test Item Value Reference Range Interpretation Comments Estimated % Lysis Rapid 0.7 See_Comment [Au tomated message] The (test code = Estimated syste m which generated % Lysis Rapid) this result t ransmitted reference range : <=7.5. The reference r ana luisa was not used to int erpret this result as normal/abnormal . [facility] CypressUxugbdwIIFDOOGJXF4806-42-83 19:50:00 Test Item Value Reference Range Interpretation Comments Max Amplitude Rapid (test code = Max 60 mm 52-71 Amplitude Rapid) [facility] CypressJldxpcvVXHOPJWGAS4193-66-95 19:50:00 Test Item Value Reference Range Interpretation Comments G-value Rapid (test code = G-value 7.5 5.0-11.6 Rapid) [facility] CypressRpredtxKWFLSYBVIR8873-41-17 19:50:00 Test Item Value Reference Range Interpretation Comments Monocytes # (test code 0.6 See_Comment [Aut omated message] The = Monocytes #) system which generated this result tra nsmitted reference range : <=0.8. The reference r ana luisa was not used to int erpret this result as normal/abnormal . [facility] CypressLergpqoPJHSSEBPVC6205-01-67 19:50:00 Test Item Value Reference Range Interpretation Comments Segs-Bands # (test code = Segs-Bands #) 10.9 1.5-8.1 [facility] CypressYezjklmULQCXAPGHO4152-95-08 19:50:00 Test Item Value Reference Range Interpretation Comments WBC (test code = WBC) 12.3 3.7-10.4 [facility] CypressNgwrtvuHLKSXETBWR8325-83-08 19:50:00 Test Item Value Reference Range Interpretation Comments Lymphocytes # (test code = Lymphocytes 0.7 1.0-5.5 #) [facility] CypressIzcvyoqDMOPHPUSLF6183-16-95 19:50:00 Test Item Value Reference Range Interpretation Comments Basophils (test code = 0.2 See_Comment [Aut omated message] The Basophils) system which ge nerated this result tra nsmitted reference range : <=1.0. The reference r ana luisa was not used to int erpret this result as normal/abnormal . [facility] CypressPmkdgelNVBDHKFPBU5475-22-22 19:50:00 Test Item Value Reference Range Interpretation Comments Eosinophils (test code = 0.3 See_Comment [A utomated message] The Eosinophils) system which ge nerated this result tra nsmitted reference range : <=4.0. The reference r ana luisa was not used to int erpret this result as normal/abnormal . [facility] CypressZtzjkzeRYVXRDLDXI4788-10-42 19:50:00 Test Item Value Reference Range Interpretation Comments Lymphocytes (test code = Lymphocytes) 6.0 20.0-40.0 [facility] CypressPdvonqgVQGZWWWHGF7573-42-94 19:50:00 Test Item Value Reference Range Interpretation Comments Monocytes (test code = Monocytes) 4.8 2.0-12.0 [facility] CypressQkzbpfqSOMUYKSQEI1781-03-98 19:50:00 Test Item Value Reference Range Interpretation Comments Segs (test code = Segs) 88.7 45.0-75.0 [place] 37927017-01-12 19:50:00 Test Item Value Reference Range Interpretation Comments Etoh (%) (test code = Etoh (%)) <0.003 % [place] 37927017-01-12 19:50:00 Test Item Value Reference Range Interpretation Comments Ethanol Lvl (test code = Ethanol <3.0 mg/dL Lvl) [facility] CypressCkjagwbYYXSSVSLGE6311-04-38 19:50:00 Test Item Value Reference Range Interpretation Comments MCH (test code = MCH) 32.3 pg 27.0-31.0 [facility] CypressVqfwhudEIQPOHRLUS8680-14-22 19:50:00 Test Item Value Reference Range Interpretation Comments MPV (test code = MPV) 9.8 7.4-10.4 [facility] CypressIkvvsweKMURMGOLPP3030-12-26 19:50:00 Test Item Value Reference Range Interpretation Comments Hgb (test code = Hgb) 16.8 14.0-18.0 [facility] CypressBaisepfLRYHZRRPWR2120-40-45 19:50:00 Test Item Value Reference Range Interpretation Comments RBC (test code = RBC) 5.21 4.70-6.10 [facility] CypressGxpicbfXQCFXKJJIQ1134-78-76 19:50:00 Test Item Value Reference Range Interpretation Comments MCV (test code = MCV) 93.5 80.0-94.0 [facility] CypressDxprzacMJGXXHGWXT9719-18-55 19:50:00 Test Item Value Reference Range Interpretation Comments Hct (test code = Hct) 48.7 42.0-54.0 [facility] CypressHsyuhweESKUHDISBE0733-56-73 19:50:00 Test Item Value Reference Range Interpretation Comments Platelet (test code = Platelet) 152 133-450 [facility] CypressTctolxnXWVQAGLPFU7995-48-10 19:50:00 Test Item Value Reference Range Interpretation Comments RDW (test code = RDW) 12.6 11.5-14.5 [facility] CypressUoxlfwfWNYQKSQDUR0568-14-30 19:50:00 Test Item Value Reference Range Interpretation Comments ACT (TEG) Rapid (test code = ACT (TEG) 113 s 86-118 Rapid) [facility] CypressCjrxbszNFCTPJXZAN3574-13-06 19:50:00 Test Item Value Reference Range Interpretation Comments Split Point Rapid (test code = Split 0.5 min Point Rapid) [facility] CypressEurlihwYYVERUVZNS6475-75-75 19:50:00 Test Item Value Reference Range Interpretation Comments R-time Rapid (test code = R-time 0.7 min 0.4-0.7 Rapid) [facility] CypressTcrqhgbNGKYFSGKWE9542-50-32 19:50:00 Test Item Value Reference Range Interpretation Comments Angle Rapid (test code = Angle 70 degrees 64-80 Rapid) [facility] CypressLkhnqjqKXIKQSFVCC7756-87-35 19:50:00 Test Item Value Reference Range Interpretation Comments K-time Rapid (test code = K-time 1.7 min 0.6-2.3 Rapid) [facility] CypressAcmihwtYQNGEUHQHU0298-35-91 19:50:00 Test Item Value Reference Range Interpretation Comments Estimated % Lysis Rapid 0.7 See_Comment [Au tomated message] The (test code = Estimated syste m which generated % Lysis Rapid) this result t ransmitted reference range : <=7.5. The reference r ana luisa was not used to int erpret this result as normal/abnormal . [facility] CypressJptzrnnRYRDCLBPSP8779-50-85 19:50:00 Test Item Value Reference Range Interpretation Comments Max Amplitude Rapid (test code = Max 60 mm 52-71 Amplitude Rapid) [facility] CypressKpomlalENEUKCIRZR2104-69-46 19:50:00 Test Item Value Reference Range Interpretation Comments G-value Rapid (test code = G-value 7.5 5.0-11.6 Rapid) [facility] CypressNlssbnkUCYCRYICBA9522-91-46 19:50:00 Test Item Value Reference Range Interpretation Comments Monocytes # (test code 0.6 See_Comment [Aut omated message] The = Monocytes #) system which generated this result tra nsmitted reference range : <=0.8. The reference r ana luisa was not used to int erpret this result as normal/abnormal . [place] 763717-01-12 19:50:00 Test Item Value Reference Range Interpretation Comments Segs-Bands # (test code = Segs-Bands #) 10.9 1.5-8.1 [place] 763717-01-12 19:50:00 Test Item Value Reference Range Interpretation Comments Lymphocytes # (test code = Lymphocytes 0.7 1.0-5.5 #) [facility] CypressRakoayiFMYHBXMFGT9176-07-70 19:50:00 Test Item Value Reference Range Interpretation Comments Basophils (test code = 0.2 See_Comment [Aut omated message] The Basophils) system which ge nerated this result tra nsmitted reference range : <=1.0. The reference r ana luisa was not used to int erpret this result as normal/abnormal . [facility] CypressWyhcsvgKNJPVYIICK7128-47-60 19:50:00 Test Item Value Reference Range Interpretation Comments Eosinophils (test code = 0.3 See_Comment [A utomated message] The Eosinophils) system which ge nerated this result tra nsmitted reference range : <=4.0. The reference r ana luisa was not used to int erpret this result as normal/abnormal . [facility] CypressBvuvgedLNPULKVSQG8322-22-53 19:50:00 Test Item Value Reference Range Interpretation Comments Lymphocytes (test code = Lymphocytes) 6.0 20.0-40.0 [place] [address]-01-12 19:50:00 Test Item Value Reference Range Interpretation Comments Monocytes (test code = Monocytes) 4.8 2.0-12.0 [facility] CypressGtyjgmrADNLMTKHCN3811-83-56 19:50:00 Test Item Value Reference Range Interpretation Comments Segs (test code = Segs) 88.7 45.0-75.0 [place] 37927017-01-12 19:50:00 Test Item Value Reference Range Interpretation Comments Etoh (%) (test code = Etoh (%)) <0.003 % [place] 37927017-01-12 19:50:00 Test Item Value Reference Range Interpretation Comments Ethanol Lvl (test code = Ethanol <3.0 mg/dL Lvl) [facility]CHE[facility] SEFXA3526-59-17 19:50:00 Test Item Value Reference Range Interpretation Comments Lactic Acid Lvl (test code = Lactic 0.7 0.5-2.2 Acid Lvl) [facility] HospitalOutoheeIYGZRIZAQZUC1448-53-22 19:50:00 Test Item Value Reference Range Interpretation Comments AGAP (test code = AGAP) 15.4 10.0-20.0 [facility] HospitalLrthwreHKOGEUVXABAC9746-91-12 19:50:00 Test Item Value Reference Range Interpretation Comments eGFR (test code = eGFR) 102 [facility] HospitalImizuiuSIOXJIKJDFWW0692-88-50 19:50:00 Test Item Value Reference Range Interpretation Comments CO2 (test code = CO2) 24 24-32 [facility] HospitalOruuthtOKECPRNKQMSN2742-88-82 19:50:00 Test Item Value Reference Range Interpretation Comments Calcium Lvl (test code = Calcium Lvl) 8.5 8.5-10.5 [facility] HospitalAqqhjeiQBNRITCBJSGJ8856-14-07 19:50:00 Test Item Value Reference Range Interpretation Comments Sodium Lvl (test code = Sodium Lvl) 135 135-145 [facility] HospitalEircqfbMQZUFKJGYFPA8045-07-53 19:50:00 Test Item Value Reference Range Interpretation Comments BUN (test code = BUN) 21 7-22 [facility] HospitalXxtepblYRFYSQAILYPQ1416-74-23 19:50:00 Test Item Value Reference Range Interpretation Comments Potassium Lvl (test code = Potassium 4.4 3.5-5.1 Lvl) [facility] HospitalKhydzakMBFGNIRDGCZX9677-17-09 19:50:00 Test Item Value Reference Range Interpretation Comments Chloride Lvl (test code = Chloride Lvl) 100 95-109 [facility] HospitalZucjjcuWRLXSUMANUTL6854-51-38 19:50:00 Test Item Value Reference Range Interpretation Comments Creatinine Lvl (test code = Creatinine 0.86 0.50-1.40 Lvl) [facility] HospitalBhwfmvjCQGGYRVUSHMY6286-04-09 19:50:00 Test Item Value Reference Range Interpretation Comments Glucose Lvl (test code = Glucose Lvl) 99 70-99 [facility]ressKptgpabFFPQQISNYC4532-89-40 19:50:00 Test Item Value Reference Range Interpretation Comments MCHC (test code = MCHC) 34.6 32.0-36.0 [facility]ressTxvaojgDZSKGFDAGO1922-13-42 19:50:00 Test Item Value Reference Range Interpretation Comments WBC (test code = WBC) 12.3 3.7-10.4 [facility] CypressMnqwbskURARPULWQG7467-34-78 19:50:00 Test Item Value Reference Range Interpretation Comments MCH (test code = MCH) 32.3 pg 27.0-31.0 [facility] CypressQoomzgxXKXCODDNKU4297-67-59 19:50:00 Test Item Value Reference Range Interpretation Comments MPV (test code = MPV) 9.8 7.4-10.4 [facility] CypressLiomdakNNUCNZENVX6756-40-77 19:50:00 Test Item Value Reference Range Interpretation Comments Hgb (test code = Hgb) 16.8 14.0-18.0 [facility] CypressTbzyivkTMBDKOGCYP8393-88-01 19:50:00 Test Item Value Reference Range Interpretation Comments RBC (test code = RBC) 5.21 4.70-6.10 [facility] CypressWikraleGECRLMIXBH6871-25-21 19:50:00 Test Item Value Reference Range Interpretation Comments MCV (test code = MCV) 93.5 80.0-94.0 [facility] CypressMpndedeSTFILQJRZM8043-28-17 19:50:00 Test Item Value Reference Range Interpretation Comments Hct (test code = Hct) 48.7 42.0-54.0 [facility] CypressQzkgikkOLXJRRJNGG0368-80-41 19:50:00 Test Item Value Reference Range Interpretation Comments Platelet (test code = Platelet) 152 133-450 [facility] CypressZtfxxqiFNVTRIHSMP1963-56-67 19:50:00 Test Item Value Reference Range Interpretation Comments RDW (test code = RDW) 12.6 11.5-14.5 [facility] CypressWluvfuqMBNUGOXDEK7521-69-52 19:50:00 Test Item Value Reference Range Interpretation Comments ACT (TEG) Rapid (test code = ACT (TEG) 113 s 86-118 Rapid) [facility] CypressIdfzczkELPWOPGKXL8053-42-40 19:50:00 Test Item Value Reference Range Interpretation Comments Split Point Rapid (test code = Split 0.5 min Point Rapid) [facility] CypressClhxijdGXMWYHFVYN6380-06-96 19:50:00 Test Item Value Reference Range Interpretation Comments R-time Rapid (test code = R-time 0.7 min 0.4-0.7 Rapid) [facility] CypressLafvufuSZUZWTBUXC7615-07-48 19:50:00 Test Item Value Reference Range Interpretation Comments Angle Rapid (test code = Angle 70 degrees 64-80 Rapid) [facility] CypressDibmltdAFKRXHHBBE2556-95-12 19:50:00 Test Item Value Reference Range Interpretation Comments K-time Rapid (test code = K-time 1.7 min 0.6-2.3 Rapid) [facility] CypressLzsbjacBQMZLJIQTA2330-80-03 19:50:00 Test Item Value Reference Range Interpretation Comments Estimated % Lysis Rapid 0.7 See_Comment [Au tomated message] The (test code = Estimated syste m which generated % Lysis Rapid) this result t ransmitted reference range : <=7.5. The reference r ana luisa was not used to int erpret this result as normal/abnormal . [facility] CypressOcsrnilNFCQDNBXGR7984-09-13 19:50:00 Test Item Value Reference Range Interpretation Comments Max Amplitude Rapid (test code = Max 60 mm 52-71 Amplitude Rapid) [facility] CypressNbnsyrpORYLVDPNEW1272-02-63 19:50:00 Test Item Value Reference Range Interpretation Comments G-value Rapid (test code = G-value 7.5 5.0-11.6 Rapid) [facility] CypressIzygaqdKGIECYDNAJ3584-18-83 19:50:00 Test Item Value Reference Range Interpretation Comments Monocytes # (test code 0.6 See_Comment [Aut omated message] The = Monocytes #) system which generated this result tra nsmitted reference range : <=0.8. The reference r ana luisa was not used to int erpret this result as normal/abnormal . [facility] CypressXauxxikSWIIRBJEVA8980-38-30 19:50:00 Test Item Value Reference Range Interpretation Comments Segs-Bands # (test code = Segs-Bands #) 10.9 1.5-8.1 [facility] [facility]CswxwotXZPYHFIDMF8266-43-83 19:50:00 Test Item Value Reference Range Interpretation Comments Lymphocytes # (test code = Lymphocytes 0.7 1.0-5.5 #) [facility]ressWmnwuluVGCBFKNKJI4662-89-90 19:50:00 Test Item Value Reference Range Interpretation Comments Basophils (test code = 0.2 See_Comment [Aut omated message] The Basophils) system which ge nerated this result tra nsmitted reference range : <=1.0. The reference r ana luisa was not used to int erpret this result as normal/abnormal . [facility]ressPccrsoxGAJPILMUEI9981-17-63 19:50:00 Test Item Value Reference Range Interpretation Comments Eosinophils (test code = 0.3 See_Comment [A utomated message] The Eosinophils) system which ge nerated this result tra nsmitted reference range : <=4.0. The reference r ana luisa was not used to int erpret this result as normal/abnormal . [facility] CypressYoehnsoLYBFTFRUJW4746-18-22 19:50:00 Test Item Value Reference Range Interpretation Comments Lymphocytes (test code = Lymphocytes) 6.0 20.0-40.0 [facility]ressXnpgunwDLUDMRABOZ3139-55-64 19:50:00 Test Item Value Reference Range Interpretation Comments Monocytes (test code = Monocytes) 4.8 2.0-12.0 [facility] CypressSxjvmhwDVNVVFICGJ9471-39-84 19:50:00 Test Item Value Reference Range Interpretation Comments Segs (test code = Segs) 88.7 45.0-75.0 [facility]VlyoyknNMXMSWKDSB6706-96-93 19:50:00 Test Item Value Reference Range Interpretation Comments Etoh (%) (test code = Etoh (%)) <0.003 % [facility] DallasDticmpqAMXFWOBWSX5390-24-76 19:50:00 Test Item Value Reference Range Interpretation Comments Ethanol Lvl (test code = Ethanol <3.0 mg/dL Lvl) [facility] DallasCHEM DNPAJ8613-68-99 19:50:00 Test Item Value Reference Range Interpretation Comments Lactic Acid Lvl (test code = Lactic 0.7 0.5-2.2 Acid Lvl) [facility] DallasWgfvadeUPJMPFEITVSW6774-46-33 19:50:00 Test Item Value Reference Range Interpretation Comments AGAP (test code = AGAP) 15.4 10.0-20.0 [facility]KiosxphMOFDZPXFVNKX5770-22-58 19:50:00 Test Item Value Reference Range Interpretation Comments eGFR (test code = eGFR) 102 [facility] HospitalFegkfzpORZFUETBGJAJ3688-27-95 19:50:00 Test Item Value Reference Range Interpretation Comments CO2 (test code = CO2) 24 24-32 [facility] HospitalPmqhqiaANOZNVRONQTO6467-49-29 19:50:00 Test Item Value Reference Range Interpretation Comments Calcium Lvl (test code = Calcium Lvl) 8.5 8.5-10.5 [facility] HospitalYvlgrbcGFMUPCHYEERO4445-45-80 19:50:00 Test Item Value Reference Range Interpretation Comments Sodium Lvl (test code = Sodium Lvl) 135 135-145 [facility] HospitalPbfpwrqNYXCKJPRGYZO5970-69-29 19:50:00 Test Item Value Reference Range Interpretation Comments BUN (test code = BUN) 21 7-22 [facility] HospitalYmfqxgeTNAYDDTHNPRA4261-67-96 19:50:00 Test Item Value Reference Range Interpretation Comments Potassium Lvl (test code = Potassium 4.4 3.5-5.1 Lvl) [facility] HospitalWpnbvhfUBRWUCLMKSOU2270-24-76 19:50:00 Test Item Value Reference Range Interpretation Comments Chloride Lvl (test code = Chloride Lvl) 100 95-109 [facility] HospitalIqpjivbBILCZSOPJKFQ2770-78-89 19:50:00 Test Item Value Reference Range Interpretation Comments Creatinine Lvl (test code = Creatinine 0.86 0.50-1.40 Lvl) [facility] HospitalYdgndrcLDUYXELVTPXT1851-96-52 19:50:00 Test Item Value Reference Range Interpretation Comments Glucose Lvl (test code = Glucose Lvl) 99 70-99 [facility]ressHujltybRACJXFHPLE1186-27-09 19:50:00 Test Item Value Reference Range Interpretation Comments MCHC (test code = MCHC) 34.6 32.0-36.0 [facility] CypressOyfiirpTTYLSBBBRA0899-47-33 19:50:00 Test Item Value Reference Range Interpretation Comments WBC (test code = WBC) 12.3 3.7-10.4 [facility] CypressFkotrwkEZSJDSHVWU5323-29-49 19:50:00 Test Item Value Reference Range Interpretation Comments MCH (test code = MCH) 32.3 pg 27.0-31.0 [facility] CypressGmntgjsJHZZRBQROL3367-07-37 19:50:00 Test Item Value Reference Range Interpretation Comments MPV (test code = MPV) 9.8 7.4-10.4 [facility] CypressIkgumlrLYUXFXKZOV9678-94-70 19:50:00 Test Item Value Reference Range Interpretation Comments Hgb (test code = Hgb) 16.8 14.0-18.0 [facility] CypressNzepctrLBJFQZQYGI3878-24-09 19:50:00 Test Item Value Reference Range Interpretation Comments RBC (test code = RBC) 5.21 4.70-6.10 [facility] CypressTsjaertRCPCJXDUFN9044-60-83 19:50:00 Test Item Value Reference Range Interpretation Comments MCV (test code = MCV) 93.5 80.0-94.0 [facility] CypressZkvlthhMUBSHNOSHU8501-27-25 19:50:00 Test Item Value Reference Range Interpretation Comments Hct (test code = Hct) 48.7 42.0-54.0 [facility] CypressRavemmtCNWGBRHTGS7984-62-61 19:50:00 Test Item Value Reference Range Interpretation Comments Platelet (test code = Platelet) 152 133-450 [facility] CypressNyrarggCTBIJGRJFX9493-42-42 19:50:00 Test Item Value Reference Range Interpretation Comments RDW (test code = RDW) 12.6 11.5-14.5 [facility] CypressBvdhrnzSQWFSGPLVF5025-35-17 19:50:00 Test Item Value Reference Range Interpretation Comments ACT (TEG) Rapid (test code = ACT (TEG) 113 s 86-118 Rapid) [facility] CypressZfgiruqBPRYDLFZTJ8968-81-21 19:50:00 Test Item Value Reference Range Interpretation Comments Split Point Rapid (test code = Split 0.5 min Point Rapid) [facility] CypressOtnnuziMSVSZLINPF8541-65-12 19:50:00 Test Item Value Reference Range Interpretation Comments R-time Rapid (test code = R-time 0.7 min 0.4-0.7 Rapid) [facility] CypressSxthzoqHYCBHXXBCB7466-80-89 19:50:00 Test Item Value Reference Range Interpretation Comments Angle Rapid (test code = Angle 70 degrees 64-80 Rapid) [facility] CypressZkjlxicOFGTTOVLLQ3561-15-49 19:50:00 Test Item Value Reference Range Interpretation Comments K-time Rapid (test code = K-time 1.7 min 0.6-2.3 Rapid) [facility] CypressCmvpyzfSDGGFIXYKK0226-95-54 19:50:00 Test Item Value Reference Range Interpretation Comments Estimated % Lysis Rapid 0.7 See_Comment [Au tomated message] The (test code = Estimated syste m which generated % Lysis Rapid) this result t ransmitted reference range : <=7.5. The reference r ana luisa was not used to int erpret this result as normal/abnormal . [facility] CypressIqjhcssRPJTKFIBEF5152-93-71 19:50:00 Test Item Value Reference Range Interpretation Comments Max Amplitude Rapid (test code = Max 60 mm 52-71 Amplitude Rapid) [facility] CypressUzeojebUGXMBQEHLO2953-54-14 19:50:00 Test Item Value Reference Range Interpretation Comments G-value Rapid (test code = G-value 7.5 5.0-11.6 Rapid) [facility] CypressRzzakbxZXROBXESEB6280-33-72 19:50:00 Test Item Value Reference Range Interpretation Comments Monocytes # (test code 0.6 See_Comment [Aut omated message] The = Monocytes #) system which generated this result tra nsmitted reference range : <=0.8. The reference r ana luisa was not used to int erpret this result as normal/abnormal . [facility] CypressVdzofkaSAIOUCQTTB8569-74-95 19:50:00 Test Item Value Reference Range Interpretation Comments Segs-Bands # (test code = Segs-Bands #) 10.9 1.5-8.1 [facility] CypressAktfcwtLEIIAVGQDF6368-88-61 19:50:00 Test Item Value Reference Range Interpretation Comments Lymphocytes # (test code = Lymphocytes 0.7 1.0-5.5 #) [facility] CypressOubmbxiAUIIDYFDHY1918-59-91 19:50:00 Test Item Value Reference Range Interpretation Comments Basophils (test code = 0.2 See_Comment [Aut omated message] The Basophils) system which ge nerated this result tra nsmitted reference range : <=1.0. The reference r ana luisa was not used to int erpret this result as normal/abnormal . [facility] CypressGxipbpuJOOUMXWBIB7165-21-83 19:50:00 Test Item Value Reference Range Interpretation Comments Eosinophils (test code = 0.3 See_Comment [A utomated message] The Eosinophils) system which ge nerated this result tra nsmitted reference range : <=4.0. The reference r ana luisa was not used to int erpret this result as normal/abnormal . [facility] CypressPzdwkzzVPALETJOCD2416-39-16 19:50:00 Test Item Value Reference Range Interpretation Comments Lymphocytes (test code = Lymphocytes) 6.0 20.0-40.0 [facility] CypressDoovifaSEWHKAVTPT2366-93-22 19:50:00 Test Item Value Reference Range Interpretation Comments Monocytes (test code = Monocytes) 4.8 2.0-12.0 [facility] CypressGorxyjbBVIVSHXCDR5081-70-88 19:50:00 Test Item Value Reference Range Interpretation Comments Segs (test code = Segs) 88.7 45.0-75.0 [place] 37927017-01-12 19:50:00 Test Item Value Reference Range Interpretation Comments Etoh (%) (test code = Etoh (%)) <0.003 % [place] 37927017-01-12 19:50:00 Test Item Value Reference Range Interpretation Comments Ethanol Lvl (test code = Ethanol <3.0 mg/dL Lvl) [facility]2017-01-12 19:50:00 Test Item Value Reference Range Interpretation Comments Lactic Acid Lvl (test code = Lactic 0.7 0.5-2.2 Acid Lvl) [facility] HospitalIadtrqpSKXSAZPGYOZV4071-90-10 19:50:00 Test Item Value Reference Range Interpretation Comments AGAP (test code = AGAP) 15.4 10.0-20.0 [facility] HospitalPpxukpkGSEQHFYZGMZC9825-33-01 19:50:00 Test Item Value Reference Range Interpretation Comments eGFR (test code = eGFR) 102 [facility] HospitalHlzcmpcCHQOFNIXQNAS0549-30-48 19:50:00 Test Item Value Reference Range Interpretation Comments CO2 (test code = CO2) 24 24-32 [facility] HospitalHggnxpkNUNPMQYJLEIZ1865-05-67 19:50:00 Test Item Value Reference Range Interpretation Comments Calcium Lvl (test code = Calcium Lvl) 8.5 8.5-10.5 [facility] HospitalMdmztwaHDFLGIZEIGZG9444-91-74 19:50:00 Test Item Value Reference Range Interpretation Comments Sodium Lvl (test code = Sodium Lvl) 135 135-145 [facility] HospitalWufkkpvKFDSNUHLAHIL9682-30-32 19:50:00 Test Item Value Reference Range Interpretation Comments BUN (test code = BUN) 21 7-22 [facility] HospitalEnyqmxmUHELFVPITAHB3742-79-05 19:50:00 Test Item Value Reference Range Interpretation Comments Potassium Lvl (test code = Potassium 4.4 3.5-5.1 Lvl) [facility] HospitalAfvhmqzSPTIJQHJQLJK2738-19-16 19:50:00 Test Item Value Reference Range Interpretation Comments Chloride Lvl (test code = Chloride Lvl) 100 95-109 [facility] HospitalMaylpjaZTJHXZIPOTLL0846-87-15 19:50:00 Test Item Value Reference Range Interpretation Comments Creatinine Lvl (test code = Creatinine 0.86 0.50-1.40 Lvl) [facility] HospitalYgvxqyjTHRRXIBDNAPA9584-64-09 19:50:00 Test Item Value Reference Range Interpretation Comments Glucose Lvl (test code = Glucose Lvl) 99 70-99 [facility]ressKmyhxiuYMFXVVXEJF5412-14-39 19:50:00 Test Item Value Reference Range Interpretation Comments MCHC (test code = MCHC) 34.6 32.0-36.0 [facility] CypressEdhfvgzTGZBDQYHNI9708-84-93 19:50:00 Test Item Value Reference Range Interpretation Comments WBC (test code = WBC) 12.3 3.7-10.4 [facility] CypressZtqlhdxKVCPCCRZUP9237-81-78 19:50:00 Test Item Value Reference Range Interpretation Comments MCH (test code = MCH) 32.3 pg 27.0-31.0 [facility] CypressRzvznffCWWDFLCDHK5741-44-02 19:50:00 Test Item Value Reference Range Interpretation Comments MPV (test code = MPV) 9.8 7.4-10.4 [facility] CypressTkjtsbwDQZQAXBOIQ4569-82-12 19:50:00 Test Item Value Reference Range Interpretation Comments Hgb (test code = Hgb) 16.8 14.0-18.0 [facility] CypressSdbrmkjZQIXFPAMIK2527-05-24 19:50:00 Test Item Value Reference Range Interpretation Comments RBC (test code = RBC) 5.21 4.70-6.10 [facility] CypressViucopaLWIMIOZWFZ7171-69-80 19:50:00 Test Item Value Reference Range Interpretation Comments MCV (test code = MCV) 93.5 80.0-94.0 [facility] CypressLlxwdvtTNALRUUNHQ7040-76-19 19:50:00 Test Item Value Reference Range Interpretation Comments Hct (test code = Hct) 48.7 42.0-54.0 [facility] CypressWiadzyiDDIQVRSRCG9128-66-75 19:50:00 Test Item Value Reference Range Interpretation Comments Platelet (test code = Platelet) 152 133-450 [facility] CypressYktlrvjWQOYGBOBHG7644-60-69 19:50:00 Test Item Value Reference Range Interpretation Comments RDW (test code = RDW) 12.6 11.5-14.5 [facility] CypressGzhaligGRNECZPFDS9813-92-23 19:50:00 Test Item Value Reference Range Interpretation Comments ACT (TEG) Rapid (test code = ACT (TEG) 113 s 86-118 Rapid) [facility] CypressRgpyfegSJLKWNEWNL0846-20-12 19:50:00 Test Item Value Reference Range Interpretation Comments Split Point Rapid (test code = Split 0.5 min Point Rapid) [facility]ressOnjdkcyFIJOJQVEMD7489-55-14 19:50:00 Test Item Value Reference Range Interpretation Comments R-time Rapid (test code = R-time 0.7 min 0.4-0.7 Rapid) [facility] CypressDlviwxeWGEHWRSBTW4117-39-80 19:50:00 Test Item Value Reference Range Interpretation Comments Angle Rapid (test code = Angle 70 degrees 64-80 Rapid) [facility] CypressIigyqbrFBIAJRKTYN6759-45-70 19:50:00 Test Item Value Reference Range Interpretation Comments K-time Rapid (test code = K-time 1.7 min 0.6-2.3 Rapid) [facility] CypressSoebzkyRAAJQSJLBE6374-95-30 19:50:00 Test Item Value Reference Range Interpretation Comments Estimated % Lysis Rapid 0.7 See_Comment [Au tomated message] The (test code = Estimated syste m which generated % Lysis Rapid) this result t ransmitted reference range : <=7.5. The reference r ana luisa was not used to int erpret this result as normal/abnormal . [facility] CypressHwuxdqnIGOCCQYNEI0251-72-32 19:50:00 Test Item Value Reference Range Interpretation Comments Max Amplitude Rapid (test code = Max 60 mm 52-71 Amplitude Rapid) [facility] CypressFthvpyjEILBYXIKPA9039-40-22 19:50:00 Test Item Value Reference Range Interpretation Comments G-value Rapid (test code = G-value 7.5 5.0-11.6 Rapid) [facility]ressCtsxkbvWGGVNLAGBK1918-06-46 19:50:00 Test Item Value Reference Range Interpretation Comments Monocytes # (test code 0.6 See_Comment [Aut omated message] The = Monocytes #) system which generated this result tra nsmitted reference range : <=0.8. The reference r ana luisa was not used to int erpret this result as normal/abnormal . [facility] CypressDwecoukGTZGFRQESR9148-41-35 19:50:00 Test Item Value Reference Range Interpretation Comments Segs-Bands # (test code = Segs-Bands #) 10.9 1.5-8.1 [facility] CypressTkxqwguTNBKKMWLEL8423-80-52 19:50:00 Test Item Value Reference Range Interpretation Comments Lymphocytes # (test code = Lymphocytes 0.7 1.0-5.5 #) [facility] CypressZlkkhuvLPGMKBACEZ2178-50-49 19:50:00 Test Item Value Reference Range Interpretation Comments Basophils (test code = 0.2 See_Comment [Aut omated message] The Basophils) system which ge nerated this result tra nsmitted reference range : <=1.0. The reference r ana luisa was not used to int erpret this result as normal/abnormal . [facility] CypressFsrlejzUCWKLKKIWA9627-06-37 19:50:00 Test Item Value Reference Range Interpretation Comments Eosinophils (test code = 0.3 See_Comment [A utomated message] The Eosinophils) system which ge nerated this result tra nsmitted reference range : <=4.0. The reference r ana luisa was not used to int erpret this result as normal/abnormal . [facility] CypressMrulcaySLMICHUBCO7269-29-78 19:50:00 Test Item Value Reference Range Interpretation Comments Lymphocytes (test code = Lymphocytes) 6.0 20.0-40.0 [facility] CypressTwhdsthNQCHMOVEAD2345-59-49 19:50:00 Test Item Value Reference Range Interpretation Comments Monocytes (test code = Monocytes) 4.8 2.0-12.0 [facility] CypressPqrhoawOWJTPTAGZA3557-13-09 19:50:00 Test Item Value Reference Range Interpretation Comments Segs (test code = Segs) 88.7 45.0-75.0 [place] 37927017-01-12 19:50:00 Test Item Value Reference Range Interpretation Comments Etoh (%) (test code = Etoh (%)) <0.003 % [place] 37927017-01-12 19:50:00 Test Item Value Reference Range Interpretation Comments Ethanol Lvl (test code = Ethanol <3.0 mg/dL Lvl) [facility]2017-01-12 19:50:00 Test Item Value Reference Range Interpretation Comments Lactic Acid Lvl (test code = Lactic 0.7 0.5-2.2 Acid Lvl) [facility] HospitalGnmiyksRWEAZPBULJHN7140-41-44 19:50:00 Test Item Value Reference Range Interpretation Comments AGAP (test code = AGAP) 15.4 10.0-20.0 [facility] HospitalZepvoykVBHLOVMCILDK6391-96-00 19:50:00 Test Item Value Reference Range Interpretation Comments eGFR (test code = eGFR) 102 [facility] HospitalXmamoqsHTVMAOYQDQSE5244-55-09 19:50:00 Test Item Value Reference Range Interpretation Comments CO2 (test code = CO2) 24 24-32 [facility] HospitalRnazqgyCBKADVZXHCEP3258-87-75 19:50:00 Test Item Value Reference Range Interpretation Comments Calcium Lvl (test code = Calcium Lvl) 8.5 8.5-10.5 [facility] HospitalVvbmuizIEXQXUVVCECS4352-39-52 19:50:00 Test Item Value Reference Range Interpretation Comments Sodium Lvl (test code = Sodium Lvl) 135 135-145 [facility] HospitalDlubphgHMKZGXDXWLUZ7677-91-52 19:50:00 Test Item Value Reference Range Interpretation Comments BUN (test code = BUN) 21 7-22 [facility] HospitalLgkudkmEZFYHLEHCHDC8118-27-22 19:50:00 Test Item Value Reference Range Interpretation Comments Potassium Lvl (test code = Potassium 4.4 3.5-5.1 Lvl) [facility] HospitalLdxxpmhZVSMBQUJJRRX9570-50-22 19:50:00 Test Item Value Reference Range Interpretation Comments Chloride Lvl (test code = Chloride Lvl) 100 95-109 [facility] HospitalGxxlkeqNVTJCIEKWQQP9399-39-38 19:50:00 Test Item Value Reference Range Interpretation Comments Creatinine Lvl (test code = Creatinine 0.86 0.50-1.40 Lvl) [facility] HospitalNnjouseIHSRVVPLKVCM9697-34-79 19:50:00 Test Item Value Reference Range Interpretation Comments Glucose Lvl (test code = Glucose Lvl) 99 70-99 [facility] CypressYffoemeYSAEFPXPWH4177-01-85 19:50:00 Test Item Value Reference Range Interpretation Comments MCHC (test code = MCHC) 34.6 32.0-36.0 [facility] CypressRbnrentADXCCHXITX5381-00-30 19:50:00 Test Item Value Reference Range Interpretation Comments WBC (test code = WBC) 12.3 3.7-10.4 [facility] CypressLjlyyysMXFCLYFOFE4142-74-36 19:50:00 Test Item Value Reference Range Interpretation Comments MCH (test code = MCH) 32.3 pg 27.0-31.0 [facility] CypressMurbktrAXPPEOYNTM1742-71-64 19:50:00 Test Item Value Reference Range Interpretation Comments MPV (test code = MPV) 9.8 7.4-10.4 [facility] CypressSvqkqzrYVXTXKJZMN0605-35-73 19:50:00 Test Item Value Reference Range Interpretation Comments Hgb (test code = Hgb) 16.8 14.0-18.0 [facility] CypressSumhhpcPOWHTUQYQP1070-50-83 19:50:00 Test Item Value Reference Range Interpretation Comments RBC (test code = RBC) 5.21 4.70-6.10 [facility] CypressFmtcbhlUJLXMIAWSA6353-61-38 19:50:00 Test Item Value Reference Range Interpretation Comments MCV (test code = MCV) 93.5 80.0-94.0 [facility] CypressQyvlhpjRFAXBDSRKF6130-30-32 19:50:00 Test Item Value Reference Range Interpretation Comments Hct (test code = Hct) 48.7 42.0-54.0 [facility] CypressNaoqpavKVJIVTALTL6518-95-95 19:50:00 Test Item Value Reference Range Interpretation Comments Platelet (test code = Platelet) 152 133-450 [facility] CypressZusytdkIYFTZFQOAD8728-10-65 19:50:00 Test Item Value Reference Range Interpretation Comments RDW (test code = RDW) 12.6 11.5-14.5 [facility] CypressDdrhvwwGYPNXBWCWI1333-21-34 19:50:00 Test Item Value Reference Range Interpretation Comments ACT (TEG) Rapid (test code = ACT (TEG) 113 s 86-118 Rapid) [facility] CypressBccpkqyUPMHWRJALF9277-43-84 19:50:00 Test Item Value Reference Range Interpretation Comments Split Point Rapid (test code = Split 0.5 min Point Rapid) [facility] CypressAjnjpkvEETZIYLLYW9136-01-64 19:50:00 Test Item Value Reference Range Interpretation Comments R-time Rapid (test code = R-time 0.7 min 0.4-0.7 Rapid) [facility] CypressSwqhohwIESAEMIPRQ7530-54-30 19:50:00 Test Item Value Reference Range Interpretation Comments Angle Rapid (test code = Angle 70 degrees 64-80 Rapid) [facility] CypressNwstzjdJWPZWCXGPL0066-48-55 19:50:00 Test Item Value Reference Range Interpretation Comments K-time Rapid (test code = K-time 1.7 min 0.6-2.3 Rapid) [facility] CypressHnjmbaaEIOMMPHOPJ3147-33-91 19:50:00 Test Item Value Reference Range Interpretation Comments Estimated % Lysis Rapid 0.7 See_Comment [Au tomated message] The (test code = Estimated syste m which generated % Lysis Rapid) this result t ransmitted reference range : <=7.5. The reference r ana luisa was not used to int erpret this result as normal/abnormal . [facility] CypressVtungzgQHLNYCFTUC6649-34-86 19:50:00 Test Item Value Reference Range Interpretation Comments Max Amplitude Rapid (test code = Max 60 mm 52-71 Amplitude Rapid) [facility] CypressAsjwumuCWMJPNGLAT7772-83-11 19:50:00 Test Item Value Reference Range Interpretation Comments G-value Rapid (test code = G-value 7.5 5.0-11.6 Rapid) [facility] CypressVduvmupHRONTGTNOM2958-10-20 19:50:00 Test Item Value Reference Range Interpretation Comments Monocytes # (test code 0.6 See_Comment [Aut omated message] The = Monocytes #) system which generated this result tra nsmitted reference range : <=0.8. The reference r ana luisa was not used to int erpret this result as normal/abnormal . [facility] CypressWqzpuuuCZTKZSSCNT8503-72-17 19:50:00 Test Item Value Reference Range Interpretation Comments Segs-Bands # (test code = Segs-Bands #) 10.9 1.5-8.1 [facility] CypressBulzkipIVEODXKSSX4650-41-19 19:50:00 Test Item Value Reference Range Interpretation Comments Lymphocytes # (test code = Lymphocytes 0.7 1.0-5.5 #) [facility] CypressTzsqkfeEZKNKQADRB5106-51-34 19:50:00 Test Item Value Reference Range Interpretation Comments Basophils (test code = 0.2 See_Comment [Aut omated message] The Basophils) system which ge nerated this result tra nsmitted reference range : <=1.0. The reference r ana luisa was not used to int erpret this result as normal/abnormal . [facility] CypressWqqxweiFXLVICINXD4773-76-26 19:50:00 Test Item Value Reference Range Interpretation Comments Eosinophils (test code = 0.3 See_Comment [A utomated message] The Eosinophils) system which ge nerated this result tra nsmitted reference range : <=4.0. The reference r ana luisa was not used to int erpret this result as normal/abnormal . [facility] CypressWyjlatiGBFDYIPMSJ2350-95-25 19:50:00 Test Item Value Reference Range Interpretation Comments Lymphocytes (test code = Lymphocytes) 6.0 20.0-40.0 [facility] CypressNmukdoxFXXBAQYRRG1859-83-94 19:50:00 Test Item Value Reference Range Interpretation Comments Monocytes (test code = Monocytes) 4.8 2.0-12.0 [facility] XOYBJNA4999-64-47 19:45:00 Test Item Value Reference Range Interpretation Comments ABO/Rh (test code = ABO/Rh) A [facility] TNEIDTX9610-02-47 19:45:00 Test Item Value Reference Range Interpretation Comments Antibody Scrn (test Negative (07/05/16 1:45 code = Antibody Scrn) PM) [facility] CDJGZYH3170-19-56 19:45:00 Test Item Value Reference Range Interpretation Comments ABO/Rh (test code = ABO/Rh) [id number] 19:45:00 Test Item Value Reference Range Interpretation Comments Antibody Scrn (test Negative (07/05/16 1:45 code = Antibody Scrn) PM) [facility] [id number] 19:45:00 Test Item Value Reference Range Interpretation Comments ABO/Rh (test code = ABO/Rh) [facility] [id number] 19:45:00 Test Item Value Reference Range Interpretation Comments Antibody Scrn (test Negative (07/05/16 1:45 code = Antibody Scrn) PM) [facility] [id number] 19:45:00 Test Item Value Reference Range Interpretation Comments ABO/Rh (test code = ABO/Rh) [facility] [id number] 19:45:00 Test Item Value Reference Range Interpretation Comments Antibody Scrn (test Negative (07/05/16 1:45 code = Antibody Scrn) PM) [facility] [id number] 19:45:00 Test Item Value Reference Range Interpretation Comments ABO/Rh (test code = ABO/Rh) A [facility] [id number] 19:45:00 Test Item Value Reference Range Interpretation Comments Antibody Scrn (test Negative (07/05/16 1:45 code = Antibody Scrn) PM) [facility] [id number] 19:45:00 Test Item Value Reference Range Interpretation Comments ABO/Rh (test code = ABO/Rh) A POS [facility] [id number] 19:45:00 Test Item Value Reference Range Interpretation Comments Antibody Scrn (test Negative (07/05/16 1:45 code = Antibody Scrn) PM) [facility] [id number] 19:45:00 Test Item Value Reference Range Interpretation Comments ABO/Rh (test code = ABO/Rh) A [facility] [id number] 19:45:00 Test Item Value Reference Range Interpretation Comments Antibody Scrn (test Negative (07/05/16 1:45 code = Antibody Scrn) PM) [facility] [id number] 19:45:00 Test Item Value Reference Range Interpretation Comments ABO/Rh (test code = ABO/Rh) A [facility] [id number] 19:45:00 Test Item Value Reference Range Interpretation Comments Antibody Scrn (test Negative (07/05/16 1:45 code = Antibody Scrn) PM) [facility] [id number] 19:45:00 Test Item Value Reference Range Interpretation Comments ABO/Rh (test code = ABO/Rh) A [facility] [id number] 19:45:00 Test Item Value Reference Range Interpretation Comments Antibody Scrn (test Negative (07/05/16 1:45 code = Antibody Scrn) PM) [facility] Date/Time Note Provider [facility] ([facility]) Hospitalist Progress Note REPORT#:[id number] REPORT STATUS: Signed DATE:12/15/22 TIME: 1117 PATIENT: ISAURA YOUNGER UNIT #: [id number] ROOM/BED: [facility] : 69 AGE: 57 SEX: M ATTEND: Daniel Medeiros MD ADM AUTHOR: Eduardo Acuna MD * ALL edits or amendments must be made on the el ectronic/computer document * Subjective Chief complaint: Left carotid artery stenosis HPI: Patient reports feeling good; denies any complai nt. No significant pain at the surgical site. Objective General VS/I O: Vital Signs: Date Time Temp Pulse Resp B/P B/P Pulse O2 O2 F low FiO2 Mean Ox Delivery Rate 12/15 1024 87 19 92 12/15 1015 89 14 78 12/15 1000 85 14 101/57 76 95 12/15 0930 79 14 107/58 76 97 12/15 0915 82 16 98 12/15 0900 81 13 103/50 73 97 12/15 0845 89 14 112/59 81 12/15 0815 81 12 95 12/15 0800 97.6 86 20 149/66 93 100 Room air 12/15 0800 79 15 111/57 78 99 12/15 0745 81 15 86 12/15 0736 87 29 148/65 94 94 12/15 0730 93 27 95 12/15 0700 75 15 100 12/15 0630 64 10 98 12/15 0629 65 11 98 12/15 0600 65 11 99 12/15 0500 64 14 95 12/15 0400 97.8 12/15 0400 Nasal 2 cannula 12/15 0400 71 11 147/72 103 100 12/15 0300 64 11 136/63 90 98 12/15 0200 73 9 132/65 92 98 12/15 0100 65 8 127/64 88 97 12/15 0000 98.1 12/15 0000 67 8 124/58 83 95 12/14 2330 70 11 96 12/14 2300 73 12 138/63 90 93 12/14 2230 85 18 165/79 113 99 12/14 2200 83 14 140/65 93 96 12/14 2149 72 11 95 12/14 2145 71 12 97 12/14 2130 76 16 96 12/14 2116 143/68 98 12/14 2116 78 16 155/72 103 98 12/14 2115 81 18 99 12/14 2100 77 16 98 12/14 2045 83 16 98 06/23 2030 75 13 97 12/14 2014 81 18 97 12/15 1999 97.7 12/15 1999 Nasal 2 cannula 12/15 1999 72 12 95 12/14 1956 72 12 97 12/14 194 100 Nasal 2 28 cannula 12/14 1945 79 18 100 12/14 1930 79 18 94 12/14 1915 75 14 93 12/14 1900 76 12 92 12/14 1845 79 19 91 12/14 1835 82 17 94 12/14 1830 98 22 91 12/14 1800 75 13 100 12/14 1745 71 12 100 12/14 1730 79 16 99 12/14 1715 80 28 82 12/14 1700 90 24 99 12/14 1645 73 15 100 12/14 1630 77 18 90 12/14 1621 97.6 73 18 138/52 80 100 Nasal 4 cannula 12/14 1619 76 15 100 12/14 1615 71 13 100 12/14 1550 77 18 94 12/14 1545 72 11 99 12/14 1530 70 13 99 12/14 1515 73 13 90 12/14 1500 71 13 99 12/14 1445 70 12 99 12/14 1430 80 16 84 12/14 1415 73 11 100 12/14 1400 71 11 100 12/14 1345 72 12 100 12/14 1330 72 11 100 12/14 1315 72 12 100 12/14 1300 73 18 100 12/14 1245 78 23 98 12/14 1230 71 14 99 12/14 1215 83 26 95 12/14 1201 72 13 100 12/14 1200 98.0 86 15 140/55 83 100 Nasal 4 cannula 12/14 1200 69 16 100 12/14 1145 78 18 98 12/14 1130 75 19 128/61 88 91 24 hour I O ending at 0700: 12/15 0700 12/14 1900 Intake Total 140 720 Output Total 600 700 Balance -460 20 Intake, Oral 140 720 Number Voids 3 Output, Urine 600 700 Patient 173 lb Weight PATIENT WEIGHT: Weight (lb): 173 Weight (oz): 5.8 Weight (kg): 78.471 Medications: Active Meds + DC'd Last 24 Hrs Aspirin (ASPIRIN EC) 81 MG DAILY PO Clopidogrel Bisulfate (PLAVIX) 75 MG DAILY PO Pantoprazole (PROTONIX) 40 MG DAILY PO Patient Own Medication (PATIENT'S OWN MEDICATION ) AMBRISENTAN 10 MG TABLET DAILY PO Patient Own Medication (PATIENT'S OWN MEDICATION ) TADALAFIL 40MG TABLET DAILY PO Undefined Medication (Farxiga) 10 MG DAILY PO Thyroid (THYROID) 30 MG DAILY 0600 PO Atorvastatin Calcium (LIPITOR) 40 MG BEDTIME PO Losartan Potassium (COZAAR) 50 MG BID PO Mupirocin (BACTROBAN NASAL - ADULT ICU) 1 APPLIC BID NASAL Benzocaine/Menthol (Cepacol Sore Throat Lozenge) 1 TAB Q2H PRN PRN MM ( CKD) Bisacodyl (BISACODYL SUPP) 10 MG ASDIR PRN RECTA L Calcium Gluconate/Sodium Chloride (Calcium Gluco rafael 1 GM/NS 100 mL) 100 ML ASDIR PRN IV Hydralazine HCl (APRESOLINE) 10 MG Q8H PRN PRN I V Hydrocodone Bitart/Acetaminophen (NORCO 5/325 TA BLET (C-II)) 1 TAB Q4H PRN PRN PO Hydrocodone Bitart/Acetaminophen (NORCO 5/325 TA BLET (C-II)) 2 TAB Q4H PRN PRN PO Meperidine HCl (DEMEROL (C-II)) 25 MG Q4H PRN SD N IM Meperidine HCl (DEMEROL (C-II)) 50 MG Q4H PRN SD N IM Nicardipine HCl (CARDENE I.V.) 25 MG ASDIR PRN I V (CKD) Sodium Chloride (SODIUM CHLORIDE 0.9%) 250 ML Ondansetron HCl (ZOFRAN) 4 MG Q8H PRN PRN IV Phenol (CHLORASEPTIC) 5 SPRAYS Q2H PRN PRN MM Potassium Chloride (KLOR-CON M20) 20 MEQ ASDIR P RN PO Potassium Chloride (Potassium Chloride) 50 ML DIR PRN IV Physical Exam General appearance: awake, no acute distress, pl easant, conversational Head/Eyes: atraumatic, normal conjunctiva/sclera , PERRL ENT: moist mucosal membranes, normal dentition, normal ear left, normal ear right Neck: left side covered with dressing; MELISSA drain in place. Right IJ central line in place. Cardiovascular: normal heart sounds, regular rat e rhythm Respiratory: aerating well, clear to auscultatio n, symmetric expansion, no distress Abdomen: non-tender, normal bowel sounds, soft, no distention Extremities: moves all, normal capillary refill, normal range of motion, no clubbing, no cyanosis, pitting edema in bilatera l LEs. Musculoskeletal: normal inspection, painless ran ge of motion, no muscle spasm Neuro/FILE KEEPER: alert, oriented X 3, normal speech, n o motor deficits Skin: dry, normal color, diffuse, small, macular rash. Psychiatry: normal affect, normal judgment/insig ht, normal mood Results Findings/Data: Laboratory Tests 12/15 042 Chemistry Sodium (137 - 145 MMOL/L) 133 L Potassium (3.5 - 5.1 MMOL/L) 4.2 Chloride (98 - 107 MMOL/L) 103 Carbon Dioxide (22 - 30 MMOL/L) 22 Anion Gap (14 - 24 MMOL/L) 12 L BUN (9 - 20 MG/DL) 21 H Creatinine (0.66 - 1.25 MG/DL) 1.00 Glomerular Filtr Rate > 60 Glucose (74 - 106 MG/DL) 102 Calcium (8.4 - 10.2 MG/DL) 8.8 Magnesium (1.6 - 2.3 MG/DL) 2.3 Laboratory Tests 12/15 042 Hematology WBC (3.8 - 9.8 K/MM3) 8.0 RBC (3.95 - 5.67 M/MM3) 3.04 L Hgb (12.4 - 16.7 G/DL) 9.6 L Hct (35.9 - 49.5 %) 29.3 L MCV (81.7 - 96.1 fL) 96 MCH (27.6 - 33.2 pg) 31.6 MCHC (32.9 - 35.5 %) 32.8 L RDW (12.1 - 15.2 %) 14.6 Plt Count (129 - 368 K/MM3) 132 MPV (7.4 - 10.4 fl) 10.6 H Neut % (Auto) (43 - 75 %) 77.9 H Lymph % (Auto) (14 - 44 %) 10.1 L Norton % (Auto) (4 - 13 %) 9.6 Eos % (Auto) (0 - 6 %) 1.8 Baso % (Auto) (0 - 2 %) 0.3 Neut # (Auto) (2.0 - 7.6 K/mm3) 6.24 Lymph # (Auto) (1.0 - 3.8 K/mm3) 0.81 L Norton # (Auto) (0.1 - 0.8 K/mm3) 0.77 Eos # (Auto) (0.0 - 0.2 K/mm3) 0.14 Baso # (Auto) (0.0 - 0.2 K/mm3) 0.02 Immature Gran % (0.0 - 2.0 %) 0.3 Nucleated RBC % (0 - 1.0 %) 0.0 Nucleated RBCs # (Man) (0.0 - 0.1 K/mm3) 0.00 Results: labs reviewed, vital signs reviewed, vi kaitlynn signs stable, current med profile rev'd Diagnosis, Assessment Plan Problem List/A P: 1. Stenosis of left internal carotid artery 2. Hypertension 3. Hyperlipidemia 4. Peripheral arterial disease with history of revascularization 5. Scleroderma 6. Hypothyroidism 7. GERD (gastroesophageal reflux disease) 8. 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 Anemia of chronic disease Free Text DxA P Notes Free text DxA P notes: PLAN and HOSPITAL COURSE: 12/13/2022: - Patient is s/p left CEA, admitted to ICU, and doing well. - Clear liquid diet; advance as tolerated. - Pain appears well controlled at this time; con tinue current pain meds. - Aggressive BP control. - Resume home meds; will hold Mycopheolate for o ne week post-op. - Monitor labs, sylvia electrolytes since he has h/ o hyponatremia (due to HCTZ which was discontinued recently). - Consult PT/OT. - SCDs for DVT prophylaxis. 12/14/2022: - Patient doing well. - Continue to increase activity. - Pain meds prn. - Other management as per CV surgery team. 12/15/2022: - Patient doing well. - Being discharged to home. - Instructed to continue to hold Mycophenalate f or 5 more days. Quality: Gen Med Crit Care VTE Prophylaxis VTE prophylaxis initiated: yes, no pharmacologic , reason: (post op patient) Current Medications Current medication review: I attest that the foregoing medication list in t medical record is true, accurate, and complete to the best of my knowled ge. Electronically Signed by Eduardo Acuna MD on 12/15 at 1442 RPT #:[id number] END OF REPORT 2022-12-14 [facility] 20:47:00-00:00 [facility] ([facility]) Cardiovascular Surgery Prog REPORT#:[id number] REPORT STATUS: Signed DATE:12/14/22 TIME: 2046 PATIENT: ISAURA YOUNGER UNIT #: [id number] ROOM/BED: [address] : [birth year] AGE: 57 SEX: M ATTEND: Daniel Medeiros MD ADM AUTHOR: China Sotelo * ALL edits or amendments must be made on the [email or web address] document * General Post-op: day 1 Status post: Left carotid endarterectomy Subjective Patient reports: No: complaints. Nursing reports: No: complaints. Comments: The patient is seen at [facility], doing well He denies having any difficulty swallowing Review of Systems Constitutional: Denies: chills, fatigue, fever, generalized weak ness. Respiratory: Denies: SWEENEY (dyspnea on exertion), SOB. Cardiovascular: Denies: chest pain. Objective General VS/I O: Last Documented: Result Date Time Pulse Ox 97 12/14 1956 Pulse 72 12/14 1956 Resp 12 12/14 1956 B/P 138/52 12/14 1621 B/P Mean 80 12/14 1621 O2 Delivery Nasal cannula 12/14 1621 O2 Flow Rate 4 12/14 1621 Temp 36.4 12/14 1621 FiO2 36 12/13 1746 24 hour I O ending at 0700: 12/14 0700 12/13 1900 Intake Total 1700.00 480.00 Output Total 1445 900 Balance 255.00 -420.00 Intake, IV 1460.00 260.00 Intake, Oral 240 220 Output, 45 Drainage Output, Urine 1400 900 PATIENT WEIGHT: Weight (lb): 173 Weight (oz): 5.8 Weight (kg): 78.471 Medications: Active Meds + DC'd Last 24 Hrs Aspirin (ASPIRIN EC) 81 MG DAILY PO Clopidogrel Bisulfate (PLAVIX) 75 MG DAILY PO (D C) Clopidogrel Bisulfate (PLAVIX) 75 MG DAILY PO Pantoprazole (PROTONIX) 40 MG DAILY PO Patient Own Medication (PATIENT'S OWN MEDICATION ) AMBRISENTAN 10 MG TABLET DAILY PO Patient Own Medication (PATIENT'S OWN MEDICATION ) TADALAFIL 40MG TABLET DAILY PO Undefined Medication (Farxiga) 10 MG DAILY PO Aspirin (CHILDREN'S ASPIRIN) 81 MG C BK PO (DC) Thyroid (THYROID) 30 MG DAILY 0600 PO Atorvastatin Calcium (LIPITOR) 40 MG BEDTIME PO Cefazolin Sodium (ANCEF) 1 GM Q8H IV (DC) Losartan Potassium (COZAAR) 50 MG BID PO Mupirocin (BACTROBAN NASAL - ADULT ICU) 1 APPLIC BID NASAL Potassium Chloride/Dextrose/Sod Cl (DEXTROSE 5%- 1/2NS-KCL 20MEQ) 1,000 ML Q12H IV (DC) Benzocaine/Menthol (Cepacol Sore Throat Lozenge) 1 TAB Q2H PRN PRN MM ( CKD) Bisacodyl (BISACODYL SUPP) 10 MG ASDIR PRN RECTA L Calcium Gluconate/Sodium Chloride (Calcium Gluco rafael 1 GM/NS 100 mL) 100 ML ASDIR PRN IV Hydralazine HCl (APRESOLINE) 10 MG Q8H PRN PRN I V Hydrocodone Bitart/Acetaminophen (NORCO 5/325 TA BLET (C-II)) 1 TAB Q4H PRN PRN PO Hydrocodone Bitart/Acetaminophen (NORCO 5/325 TA BLET (C-II)) 2 TAB Q4H PRN PRN PO Meperidine HCl (DEMEROL (C-II)) 25 MG Q4H PRN SD N IM Meperidine HCl (DEMEROL (C-II)) 50 MG Q4H PRN SD N IM Nicardipine HCl (CARDENE I.V.) 25 MG ASDIR PRN I V (CKD) Sodium Chloride (SODIUM CHLORIDE 0.9%) 250 ML Ondansetron HCl (ZOFRAN) 4 MG Q8H PRN PRN IV Phenol (CHLORASEPTIC) 5 SPRAYS Q2H PRN PRN MM Potassium Chloride (KLOR-CON M20) 20 MEQ ASDIR P RN PO Potassium Chloride (Potassium Chloride) 50 ML DIR PRN IV Cefazolin Sodium (ANCEF) 1 GM ONCALL IV (DC) Sodium Chloride (SODIUM CHLORIDE 0.9%) 10 ML Dietitian nutrition assessment The data set between the solid lines has been im ported from the dietitian's assessment. BMI Calculated: 23.5 Nutrition related diagnosis: Nutrition diagnosis details: Nutrition problem: Nutrition etiology: Nutrition signs and symptoms: Nutrition prescription: Dietitian name: Assessment completed: Nutrition provider diagnosis: no nutrition diagn osis Review of dietitian's assessment: unavailable at this time Physical Exam General appearance: alert, awake, oriented, no a cute distress Wound/incision: Location: left neck wound Site condition: dressing clean dry, incision in tact, no drainage, no erythema Cardiovascular: BP/pulses equal bilat., normal h eart sounds, regular rate rhythm Respiratory: aerating well Abdomen: soft, non-tender, normal bowel sounds, no distention Extremities: no edema Neuro/FILE KEEPER: alert, oriented X 3, CNII-XII intact, Tongue is midline without any deviation Results Findings/Data: Laboratory Tests 12/14 0600 Chemistry Sodium (137 - 145 MMOL/L) 130 L Potassium (3.5 - 5.1 MMOL/L) 4.7 Chloride (98 - 107 MMOL/L) 102 Carbon Dioxide (22 - 30 MMOL/L) 22 Anion Gap (14 - 24 MMOL/L) 11 L BUN (9 - 20 MG/DL) 14 Creatinine (0.66 - 1.25 MG/DL) 0.90 Glomerular Filtr Rate > 60 Glucose (74 - 106 MG/DL) 131 H Calcium (8.4 - 10.2 MG/DL) 8.2 L Magnesium (1.6 - 2.3 MG/DL) 2.1 Laboratory Tests 12/14 0600 Hematology WBC (3.8 - 9.8 K/MM3) 10.0 H RBC (3.95 - 5.67 M/MM3) 3.30 L Hgb (12.4 - 16.7 G/DL) 10.4 L Hct (35.9 - 49.5 %) 31.5 L MCV (81.7 - 96.1 fL) 96 MCH (27.6 - 33.2 pg) 31.5 MCHC (32.9 - 35.5 %) 33.0 RDW (12.1 - 15.2 %) 14.5 Plt Count (129 - 368 K/MM3) 152 MPV (7.4 - 10.4 fl) 10.7 H Neut % (Auto) (43 - 75 %) 88.4 H Lymph % (Auto) (14 - 44 %) 5.1 L Norton % (Auto) (4 - 13 %) 5.9 Eos % (Auto) (0 - 6 %) 0.1 Baso % (Auto) (0 - 2 %) 0.1 Neut # (Auto) (2.0 - 7.6 K/mm3) 8.81 H Lymph # (Auto) (1.0 - 3.8 K/mm3) 0.51 L Norton # (Auto) (0.1 - 0.8 K/mm3) 0.59 Eos # (Auto) (0.0 - 0.2 K/mm3) 0.01 Baso # (Auto) (0.0 - 0.2 K/mm3) 0.01 Immature Gran % (0.0 - 2.0 %) 0.4 Nucleated RBC % (0 - 1.0 %) 0.0 Nucleated RBCs # (Man) (0.0 - 0.1 K/mm3) 0.00 Radiology data: Recent Impressions: RADIOLOGY - XR CHEST 1V 12/14 0610 Report Impression - Status: SIGNED Entered: 12/14/2022 0603 IMPRESSION: Single AP view of the chest is provided. Support lines and tubes and surgical drain about the left neck are unchanged . Interstitial opacities favoring edema have sligh tly diminished. Trace left effusion has developed. There is no pneumothorax. No additional interval change. Impression By: [email or web address] - Adrien Ulloa MD Diagnosis, Assessment Plan Free Text A P: Pt. with LICa stenosis S/P left CEA Hypertension Diabetes Hyperlipidemia Pulmonary Hypertension Scleroderma PLAN: Ackworth and Cordis were removed Melissa drain removed Encourage use of IS and ambulation D/C arterial line in am Possible discharge home in am Follow up with Dr. Medeiros in 1-2 weeks. at 2108 RPT #:[id number] END OF REPORT 2022-12-14 [facility] 15:50:00-00:00 [facility] ([facility]) Hospitalist Progress Note REPORT#:[id number] REPORT STATUS: Signed DATE:12/14/22 TIME: 1550 PATIENT: ISAURA YOUNGER UNIT #: [id number] ROOM/BED: [address] : [birth year] AGE: 57 SEX: M ATTEND: Daniel Medeiros MD ADM AUTHOR: Eduardo Acuna MD * ALL edits or amendments must be made on the [email or web address] document * Subjective Chief complaint: Left carotid artery stenosis HPI: Patient reports feeling good; denies any complai nt. No significant pain at the surgical site. Tolerating regular diet. Juarez has been removed, and voiding well. Objective General VS/I O: Vital Signs: Date Time Temp Pulse Resp B/P B/P Pulse O2 O2 F low FiO2 Mean Ox Delivery Rate 12/14 1245 78 23 98 12/14 1230 71 14 99 12/14 1215 83 26 95 12/14 1201 72 13 100 12/14 1200 98.0 86 15 140/55 83 100 Nasal 4 cannula 12/14 1200 69 16 100 12/14 1145 78 18 98 12/14 1130 75 19 128/61 88 91 12/14 1115 73 18 92 12/14 1101 80 24 113/68 87 100 12/14 1100 75 20 100 12/14 1045 74 15 100 12/14 1042 69 13 112/66 83 100 12/14 1030 72 14 100 12/14 1015 71 15 100 12/14 1000 71 11 100 12/14 0945 73 15 100 12/14 0930 71 13 99 12/14 0915 75 15 100 12/14 0900 76 19 100 12/14 0845 78 18 100 12/14 0830 77 20 96 06/23 0815 73 16 98 06/23 0800 71 17 06/23 0800 Nasal 4 cannula 06/23 0800 97.5 80 23 129/55 79 98 Nasal 4 cannula 06/23 0745 66 11 06/23 0730 67 12 94 06/23 0721 64 06/23 0721 66 12 98 06/23 0715 71 14 98 06/23 0700 81 19 98 06/23 0645 66 11 98 06/23 0630 67 11 98 06/23 0615 69 16 99 06/23 0600 62 7 98 06/23 0545 66 8 99 06/23 0530 61 8 98 06/23 0515 60 9 98 06/23 0500 61 8 99 06/23 0445 65 9 100 06/23 0430 61 9 98 06/23 0415 61 10 97 06/23 0400 97.6 06/23 0400 Nasal 4 cannula 06/23 0400 62 8 97 06/23 0345 63 8 98 06/23 0330 65 10 98 06/23 0315 62 8 98 06/23 0300 63 8 97 06/23 0245 66 11 99 06/23 0242 73 15 100 06/23 0230 80 18 99 06/23 0215 62 9 98 06/23 0200 64 12 98 06/23 0158 72 14 98 06/23 0145 65 11 98 06/23 0130 66 11 97 06/23 0115 66 12 95 06/23 0104 70 19 93 06/23 0100 63 12 93 06/23 0045 66 10 97 06/23 0030 66 10 97 06/23 0023 69 13 97 06/23 0015 69 12 98 06/23 0000 68 12 97 06/22 2345 66 10 97 06/22 2337 68 11 97 06/22 2330 66 9 96 06/22 2315 68 10 96 06/22 2300 67 10 96 06/22 2258 70 12 97 06/22 2245 73 15 97 06/22 2230 68 10 96 06/22 2215 71 11 96 06/22 2200 74 12 97 06/22 2145 77 14 96 06/22 2130 71 13 96 06/22 2123 74 06/22 2123 70 9 96 06/22 2115 73 10 96 06/22 2100 74 14 96 06/22 2045 75 12 96 06/22 2029 80 12 97 06/22 2014 75 11 97 06/22 1999 97.6 12/14 1999 Nasal 4 cannula 12/14 1999 82 15 97 12/13 1945 75 11 97 12/13 1930 80 14 99 12/13 1915 85 14 98 12/13 1900 68 11 97 12/13 1845 75 97 12/13 1830 72 96 12/13 1815 70 95 12/13 1800 74 94 12/13 1746 97 Nasal 4 36 cannula 12/13 1745 78 97 12/13 1738 97.8 76 20 98 Nasal 4 cannula 12/13 1730 77 97 12/13 1715 76 96 12/13 1700 78 95 12/13 1645 85 18 155/68 97 97 Nasal 4 cannula 12/13 1630 97.8 80 20 148/62 90 99 Nasal 4 cannula 12/13 1626 Nasal 4 cannula 12/13 1615 98.0 85 18 143/63 89 100 Aerosol 10 60 mask 12/13 1600 98.1 89 18 165/73 103 100 Aerosol 10 60 mask 24 hour I O ending at 0700: 12/14 0700 12/13 1900 Intake Total 1700.00 480.00 Output Total 1445 900 Balance 255.00 -420.00 Intake, IV 1460.00 260.00 Intake, Oral 240 220 Output, 45 Drainage Output, Urine 1400 900 PATIENT WEIGHT: Weight (lb): 173 Weight (oz): 5.8 Weight (kg): 78.471 Medications: Active Meds + DC'd Last 24 Hrs Aspirin (ASPIRIN EC) 81 MG DAILY PO Clopidogrel Bisulfate (PLAVIX) 75 MG DAILY PO (D C) Clopidogrel Bisulfate (PLAVIX) 75 MG DAILY PO Hydrochlorothiazide (HYDRODIURIL) 12.5 MG DAILY PO (CAN) Pantoprazole (PROTONIX) 40 MG DAILY PO Patient Own Medication (PATIENT'S OWN MEDICATION ) AMBRISENTAN 10 MG TABLET DAILY PO Patient Own Medication (PATIENT'S OWN MEDICATION ) TADALAFIL 40MG TABLET DAILY PO Undefined Medication (Farxiga) 10 MG DAILY PO Aspirin (CHILDREN'S ASPIRIN) 81 MG C BK PO (DC) Thyroid (THYROID) 30 MG DAILY 0600 PO Atorvastatin Calcium (LIPITOR) 40 MG BEDTIME PO Cefazolin Sodium (ANCEF) 1 GM Q8H IV (DC) Losartan Potassium (COZAAR) 50 MG BID PO Mupirocin (BACTROBAN NASAL - ADULT ICU) 1 APPLIC BID NASAL Mycophenolate Mofetil (CELLCEPT) 1,000 MG BID PO (CAN) Potassium Chloride/Dextrose/Sod Cl (DEXTROSE 5%- 1/2NS-KCL 20MEQ) 1,000 ML Q12H IV (DC) Benzocaine/Menthol (Cepacol Sore Throat Lozenge) 1 TAB Q2H PRN PRN MM ( CKD) Bisacodyl (BISACODYL SUPP) 10 MG ASDIR PRN RECTA L Calcium Gluconate/Sodium Chloride (Calcium Gluco rafael 1 GM/NS 100 mL) 100 ML ASDIR PRN IV Hydralazine HCl (APRESOLINE) 10 MG Q8H PRN PRN I V Hydrocodone Bitart/Acetaminophen (NORCO 5/325 TA BLET (C-II)) 1 TAB Q4H PRN PRN PO Hydrocodone Bitart/Acetaminophen (NORCO 5/325 TA BLET (C-II)) 2 TAB Q4H PRN PRN PO Meperidine HCl (DEMEROL (C-II)) 25 MG Q4H PRN SD N IM Meperidine HCl (DEMEROL (C-II)) 50 MG Q4H PRN SD N IM Nicardipine HCl (CARDENE I.V.) 25 MG ASDIR PRN I V (CKD) Sodium Chloride (SODIUM CHLORIDE 0.9%) 250 ML Ondansetron HCl (ZOFRAN) 4 MG Q8H PRN PRN IV Phenol (CHLORASEPTIC) 5 SPRAYS Q2H PRN PRN MM Potassium Chloride (KLOR-CON M20) 20 MEQ ASDIR P RN PO Potassium Chloride (Potassium Chloride) 50 ML DIR PRN IV Cefazolin Sodium (ANCEF) 1 GM ONCALL IV (DC) Sodium Chloride (SODIUM CHLORIDE 0.9%) 10 ML Physical Exam General appearance: awake, no acute distress, pl easant, conversational Head/Eyes: atraumatic, normal conjunctiva/sclera , PERRL ENT: moist mucosal membranes, normal dentition, normal ear left, normal ear right Neck: left side covered with dressing; MELISSA drain in place. Right IJ central line in place. Cardiovascular: normal heart sounds, regular rat e rhythm Respiratory: aerating well, clear to auscultatio n, symmetric expansion, no distress Abdomen: non-tender, normal bowel sounds, soft, no distention Extremities: moves all, normal capillary refill, normal range of motion, no clubbing, no cyanosis, pitting edema in bilatera l LEs. Musculoskeletal: normal inspection, painless ran ge of motion, no muscle spasm Neuro/FILE KEEPER: alert, oriented X 3, normal speech, n o motor deficits Skin: dry, normal color, diffuse, small, macular rash. Psychiatry: normal affect, normal judgment/insig ht, normal mood Results Radiology data: Recent Impressions: RADIOLOGY - XR CHEST 1V 12/14 0610 Report Impression - Status: SIGNED Entered: 12/14/2022 0652 IMPRESSION: Single AP view of the chest is provided. Support lines and tubes and surgical drain about the left neck are unchanged . Interstitial opacities favoring edema have sligh tly diminished. Trace left effusion has developed. There is no pneumothorax. No additional interval change. Impression By: [email or web address] - Adrien Ulloa MD Results: labs reviewed, vital signs reviewed, vi kaitlynn signs stable, rhythm personally rev'd Diagnosis, Assessment Plan Problem List/A P: 1. Stenosis of left internal carotid artery 2. Hypertension 3. Hyperlipidemia 4. Peripheral arterial disease with history of revascularization 5. Scleroderma 6. Hypothyroidism 7. GERD (gastroesophageal reflux disease) 8. 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 Anemia of chronic disease Free Text DxA P Notes Free text DxA P notes: PLAN and HOSPITAL COURSE: 12/13/2022: - Patient is s/p left CEA, admitted to ICU, and doing well. - Clear liquid diet; advance as tolerated. - Pain appears well controlled at this time; con nickue current pain meds. - Aggressive BP control. - Resume home meds; will hold Mycopheolate for o ne week post-op. - Monitor labs, sylvia electrolytes since he has h/ o hyponatremia (due to HCTZ which was discontinued recently). - Consult PT/OT. - SCDs for DVT prophylaxis. 12/14/2022: - Patient doing well. - Continue to increase activity. - Pain meds prn. - Other management as per CV surgery team. Quality: Gen Med Crit Care VTE Prophylaxis VTE prophylaxis initiated: yes, no pharmacologic , reason: (post op patient) Current Medications Current medication review: I attest that the foregoing medication list in t medical record is true, accurate, and complete to the best of my knowled ge. Electronically Signed by Eduardo Acuna MD on 12/14 at 2336 RPT #:[id number] END OF REPORT 2022-12-14 [facility] 07:26:00-00:00 [facility] ([facility]) Cardiology Progress Note REPORT#:[id number] REPORT STATUS: Signed DATE:12/14/22 TIME: 725 PATIENT: ISAURA YOUNGER UNIT #: [id number] ROOM/BED: [address] : [birth year] AGE: 57 SEX: M ATTEND: Daniel Medeiros MD ADM AUTHOR: Morgan Ceron MD * ALL edits or amendments must be made on the el [employer]/computer document * Subjective Chief complaint: Carotid disease. HPI: 57 year old male with h/o carotid disease, s/p C EA Objective General VS/I O: 24 hour I O ending at 0700: 12/14 0700 12/13 1900 Intake Total 480.00 Output Total 35 900 Balance -35 -420.00 Intake, IV 260.00 Intake, Oral 220 Output, 35 Drainage Output, Urine 900 Vital Signs: Date Time Temp Pulse Resp B/P B/P Pulse O2 O2 Flow FiO2 Mean Ox Delivery Rate 12/14 0600 62 7 98 12/14 0545 66 8 99 12/14 0530 61 8 98 12/14 0515 60 9 98 12/14 0500 61 8 99 12/14 0445 65 9 100 12/14 0430 61 9 98 12/14 0415 61 10 97 12/14 0400 97.6 12/14 0400 Nasal 4 cannula 12/14 0400 62 8 97 12/14 0345 63 8 98 12/14 0330 65 10 98 12/14 0315 62 8 98 12/14 0300 63 8 97 12/14 0245 66 11 99 12/14 0242 73 15 100 12/14 0230 80 18 99 12/14 0215 62 9 98 12/14 0200 64 12 98 12/14 0158 72 14 98 12/14 0145 65 11 98 12/14 0130 66 11 97 12/14 0115 66 12 95 12/14 0104 70 19 93 12/14 0100 63 12 93 12/14 0045 66 10 97 12/14 0030 66 10 97 12/14 0023 69 13 97 12/14 0015 69 12 98 06 0000 68 12 97 12/13 2345 66 10 97 12/13 2337 68 11 97 12/13 2330 66 9 96 12/13 2315 68 10 96 12/13 2300 67 10 96 12/13 2258 70 12 97 12/13 2245 73 15 97 12/13 2230 68 10 96 12/13 2215 71 11 96 12/13 2200 74 12 97 12/13 2145 77 14 96 12/13 2130 71 13 96 12/13 2123 74 06 2123 70 9 96 12/13 2115 73 10 96 12/13 2100 74 14 96 12/13 2045 75 12 96 12/13 2029 80 12 97 12/13 2014 75 11 97 12/14 1999 97.6 12/14 1999 Nasal 4 cannula 12/14 1999 82 15 97 12/13 1945 75 11 97 12/13 1930 80 14 99 12/13 1915 85 14 98 12/13 1900 68 11 97 12/13 1845 75 97 12/13 1830 72 96 12/13 1815 70 95 12/13 1800 74 94 12/13 1746 97 Nasal 4 36 cannula 12/13 1745 78 97 12/13 1738 97.8 76 20 98 Nasal 4 cannula 12/13 1730 77 97 12/13 1715 76 96 12/13 1700 78 95 12/13 1645 85 18 155/68 97 97 Nasal 4 cannula 12/13 1630 97.8 80 20 148/62 90 99 Nasal 4 cannula 12/13 1626 Nasal 4 cannula 12/13 1615 98.0 85 18 143/63 89 100 Aerosol 10 60 mask 12/13 1600 98.1 89 18 165/73 103 100 Aerosol 10 60 mask 12/13 1545 98.0 98 18 160/72 101 100 Aerosol 10 60 mask 12/13 1545 98.1 91 20 99 Aerosol 10 60 mask 12/13 1531 98.2 06 1530 98.0 100 20 159/75 103 100 Aerosol 1 0 60 mask PATIENT WEIGHT: Weight (lb): 173 Weight (oz): 5.8 Weight (kg): 78.636 Medications: Active Meds + DC'd Last 24 Hrs Aspirin (ASPIRIN EC) 81 MG DAILY PO Clopidogrel Bisulfate (PLAVIX) 75 MG DAILY PO (D C) Clopidogrel Bisulfate (PLAVIX) 75 MG DAILY PO Hydrochlorothiazide (HYDRODIURIL) 12.5 MG DAILY PO (CAN) Pantoprazole (PROTONIX) 40 MG DAILY PO Patient Own Medication (PATIENT'S OWN MEDICATION ) AMBRISENTAN 10 MG TABLET DAILY PO Patient Own Medication (PATIENT'S OWN MEDICATION ) TADALAFIL 40MG TABLET DAILY PO Undefined Medication (Farxiga) 10 MG DAILY PO Aspirin (CHILDREN'S ASPIRIN) 81 MG C BK PO (DC) Thyroid (THYROID) 30 MG DAILY 0600 PO Atorvastatin Calcium (LIPITOR) 40 MG BEDTIME PO Cefazolin Sodium (ANCEF) 1 GM Q8H IV (DC) Losartan Potassium (COZAAR) 50 MG BID PO Mupirocin (BACTROBAN NASAL - ADULT ICU) 1 APPLIC BID NASAL Mycophenolate Mofetil (CELLCEPT) 1,000 MG BID PO (CAN) Potassium Chloride/Dextrose/Sod Cl (DEXTROSE 5%- 1/2NS-KCL 20MEQ) 1,000 ML Q12H IV Benzocaine/Menthol (Cepacol Sore Throat Lozenge) 1 TAB Q2H PRN PRN MM ( CKD) Bisacodyl (BISACODYL SUPP) 10 MG ASDIR PRN RECTA L Calcium Gluconate/Sodium Chloride (Calcium Gluco rafael 1 GM/NS 100 mL) 100 ML ASDIR PRN IV Dexamethasone Sodium Phosphate (DECADRON 4MG IJ) 0 .STK-MED ONE .ROUTE ( DC) Hydralazine HCl (APRESOLINE) 10 MG Q8H PRN PRN I V Hydrocodone Bitart/Acetaminophen (NORCO 5/325 TA BLET (C-II)) 1 TAB Q4H PRN PRN PO Hydrocodone Bitart/Acetaminophen (NORCO 5/325 TA BLET (C-II)) 2 TAB Q4H PRN PRN PO Meperidine HCl (DEMEROL (C-II)) 25 MG Q4H PRN SD N IM Meperidine HCl (DEMEROL (C-II)) 50 MG Q4H PRN SD N IM Nicardipine HCl (CARDENE I.V.) 25 MG ASDIR PRN I V (CKD) Sodium Chloride (SODIUM CHLORIDE 0.9%) 250 ML Ondansetron HCl (ZOFRAN) 4 MG Q8H PRN PRN IV Phenol (CHLORASEPTIC) 5 SPRAYS Q2H PRN PRN MM Potassium Chloride (KLOR-CON M20) 20 MEQ ASDIR P RN PO Potassium Chloride (Potassium Chloride) 50 ML DIR PRN IV Glycopyrrolate (ROBINUL IJ) 0 .STK-MED ONE .ROUT E (DC) Fentanyl Citrate (SUBLIMAZE (C-II)) 0 .STK-MED O NE .ROUTE (DC) Sugammadex Sodium (Bridion) 0 .STK-MED ONE .ROUT E (DC) Ondansetron HCl (ZOFRAN) 0 .STK-MED ONE .ROUTE ( DC) Calcium Chloride (CALCIUM CHLORIDE) 0 .STK-MED O NE .ROUTE (DC) Gentamicin Sulfate (GARAMYCIN) 0 .STK-MED ONE .R OUTE (DC) Heparin Sodium/Sodium Chloride (HEPARIN 1000 UNI TS/NS 500ML) 500 ML .STK-MED ONE IV (DC) Nicardipine HCl (CARDENE 25MG/250ML PREMIX) 250 ML .STK-MED ONE IV (DC) Phenylephrine HCl (KAROL[place]-SYNEPHRINE/NS 10MG/100ML) 0 .STK-MED ONE IV (DC) Protamine Sulfate (PROTAMINE SULFATE) 0 .STK-MED ONE .ROUTE (DC) Cefazolin Sodium (ANCEF) 0 .STK-MED ONE .ROUTE ( DC) Cefazolin Sodium (ANCEF) 0 .STK-MED ONE .ROUTE ( DC) Heparin Sodium (Porcine) (Heparin Sodium) 0 .STK -MED ONE .ROUTE (DC) Rocuronium Powell (ZEMURON) 0 .STK-MED ONE .ROU TE (DC) Fentanyl Citrate (fentaNYL CITRATE (C-II)) 0 .ST K-MED ONE .ROUTE (DC) Heparin Sodium (Porcine) (Heparin Sodium) 0 .STK -MED ONE .ROUTE (DC) Propofol (DIPRIVAN) 0 .STK-MED ONE .ROUTE (DC) Rocuronium Powell (ZEMURON) 0 .STK-MED ONE .ROU TE (DC) Cefazolin Sodium (ANCEF) 0 .STK-MED ONE .ROUTE ( DC) Lidocaine HCl (XYLOCAINE 1%) 5 ML .STK-MED ONE I V (DC) Cefazolin Sodium (ANCEF) 1 GM ONCALL IV (DC) Sodium Chloride (SODIUM CHLORIDE 0.9%) 10 ML Physical Exam General appearance: alert, awake, oriented Head/Eyes: atraumatic, normocephalic ENT: moist mucosal membranes Neck: no JVD Cardiovascular: CV assessment: regular rate and rhythm Respiratory: clear to auscultation, no distress Lower extremity: LE assessment: no edema Musculoskeletal: full range of motion Neuro/FILE KEEPER: alert, oriented X 3, CN II-XII intact Skin: dry, intact Psychiatry: normal affect, normal judgment/insig ht, normal mood Results Findings/Data: Laboratory Tests 12/13 1542 Blood Gas Puncture Site AL ABG pH (7.35 - 7.45 mmHg) 7.36 ABG pCO2 (35.0 - 45.0 mmHg) 35.8 ABG pO2 (80.0 - 100.0 mmol/L) 119.5 H ABG HCO3 (20.0 - 26.0 mmol/L) 20.0 ABG O2 Saturation (95.0 - 100.0 %) 98.2 ABG Base Excess (-3.0 - 3.0 mmol/L) -4.7 L Fredo Test (CHECK) NA Temperature (37 C) 37.0 O2 Delivery Device FACETENT FiO2 (%) 60 Laboratory Tests 12/14 12/13 12/13 0600 1540 0900 Chemistry Sodium (137 - 145 MMOL/L) 130 L 132 L 133 L Potassium (3.5 - 5.1 MMOL/L) 4.7 4.2 4.6 Chloride (98 - 107 MMOL/L) 102 102 102 Carbon Dioxide (22 - 30 MMOL/L) 22 25 24 Anion Gap (14 - 24 MMOL/L) 11 L 9 L BUN (9 - 20 MG/DL) 14 14 16 Creatinine (0.66 - 1.25 MG/DL) 0.90 1.00 1.00 Glomerular Filtr Rate > 60 > 60 > 60 Glucose (74 - 106 MG/DL) 131 H 110 H 83 Calcium (8.4 - 10.2 MG/DL) 8.2 L 9.6 8.7 Magnesium (1.6 - 2.3 MG/DL) 2.1 2.4 H Laboratory Tests 12/13 0900 Coagulation INR (0.86 - 1.14) 1.1 APTT (27.2 - 37.9 SECONDS) 30.9 PT Patient/Control Mix (10.1 - 12.6 SECONDS) 12 .2 Laboratory Tests 12/14 12/13 12/13 0600 1540 0834 Hematology WBC (3.8 - 9.8 K/MM3) 10.0 H 8.0 5.1 RBC (3.95 - 5.67 M/MM3) 3.30 L 3.40 L 3.77 L Hgb (12.4 - 16.7 G/DL) 10.4 L 10.7 L 11.8 L Hct (35.9 - 49.5 %) 31.5 L 32.8 L 36.4 MCV (81.7 - 96.1 fL) 96 97 H 97 H MCH (27.6 - 33.2 pg) 31.5 31.5 31.3 MCHC (32.9 - 35.5 %) 33.0 32.6 L 32.4 L RDW (12.1 - 15.2 %) 14.5 14.9 14.8 Plt Count (129 - 368 K/MM3) 152 162 156 MPV (7.4 - 10.4 fl) 10.7 H 10.4 10.9 H Neut % (Auto) (43 - 75 %) 88.4 H 66.5 68.5 Lymph % (Auto) (14 - 44 %) 5.1 L 17.1 14.9 Norton % (Auto) (4 - 13 %) 5.9 8.4 8.7 Eos % (Auto) (0 - 6 %) 0.1 7.0 H 6.9 H Baso % (Auto) (0 - 2 %) 0.1 0.4 0.6 Neut # (Auto) (2.0 - 7.6 K/mm3) 8.81 H 5.28 3.4 6 Lymph # (Auto) (1.0 - 3.8 K/mm3) 0.51 L 1.36 0. 75 L Norton # (Auto) (0.1 - 0.8 K/mm3) 0.59 0.67 0.44 Eos # (Auto) (0.0 - 0.2 K/mm3) 0.01 0.56 H 0.35 H Baso # (Auto) (0.0 - 0.2 K/mm3) 0.01 0.03 0.03 Immature Gran % (0.0 - 2.0 %) 0.4 0.6 0.4 Nucleated RBC % (0 - 1.0 %) 0.0 0.0 0.0 Nucleated RBCs # (Man) (0.0 - 0.1 K/mm3) 0.00 0 .00 0.00 Laboratory Tests 12/14 12/13 0600 1540 Chemistry Magnesium (1.6 - 2.3 MG/DL) 2.1 2.4 H Laboratory Tests 12/13 0900 Coagulation APTT (27.2 - 37.9 SECONDS) 30.9 Radiology data: Recent Impressions: RADIOLOGY - XR CHEST 1V 12/13 0835 Report Impression - Status: SIGNED Entered: 12/13/2022 0851 IMPRESSION: Cardiomegaly with mild pulmonary edema. Impression By: [email or web address] - Cole Reeves MD RADIOLOGY - XR CHEST 1V 12/13 1515 Report Impression - Status: SIGNED Entered: 12/13/2022 1543 IMPRESSION: Mild cardiomegaly with mild coarsening of inters titial markings, similar to prior exam. Impression By: [email or web address] - Amita Alvarenga MD RADIOLOGY - XR CHEST 1V 12/14 0610 Report Impression - Status: SIGNED Entered: 12/14/2022 0647 IMPRESSION: Single AP view of the chest is provided. Support lines and tubes and surgical drain about the left neck are unchanged . Interstitial opacities favoring edema have sligh tly diminished. Trace left effusion has developed. There is no pneumothorax. No additional interval change. 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 Ambulate at 1007 RPT #:[id number] END OF REPORT 2022-12-13 [facility] 22:29:00-00:00 [facility] ([facility]) Brief Op Note REPORT#:[id number] REPORT STATUS: Signed DATE:12/13/22 TIME: 2228 PATIENT: ISAURA YOUNGER UNIT #: [id number] ROOM/BED: [address] : [birth year] AGE: 57 SEX: M ATTEND: Daniel Medeiros MD ADM AUTHOR: China Sotelo * ALL edits or amendments must be made on the [email or web address] document * Op/Inv Proc Note - Brief Pre-procedure diagnosis: LICA stenosis Post-procedure diagnosis: same as pre procedure dx Procedures performed: Left carotid endarterectomy with hemashield patc h arterioplasty Insertion of right subclavian central line using sosnosite US guidance Primary Surgeon: Jose Medeiros Office Runner(s): China Loera PA-C Anesthesiologist: Dr. Geronimo Anesthesia: general anesthesia Findings: See detailed op report Complications: none Estimated blood loss in ml's: 100cc Specimens removed/altered: left carotid plaque Drain(s): Juarez Catheter Placed, MELISSA drain Approach: open Wound class: clean Disposition: ICU, stable at 2233 RPT #:[id number] END OF REPORT 2022-12-13 [facility]-00:00 [facility] ([facility]) Cardiology Progress Note REPORT#:[id number] REPORT STATUS: Signed DATE:12/13/22 TIME: 1847 PATIENT: ISAURA YOUNGER UNIT #: [id number] ROOM/BED: [address] : [birth year] AGE: 57 SEX: M ATTEND: Daniel Medeiros MD ADM AUTHOR: Morgan Ceron MD * ALL edits or amendments must be made on the [email or web address] document * Subjective Chief complaint: Carotid disease. 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 Ambulate at [facility] [place] RPT #:[id number] END OF REPORT 2022-12-13 [facility] 17:15:00-00:00 [facility] ([facility]) Hospitalist History Physical REPORT#:[id number] REPORT STATUS: Signed DATE:12/13/22 TIME: 1714 PATIENT: ISAURA YOUNGER UNIT #: [id number] ROOM/BED: [address] : [birth year] AGE: 57 SEX: M ATTEND: Daniel Medeiros MD ADM AUTHOR: Eduardo Acuna MD * ALL edits or amendments must be made on the [email or web address] document * History of Present Illness HPI Chief complaint: Left carotid artery stenosis HPI: Patient is a 57-year-old male with known HTN, HLD, PAD, scleroderma, pulmonary hypertension, and longstanding history of tobacc o dependence who was noted to have greater than 80% stenosis of left internal carotid artery in screening study. Patient and his who is at the [facility] indicated that after the diagnosis of scleroderma and pulmonary hypertens ion in July 2022 he underwent "whole body cathet erization" which revealed a carotid stenosis. He is being followed by the general technician Dr. Angelique naidu [facility] who then referred him to Dr. Medeiros, who arranged electi ve surgery for today. Patient is now seen in ICU after the surgery. He reports feeling okay and denies any complaint except for some pain at the surgical s ite. He has been started on liquid diet which she appears to be tolerating w ell. His was at the bedside who appears to be actively involved in h is medical care and provide significant amount of information. Patient has PAD and has alre macy undergone angioplasty and stent placement in the right LE by Dr. Merino, and revascularization of LLE is planned within the next couple of months. For his scleroderma he has bee n under the care of the senior data mining analyst Dr. Mayorga in the [facility]. From the history it sounds like he has cutaneous and pulmonary involvement. His PAD most likely is related to longstanding history of tobacco dependence. Informant/historian: patient, family/other at be dside History Past Medical Surgical Hx Patient History: 1. Hypertension 2. Hyperlipidemia 3. Peripheral arterial disease with history of revascularization 4. Scleroderma 5. Hypothyroidism 6. GERD (gastroesophageal reflux disease) 7. Pulmonary hypertension secondary to sclerode rma Additional surgical history: No significant surgical history. H/O angiogram and stenting in RLE. Family History Additional family history: Patient hasn't seen his father in 10 years, but he believes he's overall healthy. Mother has rheumatoid arthritis, HTN. Social History Alcohol use: Alcohol use (1-7 drinks per week) Drug use: Denies recreational drugs Smoking status for patients 13 years old or olde r: Former Smoker Date last smoked: 08/21/21 Packs per day: 1 Years smoked: 32 Pack years: 32 Other social history: Employed, Good social supp ort Additional social history: ; has two children. 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 Medication/Allergy-Vaccine Hx Medications: Home Medications: ASPIRIN 81 MG PO DAILY LOSARTAN (COZAAR) 50 MG PO BID MYCOPHENOLATE MOFETIL (CELLCEPT) 1,000 MG PO BID ATORVASTATIN (LIPITOR) 40 MG PO DAILY AMBRISENTAN (LETAIRIS) 10 MG PO DAILY TADALAFIL (CIALIS) 40 MG PO DAILY CLOPIDOGREL (PLAVIX) 75 MG PO DAILY PANTOPRAZOLE DR (PROTONIX) 40 MG PO DAILY THYROID,PORK (ARMOUR THYROID) 30 MG PO DAILY Dapagliflozin Propanediol (FARXIGA) 10 MG PO ISRAEL LY Allergies: Coded Allergies: No Known Allergies (08/03/22) Review of Systems Constitutional: Denies: chills, fatigue, fev er, generalized weakness, lethargy, malaise, recent wt loss. Skin: Reports: ecchymosis, rash. Denies: abrasion, bru ising, contusion, itching, swelling. Allergy/Immun: Denies: allergic reaction, anaphylaxis, hives, i tching, rhinorrhea, sneezing. Eyes: Denies: redness, discharge, visual loss/blurred, itching, eye pain. ENT: Denies: ear drainage, earache, nasal con gestion, nose bleeding, sinus problem, sore throat. Respiratory: Reports: SOB. Denies: hemopt ysis, non productive cough, parox nocturnal dyspnea , pleuritic pain, productive cough (sputum), whe ezing. Cardiovascular: Reports: SWEENEY (dyspnea on exertion), edema. Denie s: chest pain, orthopnea, palpitations, parox nocturnal dyspnea, other (cl audication of bilat LEs). GI: Reports: GERD. Denies: abdominal pain, anorexia, constipation, diarrhea, hematemesis, hematochezia, melena, nausea, vomit ing. : Reports: frequency, nocturia. Denies: dysuria, f lank pain, hematuria, penile discharge, urgency. Musculoskeletal: Reports: extremity pain. Denies: arthritis, extr emity swelling, joint pain, joint swelling, lumbar pain, myalgias, neck pain , thoracic pain. Heme: Reports: petechiae. Denies: adenopathy, bleeding , bruising. Endocrine: Denies: cold intolerance, heat intolerance, poly dipsia, polyphagia, polyuria, weight gain, weight loss. Neuro: Denies: bladder dysfunction, bowel dysfunction, confusion, dizziness, gait problem, headache, numbness, slurred speech, vis ion change. Psych: Denies: agitation, anxiety, confusion, depression, homicidal ideation, insomnia, stress, suicidal ideation. All systems rev neg: except as noted OBJECTIVE VS/I O: Vital Signs Date Temp Pulse Resp B/P B/P Mean Pulse Ox FiO2 12/13 97.4-98.2 73-91 - 149/79 97-99 60 Last Documented: Result Date Time O2 Delivery Nasal cannula 12/13 1626 O2 Flow Rate 4 12/13 1626 Pulse Ox 99 12/13 1545 FiO2 60 12/13 1545 Temp 98.1 12/13 1545 Pulse 91 12/13 1545 Resp 20 12/13 1545 B/P 149/79 12/13 0645 24 hour I O ending at 0700: 12/13 0700 12/12 1900 Intake Total Output Total Balance Patient 173 lb Weight Weight Stated/Reported Measurement Method Patient Weight and BMI Weight (kg): 78.636 BMI: 23.5 Medications: Active Meds + DC'd Last 24 Hrs Aspirin (ASPIRIN EC) 81 MG DAILY PO Clopidogrel Bisulfate (PLAVIX) 75 MG DAILY PO (D C) Clopidogrel Bisulfate (PLAVIX) 75 MG DAILY PO Hydrochlorothiazide (HYDRODIURIL) 12.5 MG DAILY PO Pantoprazole (PROTONIX) 40 MG DAILY PO Undefined Medication (Farxiga) 10 MG DAILY PO Aspirin (CHILDREN'S ASPIRIN) 81 MG C BK PO (DC) Thyroid (THYROID) 30 MG DAILY 0600 PO Atorvastatin Calcium (LIPITOR) 40 MG BEDTIME PO Cefazolin Sodium (ANCEF) 1 GM Q8H IV Losartan Potassium (COZAAR) 50 MG BID PO Mupirocin (BACTROBAN NASAL - ADULT ICU) 1 APPLIC BID NASAL Mycophenolate Mofetil (CELLCEPT) 1,000 MG BID PO Potassium Chloride/Dextrose/Sod Cl (DEXTROSE 5%- 1/2NS-KCL 20MEQ) 1,000 ML Q12H IV Benzocaine/Menthol (Cepacol Sore Throat Lozenge) 1 TAB Q2H PRN PRN MM ( CKD) Bisacodyl (BISACODYL SUPP) 10 MG ASDIR PRN RECTA L Calcium Gluconate/Sodium Chloride (Calcium Gluco rafael 1 GM/NS 100 mL) 100 ML ASDIR PRN IV Dexamethasone Sodium Phosphate (DECADRON 4MG IJ) 0 .STK-MED ONE .ROUTE ( DC) Hydralazine HCl (APRESOLINE) 10 MG Q8H PRN PRN I V Hydrocodone Bitart/Acetaminophen (NORCO 5/325 TA BLET (C-II)) 1 TAB Q4H PRN PRN PO Hydrocodone Bitart/Acetaminophen (NORCO 5/325 TA BLET (C-II)) 2 TAB Q4H PRN PRN PO Meperidine HCl (DEMEROL (C-II)) 25 MG Q4H PRN SD N IM Meperidine HCl (DEMEROL (C-II)) 50 MG Q4H PRN SD N IM Nicardipine HCl (CARDENE I.V.) 25 MG ASDIR PRN I V (CKD) Sodium Chloride (SODIUM CHLORIDE 0.9%) 250 ML Ondansetron HCl (ZOFRAN) 4 MG Q8H PRN PRN IV Phenol (CHLORASEPTIC) 5 SPRAYS Q2H PRN PRN MM Potassium Chloride (KLOR-CON M20) 20 MEQ ASDIR P RN PO Potassium Chloride (Potassium Chloride) 50 ML DIR PRN IV Glycopyrrolate (ROBINUL IJ) 0 .STK-MED ONE .ROUT E (DC) Fentanyl Citrate (SUBLIMAZE (C-II)) 0 .STK-MED ONE .ROUTE (DC) Sugammadex Sodium (Bridion) 0 .STK-MED ONE .ROUT E (DC) Ondansetron HCl (ZOFRAN) 0 .STK-MED ONE .ROUTE ( DC) Calcium Chloride (CALCIUM CHLORIDE) 0 .STK-MED O NE .ROUTE (DC) Gentamicin Sulfate (GARAMYCIN) 0 .STK-MED ONE .R OUTE (DC) Heparin Sodium/Sodium Chloride (HEPARIN 1000 UNI TS/NS 500ML) 500 ML .STK-MED ONE IV (DC) Nicardipine HCl (CARDENE 25MG/250ML PREMIX) 250 ML .STK-MED ONE IV (DC) Phenylephrine HCl (KAROL[place]-SYNEPHRINE/NS 10MG/100ML) 0 .STK-MED ONE IV (DC) Protamine Sulfate (PROTAMINE SULFATE) 0 .STK-MED ONE .ROUTE (DC) Cefazolin Sodium (ANCEF) 0 .STK-MED ONE .ROUTE ( DC) Cefazolin Sodium (ANCEF) 0 .STK-MED ONE .ROUTE ( DC) Heparin Sodium (Porcine) (Heparin Sodium) 0 .STK -MED ONE .ROUTE (DC) Rocuronium Powell (ZEMURON) 0 .STK-MED ONE .ROU TE (DC) Fentanyl Citrate (fentaNYL CITRATE (C-II)) 0 .ST K-MED ONE .ROUTE (DC) Heparin Sodium (Porcine) (Heparin Sodium) 0 .STK -MED ONE .ROUTE (DC) Propofol (DIPRIVAN) 0 .STK-MED ONE .ROUTE (DC) Rocuronium Powell (ZEMURON) 0 .STK-MED ONE .ROU TE (DC) Cefazolin Sodium (ANCEF) 0 .STK-MED ONE .ROUTE ( DC) Lidocaine HCl (XYLOCAINE 1%) 5 ML .STK-MED ONE I V (DC) Cefazolin Sodium (ANCEF) 1 GM ONCALL IV Sodium Chloride (SODIUM CHLORIDE 0.9%) 10 ML General appearance: awake, no acute distress, pl easant, conversational Head/Eyes: atraumatic, normal conjunctiva/sclera , PERRL ENT: moist mucosal membranes, normal dentition, normal ear left, normal ear right Neck: left side covered with dressing; MELISSA drain in place. Right IJ central line in place. Cardiovascular: normal heart sounds, regular rat e rhythm Respiratory: aerating well, clear to auscultatio n, symmetric expansion, no distress Abdomen: non-tender, normal bowel sounds, soft, no distention Extremities: moves all, normal capillary refill, normal range of motion, no clubbing, no cyanosis, pitting edema in bilatera l LEs. Musculoskeletal: normal inspection, painless ran ge of motion, no muscle spasm Neuro/FILE KEEPER: alert, oriented X 3, normal speech, n o motor deficits Skin: dry, normal color, diffuse, small, macular rash. Psychiatry: normal affect, normal judgment/insig ht, normal mood Results Findings/Data: Laboratory Tests: 12/13 12/13 12/13 1540 0900 0834 Chemistry Sodium (137 - 145 MMOL/L) 132 L 133 L Potassium (3.5 - 5.1 MMOL/L) 4.2 4.6 Chloride (98 - 107 MMOL/L) 102 102 Carbon Dioxide (22 - 30 MMOL/L) 25 24 Anion Gap (14 - 24 MMOL/L) 9 L BUN (9 - 20 MG/DL) 14 16 Creatinine (0.66 - 1.25 MG/DL) 1.00 1.00 Glomerular Filtr Rate > 60 > 60 Glucose (74 - 106 MG/DL) 110 H 83 Calcium (8.4 - 10.2 MG/DL) 9.6 8.7 Magnesium (1.6 - 2.3 MG/DL) 2.4 H Coagulation INR (0.86 - 1.14) 1.1 APTT (27.2 - 37.9 SECONDS) 30.9 PT Patient/Control Mix (10.1 - 12.6 SECONDS) 12 .2 Hematology WBC (3.8 - 9.8 K/MM3) 8.0 5.1 RBC (3.95 - 5.67 M/MM3) 3.40 L 3.77 L Hgb (12.4 - 16.7 G/DL) 10.7 L 11.8 L Hct (35.9 - 49.5 %) 32.8 L 36.4 MCV (81.7 - 96.1 fL) 97 H 97 H MCH (27.6 - 33.2 pg) 31.5 31.3 MCHC (32.9 - 35.5 %) 32.6 L 32.4 L RDW (12.1 - 15.2 %) 14.9 14.8 Plt Count (129 - 368 K/MM3) 162 156 MPV (7.4 - 10.4 fl) 10.4 10.9 H Neut % (Auto) (43 - 75 %) 66.5 68.5 Lymph % (Auto) (14 - 44 %) 17.1 14.9 Norton % (Auto) (4 - 13 %) 8.4 8.7 Eos % (Auto) (0 - 6 %) 7.0 H 6.9 H Baso % (Auto) (0 - 2 %) 0.4 0.6 Neut # (Auto) (2.0 - 7.6 K/mm3) 5.28 3.46 Lymph # (Auto) (1.0 - 3.8 K/mm3) 1.36 0.75 L Norton # (Auto) (0.1 - 0.8 K/mm3) 0.67 0.44 Eos # (Auto) (0.0 - 0.2 K/mm3) 0.56 H 0.35 H Baso # (Auto) (0.0 - 0.2 K/mm3) 0.03 0.03 Immature Gran % (0.0 - 2.0 %) 0.6 0.4 Nucleated RBC % (0 - 1.0 %) 0.0 0.0 Nucleated RBCs # (Man) (0.0 - 0.1 K/mm3) 0.00 0 .00 Laboratory Tests 12/13/22 1540: [Embedded Image Not Available] 12/13/22 0900: [Embedded Image Not Available] 12/13/22 0834: [Embedded Image Not Available] Radiology data: Recent Impressions: RADIOLOGY - XR CHEST 1V 12/13 0835 Report Impression - Status: SIGNED Entered: 12/13/2022 0851 IMPRESSION: Cardiomegaly with mild pulmonary edema. Impression By: [email or web address] - Cole Reeves MD RADIOLOGY - XR CHEST 1V 12/13 1515 Report Impression - Status: SIGNED Entered: 12/13/2022 1543 IMPRESSION: Mild cardiomegaly with mild coarsening of inters titial markings, similar to prior exam. Impression By: [email or web address] - Amita Alvarenga MD Results: labs reviewed, vital signs reviewed, vi kaitlynn signs stable, rhythm personally rev'd, current med profile rev'd Diagnosis, Assessment Plan Problem List/A P: 1. Stenosis of left internal carotid artery 2. Hypertension 3. Hyperlipidemia 4. Peripheral arterial disease with history of revascularization 5. Scleroderma 6. Hypothyroidism 7. GERD (gastroesophageal reflux disease) 8. 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 Anemia of chronic disease Free Text A P: - Patient is s/p left CEA, admitted to ICU, and doing well. - Clear liquid diet; advance as tolerated. - Pain appears well controlled at this time; con tinue current pain meds. - Aggressive BP control. - Resume home meds; will hold Mycopheolate for o ne week post-op. - Monitor labs, sylvia electrolytes since he has h/ o hyponatremia (due to HCTZ which was discontinued recently). - Consult PT/OT. - SCDs for DVT prophylaxis. Quality: Gen Med Crit Care VTE Prophylaxis VTE prophylaxis initiated: yes, no pharmacologic , reason: (post op patient) Current Medications Current medication review: I attest that the foregoing medication list in [facility] medical record is true, accurate, and complete to the best of my knowled ge. Electronically Signed by Eduardo Acuna MD on 12/13 at 1842 RPT #:[id number] END OF REPORT 2022-12-13 [id number] [facility] 15:43:00-00:[address] [place] [address] PATIENT NAME: ISAURA YOUNGER ADMIT DATE: 11/23 08/16 ACCOUNT NO: [id number] ROOM NO: Z.SI07 AGE: 57 REPORT TYPE: ELECTROCARDIOGRAM SEX: M ADMITTING PHYSICIAN:Jose Medeiros MD ATTENDING PHYSICIAN:Jose Medeiros MD Order: [id number] Test Reason : post op surgery Test Date/Time Stamp: SatDec 13 2022 15:43:34 Blood Pressure : / mmHG Vent. Rate : 089 BPM Atrial Rate : 089 BPM P-R Int : 172 ms QRS Dur : 108 ms QT Int : 380 ms P-R-T Axes : 068 118 -14 degree s QTc Int : 462 ms Normal sinus rhythm Possible Left atrial enlargement Right bundle branch block Left posterior fascicular block Bifascicular block Possible Anterior infarct (cited on or before ) T wave abnormality, consider inferior ischemia Abnormal ECG When compared with ECG of 13-DEC-2022 09:23, T wave inversion no longer evident in Anterior l ramesh Confirmed by DEX MERINO ([id number]) on 12/13/2022 5:42:08 PM Referred By: Self Referred Confirmed by:DEX GUADALUPE at 1742 PATIENT NAME: ISAURA YOUNGER [id number] 2022-12-13 [id number] [facility] 15:43:00-00:[address] [place] [address] PATIENT NAME: ISAURA YOUNGER ADMIT DATE: 11/23 08/16 ACCOUNT NO: [id number] ROOM NO: Z.SI07 AGE: 57 REPORT TYPE: ELECTROCARDIOGRAM SEX: M ADMITTING PHYSICIAN:Jose Medeiros MD ATTENDING PHYSICIAN:Jose Medeiros MD Order: [id number] Test Reason : post op surgery Test Date/Time Stamp: SatDec 13 2022 15:43:34 Blood Pressure : / mmHG Vent. Rate : 089 BPM Atrial Rate : 089 BPM P-R Int : 172 ms QRS Dur : 108 ms QT Int : 380 ms P-R-T Axes : 068 118 -14 degree s QTc Int : 462 ms Normal sinus rhythm Possible Left atrial enlargement Right bundle branch block Left posterior fascicular block Bifascicular block Possible Anterior infarct (cited on or before ) T wave abnormality, consider inferior ischemia Abnormal ECG When compared with ECG of 13-DEC-2022 09:23, T wave inversion no longer evident in Anterior l ramesh Confirmed by DEX MERINO ([id number]) on 12/14/2022 7:35:00 AM Referred By: Self Referred Confirmed by:DEX GUADALUPE at 0735 PATIENT NAME: ISAURA YOUNGER ACCOUNT #: [id number] [id number] [facility] 09:23:00-00:[id number] [place] [address] PATIENT NAME: ISAURA YOUNGER ADMIT DATE: 11/23 08/16 ACCOUNT NO: [id number] ROOM NO: Z.SI07 AGE: 57 REPORT TYPE: ELECTROCARDIOGRAM SEX: M ADMITTING PHYSICIAN:Jose Medeiros MD ATTENDING PHYSICIAN:Jose Medeiros MD Order: [id number] Test Reason : PREOP Test Date/Time Stamp: SatDec 13 2022 09:23:58 Blood Pressure : / mmHG Vent. Rate : 064 BPM Atrial Rate : 064 BPM P-R Int : 190 ms QRS Dur : 098 ms QT Int : 452 ms P-R-T Axes : 066 118 006 degree s QTc Int : 466 ms Normal sinus rhythm Possible Left atrial enlargement Right axis deviation Low voltage QRS Incomplete right bundle branch block Cannot rule out Anterior infarct , age undetermi jailyn Abnormal ECG When compared with ECG of 04-AUG-2022 05:49, ST no longer depressed in Inferior leads Confirmed by DEX MERINO ([id number]) on 12/13/2022 5:41:50 PM Referred By: Jose Medeiros Confirmed by:DEX BAUTISTA at 1744 PATIENT NAME: ISAURA YOUNGER [id number] 2022-08-04 [id number] [facility] 08:23:00-00:00 [facility] [id number] [place] [address] PATIENT NAME: ISAURA YOUNGER ADMIT DATE: 05/16 ACCOUNT NO: [id number] ROOM NO: AGE: 57 REPORT TYPE: CARDIAC CATHETERIZATION REPORT SEX: M ADMITTING PHYSICIAN: ATTENDING PHYSICIAN: Dex Merino MD PROCEDURE DATE: 08/04/2022 EXPENSE CLERK: Dex Meirno MD PROCEDURES PERFORMED: 1. Left heart catheterization. 2. Right heart catheterization. 3. Selective bilateral carotid angiograms. 4. Abdominal and bilateral selective iliofemoral angiograms. 5. First order angiogram of the left lower extre mity. 6. Third order angiogram of the right lower extr emity. 7. SUPERVISOR LIME and stenting of the right external iliac. 8. Closing device. INDICATIONS FOR THE PROCEDURE: Dyspnea, coronary artery disease, carotid disease, peripheral arterial disease, symptomati c, more on the right than the left; and severe pulmonary hypertension. ESTIMATED BLOOD LOSS: Minimal. COMPLICATIONS: None. CONTRAST: 175 mL ANESTHESIA: Conscious sedation with Versed and f entanyl. 1% lidocaine for local anesthesia. FINAL DIAGNOSES: Nonobstructive coronary artery disease, calcified arteries, severe pulmonary hypertensio n with normal ejection fraction, severe left carotid disease, critical right exte rnal iliac lesion, severe disease of the left distal SFA and the left popliteal. The patient is status post SUPERVISOR LIME and stenting of the right external iliac. The recommendation is left CEA for the left ybarra tid. Treatment of pulmonary hypertension by Pulmonary and Rheumatology, late r on intervention on the left SFA based on symptoms. Medical therapy for the r est of his disease. DESCRIPTION OF PROCEDURE: After informed consent , the patient was brought to the cardiac catheterization lab in a stable fast ing nonsedated state. He was prepped and draped in the usual sterile fashion. After conscious sedation, 1% lidocaine was administered to the left common fe moral artery and femoral vein area for local anesthesia. A 6-Cypriot sheath was placed in the left common PATIENT NAME: ISAURA YOUNGER ACCOUNT #: [id number] femoral artery and left common femoral vein usin g standard techniques and fluoroscopy. After heparinization, left coronary angiogram showed calcified arteries, ectasia in the mid circumflex, 20% frances que in the ostial circumflex, luminal irregularities of the LAD. There is a ve ry small second septal branch that has small vessel diseas e. Right coronary artery showed 30% plaquing of the mid vessel. The artery is also calcified and dom inant. Left ventricular angiogram showed ejection fraction of 60%. Left ventricular end-diastolic pressure of 15. No wall motion abnormalities and no significant aortic valve gradient. Right heart cathet erization showed the RA pressure to be 16/13/10, RV pressure 90/3/14, PA pressure 92/36/59, wedge pr essure //19. The thermodilution cardiac output was not too accura te due to looping of the catheter in the right ventricle. The pressure wa s high that was hard to push the catheter up there. The Ting cardiac output w as 4.9 with an index of 2.5. The saturation was 91.6 in the aorta and the PA was 63.4. Selective carotid angiograms bilaterally, the right is 35% at the origin of the internal calcified. The left 80% at the origin of the internal calcified. Abdominal and bilateral selective iliofemo ral angiograms were carried out. The renal arteries were okay and the distal aorta was okay. The rig ht common iliac was 40%. The left common iliac was 20%. Right external iliac had a lesion that is 95% subtotal. The rest of the SFA had luminal irregu larities and 3-vessel runoff. The left external iliac was 20%. The left common femoral was 30%. The left distal SFA was 70%, eccentric calcified and the popliteal had around 60% with 3-vessel runoff distally. I went ahead and stent ed the right external iliac. The wire was a [employer] wire. I did prima ry stenting using up and over sheath with a VisiPro 6 x 37 at 12 atmospheres that resulted in 0% residual and good distal flow and no angiographic complicatio ns. The left groin was sealed using Angio-Seal. The patient tolerated the procedure well and was transferred back to the holding area for observation. His ve nous sheath will be pulled in about 2-3 hours and he will be discharged later on today on the above recommendations. Dictated By: Dex Merino MD Date Dictated: 08/04/2022 08:23:11 Date Transcribed: 08/04/2022 15:25:29 JESSICA/JHON/SUB Receipt ID: [id number] Authenticated by Dex Merino MD On 07/25 06:33:42 PM at 0633 PATIENT NAME: ISAURA YOUNGER ACCOUNT #: [id number] 2022-08-04 [id number] [facility] 05:49:00-00:[address] [address] PATIENT NAME: ISAURA YOUNGER ADMIT DATE: 07/25 07/16 ACCOUNT NO: [id number] ROOM NO: AGE: 57 REPORT TYPE: eELECTROCARDIOGRAM SEX: M ADMITTING PHYSICIAN: ATTENDING PHYSICIAN: Dex Merino MD Order: [id number] Test Reason : preop Test Date/Time Stamp: [facility] Aug 04 2022 05:49:09 Blood Pressure : / mmHG Vent. Rate : 082 BPM Atrial Rate : 082 BPM P-R Int : 170 ms QRS Dur : 104 ms QT Int : 424 ms P-R-T Axes : 071 114 -41 degree s QTc Int : 495 ms Normal sinus rhythm Biatrial enlargement Right axis deviation Pulmonary disease pattern Incomplete right bundle branch block Right ventricular hypertrophy Cannot rule out Inferior infarct , age undetermi jailyn ST and T wave abnormality, consider anterior isc hemia Abnormal ECG No previous ECGs available Confirmed by DEX MERINO ([id number]) on 08/04/2022 8:32:39 AM Referred By: Dex Merino Confirmed by:DEX GUADALUPE at 0832 PATIENT NAME: ISAURA YOUNGER ACCOUNT #: [id number] 2022-08-03 [id number] [facility] 07:12:00-00:[address] [address] PATIENT NAME: ISAURA YOUNGER ADMIT DATE: ACCOUNT NO: [id number] ROOM NO: AGE: 57 REPORT TYPE: HISTORY AND PHYSICAL SEX: M ADMITTING PHYSICIAN: ATTENDING PHYSICIAN: Dex Merino MD Cardiolo gy PATIENT NAME: ISAURA YOUNGER ADMIT DATE:08/04 ADMISSION DATE: 08/04/2022 12:30:00 EXPENSE CLERK: Dex Merino MD REASON FOR ADMISSION: Atherosclerotic cardiovasc ular disease, coronary artery disease, carotid disease, peripheral arterial di sease, severe pulmonary hypertension, for right and left heart catheterization; carotid, abdominal, and peripheral angiograms. HISTORY OF PRESENT ILLNESS: Isaura is a 57-yea r-old patient, I have been following in my office since 2017. Recently, he has been having problems with worsening pulmonary hypertension. The last echoc ardiogram showed mild mitral valve prolapse and mitral regurgitation, moderat e-to-severe tricuspid regurgitation with pulmonary pressure about 108. The patient was evaluated by Pulmonary and right heart catheterization was re commended along with starting medications for pulmonary hypertension. The patient has been suspected to have atherosclerotic cardiovascul ar disease and coronary artery disease, clinically, even though his last nuclear stress test was negative for ischemia in 03/2021. He has known carotid disease and the left caroti d was 70% to 79% on last evaluation in 03/2022. He was also seen recently by CV Surgery for evaluation of symptomatic peripheral arterial disease and a bnormal arterial Doppler examination, especially of the right lower extre mity. The patient has been symptomatic from the dyspnea , has been symptomatic from his peripheral arterial disease symptoms. He has not had any previous in vasive evaluation. He is here for right and left heart catheterization to check his coronaries and pulmonary pressures. He is also here for selective carotid angiograms and peripheral angiograms to decide on diane scularization of his lower extremities, most likely at a later date. The patient denies any chest pa ins. There is no history of any recent strokes. He was diagnosed to have a T IA and was found to have the above-mentioned carotid disease in 2021. The pat ient has dyspnea at rest and with minimal exertion. PAST MEDICAL HISTORY: Remarkable for the above, in addition to hypertension, hyperlipidemia. He has had paroxysmal supraventr icular tachycardia runs on a Holter monitor. He has COPD and sclerode rma. The patient has been evaluated by Pulmonary and by Rheumatology and it appears to be like the pulmonary hypertension is a combination of his rhe umatologic disease as well as COPD and right heart catheterization is advised. The patient also has been lately having worsening edema. He had a venous Doppler that wa s negative for deep vein thrombosis. PATIENT NAME: ISAURA YOUNGER ACCOUNT #: [id number] PAST SURGICAL HISTORY: Remarkable for tonsillect donna and wrist surgery. ALLERGIES: NO KNOWN DRUG ALLERGIES. MEDICATIONS: Aspirin 81 mg daily, atorvastatin 4 0 mg daily, losartan 100 mg daily. He was started for pulmonary hypertension , on tadalafil. He has been also on mycophenolate 500 mg b.i.d. and he is being started on ambrisentan 10 mg daily, pending insurance approval. SOCIAL HISTORY: The patient just quit smoking re cently. He drinks alcohol socially. There is no history of street drug use . FAMILY HISTORY: Positive for atherosclerotic car diovascular disease. REVIEW OF SYSTEMS: Remarkable for the above. No acute GI or problems. He does have some snoring, the above-mentioned card iopulmonary symptoms, the above-mentioned scleroderma, disabling claudication of the right lower extremity more than the left, the above-mentioned TIA. No strokes. The rest of the review of systems as per above. PHYSICAL EXAMINATION: GENERAL: Reveals a pleasant, middle-aged male, a nxious, in no acute distress. VITAL SIGNS: Blood pressure 142/90, pulse 80 and regular, respiratory rate 18 and unlabored, and temperature afebrile. HEENT: Head atraumatic, normocephalic. Eyes and ENT examination within normal for age. NECK: Supple. CARDIOVASCULAR: Jugular venous elevation noted. No bruits. Normal upstroke. LUNGS: Decreased air entry, otherwise clear and resonant. HEART: Regular rate and rhyt hm with 2-3/6 systolic ejection murmur at the right lower sternal border and the left lower sternal border. No gallops. ABDOMEN: Soft. No tenderness, no organomegaly. N o masses or bruits. EXTREMITIES: 1+ edema, 1-2 distal pulses. No cya nosis or clubbing. NEUROLOGIC: Alert and oriented x3. Examination a ppears to be nonfocal. LABORATORY DATA: Pending. Noninvasive cardiovasc ular workup enclosed. IMPRESSION: This is a 57-year-old patient with m ultiple problems detailed above. He has suspected significant coronary art jaya disease with significant dyspnea. He has known carotid disease with histo ry of TIA, has symptomatic peripheral arterial disease and symptomatic meek re pulmonary hypertension. He is here for right and left h eart catheterization, selective carotid angiograms, and bilateral lower extremity angiograms as well as an abdominal angiogram to assess for treatment for his pulmonary hypertens ion along with his coronary status, the need for carotid surgery and the need for peripheral intervention. PLAN: The recommendation is to proceed with the above-mentioned procedures. The risks and benefits of the planned pr ocedures were discussed in detail with the patient and available family members and he is willing to proceed. Rest as per orders. Dictated By: Dex Merino MD Date Dictated: 08/03/2022 07:12:16 PATIENT NAME: ISAURA YOUNGER ACCOUNT #: [id number] Date Transcribed: 08/03/2022 12:49:18 SFD/SUB Receipt ID: [id number] Authenticated and Edited by Dex Merino MD On 08/03/22 5:59:10 PM at 0601 PATIENT NAME: ISAURA YOUNGER ACCOUNT #: [id number] 2016-07-05 [facility] 21:30:00-00:00 EXAM: MRI brain with and without contrast Center DATE: 07/05/2016 INDICATION: Dysarthria. FINDINGS: Multiplanar magnetic resonan ce imaging images the brain are performed both before and after intravenous administration of 13 mL MultiHance gadolinium contrast. Comparison is made to CT images of the brain dated 07/05/2016 There is no recent ischemic change. There are a few scattered ar eas of T2 hyperintensity in the periventricular deep white matter. There is no old cortical infarct. There is no mass lesion or mass effect. Postcontrast images fail to demonstrate any abno rmal enhancement. The intracranial arterial and venous str uctures demonstrate normal flow voids. There is stenosis of the prashant al cavity secondary to rightward deviation of the nasal septum. There is some mild mucosal disease in the left maxillary sinus. IMPRESSION: No acute abnormality. 2016-07-05 [facility] 21:30:00-00:00 EXAM: MRI brain with and without contrast Center DATE: 07/05/2016 INDICATION: Dysarthria. FINDINGS: Multiplanar magnetic resonan ce imaging images the brain are performed both before and after intravenous administration of 13 mL MultiHance gadolinium contrast. Comparison is made to CT images of the brain dated 07/05/2016 There is no recent ischemic change. There are a few scattered ar eas of T2 hyperintensity in the periventricular deep white matter. There is no old cortical infarct. There is no mass lesion or mass effect. Postcontrast images fail to demonstrate any abno rmal enhancement. The intracranial arterial and venous str uctures demonstrate normal flow voids. There is stenosis of the prashant al cavity secondary to rightward deviation of the nasal septum. There is some mild mucosal disease in the left maxillary sinus. IMPRESSION: No acute abnormality. 2016-07-05 EXAM: CTA BRAIN [facility] 14:20:00-00:00 EXAM: CTA NECK [place] EXAM: CT PERFUSION BRAIN DATE: 07/05/2016 2:00 PM BRIM POUNCER INDICATION: Weakness COMPARISON: Noncontrast CT head, contemporaneous . TECHNIQUE: - Dynamic CT perfusion image s on a limited area of the brain parenchyma are performed during bolus injection of iodinated contrast material. Color maps of relative cerebral blood flow, relative cerebral blood volume, time to peak, and mean transit time are created on an independent workstation and are submitted along with the source image data. -Rapid acquisition spiral CT images of the brain and neck were obtained between the aortic arch and the cranial vertex during intravenous infusion of iodinated contrast for the purposes of CT angiograph y. 3-D CT angiographic image s are created using MIP technique at the acquisition workstation. The source images are also presented for interpretation. IV contrast: 100 cc Omnipaque 350 DLP: 3650 mGy-cm FINDINGS: NECK CTA: Aortic arch: The great vesse ls originate from the aortic arch in the standard configuration. No origin stenosis is identified. The vertebral artery origins are patent bilaterally. Carotid arteries: The cervic al common carotid arteries and cervical internal carotid arteries have a normal course, caliber, and contour. There are areas of calcification at the carotid bifurcations. Th ere is no stenosis on the ri ght. There is 30% stenosis on the left with some low-density mural plaque noted. There is no evidence of vascular injury. Vertebral arteries: The vert ebral arteries have a normal course, caliber and contour. There is scarring in both alyssa ng apices. There is a cyst adjacent to the roots of the right maxillary incisor which may be related to the incisor foramen or odontogenic in origin. BRAIN CTA: Anterior circulation: Normal appearance and a standard branching pattern. No branch occlusion, vascular injury, arteritis, vascular malformation or aneurysm is identified. Posterior circulation: The r ight posterior inferior cerebellar artery is replaced from the anterior inferior cerebellar artery. No branch occlusion, vascular injury, arteritis, vascular malformation or aneurysm is identified. The cantwell of [place] is normal. There is no evidence of darlin ical collateral circulation, collateral score is not applicable. The deep cerebral veins and major venous sinuses are normal. The brain parenchyma and other incidental struct ures are unremarkable. CT PERFUSION: There is no regional abnorma lity in cerebral blood flow, cerebral blood volume, or transit time in the imaged areas of the brain to suggest active oligemia or infarction. Rapid perfusion software fails to demonstrate any area of core or penumbral isc hemia. IMPRESSION: 1. Normal CTA of the head. 2. [id number] stenosis of the left ICA tor gin 3. Normal CT perfusion. (All qualitative and quantit ative assessments of carotid bifurcation and proximal internal carotid artery stenosis are made referencing the distal internal carotid artery {NASCET criteria}.) 2016-07-05 EXAM: CT BRAIN WITHOUT CONTRAST [facility] 14:20:00-00:00 DATE: 07/05/2016 1424 hours BRIM POUNCER C enter INDICATION: Weakness COMPARISON: None TECHNIQUE: Routine axial verito ges of the brain were obtained. Coronal and sagittal reformatted images were generated. FINDINGS: No acute intracranial hemorrhage or extra-axial collection. Siu-white matter interface is maintained. No hydrocephalus, midline shift, or herniation. Calvarium and skull base are intact. Imaged paranasal sinuses and mastoid air cells a re clear. ASPECTS: 10 Laterality: none Caudate: normal Internal capsule: normal Lenticular: normal Insula: normal M1: normal M2: normal M3: normal M4: normal M5: normal M6: normal IMPRESSION: No sign of acute cortical infarct or parenchymal hemorrhage. 2016-07-05 EXAM: CTA BRAIN [facility] 14:20:00-00:00 EXAM: CTA NECK [place] EXAM: CT PERFUSION BRAIN DATE: 07/05/2016 2:00 PM BRIM POUNCER INDICATION: Weakness COMPARISON: Noncontrast CT head, contemporaneous . TECHNIQUE: - Dynamic CT perfusion image s on a limited area of the brain parenchyma are performed during bolus injection of iodinated contrast material. Color maps of relative cerebral blood flow, relative cerebral blood volume, time to peak, and mean transit time are created on an independent workstation and are submitted along with the source image data. -Rapid acquisition spiral CT images of the brain and neck were obtained between the aortic arch and the cranial vertex during intravenous infusion of iodinated contrast for the purposes of CT angiograph y. 3-D CT angiographic image s are created using MIP technique at the acquisition workstation. The source images are also presented for interpretation. IV contrast: 100 cc Omnipaque 350 DLP: 3650 mGy-cm FINDINGS: NECK CTA: Aortic arch: The great vesse ls originate from the aortic arch in the standard configuration. No origin stenosis is identified. The vertebral artery origins are patent bilaterally. Carotid arteries: The cervic al common carotid arteries and cervical internal carotid arteries have a normal course, caliber, and contour. There are areas of calcification at the carotid bifurcations. Th ere is no stenosis on the ri ght. There is 30% stenosis on the left with some low-density mural plaque noted. There is no evidence of vascular injury. Vertebral arteries: The vert ebral arteries have a normal course, caliber and contour. There is scarring in both alyssa ng apices. There is a cyst adjacent to the roots of the right maxillary incisor which may be related to the incisor foramen or odontogenic in origin. BRAIN CTA: Anterior circulation: Normal appearance and a standard branching pattern. No branch occlusion, vascular injury, arteritis, vascular malformation or aneurysm is identified. Posterior circulation: The r ight posterior inferior cerebellar artery is replaced from the anterior inferior cerebellar artery. No branch occlusion, vascular injury, arteritis, vascular malformation or aneurysm is identified. The cantwell of [place] is normal. There is no evidence of darlin ical collateral circulation, collateral score is not applicable. The deep cerebral veins and major venous sinuses are normal. The brain parenchyma and other incidental struct ures are unremarkable. CT PERFUSION: There is no regional abnorma lity in cerebral blood flow, cerebral blood volume, or transit time in the imaged areas of the brain to suggest active oligemia or infarction. Rapid perfusion software fails to demonstrate any area of core or penumbral isc hemia. IMPRESSION: 1. Normal CTA of the head. 2. [id number] stenosis of the left ICA tor gin 3. Normal CT perfusion. (All qualitative and quantit ative assessments of carotid bifurcation and proximal internal carotid artery stenosis are made referencing the distal internal carotid artery {NASCET criteria}.) 2016-07-05 EXAM: CT BRAIN WITHOUT CONTRAST [facility] 14:20:00-00:00 DATE: 07/05/2016 1424 hours BRIM POUNCER C enter INDICATION: Weakness COMPARISON: None TECHNIQUE: Routine axial verito ges of the brain were obtained. Coronal and sagittal reformatted images were generated. FINDINGS: No acute intracranial hemorrhage or extra-axial collection. Siu-white matter interface is maintained. No hydrocephalus, midline shift, or herniation. Calvarium and skull base are intact. Imaged paranasal sinuses and mastoid air cells a re clear. ASPECTS: 10 Laterality: none Caudate: normal Internal capsule: normal Lenticular: normal Insula: normal M1: normal M2: normal M3: normal M4: normal M5: normal M6: normal
[2022-12-16] MEDS ORDERED: LABETALOL 20 MG/4ML SYRINGE IV ONE (09:57)
[2022-12-16 10:13] LABS: Absolute Lymphocytes (CBC) 0.9 K/uL (0.7-4.9); Hematocrit 31.9 % (39.6-49.0); Lymphocytes % 13.2 % (15.3-44.8); MPV 8.8 fL (7.6-11.3); RBC Red Blood Cell Count 3.35 M/uL (4.33-5.43)
[2022-12-16 10:15] LABS: Protime INR 1.03
[2022-12-16] MEDS ORDERED: NA CHLORIDE 0.9% 1,000 ML ONE (10:20)
[2022-12-16 10:34] LABS: Albumin 3.4 g/dL (3.4-5.0); Bilirubin Direct 0.3 mg/dL (0-0.2); Bilirubin Indirect, Calculated 0.5 mg/dL (0.2-0.8); Bilirubin Total 0.8 mg/dL (0.2-1.0); Magnesium 2.3 mg/dL (1.6-2.4); Potassium 4.1 mEq/L (3.5-5.1); Protein, Total 6.9 g/dL (6.4-8.2); Troponin High Sensitivity 10.5 pg/mL (<58.9)
[2022-12-16] MEDS ORDERED: FAMOTIDINE 20 MG/2 ML VIAL IV ONE (10:40)
--- NOTE | 2022-12-16 11:09 | RAD REPORT ---
EXAM DESCRIPTION: RAD - Chest Single View - 12/16/2022 10:35 am CLINICAL HISTORY: COUGH Chest pain. COMPARISON: Chest Pa And Lat (2 Views) dated 11/25/2020; CHEST PA AND LAT 2 VIEW dated 11/09/2014; CHES T SINGLE VIEW dated 12/09/2010 FINDINGS: Portable technique limits examination quality. Mild bilateral interstitial lung opacities probably represents mild interstitial pulmonary edema. The heart is mildly enlarged in size. No displaced fractures.Surgical clips left neck. IMPRESSION: Mild CHF suspected.
--- NOTE | 2022-12-16 11:10 | ER ---
Nurse's Notes [facility] Name: Isaura Solomon Age: 57 yrs Sex: Male : 1965 Arrival Date: 12/16/2022 Time: : Bed 14 Private MD: Diagnosis: Epistaxis;Adverse effect of anticoagulants-aspirin, plavix;Essential (primary) hypertension;Primary pulmonary hypertension;Cardiomegaly;Unspecified combined systolic (congestive) and diastolic (congestive) heart failure Presentation: 12/16 09:29 Chief complaint: Patient states: "I was just sitting down on my porch when my nose aa5 started bleeding". Moderate bleeding noted, nose clip applied and bleeding controlled at this time. Pt reports he had carotid sx at [facility] 12/13/22 and is currently taking Plavix. 09:29 Onset of symptoms was December 16, 2022. aa5 09:29 Acuity: CORBY 2 aa5 09:29 Coronavirus screen: At this time, the client does not indicate any symptoms associated aa5 with coronavirus-19. Ebola Screen: Patient denies travel to an Ebola-affected area in the 21 days before illness onset. Initial Sepsis Screen: Does the patient meet any 2 criteria? HR > 90 bpm. Does the patient have a suspected source of infection? No. Patient's initial sepsis screen is negative. Risk Assessment: Do you want to hurt yourself or someone else? Patient reports no desire to harm self or others. 09:29 Method Of Arrival: Ambulatory aa5 Triage Assessment: 09:40 General: Appears in no apparent distress. uncomfortable, Behavior is calm, cooperative. db Neuro: Level of Consciousness is awake, alert, obeys commands, Oriented to person, place, time, situation. Historical: - Allergies: 09:34 No Known Allergies; aa5 - Home Meds: 15:30 ambrisentan 10 mg oral tablet daily [Active]; tadalafil 20 mg oral tablet twice a day db [Active]; mycophenolate mofetil 500 mg oral tablet four times a day [Active]; aspirin 81 mg Oral capsule daily [Active]; 15:33 losartan 50 mg oral tablet 2 times per day [Active]; atorvastatin 40 mg oral tablet db daily [Active]; clopidogrel 75 mg oral tablet daily [Active]; pantoprazole 40 mg oral tablet, delayed release (enteric coated) daily [Active]; [place] Thyroid 30 mg Oral tablet daily [Active]; Farxiga 10 mg oral tablet daily [Active]; - PMHx: 09:34 Pulmonary Arterial Hypertension; Anemia; Scleroderma; aa5 - PSHx: 09:34 R wrist; Carotid Sx 12/13/22; aa5 - Immunization history:: Adult Immunizations unknown. - Social history:: Smoking status: Patient/guardian denies using tobacco, the patient reports quitting approximately 1 years ago, Patient uses alcohol, weekly. Screenin:33 [facility] ED Fall Risk Assessment (Adult) History of falling in the last 3 months, db including since admission No falls in past 3 months (0 pts) Confusion or Disorientation No (0 pts) Intoxicated or Sedated No (0 pts) Impaired Gait No (0 pts) Mobility Assist Device Used No (0 pt) Altered Elimination No (0 pt) Score/Fall Risk Level 0 - 2 = Low Risk. [facility] ED Fall Risk Assessment (Adult) Score/Fall Risk Level 0 - 2 = Low Risk Oriented to surroundings, Maintained a safe environment. Abuse screen: Denies threats or abuse. Denies injuries from another. Nutritional screening: No deficits noted. Tuberculosis screening: No symptoms or risk factors identified. Assessment: 08:50 Reassessment: Patient appears in no apparent distress at this time. Patient and/or db family updated on plan of care and expected duration. Pain level reassessed. Patient is alert, oriented x 3, equal unlabored respirations, skin warm/dry/pink. nose bleeding since 0830 today. 10:45 Reassessment: ENT PHYSICIAN AT BEDSIDE. PATIENT EPISTAXIS TUBING PLACED IN PATIENT NOSE db BY ENT. PATIENT IN NAD. PACKING TO UNDER NOSE. SOME DRAINAGE FROM TUBING NOTED. 11:15 Reassessment: Ice pack applied to nose and face. db 11:15 Reassessment: Patient appears in no apparent distress at this time. Patient and/or db family updated on plan of care and expected duration. Pain level reassessed. Patient is alert, oriented x 3, equal unlabored respirations, skin warm/dry/pink. General: Appears in no apparent distress. comfortable, Behavior is calm, cooperative. Pain: Complains of pain in face. Neuro: Level of Consciousness is awake, alert, obeys commands, Oriented to person, place, time, situation. 12:08 Reassessment: DR. ANNE AT BEDSIDE. db 14:15 Reassessment: PATIENT GAUZE AND PACKING CHANGED. PATIENT STATES IS DRAINING MORE WITH db BLOOD CLOTS. NOTIFIED DR. ANNE. 15:05 Reassessment: Patient is alert/active/playful, equal unlabored respirations, skin db warm/dry/pink. Attempted to call report to [facility]. Nurse states is unavailable and will call back. 15:10 Reassessment: Pending EMS for transport. db 15:29 Reassessment: Report given to Kimberly at [facility]. Patient going to room 1715. db 15:30 Reassessment: PATIENT PACKING UNDER NOSE CHANGED. TUBING DRAINING. PATIENT STATES HAS db SLOWED DOWN. 16:00 Reassessment: Patient appears in no apparent distress at this time. No changes from db previously documented assessment. Patient and/or family updated on plan of care and expected duration. Pain level reassessed. Patient is alert, oriented x 3, equal unlabored respirations, skin warm/dry/pink. 16:05 Reassessment: Patient appears in no apparent distress at this time. EMS HERE FOR PATIENT TRANSPORT. Vital Signs: 09:29 BP 180 / 79; Pulse 108; Resp 20 S; Temp 98(TE); Pulse Ox 97% on R/A; Weight 74.84 kg aa5 (R); Height 6 ft. 0 in. (R); 09:50 BP 150 / 75; Pulse 99; Resp 16; Pulse Ox 99% on R/A; db 10:05 BP 107 / 54; Pulse 83; Resp 16; Pulse Ox 97% on R/A; db 11:00 BP 175 / 86; Pulse 81; Resp 16; Pulse Ox 100% on R/A; db 12:00 BP 162 / 85; Pulse 87; Resp 16; Pulse Ox 100% on R/A; db 13:00 BP 176 / 83; Pulse 89; Resp 16; Pulse Ox 100% on R/A; db 14:00 BP 169 / 82; Pulse 89; Resp 16; Pulse Ox 98% on R/A; db 14:30 BP 161 / 78; Pulse 94; Resp 16; Pulse Ox 98% on R/A; db 15:00 BP 158 / 69; Pulse 96; Resp 16; Pulse Ox 95% on R/A; db 15:30 BP 166 / 75; Pulse 91; Resp 18; Pulse Ox 97% on R/A; db 09:29 Body Mass Index 22.38 (74.84 kg, 182.88 cm) aa5 Vitals: 15:30 Cardiac Rhythm Assessment Regular Sinus rhythm. db ED Course: 09:26 Patient arrived in ED. am2 09:29 Arm band placed on. aa5 09:30 Pancho Anne MD is Attending Physician. rafael 09:34 Shawna Grider, KASSANDRA is Primary Nurse. db 09:36 Triage completed. aa5 10:03 Basic Metabolic Panel Sent. rs5 10:03 CBC with Diff Sent. rs5 10:03 LFT's Sent. rs5 10:03 Magnesium Sent. rs5 10:03 PT-INR Sent. rs5 10:03 NT PRO-BNP Sent. rs5 10:03 Troponin HS Sent. rs5 10:03 Inserted saline lock: 20 gauge in right antecubital area, using aseptic technique. rs5 Blood collected. 10:37 XRAY Chest (1 view) In Process Unspecified. EDMS 11:09 Nelly Merino MD is Referral Physician. rafael 11:09 Fe Ruiz MD is Referral Physician. rafael 12:31 Patient has correct armband on for positive identification. Bed in low position. Call db light in reach. Side rails up X 1. Client placed on continuous cardiac and pulse oximetry monitoring. NIBP monitoring applied. Warm blanket given. 16:05 No provider procedures requiring assistance completed. Patient transferred, IV remains db in place. Administered Medications: 09:55 Drug: Labetalol IV 5 mg {Note: 5 mg given BP 161/90.} Route: IV; Rate: per protocol; db Site: right antecubital; 16:20 Follow up: Response: No adverse reaction; IV Status: Completed infusion db 10:10 Drug: NS 0.9% IV 250 ml Route: IV; Rate: bolus; Site: right antecubital; db 16:20 Follow up: Response: No adverse reaction; IV Status: Completed infusion; IV Intake: db 250ml 10:30 Drug: NS 0.9% IV 1000 ml Route: IV; Rate: 125 ml/hr; Site: right antecubital; db 16:19 Follow up: Response: No adverse reaction; IV Status: Completed infusion; IV Intake: db 1000ml 10:40 Drug: Famotidine IVP 20 mg Route: IVP; Site: right antecubital; db 16:20 Follow up: Response: No adverse reaction db 11:15 Drug: ceFAZolin IVPB 1 grams Route: IVPB; Site: right antecubital; db 16:19 Follow up: Response: No adverse reaction; IV Status: Completed infusion; IV Intake: 50mldb 11:28 Drug: Thiamine IV 100 mg Route: IV; Rate: bolus; Site: right antecubital; db 16:19 Follow up: IV Status: Completed infusion; IV Intake: 10ml db 11:45 Drug: Furosemide IVP 20 mg Route: IVP; Site: right antecubital; db 16:19 Follow up: Response: No adverse reaction db 13:50 Drug: fentaNYL (PF) IVP 25 mcg Route: IVP; Site: right antecubital; db 16:19 Follow up: Response: No adverse reaction db 13:50 Drug: Ondansetron IVP 4 mg Route: IVP; Site: right antecubital; db 16:19 Follow up: Response: No adverse reaction db 14:20 Drug: fentaNYL (PF) IVP 25 mcg Route: IVP; Site: right antecubital; db 16:19 Follow up: Response: No adverse reaction db Medication: 15:10 VIS not applicable for this client. db Intake: 16:19 IV: 10ml; Total: 10ml. db 16:19 IV: 50ml; Total: 60ml. db 16:19 IV: 1000ml; Total: 1060ml. db 16:20 IV: 250ml; Total: 1310ml. db Output: 12:31 Urine: 700ml (Voided); Total: 700ml. db 14:35 Urine: 600ml (Voided); Total: 1300ml. db 15:23 Urine: 250ml (Voided); Total: 1550ml. db Outcome: 11:09 Discharge ordered by . rafael 12:17 ER care complete, transfer ordered by . rafael 16:05 Instructed on the need for transfer. db 16:21 Transferred by ground EMS to [facility], Transfer form completed. X-rays db sent w/ patient. 16:21 Condition: stable 16:30 Patient left the ED. db Signatures: Dispatcher [employer] Pancho Cobian MD MD cha Calderon, Akua, RN RN aa5 Fang Yadav am2 Shawna Grider RN RN db Pietro Gr rs5 Corrections: (The following items were deleted from the chart) 09:38 09:29 Chief complaint: Patient states: "I was just sitting down on my porch when my aa5 nose started bleeding". Moderate bleeding noted, nose clip applied and bleeding controlled at this time. Pt reports he had carotid sx at [facility] 12/13/22 aa5 16:21 16:21 Instructed on the need for transfer, kyle wright
--- NOTE | 2022-12-16 11:10 | EDPHYS ---
Physician Documentation [facility] Name: Isaura Solomon Age: 57 yrs Sex: Male : 1965 Arrival Date: 12/16/2022 Time: : Bed 14 Private MD: TERA Physician Pancho Shahid HPI: 12/16 11:04 This 57 yrs old Male presents to ER via Ambulatory with complaints of Post rafael Surgical Bleeding. 11:04 The patient presents with a nose bleed, that is apparently anterior. Onset: The rafael symptoms/episode began/occurred just prior to arrival, this morning. Modifying factors: The symptoms are alleviated by nothing. the symptoms are aggravated by nothing. Associated signs and symptoms: The patient has no apparent associated signs or symptoms. Severity of symptoms: At their worst the symptoms were mild moderate in the emergency department the symptoms are unchanged. The patient has not experienced similar symptoms in the past. Historical: - Allergies: 09:34 No Known Allergies; aa5 - Home Meds: 15:30 ambrisentan 10 mg oral tablet daily [Active]; tadalafil 20 mg oral tablet twice a day db [Active]; mycophenolate mofetil 500 mg oral tablet four times a day [Active]; aspirin 81 mg Oral capsule daily [Active]; 15:33 losartan 50 mg oral tablet 2 times per day [Active]; atorvastatin 40 mg oral tablet db daily [Active]; clopidogrel 75 mg oral tablet daily [Active]; pantoprazole 40 mg oral tablet, delayed release (enteric coated) daily [Active]; [place] Thyroid 30 mg Oral tablet daily [Active]; Farxiga 10 mg oral tablet daily [Active]; - PMHx: 09:34 Pulmonary Arterial Hypertension; Anemia; Scleroderma; aa5 - PSHx: 09:34 R wrist; Carotid Sx 12/13/22; aa5 - Immunization history:: Adult Immunizations unknown. - Social history:: Smoking status: Patient/guardian denies using tobacco, the patient reports quitting approximately 1 years ago, Patient uses alcohol, weekly. ROS: 11:05 Constitutional: Negative for fever, chills, and weight loss, Eyes: Negative for injury, rafael pain, redness, and discharge, Neck: Negative for injury, pain, and swelling, Cardiovascular: Negative for chest pain, palpitations, and edema, Respiratory: Negative for shortness of breath, cough, wheezing, and pleuritic chest pain, Abdomen/GI: Negative for abdominal pain, nausea, vomiting, diarrhea, and constipation, Back: Negative for injury and pain, : Negative for injury, bleeding, discharge, and swelling, MS/Extremity: Negative for injury and deformity, Skin: Negative for injury, rash, and discoloration, Neuro: Negative for headache, weakness, numbness, tingling, and seizure, Psych: Negative for depression, anxiety, suicide ideation, homicidal ideation, and hallucinations, Allergy/Immunology: Negative for hives, rash, and allergies, Endocrine: Negative for neck swelling, polydipsia, polyuria, polyphagia, and marked weight changes, Hematologic/Lymphatic: Negative for swollen nodes, abnormal bleeding, and unusual bruising. 11:05 ENT: Positive for nose bleed. 11:05 Neck: Negative for injury or acute deformity. Exam: 11:05 Constitutional: This is a well developed, well nourished patient who is awake, alert, rafael and in no acute distress. Head/Face: Normocephalic, atraumatic. Eyes: Pupils equal round and reactive to light, extra-ocular motions intact. Lids and lashes normal. Conjunctiva and sclera are non-icteric and not injected. Cornea within normal limits. Periorbital areas with no swelling, redness, or edema. Neck: Trachea midline, no thyromegaly or masses palpated, and no cervical lymphadenopathy. Supple, full range of motion without nuchal rigidity, or vertebral point tenderness. No Meningismus. Chest/axilla: Normal chest wall appearance and motion. Nontender with no deformity. No lesions are appreciated. Cardiovascular: Regular rate and rhythm with a normal S1 and S2. No gallops, murmurs, or rubs. Normal PMI, no JVD. No pulse deficits. Respiratory: Lungs have equal breath sounds bilaterally, clear to auscultation and percussion. No rales, rhonchi or wheezes noted. No increased work of breathing, no retractions or nasal flaring. Abdomen/GI: Soft, non-tender, with normal bowel sounds. No distension or tympany. No guarding or rebound. No evidence of tenderness throughout. Back: No spinal tenderness. No costovertebral tenderness. Full range of motion. Male : Normal genitalia with no discharge or lesions. Skin: Warm, dry with normal turgor. Normal color with no rashes, no lesions, and no evidence of cellulitis. 11:05 ENT: Nose: External nose: no obvious acute abnormality, Nasal septum: deviates to the right, Nasal mucosa: erythematous, bleeding, is seen from the right nare, and is minimal. 11:05 ECG was reviewed by the Attending Physician. Vital Signs: 09:29 BP 180 / 79; Pulse 108; Resp 20 S; Temp 98(TE); Pulse Ox 97% on R/A; Weight 74.84 kg aa5 (R); Height 6 ft. 0 in. (R); 09:50 BP 150 / 75; Pulse 99; Resp 16; Pulse Ox 99% on R/A; db 10:05 BP 107 / 54; Pulse 83; Resp 16; Pulse Ox 97% on R/A; db 11:00 BP 175 / 86; Pulse 81; Resp 16; Pulse Ox 100% on R/A; db 12:00 BP 162 / 85; Pulse 87; Resp 16; Pulse Ox 100% on R/A; db 13:00 BP 176 / 83; Pulse 89; Resp 16; Pulse Ox 100% on R/A; db 14:00 BP 169 / 82; Pulse 89; Resp 16; Pulse Ox 98% on R/A; db 14:30 BP 161 / 78; Pulse 94; Resp 16; Pulse Ox 98% on R/A; db 15:00 BP 158 / 69; Pulse 96; Resp 16; Pulse Ox 95% on R/A; db 15:30 BP 166 / 75; Pulse 91; Resp 18; Pulse Ox 97% on R/A; db 09:29 Body Mass Index 22.38 (74.84 kg, 182.88 cm) aa5 MDM: 09:29 Patient medically screened. snw 09:34 Patient medically screened. rafael 11:25 Differential diagnosis: spontaneous epistaxis. Data reviewed: vital signs, nurses rafael notes, lab test result(s), EKG, radiologic studies, plain films. Consideration of Admission/Observation Escalation of care including admission/observation considered. I considered the following discharge prescriptions or medication management in the emergency department Medications were administered in the Emergency Department. See MAR. Test considered but Not performed: CT: no ct head. Care significantly affected by the following chronic conditions: Hypertension, alcohol, pulmonary htn, etoh use, scleroderma. 12/16 09:35 Order name: Basic Metabolic Panel; Complete Time: 10:39 [facility] 12/16 09:35 Order name: CBC with Diff; Complete Time: 10:39 [facility] 12/16 09:35 Order name: LFT's; Complete Time: 10:39 [facility] 12/16 09:35 Order name: Magnesium; Complete Time: 10:39 [facility] 12/16 09:35 Order name: NT PRO-BNP; Complete Time: 10:39 [facility] 12/16 09:35 Order name: PT-INR; Complete Time: 10:39 [facility] 12/16 09:35 Order name: Troponin HS; Complete Time: 10:39 [facility] 12/16 09:46 Order name: AMMONIA; Complete Time: 10:46 [facility] 12/16 09:46 Order name: Type And Screen; Complete Time: 11:24 [facility] 12/16 10:38 Order name: ABO/RH no charge; Complete Time: 10:39 EDMS 12/16 09:35 Order name: XRAY Chest (1 view); Complete Time: 11:24 [facility] 12/16 09:35 Order name: EKG; Complete Time: 09:36 [facility] 12/16 09:35 Order name: Cardiac monitoring; Complete Time: 10:26 [facility] 12/16 09:35 Order name: EKG - Nurse/Tech; Complete Time: 10:03 [facility] 12/16 09:35 Order name: IV Saline Lock; Complete Time: 10:26 [facility] 12/16 09:35 Order name: Labs collected and sent; Complete Time: 10:03 [facility] 12/16 09:35 Order name: O2 Per Protocol; Complete Time: 10:26 [facility] 12/16 09:35 Order name: O2 Sat Monitoring; Complete Time: 10: [facility] 12/16 10:40 Order name: Ice pack; Complete Time: 11:11 [facility] EC:05 Rate is 100 beats/min. Rhythm is regular. QRS [place] is Normal. [place] interval is normal. [facility] QRS interval is normal. QT interval is normal. No Q waves. T waves are Normal. Clinical impression: Abnormal EKG without significant change and No evidence of ischemia. Interpreted by me. Reviewed by me. Administered Medications: 09:55 Drug: Labetalol IV 5 mg {Note: 5 mg given BP 161/90.} Route: IV; Rate: per protocol; db Site: right antecubital; 16:20 Follow up: Response: No adverse reaction; IV Status: Completed infusion db 10:10 Drug: NS 0.9% IV 250 ml Route: IV; Rate: bolus; Site: right antecubital; db 16:20 Follow up: Response: No adverse reaction; IV Status: Completed infusion; IV Intake: db 250ml 10:30 Drug: NS 0.9% IV 1000 ml Route: IV; Rate: 125 ml/hr; Site: right antecubital; db 16:19 Follow up: Response: No adverse reaction; IV Status: Completed infusion; IV Intake: db 1000ml 10:40 Drug: Famotidine IVP 20 mg Route: IVP; Site: right antecubital; db 16:20 Follow up: Response: No adverse reaction db 11:15 Drug: ceFAZolin IVPB 1 grams Route: IVPB; Site: right antecubital; db 16:19 Follow up: Response: No adverse reaction; IV Status: Completed infusion; IV Intake: 50mldb 11:28 Drug: Thiamine IV 100 mg Route: IV; Rate: bolus; Site: right antecubital; db 16:19 Follow up: IV Status: Completed infusion; IV Intake: 10ml db 11:45 Drug: Furosemide IVP 20 mg Route: IVP; Site: right antecubital; db 16:19 Follow up: Response: No adverse reaction db 13:50 Drug: fentaNYL (PF) IVP 25 mcg Route: IVP; Site: right antecubital; db 16:19 Follow up: Response: No adverse reaction db 13:50 Drug: Ondansetron IVP 4 mg Route: IVP; Site: right antecubital; db 16:19 Follow up: Response: No adverse reaction db 14:20 Drug: fentaNYL (PF) IVP 25 mcg Route: IVP; Site: right antecubital; db 16:19 Follow up: Response: No adverse reaction db Disposition Summary: 12/16/22 12:17 Transfer Ordered Transfer Location: [facility] rafael Reason: Higher level of care rafael Condition: Stable(12/16/22 12:17) rafael Problem: new(12/16/22 12:17) rafael Symptoms: have improved(12/16/22 12:17) rafael Accepting Physician: to susi wells(06/25/23 16:30) db Diagnosis - Epistaxis(12/16/22 12:17) rafael - Adverse effect of anticoagulants - aspirin, plavix rafael - Essential (primary) hypertension(12/16/22 12:17) rafael - Primary pulmonary hypertension rafael - Cardiomegaly(12/16/22 12:17) rafael - Unspecified combined systolic (congestive) and diastolic (congestive) heart rafael failure(12/16/22 12:17) Forms: - Medication Reconciliation Form rafael - SBAR form rafael Signatures: Dispatcher [employer] EDMS Pancho Shahid MD MD cha Waters, Shelly, VEIN PUMPER-C VEIN PUMPER-Brigettew Akua Nascimento RN RN aa5 Shawna Grider RN RN db Corrections: (The following items were deleted from the chart) 12:14 11:09 Home rafael rafael 12:14 11:09 new rafael rafael 12:14 11:09 have improved rafael rafael 12:14 11:09 Stable rafael rafael 12:14 11:09 Epistaxis rafael rafael 12:14 11:09 Essential (primary) hypertension rafael rafael 12:14 11:25 Cardiomegaly rafael rafael 12:14 11:25 Unspecified combined systolic (congestive) and diastolic (congestive) heart rafael failure rafael 16:30 12:[address] diaz [facility]olic rafael db
[2022-12-16] MEDS ORDERED: CEFAZOLIN SODIUM 1 GM/VIAL ONE (11:23)
[2022-12-16] MEDS ORDERED: NA CHLORIDE 0.9% 100 ML ONE (11:23)
[2022-12-16] MEDS ORDERED: THIAMINE 200 MG/2 ML INJ ONE (11:23)
[2022-12-16] MEDS ORDERED: FUROSEMIDE 20 MG/ 2ML VIAL ONE (11:43)
[2022-12-16] MEDS ORDERED: ONDANSETRON 4 MG/2 ML VIAL ONE (13:51)
[2022-12-16] MEDS ORDERED: FENTANYL CITR 100 MCG/2 ML ONE (13:51)
[2022-12-16] MEDS ORDERED: NA CHLORIDE 0.9% 500 ML ONE (14:13)
[2022-12-16 16:53] VITALS: TEMP 98
[2022-12-16 17:03] VITALS: BP 166/75; O2SAT 97
--- NOTE | 2022-12-17 17:13 | EKG ---
Test Date: 2022-12-16 Test Time: 09:46:49 Wrapper Stemmer Operator: LUCI MEASUREMENT RESULTS: Intervals: Rate: 100 AR: 142 QRSD: 96 QT: 356 QTc: 459 [place]: P: 69 AR: 142 QRS: 125 T: 14 INTERPRETIVE STATEMENTS: Normal sinus rhythm Incomplete right bundle branch block Possible Right ventricular hypertrophy Cannot rule out Inferior infarct, age undetermined Abnormal ECG Compared to ECG 12/08/2010 23:45:59 Incomplete right bundle-branch block now present Myocardial infarct finding now present Electronically Signed On 12-17-22 17:10:48 CDT by Smooth Richards
--- NOTE | 2022-12-17 20:37 | CON ---
Date of Consultation: 12/16/2022 Chief Complaint: Right intranasal bleeding. History Of Present Illness: The patient is a 57-year-old male who presented to the emergency room by private car after experiencing an acute onset of right intranasal bleeding. The patient is approximately 3 days postop from a right carotid endarterectomy. He has been on aspirin and Plavix, and he drinks approximately 4 to 5 alcohol drinks per day. He could not get the bleeding stopped with nasal pinching. Thus, he presented to the emergency room and I was consulted for further evaluation and recommendations. Currently, he is still oozing out the front of the nose and he has moderate anxiety. No other ENT complaints today. He does have a history of nasal trauma in the past. Medications: Ambrisentan, tadalafil, mycophenolate mofetil, aspirin, losartan, atorvastatin, clopidogrel, pantoprazole, [place] Thyroid, Farxiga. Past Medical History: Pulmonary hypertension, anemia, scleroderma recently diagnosed, vascular disease. Past Surgical History: Right wrist surgery and 3 days postop from right carotid endarterectomy, 12/13/2022. Social History: He quit tobacco approximately 1 year ago, but patient uses alcohol 5 drinks daily. No illicit drugs. Family History: Noncontributory. Allergies: NO KNOWN DRUG ALLERGIES. Review of Systems: Constitutional: Negative for fever, chills, or weight loss. Eyes: Negative for redness, discharge, or pain. Neck: Evidence of recent right carotid endarterectomy with graft intact, but negative for pain or swelling. Ears: Negative for otalgia, otorrhea, or hearing loss. Nose: Positive for right nasal cavity bleeding. Negative for rhinorrhea. Positive for right nasal obstruction. Oral Cavity: Positive for posterior oropharyngeal blood, presumably from a posterior nasal bleed on the right. Negative for sore throat or dysphagia. Psych: Positive for anxiety. Physical Examination: General: The patient is awake, alert, and oriented to person, place, and time and is in no acute distress. Head: Atraumatic, normocephalic. Eyes: PERRLA/EOMI. Ears: Deferred. Nose: Left nasal cavity is patent. Moist mucosa. The patient is having dripping of blood from the right nasal cavity despite nasal compression. Oral Cavity: Moist oral mucosa with evidence of bright red blood located in the posterior oropharynx. He has petechiae of the tongue. Neck: Supple. Trachea midline. There is no evidence of hematoma over the surgical site. Procedure: Control of right posterior nasal cavity epistaxis with EpiStax balloon. This is a CPT code 51658. After obtaining verbal consent, a Rhino rocket was attempted to be placed into the right nasal cavity, but the patient had evidence of septal deviation, whereby the pack could not be advanced posteriorly, thus it was removed and I opted for an EpiStax balloon, which was easily inserted into the right nasal cavity and the posterior balloon was inflated with saline up to 5 cc and then I inflated the anterior balloon up to 7 cc of saline. The catheter was held intact with tape and a mustache dressing was placed. Diagnosis: Acute right nasal epistaxis, stable, status post EpiStax balloon catheter placement. Recommendations: 1. Recommend we hold blood thinners and control blood pressure. Once stable, recommend that he be transferred to [facility] for further care and treatment as he is a recent surgical patient. 2. Recommend that the pack stays in place for 72 hours until the blood pressure is controlled and the blood thinners have had time to wear off. Thank you for this most interesting consultation. RAFA/RADHA Voice ID: [id number] Report ID: [id number] PATRICIA
== END 2022-12-16 16:30 | disposition short-term general hospital (02) ==
LOC: ER 09:25
DX: R04.0 Epistaxis (principal); T45.515A Adverse effect of anticoagulants, initial encounter; I27.0 Primary pulmonary hypertension; I51.7 Cardiomegaly; I50.40 Unspecified combined systolic (congestive) and diastolic (congestive) heart failure; Z98.890 Other specified postprocedural states
CPT/HCPCS: 96365; 96367; 93005; 85025; 80048; 36415; 82140; 86900; 83735; 86850; 85610; 86901; 80076; 84484; 83880; 71045; 96375; 99285; 96366; J3411; J1940; J3010; J2405; J7040; J7030; J0690

== ENCOUNTER 2023-09-06 06:32 | Day surgery (SDC) | payer OTHER ==
[2023-09-05 16:12] LABS: Absolute Eosinophils 0.4 K/uL (0-0.5); Absolute Lymphocytes (CBC) 0.7 K/uL (0.7-4.9); Absolute Monocytes 0.6 K/uL (0.1-1.3); Eosinophils % 7.6 % (0-4.4); Hematocrit 30.7 % (39.6-49.0); Hemoglobin 10.3 g/dL (13.6-17.9); Lymphocytes % 15.6 % (15.3-44.8); MCHC 33.4 g/dL (32.0-36.0); MCV 86.8 fL (80-100); MPV 9.6 fL (7.6-11.3); Monocytes % 12.7 % (3.3-12.3); Neutrophils % 63.1 % (41.7-73.7); Platelets 205 thou/uL (152-406); RBC Red Blood Cell Count 3.54 M/uL (4.33-5.43); Red Cell Distribution Width 14.9 % (12.1-15.2)
--- NOTE | 2023-09-05 16:16 | RAD REPORT ---
EXAM DESCRIPTION: RAD - Chest Pa And Lat (2 Views) - 09/05/2023 4:08 pm CLINICAL HISTORY: pre op for surgery Chest pain. TECHNIQUE: PA and lateral views of the chest were obtained. FINDINGS: The lungs are hyperexpanded compatible with COPD. The heart is upper limit of normal in si ze. No fracture or aggressive bony process. IMPRESSION: COPD without acute process identified. The USPSTF recommends annual screening for lung cancer with low-dose CT (LDCT) in adults aged 50 to 8 0 years who have a 20 pack-year smoking history and currently smoke or have quit within the past 15 y ears.
[2023-09-05 16:34] LABS: Anion Gap 7.6 mEq/L (5.0-15.0); Potassium 3.6 mEq/L (3.5-5.1)
[2023-09-06] MEDS ORDERED: FENTANYL CITR 100 MCG/2 ML ONE (06:44)
[2023-09-06] MEDS ORDERED: dexAMETHasone 10 MG/ML VIAL ONE (06:44)
[2023-09-06] MEDS ORDERED: ONDANSETRON 4 MG/2 ML VIAL ONE (06:44)
[2023-09-06] MEDS ORDERED: LIDOCAINE 1% MPF 5 ML VIAL ONE (06:44)
[2023-09-06] MEDS ORDERED: KETOROLAC 30 MG/ML INJ ONE (06:44)
[2023-09-06] MEDS ORDERED: MIDAZOLAM HCL 2 MG/2 ML INJ ONE (06:44)
[2023-09-06] MEDS ORDERED: propofoL 200 MG/20 ML VIAL IV ONE (06:44)
[2023-09-06] MEDS: Ringers Lactate 1,000 ML IV ONE (06:55)
[2023-09-06] MEDS ORDERED: EPHEDRINE SULF 50 MG/ML VIAL ONE (07:52)
[2023-09-06] MEDS: CEFAZOLIN SODIUM 1 GM/VIAL ONE (07:54)
--- NOTE | 2023-09-06 08:25 | P.BOP ---
Preoperative diagnosis: LEft groin infected subQ mass with abscess, cellulitis Postoperative diagnosis: same Primary procedure: Excisional biopsy of LEft groin infected subQ mass with abscess drainage Secondary procedure: 5 x 4 x 1.5 cm Estimated blood loss: <10cc Specimen: mass, culture Findings: as above Anesthesia: General Complications: None Drain(s): Other Transferred to: Recovery Room Condition: Good
--- NOTE | 2023-09-06 09:18 | OP ---
Date of Procedure: 09/06/2023 Surgeon: Luis Gonzalez MD Preoperative Diagnoses: Left groin infected subcutaneous mass with abscess and cellulitis, also scle roderma. Postoperative Diagnoses: Left groin infected subcutaneous mass with abscess and cellulitis, also scl eroderma. Procedure: Excisional biopsy of left groin infected subcutaneous mass with abscess drainage. The ar ea is about 5 x 4 x 1.5 cm. Estimated Blood Loss: Less than 10 cc. Specimens: Mass and culture. Findings: Dense tissue, subcutaneous mass with association of an abscess deep. Anesthesia: General plus local. Indications: This is a case of a 58-year-old patient who comes with enlarging and growing mass with redness, increased temperature, with the subcutaneous mass with obvious cellulitis and abscess, so we offered him urgent excisional biopsy of this infected subcutaneous mass with abscess drainage. The benefits, alternatives, and risks fully explained, which include, but not limited to infection, bleed ing, damage to adjacent structures, anesthesia complication, nonhealing wound, [place], even . He al so understands this may not relieve the symptoms. He might need more than one surgical intervention. 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 Aysha dickey was previously treated with the p.o. antibiotics, but that was unsuccessful. We are going to [place] the antibiotics, but this time, we are going to do dressing changes at the same time. He underst ood, signed a consent patient. Description Of Procedure: Area was marked by me and the patient in the holding room. The patient br ought to the operating room, placed in supine position, anesthesia was without complication. Left gr oin was prepped and draped in a sterile fashion. Local anesthesia was applied after time-out and the n after that, a wedge incision of the skin to include the skin and subcutaneous mass all the way down to the abscess. Cultures were obtained. Mass was excised. There was a very dense tissue in that a bibiana, probably associated with his scleroderma. The area was irrigated, hemostasis obtained and the a bibiana was packed with wet-to-dry dressing. Patient tolerated the procedure well. Patient was sent to Recovery in stable condition. GUDELIA/MODGerman Voice ID: [id number] Report ID: [id number]
--- NOTE | 2023-09-06 09:18 | DS ---
Diagnoses: Left groin infected subcutaneous mass with abscess and cellulitis. Procedure: Excisional biopsy of left groin infected subcutaneous mass with abscess drainage. Disposition: Home. Condition: Stable. Activity: As tolerated. No heavy lifting. Followup: Followup in my office in 1 week, call for appointment at [phone]. Wet-to-dry normal sali ne daily. GUDELIA/RADHA Voice ID: [id number] Report ID: [id number]
[2023-09-06] MEDS: CODEINE 30MG/APAP 300MG TAB ONE (09:33)
[2023-09-06 10:36] VITALS: BP 146/79; TEMP 97.4; O2SAT 96
--- NOTE | 2023-09-06 17:23 | EKG ---
Test Date: 2023-09-05 Test Time: 15:55:20 Design Editor: JEFFERSON MEASUREMENT RESULTS: Intervals: Rate: 78 IN: 176 QRSD: 108 QT: 410 QTc: 467 [place]: P: 73 IN: 176 QRS: 128 T: 45 INTERPRETIVE STATEMENTS: Normal sinus rhythm Possible Left atrial enlargement Incomplete right bundle branch block Left posterior fascicular block Possible Anterior infarct, age undetermined Abnormal ECG Compared to ECG 12/16/2022 09:46:49 Left posterior fascicular block now present Myocardial infarct finding still present Electronically Signed On 09-06-23 17:20:25 CDT by Smooth Richards
== END 2023-09-06 10:02 | disposition home or self-care (01) ==
LOC: OR 06:32
PROVIDERS: ATTEND Surgery
PROC: 0JBM0ZZ Excision of Left Upper Leg Subcutaneous Tissue and Fascia, Open Approach (ICD-10-PCS; principal; 2023-09-06 07:30)
DX: L72.0 Epidermal cyst (principal); L02.214 Cutaneous abscess of groin; L03.314 Cellulitis of groin; L94.0 Localized scleroderma [morphea]
CPT/HCPCS: 93005; 87070; 85025; 80048; 36415; 87205; 88304; 87075; 71046; 11406; J2704; J2001; J2250; J3010; J1100; J2405; J7120; J0690